=== PATIENT | female | born 1990 | race Hispanic/Latino ===

== ENCOUNTER 2017-11-28 19:26 | Emergency (ER) | payer OTHER ==
--- OUTSIDE RECORDS SUMMARY | 2017-11-28 19:28 | XMS REPORT | Clinical Summary ---
:1990 Author Organization [facility] Address [address] [place] [address] Phone Care Team Providers Name Role Phone Unavailable Primary Care Provider Unavailable Allergies Active Allergy Reactions Severity Noted Date Comments Latex, Natural Rubber Rash High 2017 Current Medications Prescription Sig. Disp. Refills Start Date End Date Status ondansetron Take 1 tablet 30 tablet 0 11/09/2017 12/09/2017 Active (ZOFRAN-ODT) 4 MG (4 mg total) disintegrating by mouth tablet every 8 (eight) hours as needed for up to 30 days. acetaminophen Take 500 mg Active (TYLENOL) 325 MG by mouth tablet every 6 (six) hours as needed for Pain. HYDROcodone-acetamin Take 1 tablet 30 tablet 0 11/09/2017 11/17/2017 Discontinued ophen (NORCO 5-325) by mouth 5-325 mg per tablet every 4 (four) hours as needed for up to 10 days. Max Daily Amount: 6 tablets Active Problems Problem Noted Date NUCLEAR REACTOR ENGINEER (ventriculoperitoneal) shunt status 11/17/2017 Headache 11/07/2017 Acute intractable headache, unspecified headache type 11/07/2017 Encounters Date Type Specialty Care Team Description 11/17/2017 - Hospital Encounter General Internal Janee Bateman VP 11/20/2017 Medicine (ventriculoperitoneal YaryFreddy simmsD ) shunt status;Fever, Rubén, unspecified fever Krystle Wong, cause;Peritonitis ([facility]);Nausea and vomiting, intractability of vomiting not specified, unspecified vomiting type;Constipation, unspecified constipation type 11/07/2017 Anesthesia Event Felecia Burt MD 11/07/2017 Procedure Pass 11/07/2017 Surgery Karo, JUAN,VENTRICULO-P MD Pop ERITONEAL SHUNT 2017 - Hospital Encounter General Internal Azael Cai Acute intractable 11/09/2017 Medicine MD Linsey headache, unspecified Admary Titilola headache type;Yulia RMD Cathy ventricle;S/P NUCLEAR REACTOR ENGINEER shunt after 11/27/2016 Social History Tobacco Use Types Packs/Day Years Used Date Never Smoker Smokeless Tobacco: Never Used Sex Assigned at Date Recorded Not on file Last Filed Vital Signs Vital Sign Reading Time Taken Blood Pressure 129/59 11/20/2017 3:27 PM CDT Pulse 82 11/20/2017 3:27 PM CDT Temperature 36.7 C (98.1 F) 11/20/2017 3:27 PM CDT Respiratory Rate 18 11/20/2017 3:27 PM CDT Oxygen Saturation 94% 11/20/2017 3:27 PM CDT Inhaled Oxygen Concentration - - Weight 103 kg (227 lb) 11/17/2017 11:20 PM CDT Height 152.4 cm (5') 11/17/2017 11:20 PM CDT Body Mass Index 44.33 11/17/2017 11:20 PM CDT Plan of Treatment Not on file Implants Implanted Type Area Desktop Publisher Device Expiration Model / Identifier Date Serial / Lot [facility] Full Strlprep 10ml [id number] - [id number] Cement/Fi Left: SWIFT: BIOSCI 03/06/2019 [id number] / Implanted: Qty: 1 on 11/07/2017 by Pop Huddleston MD ller/Pk Head / melissae [id number] Cath Csf Alyx Prog Shunt [id number] - [id number] Neuro Left: J &J:DALILA 12/01/2017 [id number] / Implanted: Qty: 1 on 11/07/2017 by Pop Huddleston MD Head & URTLEMARY / [id number] Valve Inline With Siphongaurd Left: DALILA 12/01/2021 [id number] / Implanted: Qty: 1 on 11/07/2017 by Pop Huddleston MD Head / [id number] Procedures Procedure Name Priority Date/Time Associated Diagnosis Comments REVISION,VENTRICULO-PER 11/07/2017 4:00 PM FOOD SERVICE REPRESENTATIVE HYDROCEPHALUS ITONEAL SHUNT Special Needs (REQ URGENT) after 11/27/2016 Results Calcium, Ionized (11/20/2017 5:38 AM)Only the most recent of4 resultswithin the time period is included. Component Value Ref Range Calcium, Ion 1.06 (L) 1.12 - 1.27 mmol/L pH, Blood 7.21 Specimen Performing Laboratory Blood - Arm, [address] [address] Prothrombin time/INR (11/20/2017 5:38 AM)Only the most recent of3 resultswithin the time period is included. Component Value Ref Range Protime 15.5 (H) 11.7 - 14.7 seconds INR 1.2 <=5.9 Specimen Performing Laboratory Blood - Arm, [address] [address] Narrative RECOMMENDED COUMADIN/WARFARIN INR THERAPY RANGES STANDARD DOSE: 2.0 - 3.0 Includes: PROPHYLAXIS for venous thrombosis, systemic embolization; TREATMENT for venous thrombosis and/or pulmonary embolus. HIGH RISK: Target INR is 2.5-3.5 for patients with mechanical heart valves. Magnesium (11/20/2017 5:38 AM)Only the most recent of6 resultswithin the time period is included. Component Value Ref Range Magnesium 2.0 1.6 - 2.6 mg/dL Specimen Performing Laboratory Blood - Arm, [address] [address] Hepatic function panel (11/20/2017 5:38 AM)Only the most recent of3 resultswithin the time period is included. Component Value Ref Range Protein, Total 7.2 6.0 - 8.3 gm/dL Albumin 3.7 3.5 - 5.0 g/dL Total Bilirubin <0.3 0.2 - 1.2 mg/dL Bilirubin, Direct 0.1 0.1 - 0.5 mg/dL Alkaline Phosphatase 165 (H) 40 - 150 U/L AST 26 5 - 34 U/L ALT 54 6 - 55 U/L Specimen Performing Laboratory Blood - Arm, [address] [address] Lipid panel (11/20/2017 5:38 AM)Only the most recent of3 resultswithin the time period is included. Component Value Ref Range Triglycerides 92 mg/dL Cholesterol 192 mg/dL HDL 45 mg/dL LDL Calculated 129 mg/dL Specimen Performing Laboratory Blood - Arm, [address] [address] Narrative Triglyceride Reference Range: Low Risk <150 [id number] High Risk 200-499 Very High Risk>=500 Cholesterol Reference Range: Low Risk <200 [id number] High Risk>240 HDL Cholesterol Reference Range: Low Risk >=60 High Risk <40 LDL Cholesterol Reference Range: Optimal<100 Near [id number] [id number] Very High >=190 Basic metabolic panel (11/20/2017 5:38 AM)Only the most recent of5 resultswithin the time period is included. Component Value Ref Range Sodium 143 136 - 145 meq/L Potassium 4.1 3.5 - 5.1 meq/L Chloride 117 (H) 98 - 107 meq/L CO2 13 (L) 22 - 29 meq/L BUN 17 7 - 21 mg/dL Creatinine 1.56 (H) 0.57 - 1.25 mg/dL Glucose 78 70 - 105 mg/dL Calcium 8.7 8.4 - 10.2 mg/dL EGFR 40Comment: ESTIMATED GFR IS NOT ACCURATE mL/min/1.73 sq m CREATININE CLEARANCE IN PREDICTING GLOMERULAR FILTRATION RATE. ESTIMATED GFR IS NOT APPLICABLE FOR DIALYSIS PATIENTS. Specimen Performing Laboratory Blood - Arm, [address] [address] Vitamin B12 and Folate (11/19/2017 5:46 AM) Component Value Ref Range Vitamin B12 235 213 - 816 pg/mL Folate 6.6 (L) >=7.0 ng/mL Specimen Performing Laboratory Blood - Arm, [address] [address] TSH/Free T4 If Indicated (11/19/2017 5:46 AM) Component Value Ref Range TSH 5.74 (H) 0.35 - 4.94 uIU/mL Specimen Performing Laboratory Blood - Arm, [address] [address] Vitamin D, 25-Hydroxy (11/19/2017 5:46 AM) Component Value Ref Range Vitamin D 25-Hydroxy 10.7 6.6 - 49.9 ng/mL Specimen Performing Laboratory Blood - Arm, [address] [address] Narrative Effective 06/13/2017: Reference Range Change New: 6.6-49.9 ng/mL Previous: 13.0-47.8 ng/mL Recommended Vitamin D Target Range: 30.0-40.0 ng/mL CBC (Hemogram only) (11/19/2017 5:46 AM) Component Value Ref Range WBC 10.8 (H) 3.5 - 10.5 K/L RBC 3.76 (L) 3.93 - 5.22 M/L Hemoglobin 8.4 (L) 11.2 - 15.7 GM/DL Hematocrit 30.3 (L) 34.1 - 44.9 % MCV 80.6 79.4 - 94.8 fL MCH 22.3 (L) 25.6 - 32.2 pg MCHC 27.7 (L) 32.2 - 35.5 GM/DL RDW 17.8 (H) 11.7 - 14.4 % Platelets 418 150 - 450 K/CU MM MPV 10.4 9.4 - 12.3 fL nRBC 0 0 - 0 /100 WBC Specimen Performing Laboratory Blood - Arm, [address] [address] T4, free (11/19/2017 5:46 AM) Component Value Ref Range Free T4 1.27 0.70 - 1.48 ng/dL Specimen Performing Laboratory Blood - Arm, [address] [address] Prealbumin (11/19/2017 5:46 AM) Component Value Ref Range Prealbumin 19 14 - 45 mg/dL Specimen Performing Laboratory Blood - Arm, [address] [address] Lipase (11/19/2017 5:46 AM) Component Value Ref Range Lipase 12 8 - 78 U/L Specimen Performing Laboratory Blood - Arm, [address] [address] Comprehensive metabolic panel (11/19/2017 5:46 AM) Component Value Ref Range Protein, Total 7.2 6.0 - 8.3 gm/dL Albumin 3.6 3.5 - 5.0 g/dL Alkaline Phosphatase 189 (H) 40 - 150 U/L Total Bilirubin 0.3 0.2 - 1.2 mg/dL Sodium 141 136 - 145 meq/L Potassium 4.0 3.5 - 5.1 meq/L Chloride 117 (H) 98 - 107 meq/L CO2 13 (L) 22 - 29 meq/L BUN 15 7 - 21 mg/dL Creatinine 1.46 (H) 0.57 - 1.25 mg/dL Glucose 81 70 - 105 mg/dL Calcium 8.5 8.4 - 10.2 mg/dL AST 59 (H) 5 - 34 U/L ALT 81 (H) 6 - 55 U/L EGFR 44Comment: ESTIMATED GFR IS NOT ACCURATE mL/min/1.73 sq m CREATININE CLEARANCE IN PREDICTING GLOMERULAR FILTRATION RATE. ESTIMATED GFR IS NOT APPLICABLE FOR DIALYSIS PATIENTS. Specimen Performing Laboratory Blood - Arm, Right [address] [address] Clostridium difficile Toxin PCR (11/18/2017 3:25 PM) Component Value Ref Range C.Diff Toxin, PCR Not Detected Not Detected Specimen Performing Laboratory Stool [address] [address] Narrative This qualitative real-time polymerase chain reaction assay detects the tcdB gene, encoded on the C.difficile pathogenicity locus (PaLoc).The product of tcdB , toxin B, is a cytotoxin essential for causing C.difficile-associated disease (CDAD) and is found in virtually all toxigenic C.difficile. This assay is performed for patients suspected of having either community- acquired or nosocomial CDAD.Accordingly, only symptomatic patients should be tested and formed stools will be rejected unless ileus is present (i.e., specified when ordering).Patients may be colonized with toxigenic C.difficile strains not causing active disease; therefore, clinical correlation is needed when deciding how to manage patients with a positive test result. The assay has not been validated as a test of cure as amplifiable nucleic acid may persist after effective treatment; therefore, follow-up testing of a positive result is not recommended. XR abdomen / KUB 1 view (11/18/2017 8:23 AM) Specimen Performing Laboratory GE RIS Narrative FINAL REPORT Frontal views of the abdomen HISTORY: Abdominal distention COMPARISON: None. IMPRESSION: Previously administered oral contrast material outlines the colon. Nondistended air-filled loops of small bowel and colon are seen in a nonobstructive pattern. There is a moderate amount of stool in the rectum. Partially visualized shunt catheter in the left abdomen. Lung bases are clear. Signed: Roger Poe MD Report Verified Date/Time:11/18/2017 08:39:46 Reading Location: [address] Body Reading Room Procedure Note Interface, External Ris In - 11/18/2017 8:41 AM CDT FINAL REPORT Frontal views of the abdomen HISTORY: Abdominal distention COMPARISON: None. IMPRESSION: Previously administered oral contrast material outlines the colon. Nondistended air-filled loops of small bowel and colon are seen in a nonobstructive pattern. There is a moderate amount of stool in the rectum. Partially visualized shunt catheter in the left abdomen. Lung bases are clear. Signed: Roger Poe MD Report Verified Date/Time: 11/18/2017 08:39:46 Reading Location: [facility] C013Y CT Body Reading Room with platelet count + automated diff (11/18/2017 4:50 AM)Only the most recent of4 resultswithin the time period is included. Component Value Ref Range WBC 17.3 (H) 3.5 - 10.5 K/L RBC 3.48 (L) 3.93 - 5.22 M/L Hemoglobin 7.7 (L) 11.2 - 15.7 GM/DL Hematocrit 28.1 (L) 34.1 - 44.9 % MCV 80.7 79.4 - 94.8 fL MCH 22.1 (L) 25.6 - 32.2 pg MCHC 27.4 (L) 32.2 - 35.5 GM/DL RDW 17.8 (H) 11.7 - 14.4 % Platelets 370 150 - 450 K/CU MM MPV 10.7 9.4 - 12.3 fL nRBC 0 0 - 0 /100 WBC % Neutros 77 % % Lymphs 13 % % Monos 5 % % Eos 4 % % Baso 0 % # Neutros 13.38 (H) 1.56 - 6.13 K/L # Lymphs 2.23 1.18 - 3.74 K/L # Monos 0.89 (H) 0.24 - 0.36 K/L # Eos 0.67 (H) 0.04 - 0.36 K/L # Baso 0.03 0.01 - 0.08 K/L Immature Granulocytes-Relative 1 0 - 1 % Specimen Performing Laboratory Blood - Arm, Left [facility] [address] [address] CBC with platelet count + automated diff (11/18/2017 4:50 AM)Only the most recent of4 resultswithin the time period is included. Specimen Performing Laboratory Blood Narrative The following orders were created for panel order CBC with platelet count + automated diff. Procedure Abnormality Status --------- ------ CBC with platelet count ...[[id number]]AbnormalFinal result Please view results for these tests on the individual orders. US abdomen complete (11/17/2017 9:41 PM) Specimen Performing Laboratory Celect Narrative FINAL REPORT Ultrasound of the Abdomen, complete Clinical History:Ascites Discussion: Sonographic evaluation of the abdomen was performed. There is no prior study for comparison. Liver: 10.7 cm in length at the right midclavicular line.Mildly echogenic parenchyma.No lesion is identified by ultrasound.Main portal vein diameter 0.7 cm and demonstrates hepatopetal flow Biliary tree:Common duct 4 mm.No biliary ductal dilatation. Gallbladder: Physiologically distended with small layering sludge or small stones. Gallbladder adenomyomatosis. No wall thickening, pericholecystic fluid or sonographic Mckinney sign. Pancreas: Obscured by bowel gas. Ascites:None seen Spleen:Normal size and echogenicity measuring 10.6 x 3.7 x 4.3 cm. Kidneys: Both kidneys are echogenic and not well visualized. The right kidney is atrophic with poor corticomedullary differentiation. The right kidney measures 10.2 x 4 x 4 cm. There is a 1.6 x 1.1 x 1.5 cm cyst in the upper pole of the right kidney. The left kidney measures 9.5 x 4.7 x 4.7 cm with cortical thickness of 1 cm. There is a 2 x 1.3 x 1.9 cm cyst in the left renal upper pole. There is no hydronephrosis or definite shadowing stone. IVC/Aorta:Segments partially seen.Unremarkable. Impression: Mildly echogenic liver which may be seen with parenchymal disease such as fatty infiltration. Cholelithiasis. No biliary ductal dilatation. Echogenic kidneys suggesting medical renal disease. Atrophic right kidney. Small bilateral renal cysts. Clinical correlation is recommended. No ascites. Signed: Roberto Lizama MD Report Verified Date/Time:11/17/2017 23:11:49 Reading Location: [address] Transitional Reading Room Procedure Note Interface, External Ris In - 11/17/2017 11:14 PM CDT FINAL REPORT Ultrasound of the Abdomen, complete Clinical History: Ascites Discussion: Sonographic evaluation of the abdomen was performed. There is no prior study for comparison. Liver: 10.7 cm in length at the right midclavicular line. Mildly echogenic parenchyma. No lesion is identified by ultrasound. Main portal vein diameter 0.7 cm and demonstrates hepatopetal flow Biliary tree: Common duct 4 mm. No biliary ductal dilatation. Gallbladder: Physiologically distended with small layering sludge or small stones. Gallbladder adenomyomatosis. No wall thickening, pericholecystic fluid or sonographic Mckinney sign. Pancreas: Obscured by bowel gas. Ascites: None seen Spleen: Normal size and echogenicity measuring 10.6 x 3.7 x 4.3 cm. Kidneys: Both kidneys are echogenic and not well visualized. The right kidney is atrophic with poor corticomedullary differentiation. The right kidney measures 10.2 x 4 x 4 cm. There is a 1.6 x 1.1 x 1.5 cm cyst in the upper pole of the right kidney. The left kidney measures 9.5 x 4.7 x 4.7 cm with cortical thickness of 1 cm. There is a 2 x 1.3 x 1.9 cm cyst in the left renal upper pole. There is no hydronephrosis or definite shadowing stone. IVC/Aorta: Segments partially seen. Unremarkable. Impression: Mildly echogenic liver which may be seen with parenchymal disease such as fatty infiltration. Cholelithiasis. No biliary ductal dilatation. Echogenic kidneys suggesting medical renal disease. Atrophic right kidney. Small bilateral renal cysts. Clinical correlation is recommended. No ascites. Signed: Roberto Lizama MD Report Verified Date/Time: 11/17/2017 23:11:49 Reading Location: [facility] Reading Room Urine culture (11/17/2017 3:29 PM)Only the most recent of2 resultswithin the time period is included. Component Value Ref Range Result No growth Specimen Performing Laboratory Urine - Urine, Urostomy [address] [address] RHYTHM STRIP - SCAN (11/12/2017 11:40 AM)Phosphorus (11/09/2017 5:34 AM)Only the most recent of3 resultswithin the time period is included. Component Value Ref Range Phosphorus 3.4 2.3 - 4.7 mg/dL Specimen Performing Laboratory Blood [address] [address] XR shunt series (11/08/2017 9:00 PM)Only the most recent of2 resultswithin the time period is included. Specimen Performing Laboratory GE RIS Narrative FINAL REPORT EXAM: SHUNT SERIES INDICATION: postop COMPARISON: November 07, 2017 TECHNIQUE: Radiographs of the skull, chest, and abdomen. FINDINGS: Interval placement of right transfrontal ventriculoperitoneal shunt catheter with tip near midline. The distal limb is intact without breakage or kinking. Adjustable flow device: Codman Certas set to performance level four. Chest: The lungs are clear. Abdomen: The bowel gas pattern is unremarkable. Additional Findings: Previously described occipital approach NUCLEAR REACTOR ENGINEER shunt catheter unchanged when compared to the prior exam. Disconnected right-sided catheter segment is also changed as it overlies the thoracic cavity. IMPRESSION: Interval placement of a Codman Certas NUCLEAR REACTOR ENGINEER shunt set to performance level 4. Signed: JR Nettles Robert MD Report Verified Date/Time:11/08/2017 21:37:02 Reading Location: [address] Reading Room Procedure Note Interface, External Ris In - 11/08/2017 9:39 PM FOOD SERVICE REPRESENTATIVE FINAL REPORT EXAM: SHUNT SERIES INDICATION: postop COMPARISON: November 07, 2017 TECHNIQUE: Radiographs of the skull, chest, and abdomen. FINDINGS: Interval placement of right transfrontal ventriculoperitoneal shunt catheter with tip near midline. The distal limb is intact without breakage or kinking. Adjustable flow device: Codman Certas set to performance level four. Chest: The lungs are clear. Abdomen: The bowel gas pattern is unremarkable. Additional Findings: Previously described occipital approach NUCLEAR REACTOR ENGINEER shunt catheter unchanged when compared to the prior exam. Disconnected right-sided catheter segment is also changed as it overlies the thoracic cavity. IMPRESSION: Interval placement of a Codman Certas NUCLEAR REACTOR ENGINEER shunt set to performance level 4. Signed: JR Nettles Robert MD Report Verified Date/Time: 11/08/2017 21:37:02 Reading Location: [address] Reading Room SFUSION SERVICE REPORT - SCAN (11/08/2017 5:41 PM)CT brain without IV contrast (11/08/2017 5:54 AM)Only the most recent of2 resultswithin the time period is included. Specimen Performing Laboratory [email or web address] RIS Narrative FINAL REPORT CT Head without contrast CLINICAL HISTORY: Hydrocephalus, communicating TECHNIQUE: Contiguous axial images through the head without contrast. This exam was performed according to the departmental dose optimization program which includes automated exposure control, adjustment of the mA and/or kV according to the patient size, and/or use of an iterative reconstruction technique. COMPARISON: 11/07/2017 FINDINGS: There is been interval placement of a left frontal approach ventricular shunt catheter terminating to the left of the septum pellucidum. The previous left posterior approach shunt catheter is unchanged. There is expected pneumocephalus. The degree of hydrocephalus is currently unchanged. There is no CT evidence for acute infarct or hemorrhage. There is no midline shift. The cerebellar tonsils are again low lying protruding into the foramen magnum. IMPRESSION: Since 11/07/2017, interval placement of a left frontal approach ventricular shunt catheter as discussed above. Signed: Sam Key MD Report Verified Date/Time:11/08/2017 08:07:55 Reading Location: [facility] Reading Room Procedure Note Interface, External Ris In - 11/08/2017 8:10 AM FOOD SERVICE REPRESENTATIVE FINAL REPORT CT Head without contrast CLINICAL HISTORY: Hydrocephalus, communicating TECHNIQUE: Contiguous axial images through the head without contrast. This exam was performed according to the departmental dose optimization program which includes automated exposure control, adjustment of the mA and/or kV according to the patient size, and/or use of an iterative reconstruction technique. COMPARISON: 11/07/2017 FINDINGS: There is been interval placement of a left frontal approach ventricular shunt catheter terminating to the left of the septum pellucidum. The previous left posterior approach shunt catheter is unchanged. There is expected pneumocephalus. The degree of hydrocephalus is currently unchanged. There is no CT evidence for acute infarct or hemorrhage. There is no midline shift. The cerebellar tonsils are again low lying protruding into the foramen magnum. IMPRESSION: Since 11/07/2017, interval placement of a left frontal approach ventricular shunt catheter as discussed above. Signed: Sam Key MD Report Verified Date/Time: 11/08/2017 08:07:55 Reading Location: [facility] Radiology Reading Room Screen, urine (11/07/2017 8:41 AM) Component Value Ref Range Preg Test, Ur Negative Specimen Performing Laboratory Urine - Urine, Voided [address] [address] Urinalysis w/Microscopic (11/07/2017 8:41 AM) Component Value Ref Range Color, UA Light Yellow Clarity, UA Hazy Specific [place], UA 1.006 1.001 - 1.035 pH, UA 7.5 5.0 - 8.0 Protein, UA 30 mg/dL (A) Negative Glucose, UA Negative Negative Ketones, UA Negative Negative Bilirubin, UA Negative Negative Blood, UA Negative Negative Nitrite, UA Negative Negative Leukocytes, UA Moderate (A) Negative Urobilinogen, UA 6.0 (H) 0.2 - 1.0 mg/dL RBC, UA 2 /HPF WBC, UA 1 /HPF Amorphous Crystals Moderate Specimen Source Urine, Voided Specimen Performing Laboratory Urine - Urine, Voided [address] [address] Type and screen, automated (11/07/2017 3:06 AM) Component Value Ref Range ABO/RH AUTOMATED (BEAKER) A POSITIVE Ab Scrn NEGATIVEComment: Echo 2 Specimen Performing Laboratory Blood - Arm, Right [address] [address] PT/aPTT (11/07/2017 3:06 AM) Component Value Ref Range Protime 15.6 (H) 11.7 - 14.7 seconds INR 1.2 <=5.9 PTT 31.1 22.5 - 36.0 seconds Specimen Performing Laboratory Blood - Arm, Right [address] [address] Narrative RECOMMENDED COUMADIN/WARFARIN INR THERAPY RANGES STANDARD DOSE: 2.0 - 3.0 Includes: PROPHYLAXIS for venous thrombosis, systemic embolization; TREATMENT for venous thrombosis and/or pulmonary embolus. HIGH RISK: Target INR is 2.5-3.5 for patients with mechanical heart valves. after 11/27/2016
--- OUTSIDE RECORDS SUMMARY | 2017-11-28 19:29 | XMS REPORT ---
:1990 [facility] [address] [place] [address] Care Team Providers Name Role Phone OLIVIA PERAZA Unavailable Unavailable DYLAN ADAMS Unavailable Unavailable Problems This patient has no known problems. Allergies, Adverse Reactions, Alerts This patient has no known allergies or adverse reactions. Medications This patient has no known medications. Results Test Description Test Time Test Comments Text Results Atomic Results Result Comments MAGNESIUM 2017-11-20 13:05:00 Test Item Value Reference Range Comments MAGNESIUM (BEAKER) (test wzqf=639) 2.0 mg/dL 1.6-2.6 BASIC METABOLIC [id number] 12:48:00 Test Item Value Reference Range Comments SODIUM (BEAKER) (test 143 meq/L 136-145 zfrf=437) POTASSIUM (BEAKER) (test 4.1 meq/L 3.5-5.1 zkdt=734) CHLORIDE (BEAKER) (test 117 meq/L 98-107 twgm=619) CO2 (BEAKER) (test 13 meq/L 22-29 owpm=795) BLOOD UREA NITROGEN 17 mg/dL 7-21 (BEAKER) (test mclh=702) CREATININE (BEAKER) (test 1.56 mg/dL 0.57-1.25 nhev=476) GLUCOSE RANDOM (BEAKER) 78 mg/dL 70-105 (test auew=983) CALCIUM (BEAKER) (test 8.7 mg/dL 8.4-10.2 knbr=641) EGFR (BEAKER) (test 40 mL/min/1.73 sq m ESTIMATED GFR IS NOT tiuh=0212) ACCURATE CREATININE CLEARANCE IN PREDICTING GLOMERULAR FILTRATION RATE. ESTIMATED GFR IS NOT APPLICABLE FOR DIALYSIS PATIENTS. LIPID [id number] 12:48:00 Test Item Value Reference Range Comments TRIGLYCERIDES (BEAKER) (test hslg=608) 92 mg/dL CHOLESTEROL (BEAKER) (test tkvd=473) 192 mg/dL HDL CHOLESTEROL (BEAKER) (test pvjm=340) 45 mg/dL LDL CHOLESTEROL CALCULATED (BEAKER) (test 129 mg/dL arsh=371) Triglyceride Reference Range: Low Risk <150 Borderline 150- 199 High Risk 200-499 Very High Risk >=500Cholesterol Reference Range: Low Risk <200 Borderline 200-239 High Risk > 240HDL Cholesterol Reference Range: Low Risk >=60 High Risk <40LDL Cholesterol Reference Range: Optimal <100 Near Optimal 100-129 Borderline 130-159 High 160-189 Very High >=190HEPATIC FUNCTION [id number] 12:48:00 Test Item Value Reference Range Comments TOTAL PROTEIN (BEAKER) (test psrv=174) 7.2 gm/dL 6.0-8.3 ALBUMIN (BEAKER) (test jafn=4785) 3.7 g/dL 3.5-5.0 BILIRUBIN TOTAL (BEAKER) (test mise=182) < mg/dL 0.2-1.2 BILIRUBIN DIRECT (BEAKER) (test hstz=819) 0.1 mg/dL 0.1-0.5 ALKALINE PHOSPHATASE (BEAKER) (test vvdq=412) 165 U/L 40-150 AST (SGOT) (BEAKER) (test bsjc=231) 26 U/L 5-34 ALT (SGPT) (BEAKER) (test nybz=712) 54 U/L 6-55 CALCIUM, [id number] 08:06:00 Test Item Value Reference Range Comments CALCIUM IONIZED (BEAKER) (test utlv=487) 1.06 mmol/L 1.12-1.27 PH, BLOOD (BEAKER) (test hnel=5558) 7.21 PROTHROMBIN [id number] 06:17:00 Test Item Value Reference Range Comments PROTIME (BEAKER) (test xjli=474) 15.5 seconds 11.7-14.7 INR (BEAKER) (test lgnl=141) 1.2 <=5.9 RECOMMENDED COUMADIN/WARFARIN INR THERAPY RANGESSTANDARD DOSE: 2.0 - 3.0 Includes: PROPHYLAXIS forvenous thrombosis, systemic embolization; TREATMENT for venous thrombosis and/or pulmonary embolus.HIGH RISK: Target INR is 2.5-3.5 for patients with mechanical heart valves.T4, [id number] 17:02:00 Test Item Value Reference Range Comments FREE T4 (BEAKER) (test rwut=672) 1.27 ng/dL 0.70-1.48 [id number] 12:17:00 Test Item Value Reference Range Comments PREALBUMIN (BEAKER) (test rqoy=211) 19 mg/dL 14-45 [id number] 11:57:00 Test Item Value Reference Range Comments MAGNESIUM (BEAKER) (test cnag=416) 2.0 mg/dL 1.6-2.6 VITAMIN D, [id number] 11:30:00 Test Item Value Reference Range Comments VITAMIN D 25-OH (BEAKER) (test ohee=5275) 10.7 ng/mL 6.6-49.9 Effective 06/13/2017: Reference Range ChangeNew: 6.6-49.9 ng/mL Previous: 13.0 -47.8 ng/mLRecommended Vitamin D Target Range: 30.0-40.0 ng/mLVITAMIN B12 AND [id number] 11:30:00 Test Item Value Reference Range Comments VITAMIN B12 (BEAKER) (test sgpv=316) 235 pg/mL 213-816 FOLATE (BEAKER) (test hllr=940) 6.6 ng/mL >=7.0 TSH/FREE T4 IF [id number] 11:30:00 Test Item Value Reference Range Comments THYROID STIMULATING HORMONE (BEAKER) (test 5.74 uIU/mL 0.35-4.94 psjo=739) LIPID [id number] 10:51:00 Test Item Value Reference Range Comments TRIGLYCERIDES (BEAKER) (test kdzy=813) 95 mg/dL CHOLESTEROL (BEAKER) (test xfar=416) 180 mg/dL HDL CHOLESTEROL (BEAKER) (test isng=335) 47 mg/dL LDL CHOLESTEROL CALCULATED (BEAKER) (test 114 mg/dL uyhf=861) Triglyceride Reference Range: Low Risk <150 Borderline 150- 199 High Risk 200-499 Very High Risk >=500Cholesterol Reference Range: Low Risk <200 Borderline 200-239 High Risk > 240HDL Cholesterol Reference Range: Low Risk >=60 High Risk <40LDL Cholesterol Reference Range: Optimal <100 Near Optimal 100-129 Borderline 130-159 High 160-189 Very High >=190HEPATIC FUNCTION [id number] 10:51:00 Test Item Value Reference Range Comments TOTAL PROTEIN (BEAKER) (test gdsk=567) 7.2 gm/dL 6.0-8.3 ALBUMIN (BEAKER) (test rver=9333) 3.6 g/dL 3.5-5.0 BILIRUBIN TOTAL (BEAKER) (test qjcj=725) 0.3 mg/dL 0.2-1.2 BILIRUBIN DIRECT (BEAKER) (test gdpi=295) 0.2 mg/dL 0.1-0.5 ALKALINE PHOSPHATASE (BEAKER) (test xhqa=304) 189 U/L 40-150 AST (SGOT) (BEAKER) (test iohg=856) 59 U/L 5-34 ALT (SGPT) (BEAKER) (test hacl=390) 81 U/L 6-55 COMPREHENSIVE METABOLIC [id number] 10:51:00 Test Item Value Reference Range Comments TOTAL PROTEIN (BEAKER) 7.2 gm/dL 6.0-8.3 (test nskf=608) ALBUMIN (BEAKER) (test 3.6 g/dL 3.5-5.0 apxx=3020) ALKALINE PHOSPHATASE 189 U/L 40-150 (BEAKER) (test hlyh=565) BILIRUBIN TOTAL (BEAKER) 0.3 mg/dL 0.2-1.2 (test zqot=483) SODIUM (BEAKER) (test 141 meq/L 136-145 wduv=965) POTASSIUM (BEAKER) (test 4.0 meq/L 3.5-5.1 oqef=595) CHLORIDE (BEAKER) (test 117 meq/L 98-107 cyuo=129) CO2 (BEAKER) (test 13 meq/L 22-29 pzjw=432) BLOOD UREA NITROGEN 15 mg/dL 7-21 (BEAKER) (test xhca=806) CREATININE (BEAKER) (test 1.46 mg/dL 0.57-1.25 vwfp=168) GLUCOSE RANDOM (BEAKER) 81 mg/dL 70-105 (test koor=877) CALCIUM (BEAKER) (test 8.5 mg/dL 8.4-10.2 zpti=086) AST (SGOT) (BEAKER) (test 59 U/L 5-34 bbar=520) ALT (SGPT) (BEAKER) (test 81 U/L 6-55 smrt=946) EGFR (BEAKER) (test 44 mL/min/1.73 sq m ESTIMATED GFR IS NOT vkwy=0386) ACCURATE CREATININE CLEARANCE IN PREDICTING GLOMERULAR FILTRATION RATE. ESTIMATED GFR IS NOT APPLICABLE FOR DIALYSIS PATIENTS. [id number] 10:51:00 Test Item Value Reference Range Comments LIPASE (BEAKER) (test mjey=948) 12 U/L 8-78 URINE [id number] 09:46:00 Test Item Value Reference Range Comments CULTURE (BEAKER) (test rvxo=6044) No growth CLOSTRIDIUM DIFFICILE TOXIN [id number] 09:04:00 Test Item Value Reference Range Comments CLOSTRIDIUM DIFFICILE TOXIN, PCR ([facility]) (test Not Detected Not Detected swjd=0174) This qualitative real-time polymerase chain reaction assay detects the tcdB gene , encoded on the C.difficile pathogenicity locus (PaLoc). The product of tcdB, toxin B, is a cytotoxin essential for causing C.difficile-associated disease ( CDAD) and is found in virtually all toxigenic C.difficile.This assay is performed for patients suspected of having either community-acquired or nosocomial CDAD. Accordingly, only symptomatic patients should be tested and formed stools will be rejected unless ileus is present (i.e., specified when ordering). Patients may be colonized with toxigenic C.difficile strains not causing active disease; therefore, clinical correlation is needed when deciding how to manage patients with a positive test result.The assay has not been validated as a test of cure as amplifiable nucleic acid may persist after effective treatment; therefore, follow-up testing of a positive result is not recommended.CALCIUM, [id number] 07:10:00 Test Item Value Reference Range Comments CALCIUM IONIZED (BEAKER) (test suse=592) 1.14 mmol/L 1.12-1.27 PH, BLOOD (BEAKER) (test yprk=5268) 7.22 CALCIUM, [id number] 06:43:00 Test Item Value Reference Range Comments CALCIUM IONIZED (BEAKER) (test icfh=218) 0.82 mmol/L 1.12-1.27 PH, BLOOD (BEAKER) (test pcvi=3722) 7.32 CBC (HEMOGRAM ONLY)2017-11-19 06:29:00 Test Item Value Reference Range Comments WHITE BLOOD CELL COUNT (BEAKER) (test pfxm=886) 10.8 K/ L 3.5-10.5 RED BLOOD CELL COUNT (BEAKER) (test hqnd=822) 3.76 M/ L 3.93-5.22 HEMOGLOBIN (BEAKER) (test wean=242) 8.4 GM/DL 11.2-15.7 HEMATOCRIT (BEAKER) (test cpny=778) 30.3 % 34.1-44.9 MEAN CORPUSCULAR VOLUME (BEAKER) (test nkdi=297) 80.6 fL 79.4-94.8 MEAN CORPUSCULAR HEMOGLOBIN (BEAKER) (test 22.3 pg 25.6-32.2 kepu=534) MEAN CORPUSCULAR HEMOGLOBIN CONC (BEAKER) (test 27.7 GM/DL 32.2-35.5 mtgy=094) RED CELL DISTRIBUTION WIDTH (BEAKER) (test 17.8 % 11.7-14.4 bjbl=882) PLATELET COUNT (BEAKER) (test doop=122) 418 K/CU MM 150-450 MEAN PLATELET VOLUME (BEAKER) (test hpnz=789) 10.4 fL 9.4-12.3 NUCLEATED RED BLOOD CELLS (BEAKER) (test 0 /100 WBC 0-0 ttji=801) PROTHROMBIN [id number] 06:20:00 Test Item Value Reference Range Comments PROTIME (BEAKER) (test igak=232) 15.7 seconds 11.7-14.7 INR (BEAKER) (test qtms=332) 1.2 <=5.9 RECOMMENDED COUMADIN/WARFARIN INR THERAPY RANGESSTANDARD DOSE: 2.0 - 3.0 Includes: PROPHYLAXIS forvenous thrombosis, systemic embolization; TREATMENT for venous thrombosis and/or pulmonary embolus.HIGH RISK: Target INR is 2.5-3.5 for patients with mechanical heart valves.RAD, ABDOMEN/KUB, 1 VIEW [id number] 08:39:00Reason for exam:->abdominal distension'Should this be performed at the bedside?->YesFINAL REPORT Frontal views of the abdomen HISTORY: Abdominal distention COMPARISON: None. IMPRESSION: Previously administered oral contrast material outlines the colon. Nondistended air-filled loops of small bowel and colon are seen in a nonobstructive pattern. There is a moderate amount of stool in the rectum. Partially visualized shunt catheter in the left abdomen. Lung bases are clear. Signed: Roger Small MDReport Verified Date/Time: 11/18/2017 08:39:46 Reading Location:[facility] C013Y CT Body Reading Room CALCIUM, [id number] 07:00:00 Test Item Value Reference Range Comments CALCIUM IONIZED (BEAKER) (test bdel=107) 1.12 mmol/L 1.12-1.27 PH, BLOOD (BEAKER) (test gkct=5123) 7.18 CBC W/PLT COUNT & AUTO [id number] 06:37:00 Test Item Value Reference Range Comments WHITE BLOOD CELL COUNT (BEAKER) (test zwbi=713) 17.3 K/ L 3.5-10.5 RED BLOOD CELL COUNT (BEAKER) (test pjzu=250) 3.48 M/ L 3.93-5.22 HEMOGLOBIN (BEAKER) (test mows=681) 7.7 GM/DL 11.2-15.7 HEMATOCRIT (BEAKER) (test wplj=820) 28.1 % 34.1-44.9 MEAN CORPUSCULAR VOLUME (BEAKER) (test rxxj=818) 80.7 fL 79.4-94.8 MEAN CORPUSCULAR HEMOGLOBIN (BEAKER) (test 22.1 pg 25.6-32.2 ljyb=547) MEAN CORPUSCULAR HEMOGLOBIN CONC (BEAKER) (test 27.4 GM/DL 32.2-35.5 bmjs=667) RED CELL DISTRIBUTION WIDTH (BEAKER) (test 17.8 % 11.7-14.4 xxdd=780) PLATELET COUNT (BEAKER) (test affd=051) 370 K/CU MM 150-450 MEAN PLATELET VOLUME (BEAKER) (test wcdu=271) 10.7 fL 9.4-12.3 NUCLEATED RED BLOOD CELLS (BEAKER) (test 0 /100 WBC 0-0 ywkj=779) NEUTROPHILS RELATIVE PERCENT (BEAKER) (test 77 % anyo=559) LYMPHOCYTES RELATIVE PERCENT (BEAKER) (test 13 % uone=726) MONOCYTES RELATIVE PERCENT (BEAKER) (test 5 % kali=656) EOSINOPHILS RELATIVE PERCENT (BEAKER) (test 4 % hyxr=614) BASOPHILS RELATIVE PERCENT (BEAKER) (test 0 % fiee=696) NEUTROPHILS ABSOLUTE COUNT (BEAKER) (test 13.38 K/ L 1.56-6.13 evyr=746) LYMPHOCYTES ABSOLUTE COUNT (BEAKER) (test 2.23 K/ L 1.18-3.74 wazl=942) MONOCYTES ABSOLUTE COUNT (BEAKER) (test 0.89 K/ L 0.24-0.36 juwp=743) EOSINOPHILS ABSOLUTE COUNT (BEAKER) (test 0.67 K/ L 0.04-0.36 yraj=405) BASOPHILS ABSOLUTE COUNT (BEAKER) (test 0.03 K/ L 0.01-0.08 tsbv=590) IMMATURE GRANULOCYTES-RELATIVE PERCENT (BEAKER) 1 % 0-1 (test cjnn=5160) [id number] 05:50:00 Test Item Value Reference Range Comments MAGNESIUM (BEAKER) (test oblz=932) 2.1 mg/dL 1.6-2.6 BASIC METABOLIC [id number] 05:50:00 Test Item Value Reference Range Comments SODIUM (BEAKER) (test 141 meq/L 136-145 sbiz=460) POTASSIUM (BEAKER) (test 4.2 meq/L 3.5-5.1 nfct=065) CHLORIDE (BEAKER) (test 119 meq/L 98-107 sdtu=893) CO2 (BEAKER) (test 13 meq/L 22-29 zmfw=430) BLOOD UREA NITROGEN 20 mg/dL 7-21 (BEAKER) (test kbub=305) CREATININE (BEAKER) (test 1.52 mg/dL 0.57-1.25 hebm=778) GLUCOSE RANDOM (BEAKER) 76 mg/dL 70-105 (test awpn=462) CALCIUM (BEAKER) (test 8.1 mg/dL 8.4-10.2 xsdb=549) EGFR (BEAKER) (test 42 mL/min/1.73 sq m ESTIMATED GFR IS NOT btlw=0193) ACCURATE CREATININE CLEARANCE IN PREDICTING GLOMERULAR FILTRATION RATE. ESTIMATED GFR IS NOT APPLICABLE FOR DIALYSIS PATIENTS. LIPID [id number] 05:50:00 Test Item Value Reference Range Comments TRIGLYCERIDES (BEAKER) (test oxxm=109) 58 mg/dL CHOLESTEROL (BEAKER) (test zbmr=013) 129 mg/dL HDL CHOLESTEROL (BEAKER) (test lfxb=738) 39 mg/dL LDL CHOLESTEROL CALCULATED (BEAKER) (test 78 mg/dL pfac=515) Triglyceride Reference Range: Low Risk <150 Borderline 150- 199 High Risk 200-499 Very High Risk >=500Cholesterol Reference Range: Low Risk <200 Borderline 200-239 High Risk > 240HDL Cholesterol Reference Range: Low Risk >=60 High Risk <40LDL Cholesterol Reference Range: Optimal <100 Near Optimal 100-129 Borderline 130-159 High 160-189 Very High >=190HEPATIC FUNCTION [id number] 05:50:00 Test Item Value Reference Range Comments TOTAL PROTEIN (BEAKER) (test rldz=102) 6.2 gm/dL 6.0-8.3 ALBUMIN (BEAKER) (test mcvw=5539) 3.1 g/dL 3.5-5.0 BILIRUBIN TOTAL (BEAKER) (test zuoy=734) 0.4 mg/dL 0.2-1.2 BILIRUBIN DIRECT (BEAKER) (test pugk=042) 0.3 mg/dL 0.1-0.5 ALKALINE PHOSPHATASE (BEAKER) (test ugje=252) 204 U/L 40-150 AST (SGOT) (BEAKER) (test jbpm=493) 138 U/L 5-34 ALT (SGPT) (BEAKER) (test vhkj=551) 107 U/L 6-55 PROTHROMBIN [id number] 05:22:00 Test Item Value Reference Range Comments PROTIME (BEAKER) (test ihwf=519) 17.0 seconds 11.7-14.7 INR (BEAKER) (test tbgg=372) 1.4 <=5.9 RECOMMENDED COUMADIN/WARFARIN INR THERAPY RANGESSTANDARD DOSE: 2.0 - 3.0 Includes: PROPHYLAXIS forvenous thrombosis, systemic embolization; TREATMENT for venous thrombosis and/or pulmonary embolus.HIGH RISK: Target INR is 2.5-3.5 for patients with mechanical heart valves.U/S, ABDOMINAL, [id number] 23: 11:00Reason for exam:->ASCITESFINAL REPORT Ultrasound of the Abdomen, complete Clinical [...] kidney is atrophic with poor corticomedullary differentiation. Theright kidney measures 10.2 x 4 x 4 [...] Clinical correlation is recommended. No ascites. Signed: Lisa Lizama MDReport Verified Date/Time: 11/17/2017 23:11 :49 Reading Location: [address] Transitional Reading Room URINE [id number] 10:40:00 Test Item Value Reference Range Comments CULTURE (BEAKER) (test nuix=0630) Amikacin (test code=1) Ampicillin + Sulbactam (test code=6) Aztreonam (test code=32) Cefepime (test code=51) Cefoxitin (test code=68) Ceftazidime (test code=27) Ceftriaxone (test code=52) Ertapenem (test code=38) Gentamicin (test code=18) Levofloxacin (test code=22) Meropenem (test code=34) Nitrofurantoin (test code=23) Piperacillin + Tazobactam (test code=29) Tetracycline (test code=2) Tobramycin (test code=25) Trimethoprim + Sulfamethoxazole (test code=47) CULTURE (BEAKER) (test KLEBSIELLA SPECIES 20-29,000 col/mL rgir=5269) Klebsiella species Amikacin (test code=1) Ampicillin + Sulbactam (test code=6) Aztreonam (test code=32) Cefepime (test code=51) Cefoxitin (test code=68) Ceftazidime (test code=27) Ceftriaxone (test code=52) Ertapenem (test code=38) Gentamicin (test code=18) Levofloxacin (test code=22) Meropenem (test code=34) Nitrofurantoin (test code=23) Piperacillin + Tazobactam (test code=29) Tetracycline (test code=2) Tobramycin (test code=25) Trimethoprim + Sulfamethoxazole (test code=47) CULTURE (BEAKER) (test 20-29,000 col/mL acft=6949) Klebsiella speciesof a second type >100,000 col/mL skin [id number] 07:47:00 Test Item Value Reference Range Comments PHOSPHORUS (BEAKER) (test bybz=680) 3.4 mg/dL 2.3-4.7 [id number] 07:47:00 Test Item Value Reference Range Comments MAGNESIUM (BEAKER) (test crry=738) 2.2 mg/dL 1.6-2.6 BASIC METABOLIC [id number] 07:47:00 Test Item Value Reference Range Comments SODIUM (BEAKER) (test 141 meq/L 136-145 lsui=544) POTASSIUM (BEAKER) (test 3.4 meq/L 3.5-5.1 qoco=291) CHLORIDE (BEAKER) (test 116 meq/L 98-107 zipm=224) CO2 (BEAKER) (test 17 meq/L 22-29 ejiq=393) BLOOD UREA NITROGEN 17 mg/dL 7-21 (BEAKER) (test iryz=947) CREATININE (BEAKER) (test 1.41 mg/dL 0.57-1.25 mcxp=510) GLUCOSE RANDOM (BEAKER) 85 mg/dL 70-105 (test feba=398) CALCIUM (BEAKER) (test 8.3 mg/dL 8.4-10.2 etst=289) EGFR (BEAKER) (test 45 mL/min/1.73 sq m ESTIMATED GFR IS NOT xpee=7935) ACCURATE CREATININE CLEARANCE IN PREDICTING GLOMERULAR FILTRATION RATE. ESTIMATED GFR IS NOT APPLICABLE FOR DIALYSIS PATIENTS. CBC W/PLT COUNT & AUTO [id number] 06:28:00 Test Item Value Reference Range Comments WHITE BLOOD CELL COUNT (BEAKER) (test thfl=493) 13.7 K/ L 3.5-10.5 RED BLOOD CELL COUNT (BEAKER) (test xgja=383) 3.94 M/ L 3.93-5.22 HEMOGLOBIN (BEAKER) (test swun=446) 8.8 GM/DL 11.2-15.7 HEMATOCRIT (BEAKER) (test fyvb=288) 32.0 % 34.1-44.9 MEAN CORPUSCULAR VOLUME (BEAKER) (test jhmu=173) 81.2 fL 79.4-94.8 MEAN CORPUSCULAR HEMOGLOBIN (BEAKER) (test 22.3 pg 25.6-32.2 vxel=833) MEAN CORPUSCULAR HEMOGLOBIN CONC (BEAKER) (test 27.5 GM/DL 32.2-35.5 qcns=609) RED CELL DISTRIBUTION WIDTH (BEAKER) (test 18.3 % 11.7-14.4 onth=533) PLATELET COUNT (BEAKER) (test hinj=917) 424 K/CU MM 150-450 MEAN PLATELET VOLUME (BEAKER) (test chpo=266) 10.4 fL 9.4-12.3 NUCLEATED RED BLOOD CELLS (BEAKER) (test 0 /100 WBC 0-0 ashu=137) NEUTROPHILS RELATIVE PERCENT (BEAKER) (test 75 % osoc=414) LYMPHOCYTES RELATIVE PERCENT (BEAKER) (test 19 % lzng=586) MONOCYTES RELATIVE PERCENT (BEAKER) (test 5 % sbsb=048) EOSINOPHILS RELATIVE PERCENT (BEAKER) (test 1 % ctav=259) BASOPHILS RELATIVE PERCENT (BEAKER) (test 0 % vjli=410) NEUTROPHILS ABSOLUTE COUNT (BEAKER) (test 10.23 K/ L 1.56-6.13 lnht=190) LYMPHOCYTES ABSOLUTE COUNT (BEAKER) (test 2.64 K/ L 1.18-3.74 ieqa=593) MONOCYTES ABSOLUTE COUNT (BEAKER) (test 0.71 K/ L 0.24-0.36 kyfo=095) EOSINOPHILS ABSOLUTE COUNT (BEAKER) (test 0.07 K/ L 0.04-0.36 onvp=001) BASOPHILS ABSOLUTE COUNT (BEAKER) (test 0.03 K/ L 0.01-0.08 xmhl=117) IMMATURE GRANULOCYTES-RELATIVE PERCENT (BEAKER) 0 % 0-1 (test qwhs=1049) RAD, SHUNT [id number] 21:37:00Reason for exam:->postopFINAL REPORT EXAM: SHUNT SERIES INDICATION: postop COMPARISON: November TECHNIQUE: Radiographs of the skull, chest, and abdomen. FINDINGS: Interval placement of right transfrontal ventriculoperitoneal shunt catheter with tip near midline. The distal limb is intact without breakage or kinking. Adjustable flow device: Codman Certas set to performance level four. Chest: The lungs are clear. Abdomen: The bowel gas pattern is unremarkable. Additional Findings: Previously described occipital approach NEGATIVE ASSEMBLER shunt catheter unchanged when compared to the prior exam. Disconnected right-sided catheter segment is also changed as it overlies the thoracic cavity. IMPRESSION: Interval placement of a Codman Certas NEGATIVE ASSEMBLER shunt set to performance level 4. Signed: JR Yoon, Casi Coleman Verified Date/Time: 11/08/2017 21:37:02 Reading Location: [address] CT, BRAIN, WITHOUT [id number] 08:07:00FINAL REPORT CT Head without contrast CLINICAL HISTORY: Hydrocephalus, communicating TECHNIQUE: Contiguous axial images through the head without contrast. This exam was performedaccording to the departmental dose optimization program which [...] shunt catheter as discussed above. Signed: Sam Lee MDReport Verified Date/Time: 11/08/2017 08:07:55 Reading Location: [facility] Radiology Reading Room Electronically signed by: SAM LEE M.D. on 08:07 AMCBC W/PLT COUNT & AUTO [id number] 07:52:00 Test Item Value Reference Range Comments WHITE BLOOD CELL COUNT (BEAKER) (test cdly=749) 14.4 K/ L 3.5-10.5 RED BLOOD CELL COUNT (BEAKER) (test jwwe=863) 3.84 M/ L 3.93-5.22 HEMOGLOBIN (BEAKER) (test gglm=213) 8.6 GM/DL 11.2-15.7 HEMATOCRIT (BEAKER) (test pekx=966) 31.5 % 34.1-44.9 MEAN CORPUSCULAR VOLUME (BEAKER) (test dnxs=147) 82.0 fL 79.4-94.8 MEAN CORPUSCULAR HEMOGLOBIN (BEAKER) (test 22.4 pg 25.6-32.2 ycdv=578) MEAN CORPUSCULAR HEMOGLOBIN CONC (BEAKER) (test 27.3 GM/DL 32.2-35.5 pttl=117) RED CELL DISTRIBUTION WIDTH (BEAKER) (test 18.0 % 11.7-14.4 gxsx=241) PLATELET COUNT (BEAKER) (test ywmv=812) 405 K/CU MM 150-450 MEAN PLATELET VOLUME (BEAKER) (test gzqv=296) 10.3 fL 9.4-12.3 NUCLEATED RED BLOOD CELLS (BEAKER) (test 0 /100 WBC 0-0 murx=060) NEUTROPHILS RELATIVE PERCENT (BEAKER) (test 92 % tuuv=447) LYMPHOCYTES RELATIVE PERCENT (BEAKER) (test 5 % mfby=221) MONOCYTES RELATIVE PERCENT (BEAKER) (test 2 % npug=314) EOSINOPHILS RELATIVE PERCENT (BEAKER) (test 0 % uykx=522) BASOPHILS RELATIVE PERCENT (BEAKER) (test 0 % rfuu=328) NEUTROPHILS ABSOLUTE COUNT (BEAKER) (test 13.26 K/ L 1.56-6.13 tmoh=286) LYMPHOCYTES ABSOLUTE COUNT (BEAKER) (test 0.78 K/ L 1.18-3.74 yvzh=944) MONOCYTES ABSOLUTE COUNT (BEAKER) (test 0.29 K/ L 0.24-0.36 yedm=218) EOSINOPHILS ABSOLUTE COUNT (BEAKER) (test 0.00 K/ L 0.04-0.36 fzgs=203) BASOPHILS ABSOLUTE COUNT (BEAKER) (test 0.01 K/ L 0.01-0.08 hujy=260) IMMATURE GRANULOCYTES-RELATIVE PERCENT (BEAKER) 0 % 0-1 (test ujxl=6179) BASIC METABOLIC [id number] 07:30:00 Test Item Value Reference Range Comments SODIUM (BEAKER) (test 143 meq/L 136-145 hvxm=003) POTASSIUM (BEAKER) (test 4.3 meq/L 3.5-5.1 xkaw=353) CHLORIDE (BEAKER) (test 121 meq/L 98-107 vjmy=260) CO2 (BEAKER) (test 12 meq/L 22-29 bafb=438) BLOOD UREA NITROGEN 16 mg/dL 7-21 (BEAKER) (test kspl=481) CREATININE (BEAKER) (test 1.46 mg/dL 0.57-1.25 wzsd=334) GLUCOSE RANDOM (BEAKER) 94 mg/dL 70-105 (test lucb=820) CALCIUM (BEAKER) (test 8.6 mg/dL 8.4-10.2 ihdf=707) EGFR (BEAKER) (test 44 mL/min/1.73 sq m ESTIMATED GFR IS NOT mhga=3719) ACCURATE CREATININE CLEARANCE IN PREDICTING GLOMERULAR FILTRATION RATE. ESTIMATED GFR IS NOT APPLICABLE FOR DIALYSIS PATIENTS. [id number] 07:23:00 Test Item Value Reference Range Comments PHOSPHORUS (BEAKER) (test kfzb=694) 3.6 mg/dL 2.3-4.7 [id number] 07:23:00 Test Item Value Reference Range Comments MAGNESIUM (KALA) (test urqm=922) 2.3 mg/dL 1.6-2.6 RAD, SHUNT [id number] 13:15:00Reason for exam:->headacheFINAL REPORT Shunt series, 11 images, including AP and lateral views of the skull, neck, chest and abdomen. HISTORY: Headache COMPARISON: None IMPRESSION:Left-sided ventriculoperitoneal shunt catheter appears contiguous throughout its course, terminating in the left upper quadrant of the abdomen. No acute osseous findings. Midline ossification defects noted at the L4 and L5 vertebral bodies. Remainder skeleton appears unremarkable. Heart size normal. Lungs clear without pleural effusion or pneumothorax. Bowel gas pattern nonobstructive. Signed: Karma Sewell MDReport Verified Date/Time: 2017 13:15:42 Reading Location: [facility] Reading Room CT, BRAIN, WITHOUT [id number] 13:03:00FINAL REPORT CT head without contrast. Comparisons: No Reason for exam: Hydrocephalus, communicating. Discussion: Multiple axial CT images of the head are provided without contrast evaluated in brain and bone windows. Dose modulation, iterative reconstruction, and/or weight based adjustment of the mA/kV was utilized to reduce the radiation dose to as low as reasonably achievable. There is no CT evidence of intracranial hemorrhage, mass-effect, hydrocephalus, shift,or extra- axial collections. 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 There is mild prominence of lateral and third ventricular volumes but I do not see gross hydrocephalus. The appearances probably chronic. The left -sided posterior approach NEGATIVE ASSEMBLER shunt extends along the medialaspect of the left lateral ventricle posteriorly and does not definitively extend into the ventricular system. The visualized dural sinus regions, orbital contents, paranasal sinuses, bones and surrounding soft tissues are unremarkable. Impressions: 1. No specific evidence of acute intracranialabnormality. 2. Mild chronic appearing ventricular prominence without specific evidence of acute hydrocephalus. Note description of the intracranial left NEGATIVE ASSEMBLER shunt catheter. There is no definitive intraventricular extension. 3. 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 Signed: Richard Mathew MDReport Verified Date/Time: 11/07/2017 13:03:58 Electronically signed by: RICHARD MATHEW M.D.on 11/07/2017 01:03 PMURINALYSIS W/ [id number] 09:28:00 Test Item Value Reference Range Comments COLOR (BEAKER) (test tbja=157) Light Yellow CLARITY (BEAKER) (test yahj=662) Hazy SPECIFIC GRAVITY UA (BEAKER) (test woic=732) 1.006 1.001-1.035 PH UA (BEAKER) (test bxdr=195) 7.5 5.0-8.0 PROTEIN UA (BEAKER) (test eang=666) 30 mg/dL Negative GLUCOSE UA (BEAKER) (test hofx=446) Negative Negative KETONES UA (BEAKER) (test dsno=088) Negative Negative BILIRUBIN UA (BEAKER) (test rpwf=447) Negative Negative BLOOD UA (BEAKER) (test zmcn=262) Negative Negative NITRITE UA (BEAKER) (test gcyg=974) Negative Negative LEUKOCYTE ESTERASE UA (BEAKER) (test pium=979) Moderate Negative UROBILINOGEN UA (BEAKER) (test eios=796) 6.0 mg/dL 0.2-1.0 RBC UA (BEAKER) (test inqb=429) 2 /HPF WBC UA (BEAKER) (test egcw=952) 1 /HPF AMORPHOUS CRYSTALS (BEAKER) (test kceo=8544) Moderate SOURCE(BEAKER) (test yssv=8135) Urine, Voided SCREEN, [id number] 09:12:00 Test Item Value Reference Range Comments TEST URINE (BEAKER) (test qzkk=757) Negative [id number] 03:34:00 Test Item Value Reference Range Comments PHOSPHORUS (BEAKER) (test quaf=875) 3.5 mg/dL 2.3-4.7 [id number] 03:34:00 Test Item Value Reference Range Comments MAGNESIUM (BEAKER) (test aigt=118) 2.2 mg/dL 1.6-2.6 BASIC METABOLIC [id number] 03:34:00 Test Item Value Reference Range Comments SODIUM (BEAKER) (test 140 meq/L 136-145 uwoe=575) POTASSIUM (BEAKER) (test 3.4 meq/L 3.5-5.1 rwkh=961) CHLORIDE (BEAKER) (test 116 meq/L 98-107 fdmk=187) CO2 (BEAKER) (test 16 meq/L 22-29 znjx=854) BLOOD UREA NITROGEN 15 mg/dL 7-21 (BEAKER) (test shdc=037) CREATININE (BEAKER) (test 1.35 mg/dL 0.57-1.25 fysq=033) GLUCOSE RANDOM (BEAKER) 76 mg/dL 70-105 (test ixsb=057) CALCIUM (BEAKER) (test 8.4 mg/dL 8.4-10.2 bhrd=649) EGFR (BEAKER) (test 48 mL/min/1.73 sq m ESTIMATED GFR IS NOT ndrk=1549) ACCURATE CREATININE CLEARANCE IN PREDICTING GLOMERULAR FILTRATION RATE. ESTIMATED GFR IS NOT APPLICABLE FOR DIALYSIS PATIENTS. CBC W/PLT COUNT & AUTO [id number] 03:33:00 Test Item Value Reference Range Comments WHITE BLOOD CELL COUNT (BEAKER) (test thip=740) 10.7 K/ L 3.5-10.5 RED BLOOD CELL COUNT (BEAKER) (test rhvs=169) 4.18 M/ L 3.93-5.22 HEMOGLOBIN (BEAKER) (test mmez=309) 9.2 GM/DL 11.2-15.7 HEMATOCRIT (BEAKER) (test fblp=025) 33.4 % 34.1-44.9 MEAN CORPUSCULAR VOLUME (BEAKER) (test ozgi=506) 79.9 fL 79.4-94.8 MEAN CORPUSCULAR HEMOGLOBIN (BEAKER) (test 22.0 pg 25.6-32.2 pnvu=748) MEAN CORPUSCULAR HEMOGLOBIN CONC (BEAKER) (test 27.5 GM/DL 32.2-35.5 lojr=367) RED CELL DISTRIBUTION WIDTH (BEAKER) (test 17.6 % 11.7-14.4 qjgz=204) PLATELET COUNT (BEAKER) (test ebty=495) 386 K/CU MM 150-450 MEAN PLATELET VOLUME (BEAKER) (test edxu=198) 10.6 fL 9.4-12.3 NUCLEATED RED BLOOD CELLS (BEAKER) (test 0 /100 WBC 0-0 ufkt=683) NEUTROPHILS RELATIVE PERCENT (BEAKER) (test 68 % cktx=449) LYMPHOCYTES RELATIVE PERCENT (BEAKER) (test 25 % pulx=986) MONOCYTES RELATIVE PERCENT (BEAKER) (test 4 % ctdr=988) EOSINOPHILS RELATIVE PERCENT (BEAKER) (test 2 % imxo=818) BASOPHILS RELATIVE PERCENT (BEAKER) (test 0 % nhap=730) NEUTROPHILS ABSOLUTE COUNT (BEAKER) (test 7.22 K/ L 1.56-6.13 srca=973) LYMPHOCYTES ABSOLUTE COUNT (BEAKER) (test 2.66 K/ L 1.18-3.74 bmgn=555) MONOCYTES ABSOLUTE COUNT (BEAKER) (test 0.47 K/ L 0.24-0.36 lmra=733) EOSINOPHILS ABSOLUTE COUNT (BEAKER) (test 0.26 K/ L 0.04-0.36 actj=608) BASOPHILS ABSOLUTE COUNT (BEAKER) (test 0.01 K/ L 0.01-0.08 lgms=646) IMMATURE GRANULOCYTES-RELATIVE PERCENT (BEAKER) 1 % 0-1 (test nbpp=2626) [id number] 03:28:00 Test Item Value Reference Range Comments PROTIME (BEAKER) (test itdj=429) 15.6 seconds 11.7-14.7 INR (BEAKER) (test jcdp=866) 1.2 <=5.9 PARTIAL THROMBOPLASTIN TIME (BEAKER) (test 31.1 seconds 22.5-36.0 mqen=643) RECOMMENDED COUMADIN/WARFARIN INR THERAPY RANGESSTANDARD DOSE: 2.0 - 3.0 Includes: PROPHYLAXIS forvenous thrombosis, systemic embolization; TREATMENT for venous thrombosis and/or pulmonary embolus.HIGH RISK: Target INR is 2.5-3.5 for patients with mechanical heart valves.
--- NOTE | 2017-11-28 19:59 | ER ---
Nurse's Notes [facility] Name: Yadi De Leon Age: 27 yrs Sex: Female : 1990 Arrival Date: 11/28/2017 Time: 19:28 Bed 24 Private MD: Mayuri Monge Diagnosis: Post-surgical Seroma Presentation: 11/28 19:31 Presenting complaint: Patient states: "I had a BP shunt remove on the . I feel ao like a burning sensation and like if some one stab me in the incision side." Patient report fever at home and denies nausea or vomiting. Transition of care: patient was not received from another setting of care. Onset of symptoms is unknown. Care prior to arrival: None. 19:31 Method Of Arrival: Wheelchair ao 19:31 Acuity: ARIANNA 3 ao Triage Assessment: 19:37 General: Appears in no apparent distress. comfortable, Behavior is calm, cooperative. ao Pain: Complains of pain in abdomen. 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 - Social history:: Smoking status: Patient/guardian denies using tobacco, Patient/guardian denies using alcohol, street drugs. - Family history:: not pertinent. - Hospitalizations: : Patient was recently seen at [facility]. Screenin:55 Abuse screen: Denies threats or abuse. rk2 19:55 Nutritional screening: No deficits noted. Tuberculosis screening: No symptoms or risk rk2 factors identified. Fall Risk None identified. Assessment: 19:55 General: Appears in no apparent distress. well groomed, well developed, well nourished. rk2 19:55 Pain: Complains of pain in abdomen. Neuro: Level of Consciousness is alert, obeys rk2 commands, Oriented to person, place, time, situation. Respiratory: Airway is patent Respiratory effort is even, unlabored, Respiratory pattern is regular, symmetrical. Derm: Skin is intact. Vital Signs: 19:34 BP 114 / 80; Pulse 111; Resp 18; Temp 98.9(O); Pulse Ox 99% on R/A; Weight 102.97 kg ao (R); Height 4 ft. 11 in. (149.86 cm) (R); Pain 8/10; 19:34 Body Mass Index 45.85 (102.97 kg, 149.86 cm) ao ED Course: 19:28 Patient arrived in ED. es 19:28 Mayuri Monge MD is Private Physician. es 19:34 Triage completed. ao 19:35 Arm band placed on right wrist. 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 19:40 Preet Cruz MD is Attending Physician. rn 19:48 Sushila Miguel RN is Primary Nurse. rk2 19:55 Patient has correct armband on for positive identification. Placed in gown. Bed in low rk2 position. Call light in reach. 19:58 Mayuri Monge MD is Referral Physician. rn 20:09 No provider procedures requiring assistance completed. Patient did not have IV access rk2 during this emergency room visit. Administered Medications: No medications were administered Outcome: 19:58 Discharge ordered by . rn 20:09 Discharged to home via wheelchair. rk2 20:09 Condition: good 20:09 Discharge instructions given to patient. 20:10 Patient left the ED. rk2 Signatures: Karen Gary Roman, MD MD rn Ortiz, Alex, RN RN ao Kidder, Rhonda, RN RN rk2
--- NOTE | 2017-11-28 20:00 | EDPHYS ---
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 19:54 The patient presents with abdominal pain in the left lower quadrant. Onset: The rn symptoms/episode began/occurred 3 day(s) ago. Associated signs and symptoms: Pertinent negatives: anorexia, blood in stools, diarrhea, dysuria, fever, vomiting, vomiting blood. The symptoms are described as crampy, intermittent, sharp. Modifying factors: The symptoms are alleviated by nothing, the symptoms are aggravated by touching the area. Severity of pain: At its worst the pain was mild in the emergency department the pain is unchanged. The patient has experienced a previous episode. The patient has been recently seen by a physician:. Reports had RUG SIZER shunt revised 3 weeks ago at [facility], just discharged from [facility] a few days ago due to constipation/ileus from pain medication, states that since then has noticed a small lump underneath surgical incision site on abdomen, no skin changes, no fever, no drainage, intermittent and feels sharp/crampy. . 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 - Social history:: Smoking status: Patient/guardian denies using tobacco, Patient/guardian denies using alcohol, street drugs. - Family history:: not pertinent. - Hospitalizations: : Patient was recently seen at [facility]. ROS: 19:54 Constitutional: Negative for fever, chills, and weight loss, Eyes: Negative for injury, rn pain, redness, and discharge, Neck: Negative for injury, pain, and swelling, Cardiovascular: Negative for chest pain, palpitations, and edema, Respiratory: Negative for shortness of breath, cough, wheezing, and pleuritic chest pain, Abdomen/GI: + abdominal pain, neg for constipation/vomiting/diarrhea Back: Negative for injury and pain, MS/Extremity: Negative for injury and deformity, Skin: Negative for injury, rash, and discoloration, Neuro: Negative for headache, weakness, numbness, tingling, and seizure. Exam: 19:54 Constitutional: This is a well developed, well nourished patient who is awake, alert, rn and in no acute distress. Head/Face: Normocephalic, atraumatic. Eyes: Pupils equal round and reactive to light, extra-ocular motions intact. Lids and lashes normal. Conjunctiva and sclera are non-icteric and not injected. Cornea within normal limits. Periorbital areas with no swelling, redness, or edema. Neck: Trachea midline, no thyromegaly or masses palpated, and no cervical lymphadenopathy. Supple, full range of motion without nuchal rigidity, or vertebral point tenderness. No Meningismus. Abdomen/GI: soft, + small area, approx 2cm diameter firm mass palpated underneath intact and clean LLQ abdominal surgical wound, no erythema, no warmth, non-fluctuant. MS/ Extremity: Pulses equal, no cyanosis. Neurovascular intact. Full, normal range of motion. Equal circumference. Neuro: Awake and alert, GCS 15, oriented to person, place, time, and situation. Cranial nerves II-XII grossly intact. Vital Signs: 19:34 BP 114 / 80; Pulse 111; Resp 18; Temp 98.9(O); Pulse Ox 99% on R/A; Weight 102.97 kg ao (R); Height 4 ft. 11 in. (149.86 cm) (R); Pain 8/10; 19:34 Body Mass Index 45.85 (102.97 kg, 149.86 cm) ao MDM: 19:40 Patient medically screened. rn 19:54 Differential diagnosis: abscess, seroma, postsurgical pain. Data reviewed: vital signs, rn nurses notes, and as a result, I will discharge patient. Counseling: I had a detailed discussion with the patient and/or guardian regarding: the historical points, exam findings, and any diagnostic results supporting the discharge/admit diagnosis, the need for outpatient follow up, to return to the emergency department if symptoms worsen or persist or if there are any questions or concerns that arise at home. Special discussion: I discussed with the patient/guardian in detail that at this point there is no indication for admission to the hospital. It is understood, however, that if the symptoms persist or worsen the patient needs to return immediately for re-evaluation. ED course: Afebrile, swelling right underneath wound, just evaluated a few days ago, bowels normalized again, most likely seroma, will dc home with warm compresses, return precautions, and close f/u with her surgeon. . Administered Medications: No medications were administered Disposition: 11/28/17 19:58 Discharged to Home. Impression: Post-surgical Seroma. - Condition is Stable. - Discharge Instructions: Sterile Tape Wound Care, Seroma, Surgical Site Infections FAQs - [facility]. - Medication Reconciliation Form, Thank You Letter, Antibiotic Education, Prescription Opioid Use form. - Follow up: Mayuri Monge MD; When: As needed; Reason: Recheck today's complaints, Re-evaluation by your physician. - Problem is an ongoing problem. - Symptoms have improved. Signatures: Preet Cruz MD MD rn Ortiz, Alex, RN RN ao Kidder, Rhonda, RN RN rk2
== END 2017-11-28 20:10 | disposition home or self-care (01) ==
LOC: ER 19:26
DX: L76.34 Postprocedural seroma of skin and subcutaneous tissue following other procedure (principal); N28.9 Disorder of kidney and ureter, unspecified; Z91.040 Latex allergy status; Z91.048 Other nonmedicinal substance allergy status
CPT/HCPCS: 99281

== ENCOUNTER 2018-01-20 21:12 | Emergency (ER) | payer OTHER ==
--- OUTSIDE RECORDS SUMMARY | 2018-01-20 21:14 | XMS REPORT ---
:1990 [facility] [address] [place] [address] [place] [id number] Care Team Providers Name Role Phone OLIVIA PERAZA Unavailable Unavailable HERMINIA ADAMSLUCINDA DYLAN Unavailable Unavailable Problems This patient has no known problems. Allergies, Adverse Reactions, Alerts This patient has no known allergies or adverse reactions. Medications This patient has no known medications. Results Test Description Test Time Test Comments Text Results Atomic Results Result Comments MAGNESIUM 2017-11-20 13:05:00 Test Item Value Reference Range Comments MAGNESIUM (BEAKER) (test ottp=863) 2.0 mg/dL 1.6-2.6 BASIC METABOLIC [id number] 12:48:00 Test Item Value Reference Range Comments SODIUM (BEAKER) (test 143 meq/L 136-145 wzec=872) POTASSIUM (BEAKER) (test 4.1 meq/L 3.5-5.1 asei=193) CHLORIDE (BEAKER) (test 117 meq/L 98-107 ejrg=207) CO2 (BEAKER) (test 13 meq/L 22-29 qpgf=899) BLOOD UREA NITROGEN 17 mg/dL 7-21 (BEAKER) (test yluw=963) CREATININE (BEAKER) (test 1.56 mg/dL 0.57-1.25 dgtn=672) GLUCOSE RANDOM (BEAKER) 78 mg/dL 70-105 (test fweq=092) CALCIUM (BEAKER) (test 8.7 mg/dL 8.4-10.2 dnug=674) EGFR (BEAKER) (test 40 mL/min/1.73 sq m ESTIMATED GFR IS NOT ymnr=8164) ACCURATE CREATININE CLEARANCE IN PREDICTING GLOMERULAR FILTRATION RATE. ESTIMATED GFR IS NOT APPLICABLE FOR DIALYSIS PATIENTS. LIPID [id number] 12:48:00 Test Item Value Reference Range Comments TRIGLYCERIDES (BEAKER) (test zphj=971) 92 mg/dL CHOLESTEROL (BEAKER) (test zxny=824) 192 mg/dL HDL CHOLESTEROL (BEAKER) (test fxsi=800) 45 mg/dL LDL CHOLESTEROL CALCULATED (BEAKER) (test 129 mg/dL blik=071) Triglyceride Reference Range: Low Risk <150 Borderline 150- 199 High Risk 200-499 Very High Risk >=500Cholesterol Reference Range: Low Risk <200 Borderline 200-239 High Risk > 240HDL Cholesterol Reference Range: Low Risk >=60 High Risk <40LDL Cholesterol Reference Range: Optimal <100 Near Optimal 100-129 Borderline 130-159 High 160-189 Very High >=190HEPATIC FUNCTION [id number] 12:48:00 Test Item Value Reference Range Comments TOTAL PROTEIN (BEAKER) (test plqu=484) 7.2 gm/dL 6.0-8.3 ALBUMIN (BEAKER) (test bxxa=6261) 3.7 g/dL 3.5-5.0 BILIRUBIN TOTAL (BEAKER) (test kbin=081) < mg/dL 0.2-1.2 BILIRUBIN DIRECT (BEAKER) (test uhcy=018) 0.1 mg/dL 0.1-0.5 ALKALINE PHOSPHATASE (BEAKER) (test vbdg=446) 165 U/L 40-150 AST (SGOT) (BEAKER) (test exvq=026) 26 U/L 5-34 ALT (SGPT) (BEAKER) (test afpv=115) 54 U/L 6-55 CALCIUM, [id number] 08:06:00 Test Item Value Reference Range Comments CALCIUM IONIZED (BEAKER) (test vlah=308) 1.06 mmol/L 1.12-1.27 PH, BLOOD (BEAKER) (test dane=8726) 7.21 PROTHROMBIN [id number] 06:17:00 Test Item Value Reference Range Comments PROTIME (BEAKER) (test xvgy=591) 15.5 seconds 11.7-14.7 INR (BEAKER) (test cqub=682) 1.2 <=5.9 RECOMMENDED COUMADIN/WARFARIN INR THERAPY RANGESSTANDARD DOSE: 2.0 - 3.0 Includes: PROPHYLAXIS forvenous thrombosis, systemic embolization; TREATMENT for venous thrombosis and/or pulmonary embolus.HIGH RISK: Target INR is 2.5-3.5 for patients with mechanical heart valves.T4, [id number] 17:02:00 Test Item Value Reference Range Comments FREE T4 (BEAKER) (test mhum=690) 1.27 ng/dL 0.70-1.48 [id number] 12:17:00 Test Item Value Reference Range Comments PREALBUMIN (BEAKER) (test ylhu=128) 19 mg/dL 14-45 [id number] 11:57:00 Test Item Value Reference Range Comments MAGNESIUM (BEAKER) (test oyol=510) 2.0 mg/dL 1.6-2.6 VITAMIN D, [id number] 11:30:00 Test Item Value Reference Range Comments VITAMIN D 25-OH (BEAKER) (test bhqb=1098) 10.7 ng/mL 6.6-49.9 Effective 06/13/2017: Reference Range ChangeNew: 6.6-49.9 ng/mL Previous: 13.0 -47.8 ng/mLRecommended Vitamin D Target Range: 30.0-40.0 ng/mLVITAMIN B12 AND [id number] 11:30:00 Test Item Value Reference Range Comments VITAMIN B12 (BEAKER) (test pwuj=951) 235 pg/mL 213-816 FOLATE (BEAKER) (test xvhy=626) 6.6 ng/mL >=7.0 TSH/FREE T4 IF [id number] 11:30:00 Test Item Value Reference Range Comments THYROID STIMULATING HORMONE (BEAKER) (test 5.74 uIU/mL 0.35-4.94 vtce=051) LIPID [id number] 10:51:00 Test Item Value Reference Range Comments TRIGLYCERIDES (BEAKER) (test wwqt=003) 95 mg/dL CHOLESTEROL (BEAKER) (test qisf=129) 180 mg/dL HDL CHOLESTEROL (BEAKER) (test xpcv=096) 47 mg/dL LDL CHOLESTEROL CALCULATED (BEAKER) (test 114 mg/dL iwxt=301) Triglyceride Reference Range: Low Risk <150 Borderline 150- 199 High Risk 200-499 Very High Risk >=500Cholesterol Reference Range: Low Risk <200 Borderline 200-239 High Risk > 240HDL Cholesterol Reference Range: Low Risk >=60 High Risk <40LDL Cholesterol Reference Range: Optimal <100 Near Optimal 100-129 Borderline 130-159 High 160-189 Very High >=190HEPATIC FUNCTION [id number] 10:51:00 Test Item Value Reference Range Comments TOTAL PROTEIN (BEAKER) (test evhq=926) 7.2 gm/dL 6.0-8.3 ALBUMIN (BEAKER) (test pxwo=0086) 3.6 g/dL 3.5-5.0 BILIRUBIN TOTAL (BEAKER) (test ztpl=739) 0.3 mg/dL 0.2-1.2 BILIRUBIN DIRECT (BEAKER) (test nytg=100) 0.2 mg/dL 0.1-0.5 ALKALINE PHOSPHATASE (BEAKER) (test hiav=507) 189 U/L 40-150 AST (SGOT) (BEAKER) (test hfvv=782) 59 U/L 5-34 ALT (SGPT) (BEAKER) (test pynz=377) 81 U/L 6-55 COMPREHENSIVE METABOLIC [id number] 10:51:00 Test Item Value Reference Range Comments TOTAL PROTEIN (BEAKER) 7.2 gm/dL 6.0-8.3 (test tzio=414) ALBUMIN (BEAKER) (test 3.6 g/dL 3.5-5.0 ikwa=1312) ALKALINE PHOSPHATASE 189 U/L 40-150 (BEAKER) (test rrxv=170) BILIRUBIN TOTAL (BEAKER) 0.3 mg/dL 0.2-1.2 (test zilb=569) SODIUM (BEAKER) (test 141 meq/L 136-145 tqkv=506) POTASSIUM (BEAKER) (test 4.0 meq/L 3.5-5.1 lryv=233) CHLORIDE (BEAKER) (test 117 meq/L 98-107 ivuc=751) CO2 (BEAKER) (test 13 meq/L 22-29 qlom=173) BLOOD UREA NITROGEN 15 mg/dL 7-21 (BEAKER) (test yblr=444) CREATININE (BEAKER) (test 1.46 mg/dL 0.57-1.25 ixty=115) GLUCOSE RANDOM (BEAKER) 81 mg/dL 70-105 (test sjbk=463) CALCIUM (BEAKER) (test 8.5 mg/dL 8.4-10.2 wpll=419) AST (SGOT) (BEAKER) (test 59 U/L 5-34 zxkk=390) ALT (SGPT) (BEAKER) (test 81 U/L 6-55 nnfj=954) EGFR (BEAKER) (test 44 mL/min/1.73 sq m ESTIMATED GFR IS NOT lsye=3498) ACCURATE CREATININE CLEARANCE IN PREDICTING GLOMERULAR FILTRATION RATE. ESTIMATED GFR IS NOT APPLICABLE FOR DIALYSIS PATIENTS. [id number] 10:51:00 Test Item Value Reference Range Comments LIPASE (BEAKER) (test ldac=338) 12 U/L 8-78 URINE [id number] 09:46:00 Test Item Value Reference Range Comments CULTURE (BEAKER) (test hpef=4427) No growth CLOSTRIDIUM DIFFICILE TOXIN [id number] 09:04:00 Test Item Value Reference Range Comments CLOSTRIDIUM DIFFICILE TOXIN, PCR (Chef DovunqueAKER) (test Not Detected Not Detected odev=1775) This qualitative real-time polymerase chain reaction assay [...] of a positive result is not recommended.CALCIUM, [id number] 07:10:00 Test Item Value Reference Range Comments CALCIUM IONIZED (BEAKER) (test eqci=418) 1.14 mmol/L 1.12-1.27 PH, BLOOD (BEAKER) (test qfnf=1254) 7.22 CALCIUM, [id number] 06:43:00 Test Item Value Reference Range Comments CALCIUM IONIZED (BEAKER) (test bysu=372) 0.82 mmol/L 1.12-1.27 PH, BLOOD (BEAKER) (test sulz=0974) 7.32 CBC (HEMOGRAM ONLY)2017-11-19 06:29:00 Test Item Value Reference Range Comments WHITE BLOOD CELL COUNT (BEAKER) (test efcf=335) 10.8 K/ L 3.5-10.5 RED BLOOD CELL COUNT (BEAKER) (test qnwk=835) 3.76 M/ L 3.93-5.22 HEMOGLOBIN (BEAKER) (test oddy=115) 8.4 GM/DL 11.2-15.7 HEMATOCRIT (BEAKER) (test znch=027) 30.3 % 34.1-44.9 MEAN CORPUSCULAR VOLUME (BEAKER) (test atwn=283) 80.6 fL 79.4-94.8 MEAN CORPUSCULAR HEMOGLOBIN (BEAKER) (test 22.3 pg 25.6-32.2 ikei=478) MEAN CORPUSCULAR HEMOGLOBIN CONC (BEAKER) (test 27.7 GM/DL 32.2-35.5 cwwb=945) RED CELL DISTRIBUTION WIDTH (BEAKER) (test 17.8 % 11.7-14.4 tnfz=239) PLATELET COUNT (BEAKER) (test nalt=945) 418 K/CU MM 150-450 MEAN PLATELET VOLUME (BEAKER) (test vbcq=977) 10.4 fL 9.4-12.3 NUCLEATED RED BLOOD CELLS (BEAKER) (test 0 /100 WBC 0-0 qrsw=374) PROTHROMBIN [id number] 06:20:00 Test Item Value Reference Range Comments PROTIME (BEAKER) (test xhdq=250) 15.7 seconds 11.7-14.7 INR (BEAKER) (test kjic=786) 1.2 <=5.9 RECOMMENDED COUMADIN/WARFARIN INR THERAPY RANGESSTANDARD DOSE: 2.0 - 3.0 Includes: PROPHYLAXIS forvenous thrombosis, systemic embolization; TREATMENT for venous thrombosis and/or pulmonary embolus.HIGH RISK: Target INR is 2.5-3.5 for patients with mechanical heart valves.RAD, ABDOMEN/KUB, 1 VIEW [id number] 08:39:00Reason for exam:->abdominal distension'Should this be performed [...] Small MDReport Verified Date/Time: 11/18/2017 08:39:46 Reading Location:[facility] C013Y CT Body Reading Room CALCIUM, [id number] 07:00:00 Test Item Value Reference Range Comments CALCIUM IONIZED (BEAKER) (test bewf=633) 1.12 mmol/L 1.12-1.27 PH, BLOOD (BEAKER) (test lvpd=2284) 7.18 CBC W/PLT COUNT & AUTO [id number] 06:37:00 Test Item Value Reference Range Comments WHITE BLOOD CELL COUNT (BEAKER) (test xjkx=025) 17.3 K/ L 3.5-10.5 RED BLOOD CELL COUNT (BEAKER) (test tvum=744) 3.48 M/ L 3.93-5.22 HEMOGLOBIN (BEAKER) (test fswo=337) 7.7 GM/DL 11.2-15.7 HEMATOCRIT (BEAKER) (test kfrf=574) 28.1 % 34.1-44.9 MEAN CORPUSCULAR VOLUME (BEAKER) (test salz=880) 80.7 fL 79.4-94.8 MEAN CORPUSCULAR HEMOGLOBIN (BEAKER) (test 22.1 pg 25.6-32.2 akaw=789) MEAN CORPUSCULAR HEMOGLOBIN CONC (BEAKER) (test 27.4 GM/DL 32.2-35.5 ynpv=316) RED CELL DISTRIBUTION WIDTH (BEAKER) (test 17.8 % 11.7-14.4 fttl=355) PLATELET COUNT (BEAKER) (test pghh=995) 370 K/CU MM 150-450 MEAN PLATELET VOLUME (BEAKER) (test btvc=257) 10.7 fL 9.4-12.3 NUCLEATED RED BLOOD CELLS (BEAKER) (test 0 /100 WBC 0-0 douc=324) NEUTROPHILS RELATIVE PERCENT (BEAKER) (test 77 % nqza=110) LYMPHOCYTES RELATIVE PERCENT (BEAKER) (test 13 % mudm=161) MONOCYTES RELATIVE PERCENT (BEAKER) (test 5 % pwxf=988) EOSINOPHILS RELATIVE PERCENT (BEAKER) (test 4 % lkmu=993) BASOPHILS RELATIVE PERCENT (BEAKER) (test 0 % zlwl=517) NEUTROPHILS ABSOLUTE COUNT (BEAKER) (test 13.38 K/ L 1.56-6.13 mfzy=562) LYMPHOCYTES ABSOLUTE COUNT (BEAKER) (test 2.23 K/ L 1.18-3.74 wjdb=460) MONOCYTES ABSOLUTE COUNT (BEAKER) (test 0.89 K/ L 0.24-0.36 byjn=089) EOSINOPHILS ABSOLUTE COUNT (BEAKER) (test 0.67 K/ L 0.04-0.36 lvnp=366) BASOPHILS ABSOLUTE COUNT (BEAKER) (test 0.03 K/ L 0.01-0.08 mvwc=239) IMMATURE GRANULOCYTES-RELATIVE PERCENT (BEAKER) 1 % 0-1 (test eqoe=5674) [id number] 05:50:00 Test Item Value Reference Range Comments MAGNESIUM (BEAKER) (test vqfk=794) 2.1 mg/dL 1.6-2.6 BASIC METABOLIC [id number] 05:50:00 Test Item Value Reference Range Comments SODIUM (BEAKER) (test 141 meq/L 136-145 pnnz=483) POTASSIUM (BEAKER) (test 4.2 meq/L 3.5-5.1 nmcl=239) CHLORIDE (BEAKER) (test 119 meq/L 98-107 trlw=482) CO2 (BEAKER) (test 13 meq/L 22-29 nwkt=747) BLOOD UREA NITROGEN 20 mg/dL 7-21 (BEAKER) (test kedc=433) CREATININE (BEAKER) (test 1.52 mg/dL 0.57-1.25 zmgx=071) GLUCOSE RANDOM (BEAKER) 76 mg/dL 70-105 (test wakh=426) CALCIUM (BEAKER) (test 8.1 mg/dL 8.4-10.2 ysvd=848) EGFR (BEAKER) (test 42 mL/min/1.73 sq m ESTIMATED GFR IS NOT gqtn=5696) ACCURATE CREATININE CLEARANCE IN PREDICTING GLOMERULAR FILTRATION RATE. ESTIMATED GFR IS NOT APPLICABLE FOR DIALYSIS PATIENTS. LIPID [id number] 05:50:00 Test Item Value Reference Range Comments TRIGLYCERIDES (BEAKER) (test qjbk=792) 58 mg/dL CHOLESTEROL (BEAKER) (test adfp=219) 129 mg/dL HDL CHOLESTEROL (BEAKER) (test gexi=866) 39 mg/dL LDL CHOLESTEROL CALCULATED (BEAKER) (test 78 mg/dL ewrl=316) Triglyceride Reference Range: Low Risk <150 Borderline 150- 199 High Risk 200-499 Very High Risk >=500Cholesterol Reference Range: Low Risk <200 Borderline 200-239 High Risk > 240HDL Cholesterol Reference Range: Low Risk >=60 High Risk <40LDL Cholesterol Reference Range: Optimal <100 Near Optimal 100-129 Borderline 130-159 High 160-189 Very High >=190HEPATIC FUNCTION [id number] 05:50:00 Test Item Value Reference Range Comments TOTAL PROTEIN (BEAKER) (test ciqg=757) 6.2 gm/dL 6.0-8.3 ALBUMIN (BEAKER) (test nebf=3953) 3.1 g/dL 3.5-5.0 BILIRUBIN TOTAL (BEAKER) (test yfno=519) 0.4 mg/dL 0.2-1.2 BILIRUBIN DIRECT (BEAKER) (test pqmm=723) 0.3 mg/dL 0.1-0.5 ALKALINE PHOSPHATASE (BEAKER) (test cqjn=524) 204 U/L 40-150 AST (SGOT) (BEAKER) (test qaua=363) 138 U/L 5-34 ALT (SGPT) (BEAKER) (test yuen=389) 107 U/L 6-55 PROTHROMBIN [id number] 05:22:00 Test Item Value Reference Range Comments PROTIME (BEAKER) (test qeyd=390) 17.0 seconds 11.7-14.7 INR (BEAKER) (test xkeo=307) 1.4 <=5.9 RECOMMENDED COUMADIN/WARFARIN INR THERAPY RANGESSTANDARD DOSE: 2.0 - 3.0 Includes: PROPHYLAXIS forvenous thrombosis, systemic embolization; TREATMENT for venous thrombosis and/or pulmonary embolus.HIGH RISK: Target INR is 2.5-3.5 for patients with mechanical heart valves.U/S, ABDOMINAL, [id number] 23: 11:00Reason for exam:->ASCITESFINAL REPORT Ultrasound of [...] Verified Date/Time: 11/17/2017 23:11 :49 Reading Location: [address] Transitional Reading Room URINE [id number] 10:40:00 Test Item Value Reference Range Comments CULTURE (BEAKER) (test cdvh=3922) Amikacin (test code=1) Ampicillin + Sulbactam (test code=6) Aztreonam (test code=32) Cefepime (test code=51) Cefoxitin (test code=68) Ceftazidime (test code=27) Ceftriaxone (test code=52) Ertapenem (test code=38) Gentamicin (test code=18) Levofloxacin (test code=22) Meropenem (test code=34) Nitrofurantoin (test code=23) Piperacillin + Tazobactam (test code=29) Tetracycline (test code=2) Tobramycin (test code=25) Trimethoprim + Sulfamethoxazole (test code=47) CULTURE (BEAKER) (test KLEBSIELLA SPECIES 20-29,000 col/mL caix=8794) Klebsiella species Amikacin (test code=1) Ampicillin + Sulbactam (test code=6) Aztreonam (test code=32) Cefepime (test code=51) Cefoxitin (test code=68) Ceftazidime (test code=27) Ceftriaxone (test code=52) Ertapenem (test code=38) Gentamicin (test code=18) Levofloxacin (test code=22) Meropenem (test code=34) Nitrofurantoin (test code=23) Piperacillin + Tazobactam (test code=29) Tetracycline (test code=2) Tobramycin (test code=25) Trimethoprim + Sulfamethoxazole (test code=47) CULTURE (BEAKER) (test 20-29,000 col/mL pkzv=2252) Klebsiella speciesof a second type >100,000 col/mL skin [id number] 07:47:00 Test Item Value Reference Range Comments PHOSPHORUS (BEAKER) (test dccl=043) 3.4 mg/dL 2.3-4.7 [id number] 07:47:00 Test Item Value Reference Range Comments MAGNESIUM (BEAKER) (test opeo=395) 2.2 mg/dL 1.6-2.6 BASIC METABOLIC [id number] 07:47:00 Test Item Value Reference Range Comments SODIUM (BEAKER) (test 141 meq/L 136-145 rakn=218) POTASSIUM (BEAKER) (test 3.4 meq/L 3.5-5.1 rnpp=206) CHLORIDE (BEAKER) (test 116 meq/L 98-107 ubxm=972) CO2 (BEAKER) (test 17 meq/L 22-29 oxxx=778) BLOOD UREA NITROGEN 17 mg/dL 7-21 (BEAKER) (test cssc=232) CREATININE (BEAKER) (test 1.41 mg/dL 0.57-1.25 mlvc=632) GLUCOSE RANDOM (BEAKER) 85 mg/dL 70-105 (test bume=727) CALCIUM (BEAKER) (test 8.3 mg/dL 8.4-10.2 kxzu=909) EGFR (BEAKER) (test 45 mL/min/1.73 sq m ESTIMATED GFR IS NOT geii=8975) ACCURATE CREATININE CLEARANCE IN PREDICTING GLOMERULAR FILTRATION RATE. ESTIMATED GFR IS NOT APPLICABLE FOR DIALYSIS PATIENTS. CBC W/PLT COUNT & AUTO [id number] 06:28:00 Test Item Value Reference Range Comments WHITE BLOOD CELL COUNT (BEAKER) (test axtd=731) 13.7 K/ L 3.5-10.5 RED BLOOD CELL COUNT (BEAKER) (test kqqe=871) 3.94 M/ L 3.93-5.22 HEMOGLOBIN (BEAKER) (test catf=990) 8.8 GM/DL 11.2-15.7 HEMATOCRIT (BEAKER) (test fkxk=713) 32.0 % 34.1-44.9 MEAN CORPUSCULAR VOLUME (BEAKER) (test djne=203) 81.2 fL 79.4-94.8 MEAN CORPUSCULAR HEMOGLOBIN (BEAKER) (test 22.3 pg 25.6-32.2 hacz=760) MEAN CORPUSCULAR HEMOGLOBIN CONC (BEAKER) (test 27.5 GM/DL 32.2-35.5 kooh=207) RED CELL DISTRIBUTION WIDTH (BEAKER) (test 18.3 % 11.7-14.4 tups=727) PLATELET COUNT (BEAKER) (test csqd=935) 424 K/CU MM 150-450 MEAN PLATELET VOLUME (BEAKER) (test nftc=640) 10.4 fL 9.4-12.3 NUCLEATED RED BLOOD CELLS (BEAKER) (test 0 /100 WBC 0-0 wvki=460) NEUTROPHILS RELATIVE PERCENT (BEAKER) (test 75 % qabm=804) LYMPHOCYTES RELATIVE PERCENT (BEAKER) (test 19 % glcw=545) MONOCYTES RELATIVE PERCENT (BEAKER) (test 5 % nnff=984) EOSINOPHILS RELATIVE PERCENT (BEAKER) (test 1 % jblh=084) BASOPHILS RELATIVE PERCENT (BEAKER) (test 0 % lwyw=591) NEUTROPHILS ABSOLUTE COUNT (BEAKER) (test 10.23 K/ L 1.56-6.13 bgtp=519) LYMPHOCYTES ABSOLUTE COUNT (BEAKER) (test 2.64 K/ L 1.18-3.74 rnds=098) MONOCYTES ABSOLUTE COUNT (BEAKER) (test 0.71 K/ L 0.24-0.36 xmpa=929) EOSINOPHILS ABSOLUTE COUNT (BEAKER) (test 0.07 K/ L 0.04-0.36 sfeb=922) BASOPHILS ABSOLUTE COUNT (BEAKER) (test 0.03 K/ L 0.01-0.08 nrix=413) IMMATURE GRANULOCYTES-RELATIVE PERCENT (BEAKER) 0 % 0-1 (test zlxa=4349) RAD, SHUNT [id number] 21:37:00Reason for exam:->postopFINAL REPORT EXAM: SHUNT SERIES [...] unremarkable. Additional Findings: Previously described occipital approach GENERATION ENGINEER shunt catheter unchanged when compared to the prior exam. Disconnected right-sided catheter segment is also changed as it overlies the thoracic cavity. IMPRESSION: Interval placement of a Codman Certas GENERATION ENGINEER shunt set to performance level 4. Signed: JR Nettles Robert MDReport Verified Date/Time: 11/08/2017 21:37:02 Reading Location: [address] Reading [address] CT, BRAIN, WITHOUT [id number] 08:07:00FINAL REPORT CT Head without contrast [...] MDReport Verified Date/Time: 11/08/2017 08:07:55 Reading Location: [facility] Reading Room Electronically signed by: SAM LEE M.D. on 08:07 AMCBC W/PLT COUNT & AUTO [id number] 07:52:00 Test Item Value Reference Range Comments WHITE BLOOD CELL COUNT (BEAKER) (test cfkt=421) 14.4 K/ L 3.5-10.5 RED BLOOD CELL COUNT (BEAKER) (test nlxk=689) 3.84 M/ L 3.93-5.22 HEMOGLOBIN (BEAKER) (test icgm=217) 8.6 GM/DL 11.2-15.7 HEMATOCRIT (BEAKER) (test sszv=342) 31.5 % 34.1-44.9 MEAN CORPUSCULAR VOLUME (BEAKER) (test vxft=358) 82.0 fL 79.4-94.8 MEAN CORPUSCULAR HEMOGLOBIN (BEAKER) (test 22.4 pg 25.6-32.2 saox=570) MEAN CORPUSCULAR HEMOGLOBIN CONC (BEAKER) (test 27.3 GM/DL 32.2-35.5 omhp=925) RED CELL DISTRIBUTION WIDTH (BEAKER) (test 18.0 % 11.7-14.4 uyyx=748) PLATELET COUNT (BEAKER) (test dwsn=792) 405 K/CU MM 150-450 MEAN PLATELET VOLUME (BEAKER) (test jnns=295) 10.3 fL 9.4-12.3 NUCLEATED RED BLOOD CELLS (BEAKER) (test 0 /100 WBC 0-0 sgcb=652) NEUTROPHILS RELATIVE PERCENT (BEAKER) (test 92 % unmq=341) LYMPHOCYTES RELATIVE PERCENT (BEAKER) (test 5 % gtby=592) MONOCYTES RELATIVE PERCENT (BEAKER) (test 2 % goby=048) EOSINOPHILS RELATIVE PERCENT (BEAKER) (test 0 % osfn=015) BASOPHILS RELATIVE PERCENT (BEAKER) (test 0 % poya=670) NEUTROPHILS ABSOLUTE COUNT (BEAKER) (test 13.26 K/ L 1.56-6.13 xdab=508) LYMPHOCYTES ABSOLUTE COUNT (BEAKER) (test 0.78 K/ L 1.18-3.74 fsxt=535) MONOCYTES ABSOLUTE COUNT (BEAKER) (test 0.29 K/ L 0.24-0.36 rxeu=031) EOSINOPHILS ABSOLUTE COUNT (BEAKER) (test 0.00 K/ L 0.04-0.36 axtg=343) BASOPHILS ABSOLUTE COUNT (BEAKER) (test 0.01 K/ L 0.01-0.08 ijhb=729) IMMATURE GRANULOCYTES-RELATIVE PERCENT (BEAKER) 0 % 0-1 (test ypmi=9364) BASIC METABOLIC [id number] 07:30:00 Test Item Value Reference Range Comments SODIUM (BEAKER) (test 143 meq/L 136-145 rpqm=911) POTASSIUM (BEAKER) (test 4.3 meq/L 3.5-5.1 mceo=698) CHLORIDE (BEAKER) (test 121 meq/L 98-107 qdpe=171) CO2 (BEAKER) (test 12 meq/L 22-29 vucv=402) BLOOD UREA NITROGEN 16 mg/dL 7-21 (BEAKER) (test fohc=737) CREATININE (BEAKER) (test 1.46 mg/dL 0.57-1.25 lyhd=684) GLUCOSE RANDOM (BEAKER) 94 mg/dL 70-105 (test izkg=893) CALCIUM (BEAKER) (test 8.6 mg/dL 8.4-10.2 khrq=973) EGFR (BEAKER) (test 44 mL/min/1.73 sq m ESTIMATED GFR IS NOT jjuu=6664) ACCURATE CREATININE CLEARANCE IN PREDICTING GLOMERULAR FILTRATION RATE. ESTIMATED GFR IS NOT APPLICABLE FOR DIALYSIS PATIENTS. [id number] 07:23:00 Test Item Value Reference Range Comments PHOSPHORUS (BEAKER) (test fiwn=594) 3.6 mg/dL 2.3-4.7 [id number] 07:23:00 Test Item Value Reference Range Comments MAGNESIUM (KALA) (test vhxc=579) 2.3 mg/dL 1.6-2.6 RAD, SHUNT [id number] 13:15:00Reason for exam:->headacheFINAL REPORT Shunt series, 11 [...] MDReport Verified Date/Time: 2017 13:15:42 Reading Location: [facility] Reading Room CT, BRAIN, WITHOUT [id number] 13:03:00FINAL REPORT CT head without contrast. Comparisons: [...] probably chronic. The left -sided posterior approach GENERATION ENGINEER shunt extends along the medialaspect of the left lateral ventricle posteriorly and does not definitively extend into the ventricular system. The visualized dural sinus regions, orbital contents, paranasal sinuses, bones and surrounding soft tissues are unremarkable. Impressions: 1. No specific evidence of acute intracranialabnormality. 2. Mild chronic appearing ventricular prominence without specific evidence of acute hydrocephalus. Note description of the intracranial left GENERATION ENGINEER shunt catheter. There is no definitive intraventricular extension. 3. 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 Signed: Richard Mathew MDReport Verified Date/Time: 11/07/2017 13:03:58 Electronically signed by: RICHARD MATHEW M.D.on 11/07/2017 01:03 PMURINALYSIS W/ [id number] 09:28:00 Test Item Value Reference Range Comments COLOR (BEAKER) (test cjda=144) Light Yellow CLARITY (BEAKER) (test aksi=247) Hazy SPECIFIC GRAVITY UA (BEAKER) (test bmlf=804) 1.006 1.001-1.035 PH UA (BEAKER) (test znpb=467) 7.5 5.0-8.0 PROTEIN UA (BEAKER) (test hqfq=885) 30 mg/dL Negative GLUCOSE UA (BEAKER) (test wees=423) Negative Negative KETONES UA (BEAKER) (test efnr=797) Negative Negative BILIRUBIN UA (BEAKER) (test mqrr=143) Negative Negative BLOOD UA (BEAKER) (test eqax=002) Negative Negative NITRITE UA (BEAKER) (test ivgt=125) Negative Negative LEUKOCYTE ESTERASE UA (BEAKER) (test ayub=041) Moderate Negative UROBILINOGEN UA (BEAKER) (test ktuv=135) 6.0 mg/dL 0.2-1.0 RBC UA (BEAKER) (test tbiq=066) 2 /HPF WBC UA (BEAKER) (test oaib=899) 1 /HPF AMORPHOUS CRYSTALS (BEAKER) (test leoo=6973) Moderate SOURCE(BEAKER) (test ojeo=3160) Urine, Voided SCREEN, [id number] 09:12:00 Test Item Value Reference Range Comments TEST URINE (BEAKER) (test zhwe=716) Negative [id number] 03:34:00 Test Item Value Reference Range Comments PHOSPHORUS (BEAKER) (test gbpz=627) 3.5 mg/dL 2.3-4.7 [id number] 03:34:00 Test Item Value Reference Range Comments MAGNESIUM (BEAKER) (test bhvy=142) 2.2 mg/dL 1.6-2.6 BASIC METABOLIC [id number] 03:34:00 Test Item Value Reference Range Comments SODIUM (BEAKER) (test 140 meq/L 136-145 tnzl=590) POTASSIUM (BEAKER) (test 3.4 meq/L 3.5-5.1 lien=285) CHLORIDE (BEAKER) (test 116 meq/L 98-107 vjcc=498) CO2 (BEAKER) (test 16 meq/L 22-29 oguv=853) BLOOD UREA NITROGEN 15 mg/dL 7-21 (BEAKER) (test dqye=354) CREATININE (BEAKER) (test 1.35 mg/dL 0.57-1.25 nkcz=194) GLUCOSE RANDOM (BEAKER) 76 mg/dL 70-105 (test hhpf=947) CALCIUM (BEAKER) (test 8.4 mg/dL 8.4-10.2 tphp=770) EGFR (BEAKER) (test 48 mL/min/1.73 sq m ESTIMATED GFR IS NOT zoij=0949) ACCURATE CREATININE CLEARANCE IN PREDICTING GLOMERULAR FILTRATION RATE. ESTIMATED GFR IS NOT APPLICABLE FOR DIALYSIS PATIENTS. CBC W/PLT COUNT & AUTO [id number] 03:33:00 Test Item Value Reference Range Comments WHITE BLOOD CELL COUNT (BEAKER) (test fgkc=439) 10.7 K/ L 3.5-10.5 RED BLOOD CELL COUNT (BEAKER) (test jlvy=747) 4.18 M/ L 3.93-5.22 HEMOGLOBIN (BEAKER) (test jjwn=584) 9.2 GM/DL 11.2-15.7 HEMATOCRIT (BEAKER) (test nxll=006) 33.4 % 34.1-44.9 MEAN CORPUSCULAR VOLUME (BEAKER) (test fual=294) 79.9 fL 79.4-94.8 MEAN CORPUSCULAR HEMOGLOBIN (BEAKER) (test 22.0 pg 25.6-32.2 qeog=493) MEAN CORPUSCULAR HEMOGLOBIN CONC (BEAKER) (test 27.5 GM/DL 32.2-35.5 cvwh=322) RED CELL DISTRIBUTION WIDTH (BEAKER) (test 17.6 % 11.7-14.4 vcsb=373) PLATELET COUNT (BEAKER) (test tjbk=609) 386 K/CU MM 150-450 MEAN PLATELET VOLUME (BEAKER) (test shpb=673) 10.6 fL 9.4-12.3 NUCLEATED RED BLOOD CELLS (BEAKER) (test 0 /100 WBC 0-0 cwdu=823) NEUTROPHILS RELATIVE PERCENT (BEAKER) (test 68 % govs=322) LYMPHOCYTES RELATIVE PERCENT (BEAKER) (test 25 % xqvi=008) MONOCYTES RELATIVE PERCENT (BEAKER) (test 4 % nkmh=345) EOSINOPHILS RELATIVE PERCENT (BEAKER) (test 2 % fjkf=746) BASOPHILS RELATIVE PERCENT (BEAKER) (test 0 % dlqp=833) NEUTROPHILS ABSOLUTE COUNT (BEAKER) (test 7.22 K/ L 1.56-6.13 kpxu=858) LYMPHOCYTES ABSOLUTE COUNT (BEAKER) (test 2.66 K/ L 1.18-3.74 csrk=024) MONOCYTES ABSOLUTE COUNT (BEAKER) (test 0.47 K/ L 0.24-0.36 hqfh=113) EOSINOPHILS ABSOLUTE COUNT (BEAKER) (test 0.26 K/ L 0.04-0.36 jhkc=007) BASOPHILS ABSOLUTE COUNT (BEAKER) (test 0.01 K/ L 0.01-0.08 esmj=366) IMMATURE GRANULOCYTES-RELATIVE PERCENT (BEAKER) 1 % 0-1 (test kafj=6256) PT/[id number] 03:28:00 Test Item Value Reference Range Comments PROTIME (BEAKER) (test mxnr=511) 15.6 seconds 11.7-14.7 INR (BEAKER) (test yjwh=931) 1.2 <=5.9 PARTIAL THROMBOPLASTIN TIME (BEAKER) (test 31.1 seconds 22.5-36.0 gyhu=131) RECOMMENDED COUMADIN/WARFARIN INR THERAPY RANGESSTANDARD DOSE: 2.0 - 3.0 Includes: PROPHYLAXIS forvenous thrombosis, systemic embolization; TREATMENT for venous thrombosis and/or pulmonary embolus.HIGH RISK: Target INR is 2.5-3.5 for patients with mechanical heart valves.
--- OUTSIDE RECORDS SUMMARY | 2018-01-20 21:14 | XMS REPORT | Clinical Summary ---
:1990 Author Organization [facility] Address [address] [place] [address] Phone Care Team Providers Name Role Phone Unavailable Primary Care Provider Unavailable Allergies Active Allergy Reactions Severity Noted Date Comments Latex, Natural Rubber Rash High 2017 Current Medications Prescription Sig. Disp. Refills Start Date End Date Status acetaminophen Take 500 mg Active (TYLENOL) 325 MG by mouth tablet every 6 (six) hours as needed for Pain. HYDROcodone-acetamin Take 1 tablet 30 tablet 0 11/09/2017 11/17/2017 Discontinued ophen (NORCO 5-325) by mouth 5-325 mg per tablet every 4 (four) hours as needed for up to 10 days. Max Daily Amount: 6 tablets ondansetron Take 1 tablet 30 tablet 0 11/09/2017 12/09/2017 (ZOFRAN-ODT) 4 MG (4 mg total) disintegrating by mouth tablet every 8 (eight) hours as needed for up to 30 days. 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 (ventriculoperitoneal) shunt status 11/17/2017 Headache 11/07/2017 Acute intractable headache, unspecified headache type 11/07/2017 Encounters Date Type Specialty Care Team Description 11/17/2017 - Hospital Encounter General Internal Janee Bateman VP 11/20/2017 Medicine (ventriculoperitoneal YaryAilyn simms ) shunt status;Fever, Rubén, unspecified fever Krystle Wong, cause;Peritonitis ([facility]);Nausea and vomiting, intractability of vomiting not specified, unspecified vomiting type;Constipation, unspecified constipation type 11/07/2017 Anesthesia Event Felecia Burt MD 11/07/2017 Procedure Pass 11/07/2017 Surgery Karo, JUAN,VENTRICULO-P MD Pop ERITONEAL SHUNT 2017 - Hospital Encounter General Internal Azael Cai Acute intractable 11/09/2017 Medicine MD Linsey headache, unspecified Adio Titilola headache type;Yulia R.MD ventricle;S/P TRANSPORTATION MAINTENANCE WORKER shunt after 01/19/2017 Social History Tobacco Use Types Packs/Day Years [...] Not on file Implants Implanted Type Area Survey Director Device Expiration Model / Identifier Date Serial / Lot [facility] Full Strlprep 10ml [id number] - [id number] Cement/Fi Left: SWIFT: BIOSCI 03/06/2019 [id number] / Implanted: Qty: 1 on 11/07/2017 by Pop Huddleston MD ller/Janette Head / sive [id number] Cath [facility] Prog Shunt [id number] - [id number] Neuro Left: J &J:DALILA & 12/01/2017 [id number] / Implanted: Qty: 1 on 11/07/2017 by Pop Huddleston MD Head [facility] / [id number] Valve Inline With Siphongaurd Left: DALILA 12/01/2021 [id number] / Implanted: Qty: 1 on 11/07/2017 by Pop Huddleston MD Head / [id number] Procedures Procedure Name Priority Date/Time Associated Diagnosis Comments REVISION,VENTRICULO-PER 11/07/2017 4:00 PM SOFTWARE DEVELOPMENT ANALYST HYDROCEPHALUS ITONEAL SHUNT Special Needs (REQ URGENT) after 01/19/2017 Results Calcium, Ionized (11/20/2017 5:38 AM)Only the most recent of4 resultswithin the time period is included. Component Value Ref Range Calcium, Ion 1.06 (L) 1.12 - 1.27 mmol/L pH, Blood 7.21 Specimen Performing Laboratory Blood - Arm, [address] [address] Prothrombin time/INR (11/20/2017 5:38 AM)Only the most recent of3 resultswithin the time period is included. Component Value Ref Range Protime 15.5 (H) 11.7 - 14.7 seconds INR 1.2 <=5.9 Specimen Performing Laboratory Blood - Arm, [address] [address] Narrative RECOMMENDED COUMADIN/WARFARIN INR THERAPY RANGES STANDARD [...] mg/dL Specimen Performing Laboratory Blood - Arm, [address] [address] Hepatic function panel (11/20/2017 5:38 AM)Only the [...] U/L Specimen Performing Laboratory Blood - Arm, [address] [address] Lipid panel (11/20/2017 5:38 AM)Only the most recent of3 resultswithin the time period is included. Component Value Ref Range Triglycerides 92 mg/dL Cholesterol 192 mg/dL HDL 45 mg/dL LDL Calculated 129 mg/dL Specimen Performing Laboratory Blood - Arm, [address] [address] Narrative Triglyceride Reference Range: Low Risk <150 [id number] High Risk 200-499 Very High Risk>=500 Cholesterol Reference Range: Low Risk <200 [id number] High Risk>240 HDL Cholesterol Reference Range: Low Risk >=60 High Risk <40 LDL Cholesterol Reference Range: Optimal<100 Near [id number] [id number] Bnyk621-663 Very High >=190 Basic metabolic panel (11/20/2017 [...] PATIENTS. Specimen Performing Laboratory Blood - Arm, [address] [address] Vitamin B12 and Folate (11/19/2017 5:46 AM) Component Value Ref Range Vitamin B12 235 213 - 816 pg/mL Folate 6.6 (L) >=7.0 ng/mL Specimen Performing Laboratory Blood - Arm, [address] [address] TSH/Free T4 If Indicated (11/19/2017 5:46 AM) Component Value Ref Range TSH 5.74 (H) 0.35 - 4.94 uIU/mL Specimen Performing Laboratory Blood - Arm, [address] [address] Vitamin D, 25-Hydroxy (11/19/2017 5:46 AM) Component Value Ref Range Vitamin D 25-Hydroxy 10.7 6.6 - 49.9 ng/mL Specimen Performing Laboratory Blood - Arm, [address] [address] Narrative Effective 06/13/2017: Reference Range Change New: [...] WBC Specimen Performing Laboratory Blood - Arm, [address] [address] T4, free (11/19/2017 5:46 AM) Component Value Ref Range Free T4 1.27 0.70 - 1.48 ng/dL Specimen Performing Laboratory Blood - Arm, [address] [address] Prealbumin (11/19/2017 5:46 AM) Component Value Ref Range Prealbumin 19 14 - 45 mg/dL Specimen Performing Laboratory Blood - Arm, [address] [address] Lipase (11/19/2017 5:46 AM) Component Value Ref Range Lipase 12 8 - 78 U/L Specimen Performing Laboratory Blood - Arm, [address] [address] Comprehensive metabolic panel (11/19/2017 5:46 AM) Component [...] Specimen Performing Laboratory Blood - Arm, Right [address] [address] Clostridium difficile Toxin PCR (11/18/2017 3:25 PM) Component Value Ref Range C.Diff Toxin, PCR Not Detected Not Detected Specimen Performing Laboratory Stool [address] [address] Narrative This qualitative real-time polymerase chain reaction [...] MD Report Verified Date/Time:11/18/2017 08:39:46 Reading Location: [facility] C013Y CT Body Reading Room Procedure Note Interface, [...] Report Verified Date/Time: 11/18/2017 08:39:46 Reading Location: [facility] C0Y CT Body Reading Room with platelet count [...] Performing Laboratory Blood - Arm, Left [facility] [address] [address] CBC with platelet count + automated diff (11/18/2017 4:50 AM)Only the most recent of4 resultswithin the time period is included. Specimen Performing Laboratory Blood Narrative The following orders were created for panel order CBC with platelet count + automated diff. Procedure Abnormality Status --------- ------ CBC with platelet count ...[[id number]]AbnormalFinal result Please view results for these tests on the individual orders. US abdomen complete (11/17/2017 9:41 PM) Specimen Performing Laboratory MCE-5 Development Narrative FINAL REPORT Ultrasound of the Abdomen, [...] MD Report Verified Date/Time:11/17/2017 23:11:49 Reading Location: [facility] C0[facility] Transitional Reading Room Procedure Note Interface, External [...] Report Verified Date/Time: 11/17/2017 23:11:49 Reading Location: [address] Reading Room Urine culture (11/17/2017 3:29 PM)Only the most recent of2 resultswithin the time period is included. Component Value Ref Range Result No growth Specimen Performing Laboratory Urine - Urine, Urostomy [address] [address] RHYTHM STRIP - SCAN (11/12/2017 11:40 AM)Phosphorus (11/09/2017 5:34 AM)Only the most recent of3 resultswithin the time period is included. Component Value Ref Range Phosphorus 3.4 2.3 - 4.7 mg/dL Specimen Performing Laboratory Blood [address] [address] XR shunt series (11/08/2017 9:00 PM)Only the [...] unremarkable. Additional Findings: Previously described occipital approach TRANSPORTATION MAINTENANCE WORKER shunt catheter unchanged when compared to the prior exam. Disconnected right-sided catheter segment is also changed as it overlies the thoracic cavity. IMPRESSION: Interval placement of a Codman Certas TRANSPORTATION MAINTENANCE WORKER shunt set to performance level 4. Signed: JR Nettles Robert MD Report Verified Date/Time:11/08/2017 21:37:02 Reading Location: [address] Reading Room Procedure Note Interface, External Ris In - 11/08/2017 9:39 PM SOFTWARE DEVELOPMENT ANALYST FINAL REPORT EXAM: SHUNT SERIES INDICATION: postop [...] unremarkable. Additional Findings: Previously described occipital approach TRANSPORTATION MAINTENANCE WORKER shunt catheter unchanged when compared to the prior exam. Disconnected right-sided catheter segment is also changed as it overlies the thoracic cavity. IMPRESSION: Interval placement of a Codman Certas TRANSPORTATION MAINTENANCE WORKER shunt set to performance level 4. Signed: JR Nettles Robert MD Report Verified Date/Time: 11/08/2017 21:37:02 Reading Location: [address] Reading Room SFUSION SERVICE REPORT - SCAN (11/08/2017 5:41 PM)CT brain without IV contrast (11/08/2017 5:54 AM)Only the most recent of2 resultswithin the time period is included. Specimen Performing Laboratory MCE-5 Development Narrative FINAL REPORT CT Head without contrast [...] MD Report Verified Date/Time:11/08/2017 08:07:55 Reading Location: [facility] Reading Room Procedure Note Interface, External Ris In - 11/08/2017 8:10 AM SOFTWARE DEVELOPMENT ANALYST FINAL REPORT CT Head without contrast CLINICAL [...] Report Verified Date/Time: 11/08/2017 08:07:55 Reading Location: [facility] Radiology Reading Room Screen, urine (11/07/2017 8:41 AM) Component Value Ref Range Preg Test, Ur Negative Specimen Performing Laboratory Urine - Urine, Voided [address] [address] Urinalysis w/Microscopic (11/07/2017 8:41 AM) Component Value Ref Range Color, UA Light Yellow Clarity, UA Hazy Specific [place], UA 1.006 1.001 - 1.035 pH, UA [...] Specimen Performing Laboratory Urine - Urine, Voided [address] [address] Type and screen, automated (11/07/2017 3:06 AM) Component Value Ref Range ABO/RH AUTOMATED (BEAKER) A POSITIVE Ab Scrn NEGATIVEComment: Echo 2 Specimen Performing Laboratory Blood - Arm, Right [address] [address] PT/aPTT (11/07/2017 3:06 AM) Component Value Ref Range Protime 15.6 (H) 11.7 - 14.7 seconds INR 1.2 <=5.9 PTT 31.1 22.5 - 36.0 seconds Specimen Performing Laboratory Blood - Arm, Right [address] [address] Narrative RECOMMENDED COUMADIN/WARFARIN INR THERAPY RANGES STANDARD DOSE: 2.0 - 3.0 Includes: PROPHYLAXIS for venous thrombosis, systemic embolization; TREATMENT for venous thrombosis and/or pulmonary embolus. HIGH RISK: Target INR is 2.5-3.5 for patients with mechanical heart valves. after 01/19/2017
[2018-01-20] MEDS ORDERED: HYDROCODONE/APAP 7.5/325 MG TAB ONE (22:05)
[2018-01-20 22:38] LABS: Urine Bacteria LOADED /HPF (<20); Urine Culture Reflex Order NOT NEEDED; Urine RBC <5 /HPF (NONE SEEN)
[2018-01-20 22:58] LABS: Urine Blood NEGATIVE (NEG); Urine Glucose NEGATIVE (NEG); Urine Protein 1+ (NEG); Urine Specific Gravity 1.015 (1.005-1.030)
--- NOTE | 2018-01-20 22:59 | ER ---
Nurse's Notes [facility] Name: Yadi De Leon Age: 27 yrs Sex: Female : 1990 Arrival Date: 01/20/2018 Time: 21:15 Bed 26 Private MD: Myauri Monge Diagnosis: Acute headache. S/P DIGITAL BUSINESS ANALYST shunt revision. UTI Presentation: 01/20 21:19 Presenting complaint: Patient states: I had a DIGITAL BUSINESS ANALYST shunt revision november 07 and since la1 last night I have had a bad pressure headache on that side of my head. Pt denies N/V. Transition of care: patient was not received from another setting of care. Onset of symptoms was January 20, 2018. Initial Sepsis Screen: Does the patient meet any 2 criteria? No. Patient's initial sepsis screen is negative. Does the patient have a suspected source of infection? No. Patient's initial sepsis screen is negative. Care prior to arrival: None. 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 - Social history:: Smoking status: Patient/guardian denies using tobacco. Screenin:15 Abuse screen: Denies threats or abuse. Nutritional screening: No deficits noted. mb3 Tuberculosis screening: No symptoms or risk factors identified. Fall Risk No fall in past 12 months (0 pts). Secondary diagnosis (15 points) No IV (0 pts). Ambulatory Aid- None/Bed Rest/Nurse Assist (0 pts). Gait- Impaired (20 pts.). Mental Status- Oriented to own ability (0 pts). Total Reynaga Fall Scale indicates Low Risk Score (25-44 pts). Placed close to Nursing Station Frequent Obs/Assesments occuring Family Present and informed to notify staff if they need to leave bedside. Assessment: 21:35 General: Appears uncomfortable, obese, well groomed, Behavior is calm, cooperative, mb3 appropriate for age. Pain: Complains of pain in left ear, left moravian, left frontal area, left temporal area and left zygomatic area. Neuro: Level of Consciousness is awake, alert, obeys commands, Oriented to person, place, time, situation. Cardiovascular: No deficits noted. Heart tones S1 S2 present. Respiratory: No deficits noted. Airway is patent Respiratory effort is even, unlabored, Respiratory pattern is regular, symmetrical, Breath sounds are clear bilaterally. GI: No signs and/or symptoms were reported involving the gastrointestinal system. Abdomen is obese, Bowel sounds present X 4 quads. 22:35 Reassessment: No changes from previously documented assessment. Patient and/or family mb3 updated on plan of care and expected duration. Pain level reassessed. Patient is alert, oriented x 3, equal unlabored respirations, skin warm/dry/pink. Family states that Dr Pop Huddleston MD is the doctor that did the surgery on pt last. At [facility]. Vital Signs: 21:20 BP 148 / 90; Pulse 94; Resp 14; Temp 97.5; Pulse Ox 100% on R/A; Weight 102.97 kg; la1 Height 5 ft. 0 in. (152.40 cm); 23:20 BP 97 / 72; Pulse 76; Resp 16; Pulse Ox 99% on R/A; mb3 21:20 Body Mass Index 44.33 (102.97 kg, 152.40 cm) la1 ED Course: 21:15 Patient arrived in ED. es 21:16 Mayuri Monge MD is Private Physician. es 21:20 Triage completed. la1 21:21 Arm band placed on right wrist. la1 21:35 Darrick Garcia, STARR is Primary Nurse. mb3 21:49 Adolfo Carvalho MD is Attending Physician. pkl 22:10 Urine collected: clean catch specimen, cloudy. dh3 22:[address] via wheelchair. cw1 22:27 CT Head Brain wo Cont In Process Unspecified. EDMS 23:16 Patient has correct armband on for positive identification. Bed in low position. Call mb3 light in reach. Side rails up X 1. 23:16 No provider procedures requiring assistance completed. Patient did not have IV access mb3 during this emergency room visit. Administered Medications: 22:10 Drug: Pipestem (7.5 mg-325 mg) 1 tabs Route: PO; mb3 23:18 Follow up: Response: No adverse reaction mb3 23:10 Drug: Cipro 500 mg Route: PO; mb3 23:18 Follow up: Response: No adverse reaction mb3 Outcome: 22:58 Discharge ordered by . xavi 23:17 Discharged to home via wheelchair, with family. mb3 23:17 Condition: stable 23:17 Discharge instructions given to patient, family, Instructed on discharge instructions, follow up and referral plans. medication usage, Demonstrated understanding of instructions, follow-up care, medications, Prescriptions given X 2. 23:19 Patient left the ED. mb3 01/21 11:00 Condition: Attempted to call pt at home to notify her of radiology results, no answer, iw left voice mail Addendum: 01/23/2018 18:03 Addendum: Culture Results: Positive urine culture. No further action required. Bacteria a a5 sensitive to prescribed antibiotic. Signatures: Dispatcher [employer] Adolfo Johnson MD MD pkl Salyer, Tayla Templeton, STARR CLEMENTS iw Pamela Masterson RN RN aa5 Tammy Adame 1 Geovanny Joiner RN RN [facility] Viola Rodrigues [facility] Darrick Garcia RN RN mb3
--- NOTE | 2018-01-20 22:59 | EDPHYS ---
Physician Documentation [facility] Name: Yadi De Leon Age: 27 yrs Sex: Female : 1990 Arrival Date: 01/20/2018 Time: 21:15 Bed 26 Private MD: Mayuri Monge ED Physician Adolfo Carvalho HPI: 01/20 21:55 This 27 yrs old Female presents to ER via Ambulatory with complaints of pkl Pressure in head has a shunt. 21:55 The patient complains of pain to the left temporal area. The patient describes the pkl headache as intermittent. Onset: The symptoms/episode began/occurred yesterday. Associated signs and symptoms: Pertinent positives: nausea. Patient had WEB APPLICATIONS ARCHITECT shunt revision done 11/07/17.. 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 - Social history:: Smoking status: Patient/guardian denies using tobacco. ROS: 21:55 Eyes: Negative for injury, pain, redness, and discharge, ENT: Negative for injury, pkl pain, and discharge, Neck: Negative for injury, pain, and swelling, Cardiovascular: Negative for chest pain, palpitations, and edema, Respiratory: Negative for shortness of breath, cough, wheezing, and pleuritic chest pain, Abdomen/GI: Negative for abdominal pain, nausea, vomiting, diarrhea, and constipation, Back: Negative for injury and pain, : Negative for injury, bleeding, discharge, and swelling, MS/Extremity: Negative for injury and deformity, Skin: Negative for injury, rash, and discoloration. 21:55 Neuro: Positive for headache. Exam: 21:55 Head/Face: Normocephalic, atraumatic. Eyes: Pupils equal round and reactive to light, pkl extra-ocular motions intact. Lids and lashes normal. Conjunctiva and sclera are non-icteric and not injected. Cornea within normal limits. Periorbital areas with no swelling, redness, or edema. ENT: Nares patent. No nasal discharge, no septal abnormalities noted. Tympanic membranes are normal and external auditory canals are clear. Oropharynx with no redness, swelling, or masses, exudates, or evidence of obstruction, uvula midline. Mucous membranes moist. Neck: Trachea midline, no thyromegaly or masses palpated, and no cervical lymphadenopathy. Supple, full range of motion without nuchal rigidity, or vertebral point tenderness. No Meningismus. Chest/axilla: Normal chest wall appearance and motion. Nontender with no deformity. No lesions are appreciated. Cardiovascular: Regular rate and rhythm with a normal S1 and S2. No gallops, murmurs, or rubs. Normal PMI, no JVD. No pulse deficits. Respiratory: Lungs have equal breath sounds bilaterally, clear to auscultation and percussion. No rales, rhonchi or wheezes noted. No increased work of breathing, no retractions or nasal flaring. Abdomen/GI: Soft, non-tender, with normal bowel sounds. No distension or tympany. No guarding or rebound. No evidence of tenderness throughout. Back: No spinal tenderness. No costovertebral tenderness. Full range of motion. Skin: Warm, dry with normal turgor. Normal color with no rashes, no lesions, and no evidence of cellulitis. MS/ Extremity: Pulses equal, no cyanosis. Neurovascular intact. Full, normal range of motion. Neuro: Awake and alert, GCS 15, oriented to person, place, time, and situation. Cranial nerves II-XII grossly intact. Motor strength 5/5 in all extremities. Sensory grossly intact. Cerebellar exam normal. Normal gait. Vital Signs: 21:20 BP 148 / 90; Pulse 94; Resp 14; Temp 97.5; Pulse Ox 100% on R/A; Weight 102.97 kg; la1 Height 5 ft. 0 in. (152.40 cm); 23:20 BP 97 / 72; Pulse 76; Resp 16; Pulse Ox 99% on R/A; mb3 21:20 Body Mass Index 44.33 (102.97 kg, 152.40 cm) la1 MDM: 21:49 Patient medically screened. pkl 22:57 Data reviewed: vital signs, nurses notes, radiologic studies, CT scan. [facility] 01/20 22:09 Order name: Urine Microscopic Only; Complete Time: 22:54 01/20 22:09 Order name: Urine Culture 01/20 21:54 Order name: CT Head Brain wo Cont [facility] 01/20 22:51 Order name: Urine Dipstick--Ancillary (enter results); Complete Time: 22:59 mw2 01/20 22:51 Order name: Urine --Ancillary (enter results); Complete Time: 22:59 mw2 Administered Medications: 22:10 Drug: [place] (7.5 mg-325 mg) 1 tabs Route: PO; mb3 23:18 Follow up: Response: No adverse reaction mb3 23:10 Drug: Cipro 500 mg Route: PO; mb3 23:18 Follow up: Response: No adverse reaction mb3 Disposition: 01/20/18 22:58 Discharged to Home. Impression: Acute headache. S/P WEB APPLICATIONS ARCHITECT shunt revision. UTI. - Condition is Stable. - Prescriptions for Ultram 50 mg Oral Tablet - take 1 tablet by ORAL route every 8 hours As needed; 20 tablet. Cipro 500 mg Oral Tablet - take 1 tablet by ORAL route every 12 hours for 5 days; 10 tablet. - Medication Reconciliation Form, Thank You Letter, Antibiotic Education, Prescription Opioid Use form. - Follow up: Private Physician; When: 2 - 3 days; Reason: Re-evaluation by your physician. - Problem is new. - Symptoms have improved. Signatures: Dispatcher [employer] EDMS Adolfo Carvalho MD MD pkl Geovanny Joiner RN RN la1 Darrick Garcia RN RN mb3 Corrections: (The following items were deleted from the chart) 23:19 22:58 01/20/2018 22:58 Discharged to Home. Impression: Acute headache. S/P WEB APPLICATIONS ARCHITECT shunt mb3 revision. UTI. Condition is Stable. Forms are Medication Reconciliation Form, Thank You Letter, Antibiotic Education, Prescription Opioid Use. Follow up: Private Physician; When: 2 - 3 days; Reason: Re-evaluation by your physician. Problem is new. Symptoms have improved. pkl
[2018-01-20] MEDS ORDERED: CIPROFLOXACIN HCL 500 MG TAB ONE (23:05)
--- NOTE | 2018-01-21 09:18 | RAD REPORT ---
EXAM DESCRIPTION: CT - Head Brain Wo Cont - 01/21/2018 5:57 am CLINICAL HISTORY: Headache COMPARISON: November 2017 TECHNIQUE: Computed axial tomography of the head was obtained. IV contrast was not requested. Preliminary report was generated a virtual radiologic and reviewed prior to this dictation All CT scans are performed using dose optimization technique as appropriate and may include automated exposure control or mA/KV adjustment according to patient size. FINDINGS: An intracranial bleed is not seen . A ventricular shunt remains in place. The ventricles have mildly progressed in caliber since the prio r exam and are mildly to moderately dilated. No extra-axial fluid collection is noted. Fluid within the sinuses/ mastoids is not seen. IMPRESSION: Mild progress in the dilatation of the ventricles since November 199918 January indicate shunt malfunction. . The exam was discussed with in the Emergency Room at approximately Dr Cruz at approximately 7:50 a.m. January 21, 2018
== END 2018-01-20 23:19 | disposition home or self-care (01) ==
LOC: ER 21:12
DX: N39.0 Urinary tract infection, site not specified (principal); Z98.890 Other specified postprocedural states; N18.9 Chronic kidney disease, unspecified; Z91.040 Latex allergy status; Z91.048 Other nonmedicinal substance allergy status
CPT/HCPCS: 70450; 81003; 81015; 81025; 87077; 87086; 87088; 87186; 99284

== ENCOUNTER 2019-09-15 16:09 | Emergency (ER) | payer OTHER ==
--- OUTSIDE RECORDS SUMMARY | 2019-09-15 16:12 | XMS REPORT ---
:1990 [facility] [address] [place] [address] [address] [place] [address] Care Team Providers Name Role Phone OLIVIA PERAZA Unavailable Unavailable ANGIESARATH Gillis Unavailable Unavailable Problems This patient has no known problems. Allergies, Adverse Reactions, Alerts This patient has no known allergies or adverse reactions. Medications This patient has no known medications. Results Test Description Test Time Test Comments Text Results Atomic Results Result Comments RAD, SHUNT SERIES 2018-08-20 13:00:00 Reason for FINAL REPORT PATIENT ID: Exam:->[id number] Exam: Shunt series History: Evaluate shunt Comparison: None. Findings: A left LUMBER HANDLER shunt catheter present which extends down the left neck, anterior chest and enters the abdomen with distal tip curled in the left lower quadrant. No discontinuity of the radiopaque portion. No mass effect within the abdomen. Additional foci of prior shunt tubing. Impression: Intact radiopaque portions of the LUMBER HANDLER shunt catheter. Signed: Sam Shoemaker Verified Date/Time: 08/20/2018 13:00:05 Reading Location: [facility] Reading Room [address] [place] [address] , BRAIN, WITHOUT 2018-08-20 10:53:00 ORDER/STUDY IS TO BE FINAL REPORT PATIENT ID: IV CONTRAST PERFORMED AT [facility] [id number] Examination: CAMPUS.KMJ12:51P110/20 CT, BRAIN, WITHOUT IV [id number]/VIANEY CONTRAST History: DY IS TO BE PERFORMED Hydrocephalus.Comparison AT [facility] studies: Head CT CAMPUS.[id number]:51P12/17 performed November 08, 2017 Yhsnozsu- Technique:Axial images >[facility] were obtained from the Hospital skull base to the vertex.Coronal and sagittal images reconstructed from the axial data.Dose modulation, iterative reconstruction, and/or weight based adjustment of the mA/kV was utilized to reduce the radiation dose to as low as reasonably achievable. Intravenous contrast: None Findings: Scalp: No abnormalities.Bones: No fractures, blastic or lytic lesions. Brain sulci: Appropriate for age.Ventricles: Again demonstrated are left frontal and left parietal ventriculostomy catheters with the distal tip of the right frontal catheter located in the body of the left lateral ventricle and tip of the left parietal catheter in the left ambient cistern. Unchanged ventriculomegaly (lateral and third ventricles). Extra-axial space:No abnormalities. Parenchyma: No masses, hemorrhage, or acute or chronic cortical based vascular insults.. Sellar/suprasellar region: No abnormalities.Craniocervi delaney junction: The cerebellar tonsils are located below the foramen magnum. However, the inferior margin of the cerebellar tonsils are not included within the fnerj-es-xwoy this finding remains unchanged compared to prior head CT performed November 08, 2017. The posterior fossa remains small/underdeveloped. Incidental findings: None. Impression: 1.No new intracranial abnormalities when compared to prior head CT performed November 08, 2017. 2.Unchanged frontal and left parietal ventriculostomy catheters. 3.Unchanged ventriculomegaly with findings related to Chiari malformation, as detailed above. Signed: Olya Aranda [facility] Verified Date/Time: 08/20/2018 10:53:56 ESIUM 2017-11-20 13:05:00 Test Item Value Reference Range Comments MAGNESIUM (BEAKER) (test ijcm=068) 2.0 mg/dL 1.6-2.6 BASIC METABOLIC [id number] 12:48:00 Test Item Value Reference Range Comments SODIUM (BEAKER) (test 143 meq/L 136-145 owao=354) POTASSIUM (BEAKER) (test 4.1 meq/L 3.5-5.1 fuor=895) CHLORIDE (BEAKER) (test 117 meq/L 98-107 ylwz=961) CO2 (BEAKER) (test 13 meq/L 22-29 tvwl=678) BLOOD UREA NITROGEN 17 mg/dL 7-21 (BEAKER) (test xbfa=020) CREATININE (BEAKER) (test 1.56 mg/dL 0.57-1.25 sfgm=169) GLUCOSE RANDOM (BEAKER) 78 mg/dL 70-105 (test tchs=257) CALCIUM (BEAKER) (test 8.7 mg/dL 8.4-10.2 dvgy=702) EGFR (BEAKER) (test 40 mL/min/1.73 sq m ESTIMATED GFR IS NOT rksw=4248) ACCURATE CREATININE CLEARANCE IN PREDICTING GLOMERULAR FILTRATION RATE. ESTIMATED GFR IS NOT APPLICABLE FOR DIALYSIS PATIENTS. LIPID [id number] 12:48:00 Test Item Value Reference Range Comments TRIGLYCERIDES (BEAKER) (test aqhc=009) 92 mg/dL CHOLESTEROL (BEAKER) (test pdhp=405) 192 mg/dL HDL CHOLESTEROL (BEAKER) (test eyud=369) 45 mg/dL LDL CHOLESTEROL CALCULATED (BEAKER) (test 129 mg/dL cdqc=827) Triglyceride Reference Range: Low Risk <150 Borderline 150- 199 High Risk 200-499 Very High Risk >=500Cholesterol Reference Range: Low Risk <200 Borderline 200-239 High Risk > 240HDL Cholesterol Reference Range: Low Risk >=60 High Risk <40LDL Cholesterol Reference Range: Optimal <100 Near Optimal 100-129 Borderline 130-159 High 160-189 Very High >=190HEPATIC FUNCTION [id number] 12:48:00 Test Item Value Reference Range Comments TOTAL PROTEIN (BEAKER) (test wtcp=138) 7.2 gm/dL 6.0-8.3 ALBUMIN (BEAKER) (test uvtp=9859) 3.7 g/dL 3.5-5.0 BILIRUBIN TOTAL (BEAKER) (test dsdo=771) < mg/dL 0.2-1.2 BILIRUBIN DIRECT (BEAKER) (test pvjq=127) 0.1 mg/dL 0.1-0.5 ALKALINE PHOSPHATASE (BEAKER) (test qypv=892) 165 U/L 40-150 AST (SGOT) (BEAKER) (test cxxw=800) 26 U/L 5-34 ALT (SGPT) (BEAKER) (test oekp=705) 54 U/L 6-55 CALCIUM, [id number] 08:06:00 Test Item Value Reference Range Comments CALCIUM IONIZED (BEAKER) (test kuei=267) 1.06 mmol/L 1.12-1.27 PH, BLOOD (BEAKER) (test ppzl=5605) 7.21 PROTHROMBIN [id number] 06:17:00 Test Item Value Reference Range Comments PROTIME (BEAKER) (test olkl=241) 15.5 seconds 11.7-14.7 INR (BEAKER) (test krxu=082) 1.2 <=5.9 RECOMMENDED COUMADIN/WARFARIN INR THERAPY RANGESSTANDARD DOSE: 2.0 - 3.0 Includes: PROPHYLAXIS forvenous thrombosis, systemic embolization; TREATMENT for venous thrombosis and/or pulmonary embolus.HIGH RISK: Target INR is 2.5-3.5 for patients with mechanical heart valves.T4, [id number] 17:02:00 Test Item Value Reference Range Comments FREE T4 (BEAKER) (test kthr=400) 1.27 ng/dL 0.70-1.48 [id number] 12:17:00 Test Item Value Reference Range Comments PREALBUMIN (BEAKER) (test qhll=572) 19 mg/dL 14-45 [id number] 11:57:00 Test Item Value Reference Range Comments MAGNESIUM (BEAKER) (test ybbq=531) 2.0 mg/dL 1.6-2.6 VITAMIN D, [id number] 11:30:00 Test Item Value Reference Range Comments VITAMIN D 25-OH (BEAKER) (test tidw=2545) 10.7 ng/mL 6.6-49.9 Effective 06/13/2017: Reference Range ChangeNew: 6.6-49.9 ng/mL Previous: 13.0 -47.8 ng/mLRecommended Vitamin D Target Range: 30.0-40.0 ng/mLVITAMIN B12 AND [id number] 11:30:00 Test Item Value Reference Range Comments VITAMIN B12 (BEAKER) (test zewv=408) 235 pg/mL 213-816 FOLATE (BEAKER) (test llvh=091) 6.6 ng/mL >=7.0 TSH/FREE T4 IF [id number] 11:30:00 Test Item Value Reference Range Comments THYROID STIMULATING HORMONE (BEAKER) (test 5.74 uIU/mL 0.35-4.94 romc=292) LIPID [id number] 10:51:00 Test Item Value Reference Range Comments TRIGLYCERIDES (BEAKER) (test kjsr=998) 95 mg/dL CHOLESTEROL (BEAKER) (test guvq=373) 180 mg/dL HDL CHOLESTEROL (BEAKER) (test wvvs=677) 47 mg/dL LDL CHOLESTEROL CALCULATED (BEAKER) (test 114 mg/dL pgxz=063) Triglyceride Reference Range: Low Risk <150 Borderline 150- 199 High Risk 200-499 Very High Risk >=500Cholesterol Reference Range: Low Risk <200 Borderline 200-239 High Risk > 240HDL Cholesterol Reference Range: Low Risk >=60 High Risk <40LDL Cholesterol Reference Range: Optimal <100 Near Optimal 100-129 Borderline 130-159 High 160-189 Very High >=190HEPATIC FUNCTION [id number] 10:51:00 Test Item Value Reference Range Comments TOTAL PROTEIN (BEAKER) (test izpx=072) 7.2 gm/dL 6.0-8.3 ALBUMIN (BEAKER) (test pbyl=7881) 3.6 g/dL 3.5-5.0 BILIRUBIN TOTAL (BEAKER) (test wowp=549) 0.3 mg/dL 0.2-1.2 BILIRUBIN DIRECT (BEAKER) (test gchi=724) 0.2 mg/dL 0.1-0.5 ALKALINE PHOSPHATASE (BEAKER) (test ayqp=343) 189 U/L 40-150 AST (SGOT) (BEAKER) (test cxxm=112) 59 U/L 5-34 ALT (SGPT) (BEAKER) (test cexq=240) 81 U/L 6-55 COMPREHENSIVE METABOLIC [id number] 10:51:00 Test Item Value Reference Range Comments TOTAL PROTEIN (BEAKER) 7.2 gm/dL 6.0-8.3 (test ytwl=969) ALBUMIN (BEAKER) (test 3.6 g/dL 3.5-5.0 nlcn=0032) ALKALINE PHOSPHATASE 189 U/L 40-150 (BEAKER) (test lbyn=567) BILIRUBIN TOTAL (BEAKER) 0.3 mg/dL 0.2-1.2 (test klss=929) SODIUM (BEAKER) (test 141 meq/L 136-145 xuzu=788) POTASSIUM (BEAKER) (test 4.0 meq/L 3.5-5.1 nkpd=270) CHLORIDE (BEAKER) (test 117 meq/L 98-107 tsja=481) CO2 (BEAKER) (test 13 meq/L 22-29 qvcn=511) BLOOD UREA NITROGEN 15 mg/dL 7-21 (BEAKER) (test lhff=923) CREATININE (BEAKER) (test 1.46 mg/dL 0.57-1.25 bhor=841) GLUCOSE RANDOM (BEAKER) 81 mg/dL 70-105 (test pzqv=497) CALCIUM (BEAKER) (test 8.5 mg/dL 8.4-10.2 louw=048) AST (SGOT) (BEAKER) (test 59 U/L 5-34 fshf=614) ALT (SGPT) (BEAKER) (test 81 U/L 6-55 uljf=143) EGFR (BEAKER) (test 44 mL/min/1.73 sq m ESTIMATED GFR IS NOT ntxm=6190) ACCURATE CREATININE CLEARANCE IN PREDICTING GLOMERULAR FILTRATION RATE. ESTIMATED GFR IS NOT APPLICABLE FOR DIALYSIS PATIENTS. [id number] 10:51:00 Test Item Value Reference Range Comments LIPASE (BEAKER) (test mhpy=430) 12 U/L 8-78 URINE [id number] 09:46:00 Test Item Value Reference Range Comments CULTURE (BEAKER) (test vnrv=9394) No growth CLOSTRIDIUM DIFFICILE TOXIN [id number] 09:04:00 Test Item Value Reference Range Comments CLOSTRIDIUM DIFFICILE TOXIN, PCR (BEAKER) (test Not Detected Not Detected kyvo=4567) This qualitative real-time polymerase chain reaction assay [...] of a positive result is not recommended.CALCIUM, [id number] 07:10:00 Test Item Value Reference Range Comments CALCIUM IONIZED (BEAKER) (test thao=346) 1.14 mmol/L 1.12-1.27 PH, BLOOD (BEAKER) (test tssp=1242) 7.22 CALCIUM, [id number] 06:43:00 Test Item Value Reference Range Comments CALCIUM IONIZED (BEAKER) (test dfuz=901) 0.82 mmol/L 1.12-1.27 PH, BLOOD (BEAKER) (test uenw=1958) 7.32 CBC (HEMOGRAM ONLY)2017-11-19 06:29:00 Test Item Value Reference Range Comments WHITE BLOOD CELL COUNT (BEAKER) (test sudu=536) 10.8 K/ L 3.5-10.5 RED BLOOD CELL COUNT (BEAKER) (test ypel=394) 3.76 M/ L 3.93-5.22 HEMOGLOBIN (BEAKER) (test rbmw=683) 8.4 GM/DL 11.2-15.7 HEMATOCRIT (BEAKER) (test buwd=947) 30.3 % 34.1-44.9 MEAN CORPUSCULAR VOLUME (BEAKER) (test jkyx=764) 80.6 fL 79.4-94.8 MEAN CORPUSCULAR HEMOGLOBIN (BEAKER) (test 22.3 pg 25.6-32.2 okdn=294) MEAN CORPUSCULAR HEMOGLOBIN CONC (BEAKER) (test 27.7 GM/DL 32.2-35.5 goxh=165) RED CELL DISTRIBUTION WIDTH (BEAKER) (test 17.8 % 11.7-14.4 stdv=296) PLATELET COUNT (BEAKER) (test wiqm=493) 418 K/CU MM 150-450 MEAN PLATELET VOLUME (BEAKER) (test oylq=959) 10.4 fL 9.4-12.3 NUCLEATED RED BLOOD CELLS (BEAKER) (test 0 /100 WBC 0-0 hbvu=716) PROTHROMBIN [id number] 06:20:00 Test Item Value Reference Range Comments PROTIME (BEAKER) (test lzfe=733) 15.7 seconds 11.7-14.7 INR (BEAKER) (test wwzv=449) 1.2 <=5.9 RECOMMENDED COUMADIN/WARFARIN INR THERAPY RANGESSTANDARD DOSE: 2.0 - 3.0 Includes: PROPHYLAXIS forvenous thrombosis, systemic embolization; TREATMENT for venous thrombosis and/or pulmonary embolus.HIGH RISK: Target INR is 2.5-3.5 for patients with mechanical heart valves.RAD, ABDOMEN/KUB, 1 VIEW [id number] 08:39:00Reason for exam:->abdominal distension'Should this be performed [...] Lung bases are clear. Signed: Roger Poe MDReport Verified Date/Time: 11/18/2017 08:39:46 Reading Location:[facility] B1 C013Y CT Body Reading Room CALCIUM, [id number] 07:00:00 Test Item Value Reference Range Comments CALCIUM IONIZED (BEAKER) (test qrzb=424) 1.12 mmol/L 1.12-1.27 PH, BLOOD (BEAKER) (test fiyh=9305) 7.18 CBC W/PLT COUNT & AUTO [id number] 06:37:00 Test Item Value Reference Range Comments WHITE BLOOD CELL COUNT (BEAKER) (test bhhv=012) 17.3 K/ L 3.5-10.5 RED BLOOD CELL COUNT (BEAKER) (test kttn=874) 3.48 M/ L 3.93-5.22 HEMOGLOBIN (BEAKER) (test zpaz=954) 7.7 GM/DL 11.2-15.7 HEMATOCRIT (BEAKER) (test dluu=111) 28.1 % 34.1-44.9 MEAN CORPUSCULAR VOLUME (BEAKER) (test neyg=542) 80.7 fL 79.4-94.8 MEAN CORPUSCULAR HEMOGLOBIN (BEAKER) (test 22.1 pg 25.6-32.2 redg=657) MEAN CORPUSCULAR HEMOGLOBIN CONC (BEAKER) (test 27.4 GM/DL 32.2-35.5 weqs=916) RED CELL DISTRIBUTION WIDTH (BEAKER) (test 17.8 % 11.7-14.4 vvns=042) PLATELET COUNT (BEAKER) (test zyak=415) 370 K/CU MM 150-450 MEAN PLATELET VOLUME (BEAKER) (test fpzq=050) 10.7 fL 9.4-12.3 NUCLEATED RED BLOOD CELLS (BEAKER) (test 0 /100 WBC 0-0 htih=059) NEUTROPHILS RELATIVE PERCENT (BEAKER) (test 77 % fozr=972) LYMPHOCYTES RELATIVE PERCENT (BEAKER) (test 13 % abyf=865) MONOCYTES RELATIVE PERCENT (BEAKER) (test 5 % ccax=367) EOSINOPHILS RELATIVE PERCENT (BEAKER) (test 4 % iwub=246) BASOPHILS RELATIVE PERCENT (BEAKER) (test 0 % cbvb=566) NEUTROPHILS ABSOLUTE COUNT (BEAKER) (test 13.38 K/ L 1.56-6.13 kzdn=864) LYMPHOCYTES ABSOLUTE COUNT (BEAKER) (test 2.23 K/ L 1.18-3.74 rfql=181) MONOCYTES ABSOLUTE COUNT (BEAKER) (test 0.89 K/ L 0.24-0.36 xekz=913) EOSINOPHILS ABSOLUTE COUNT (BEAKER) (test 0.67 K/ L 0.04-0.36 fevb=822) BASOPHILS ABSOLUTE COUNT (BEAKER) (test 0.03 K/ L 0.01-0.08 xxmi=947) IMMATURE GRANULOCYTES-RELATIVE PERCENT (BEAKER) 1 % 0-1 (test cazq=4879) [id number] 05:50:00 Test Item Value Reference Range Comments MAGNESIUM (BEAKER) (test wdza=840) 2.1 mg/dL 1.6-2.6 BASIC METABOLIC [id number] 05:50:00 Test Item Value Reference Range Comments SODIUM (BEAKER) (test 141 meq/L 136-145 ueec=307) POTASSIUM (BEAKER) (test 4.2 meq/L 3.5-5.1 edep=255) CHLORIDE (BEAKER) (test 119 meq/L 98-107 sltw=317) CO2 (BEAKER) (test 13 meq/L 22-29 jqng=939) BLOOD UREA NITROGEN 20 mg/dL 7-21 (BEAKER) (test zbxo=325) CREATININE (BEAKER) (test 1.52 mg/dL 0.57-1.25 sulo=941) GLUCOSE RANDOM (BEAKER) 76 mg/dL 70-105 (test mkxa=330) CALCIUM (BEAKER) (test 8.1 mg/dL 8.4-10.2 fkjr=369) EGFR (BEAKER) (test 42 mL/min/1.73 sq m ESTIMATED GFR IS NOT abct=8976) ACCURATE CREATININE CLEARANCE IN PREDICTING GLOMERULAR FILTRATION RATE. ESTIMATED GFR IS NOT APPLICABLE FOR DIALYSIS PATIENTS. LIPID [id number] 05:50:00 Test Item Value Reference Range Comments TRIGLYCERIDES (BEAKER) (test otnb=913) 58 mg/dL CHOLESTEROL (BEAKER) (test tcib=038) 129 mg/dL HDL CHOLESTEROL (BEAKER) (test haeg=883) 39 mg/dL LDL CHOLESTEROL CALCULATED (BEAKER) (test 78 mg/dL uget=484) Triglyceride Reference Range: Low Risk <150 Borderline 150- 199 High Risk 200-499 Very High Risk >=500Cholesterol Reference Range: Low Risk <200 Borderline 200-239 High Risk > 240HDL Cholesterol Reference Range: Low Risk >=60 High Risk <40LDL Cholesterol Reference Range: Optimal <100 Near Optimal 100-129 Borderline 130-159 High 160-189 Very High >=190HEPATIC FUNCTION [id number] 05:50:00 Test Item Value Reference Range Comments TOTAL PROTEIN (BEAKER) (test qsmu=216) 6.2 gm/dL 6.0-8.3 ALBUMIN (BEAKER) (test vyeq=6419) 3.1 g/dL 3.5-5.0 BILIRUBIN TOTAL (BEAKER) (test artb=481) 0.4 mg/dL 0.2-1.2 BILIRUBIN DIRECT (BEAKER) (test ncau=256) 0.3 mg/dL 0.1-0.5 ALKALINE PHOSPHATASE (BEAKER) (test knkk=881) 204 U/L 40-150 AST (SGOT) (BEAKER) (test yweb=746) 138 U/L 5-34 ALT (SGPT) (BEAKER) (test uees=165) 107 U/L 6-55 PROTHROMBIN [id number] 05:22:00 Test Item Value Reference Range Comments PROTIME (KALA) (test goty=875) 17.0 seconds 11.7-14.7 INR (KALA) (test pwvn=803) 1.4 <=5.9 RECOMMENDED COUMADIN/WARFARIN INR THERAPY RANGESSTANDARD DOSE: 2.0 - 3.0 Includes: PROPHYLAXIS forvenous thrombosis, systemic embolization; TREATMENT for venous thrombosis and/or pulmonary embolus.HIGH RISK: Target INR is 2.5-3.5 for patients with mechanical heart valves.U/S, ABDOMINAL, [id number] 23: 11:00Reason for exam:->ASCITESFINAL REPORT Ultrasound of [...] is recommended. No ascites. Signed: Roberto Lizama MDReport Verified Date/Time: 11/17/2017 23:11 :49 Reading Location: [facility] C013T Transitional Reading Room URINE [id number] 10:40:00 Test Item Value Reference Range Comments CULTURE (BEAKER) (test pzpy=1544) Amikacin (test code=1) Ampicillin + Sulbactam (test code=6) Aztreonam (test code=32) Cefepime (test code=51) Cefoxitin (test code=68) Ceftazidime (test code=27) Ceftriaxone (test code=52) Ertapenem (test code=38) Gentamicin (test code=18) Levofloxacin (test code=22) Meropenem (test code=34) Nitrofurantoin (test code=23) Piperacillin + Tazobactam (test code=29) Tetracycline (test code=2) Tobramycin (test code=25) Trimethoprim + Sulfamethoxazole (test code=47) CULTURE (BEAKER) (test KLEBSIELLA SPECIES 20-29,000 col/mL sjxu=0744) Klebsiella species Amikacin (test code=1) Ampicillin + Sulbactam (test code=6) Aztreonam (test code=32) Cefepime (test code=51) Cefoxitin (test code=68) Ceftazidime (test code=27) Ceftriaxone (test code=52) Ertapenem (test code=38) Gentamicin (test code=18) Levofloxacin (test code=22) Meropenem (test code=34) Nitrofurantoin (test code=23) Piperacillin + Tazobactam (test code=29) Tetracycline (test code=2) Tobramycin (test code=25) Trimethoprim + Sulfamethoxazole (test code=47) CULTURE (BEAKER) (test 20-29,000 col/mL jtgv=5132) Klebsiella speciesof a second type >100,000 col/mL skin [id number] 07:47:00 Test Item Value Reference Range Comments PHOSPHORUS (BEAKER) (test kdsl=255) 3.4 mg/dL 2.3-4.7 [id number] 07:47:00 Test Item Value Reference Range Comments MAGNESIUM (BEAKER) (test leqd=982) 2.2 mg/dL 1.6-2.6 BASIC METABOLIC [id number] 07:47:00 Test Item Value Reference Range Comments SODIUM (BEAKER) (test 141 meq/L 136-145 ypzk=076) POTASSIUM (BEAKER) (test 3.4 meq/L 3.5-5.1 ujnd=214) CHLORIDE (BEAKER) (test 116 meq/L 98-107 cvmf=474) CO2 (BEAKER) (test 17 meq/L 22-29 pirt=402) BLOOD UREA NITROGEN 17 mg/dL 7-21 (BEAKER) (test hgpw=045) CREATININE (BEAKER) (test 1.41 mg/dL 0.57-1.25 jdgq=080) GLUCOSE RANDOM (BEAKER) 85 mg/dL 70-105 (test hsja=666) CALCIUM (BEAKER) (test 8.3 mg/dL 8.4-10.2 mzoa=661) EGFR (BEAKER) (test 45 mL/min/1.73 sq m ESTIMATED GFR IS NOT fuqt=7590) ACCURATE CREATININE CLEARANCE IN PREDICTING GLOMERULAR FILTRATION RATE. ESTIMATED GFR IS NOT APPLICABLE FOR DIALYSIS PATIENTS. CBC W/PLT COUNT & AUTO [id number] 06:28:00 Test Item Value Reference Range Comments WHITE BLOOD CELL COUNT (BEAKER) (test jksp=566) 13.7 K/ L 3.5-10.5 RED BLOOD CELL COUNT (BEAKER) (test ablg=074) 3.94 M/ L 3.93-5.22 HEMOGLOBIN (BEAKER) (test rtrs=700) 8.8 GM/DL 11.2-15.7 HEMATOCRIT (BEAKER) (test ehno=131) 32.0 % 34.1-44.9 MEAN CORPUSCULAR VOLUME (BEAKER) (test ljyi=571) 81.2 fL 79.4-94.8 MEAN CORPUSCULAR HEMOGLOBIN (BEAKER) (test 22.3 pg 25.6-32.2 bxqk=117) MEAN CORPUSCULAR HEMOGLOBIN CONC (BEAKER) (test 27.5 GM/DL 32.2-35.5 nsmg=243) RED CELL DISTRIBUTION WIDTH (BEAKER) (test 18.3 % 11.7-14.4 uxjh=472) PLATELET COUNT (BEAKER) (test ifyf=590) 424 K/CU MM 150-450 MEAN PLATELET VOLUME (BEAKER) (test ktqe=224) 10.4 fL 9.4-12.3 NUCLEATED RED BLOOD CELLS (BEAKER) (test 0 /100 WBC 0-0 auud=850) NEUTROPHILS RELATIVE PERCENT (BEAKER) (test 75 % fmyx=109) LYMPHOCYTES RELATIVE PERCENT (BEAKER) (test 19 % fgdf=092) MONOCYTES RELATIVE PERCENT (BEAKER) (test 5 % ozgw=538) EOSINOPHILS RELATIVE PERCENT (BEAKER) (test 1 % vxek=776) BASOPHILS RELATIVE PERCENT (BEAKER) (test 0 % ugyz=228) NEUTROPHILS ABSOLUTE COUNT (BEAKER) (test 10.23 K/ L 1.56-6.13 ibvj=699) LYMPHOCYTES ABSOLUTE COUNT (BEAKER) (test 2.64 K/ L 1.18-3.74 zuzt=386) MONOCYTES ABSOLUTE COUNT (BEAKER) (test 0.71 K/ L 0.24-0.36 xbck=639) EOSINOPHILS ABSOLUTE COUNT (BEAKER) (test 0.07 K/ L 0.04-0.36 isdu=830) BASOPHILS ABSOLUTE COUNT (BEAKER) (test 0.03 K/ L 0.01-0.08 nluh=826) IMMATURE GRANULOCYTES-RELATIVE PERCENT (BEAKER) 0 % 0-1 (test vfsv=4624) RAD, SHUNT [id number] 21:37:00Reason for exam:->postopFINAL REPORT EXAM: SHUNT SERIES [...] unremarkable. Additional Findings: Previously described occipital approach LUMBER HANDLER shunt catheter unchanged when compared to the prior exam. Disconnected right-sided catheter segment is also changed as it overlies the thoracic cavity. IMPRESSION: Interval placement of a [employer] LUMBER HANDLER shunt set to performance level 4. Signed: JR Nettles Robert MDReport Verified Date/Time: 11/08/2017 21:37:02 Reading Location: [address] Reading Room CT, BRAIN, WITHOUT [id number] 08:07:00FINAL REPORT CT Head without contrast [...] catheter as discussed above. Signed: Sam Key MDReport Verified Date/Time: 11/08/2017 08:07:55 Reading Location: [facility] Radiology Reading Room Electronically signed by: SAM KEY M.D. on 08:07 AMCBC W/PLT COUNT & AUTO [id number] 07:52:00 Test Item Value Reference Range Comments WHITE BLOOD CELL COUNT (BEAKER) (test hfpx=135) 14.4 K/ L 3.5-10.5 RED BLOOD CELL COUNT (BEAKER) (test qfnt=751) 3.84 M/ L 3.93-5.22 HEMOGLOBIN (BEAKER) (test ekzm=957) 8.6 GM/DL 11.2-15.7 HEMATOCRIT (BEAKER) (test nqie=718) 31.5 % 34.1-44.9 MEAN CORPUSCULAR VOLUME (BEAKER) (test msfq=001) 82.0 fL 79.4-94.8 MEAN CORPUSCULAR HEMOGLOBIN (BEAKER) (test 22.4 pg 25.6-32.2 nvng=684) MEAN CORPUSCULAR HEMOGLOBIN CONC (BEAKER) (test 27.3 GM/DL 32.2-35.5 bsqs=557) RED CELL DISTRIBUTION WIDTH (BEAKER) (test 18.0 % 11.7-14.4 oyqy=198) PLATELET COUNT (BEAKER) (test fhuh=522) 405 K/CU MM 150-450 MEAN PLATELET VOLUME (BEAKER) (test qsqv=745) 10.3 fL 9.4-12.3 NUCLEATED RED BLOOD CELLS (BEAKER) (test 0 /100 WBC 0-0 kuhh=035) NEUTROPHILS RELATIVE PERCENT (BEAKER) (test 92 % ttqc=915) LYMPHOCYTES RELATIVE PERCENT (BEAKER) (test 5 % kfsy=114) MONOCYTES RELATIVE PERCENT (BEAKER) (test 2 % fnks=585) EOSINOPHILS RELATIVE PERCENT (BEAKER) (test 0 % glxi=284) BASOPHILS RELATIVE PERCENT (BEAKER) (test 0 % uasg=112) NEUTROPHILS ABSOLUTE COUNT (BEAKER) (test 13.26 K/ L 1.56-6.13 fodk=819) LYMPHOCYTES ABSOLUTE COUNT (BEAKER) (test 0.78 K/ L 1.18-3.74 syxr=386) MONOCYTES ABSOLUTE COUNT (BEAKER) (test 0.29 K/ L 0.24-0.36 gmdw=161) EOSINOPHILS ABSOLUTE COUNT (BEAKER) (test 0.00 K/ L 0.04-0.36 mgtp=753) BASOPHILS ABSOLUTE COUNT (BEAKER) (test 0.01 K/ L 0.01-0.08 exmy=024) IMMATURE GRANULOCYTES-RELATIVE PERCENT (BEAKER) 0 % 0-1 (test plyv=1352) BASIC METABOLIC [id number] 07:30:00 Test Item Value Reference Range Comments SODIUM (BEAKER) (test 143 meq/L 136-145 lpjs=383) POTASSIUM (BEAKER) (test 4.3 meq/L 3.5-5.1 dsuk=171) CHLORIDE (BEAKER) (test 121 meq/L 98-107 zeew=214) CO2 (BEAKER) (test 12 meq/L 22-29 ztiz=119) BLOOD UREA NITROGEN 16 mg/dL 7-21 (BEAKER) (test mbpp=108) CREATININE (BEAKER) (test 1.46 mg/dL 0.57-1.25 adgf=192) GLUCOSE RANDOM (BEAKER) 94 mg/dL 70-105 (test ouap=231) CALCIUM (BEAKER) (test 8.6 mg/dL 8.4-10.2 nftg=638) EGFR (BEAKER) (test 44 mL/min/1.73 sq m ESTIMATED GFR IS NOT vyyw=9027) ACCURATE CREATININE CLEARANCE IN PREDICTING GLOMERULAR FILTRATION RATE. ESTIMATED GFR IS NOT APPLICABLE FOR DIALYSIS PATIENTS. [id number] 07:23:00 Test Item Value Reference Range Comments PHOSPHORUS (BEAKER) (test uglk=805) 3.6 mg/dL 2.3-4.7 [id number] 07:23:00 Test Item Value Reference Range Comments MAGNESIUM (BEAKER) (test giup=438) 2.3 mg/dL 1.6-2.6 RAD, SHUNT [id number] 13:15:00Reason for exam:->headacheFINAL REPORT Shunt series, 11 [...] MDReport Verified Date/Time: 2017 13:15:42 [facility], WITHOUT [id number] 13:03:00FINAL REPORT CT head without contrast. Comparisons: [...] probably chronic. The left -sided posterior approach LUMBER HANDLER shunt extends along the medialaspect of the left lateral ventricle posteriorly and does not definitively extend into the ventricular system. The visualized dural sinus regions, orbital contents, paranasal sinuses, bones and surrounding soft tissues are unremarkable. Impressions: 1. No specific evidence of acute intracranialabnormality. 2. Mild chronic appearing ventricular prominence without specific evidence of acute hydrocephalus. Note description of the intracranial left LUMBER HANDLER shunt catheter. There is no definitive intraventricular extension. 3. 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 Signed: Richard Matheweport Verified Date/Time: 11/07/2017 13:03:58 Electronically signed by: RICHARD MATHEW M.D.on 11/07/2017 01:03 PMURINALYSIS W/ [id number] 09:28:00 Test Item Value Reference Range Comments COLOR (BEAKER) (test xbtj=736) Light Yellow CLARITY (BEAKER) (test obyv=102) Hazy SPECIFIC GRAVITY UA (BEAKER) (test hnvm=669) 1.006 1.001-1.035 PH UA (BEAKER) (test ctxy=546) 7.5 5.0-8.0 PROTEIN UA (BEAKER) (test gtav=766) 30 mg/dL Negative GLUCOSE UA (BEAKER) (test lxdg=648) Negative Negative KETONES UA (BEAKER) (test ksni=623) Negative Negative BILIRUBIN UA (BEAKER) (test ofsr=162) Negative Negative BLOOD UA (BEAKER) (test jdhb=394) Negative Negative NITRITE UA (BEAKER) (test ufcg=810) Negative Negative LEUKOCYTE ESTERASE UA (BEAKER) (test bqrm=634) Moderate Negative UROBILINOGEN UA (BEAKER) (test jaus=842) 6.0 mg/dL 0.2-1.0 RBC UA (BEAKER) (test nmed=733) 2 /HPF WBC UA (BEAKER) (test zjfn=463) 1 /HPF AMORPHOUS CRYSTALS (BEAKER) (test rulz=0394) Moderate SOURCE(BEAKER) (test zcej=1896) Urine, Voided SCREEN, [id number] 09:12:00 Test Item Value Reference Range Comments TEST URINE (BEAKER) (test bgnm=105) Negative [id number] 03:34:00 Test Item Value Reference Range Comments PHOSPHORUS (BEAKER) (test mtgl=617) 3.5 mg/dL 2.3-4.7 [id number] 03:34:00 Test Item Value Reference Range Comments MAGNESIUM (BEAKER) (test sjwa=484) 2.2 mg/dL 1.6-2.6 BASIC METABOLIC [id number] 03:34:00 Test Item Value Reference Range Comments SODIUM (BEAKER) (test 140 meq/L 136-145 glzn=570) POTASSIUM (BEAKER) (test 3.4 meq/L 3.5-5.1 qqzw=656) CHLORIDE (BEAKER) (test 116 meq/L 98-107 sjub=942) CO2 (BEAKER) (test 16 meq/L 22-29 gcxl=039) BLOOD UREA NITROGEN 15 mg/dL 7-21 (BEAKER) (test tghe=618) CREATININE (BEAKER) (test 1.35 mg/dL 0.57-1.25 dmpx=195) GLUCOSE RANDOM (BEAKER) 76 mg/dL 70-105 (test csem=631) CALCIUM (BEAKER) (test 8.4 mg/dL 8.4-10.2 vneb=483) EGFR (BEAKER) (test 48 mL/min/1.73 sq m ESTIMATED GFR IS NOT iowz=3585) ACCURATE CREATININE CLEARANCE IN PREDICTING GLOMERULAR FILTRATION RATE. ESTIMATED GFR IS NOT APPLICABLE FOR DIALYSIS PATIENTS. CBC W/PLT COUNT & AUTO [id number] 03:33:00 Test Item Value Reference Range Comments WHITE BLOOD CELL COUNT (BEAKER) (test ttqo=544) 10.7 K/ L 3.5-10.5 RED BLOOD CELL COUNT (BEAKER) (test fjmn=138) 4.18 M/ L 3.93-5.22 HEMOGLOBIN (BEAKER) (test cjer=898) 9.2 GM/DL 11.2-15.7 HEMATOCRIT (BEAKER) (test cfaq=518) 33.4 % 34.1-44.9 MEAN CORPUSCULAR VOLUME (BEAKER) (test wkon=368) 79.9 fL 79.4-94.8 MEAN CORPUSCULAR HEMOGLOBIN (BEAKER) (test 22.0 pg 25.6-32.2 hfbt=336) MEAN CORPUSCULAR HEMOGLOBIN CONC (BEAKER) (test 27.5 GM/DL 32.2-35.5 vygl=188) RED CELL DISTRIBUTION WIDTH (BEAKER) (test 17.6 % 11.7-14.4 rces=574) PLATELET COUNT (BEAKER) (test kwdi=611) 386 K/CU MM 150-450 MEAN PLATELET VOLUME (BEAKER) (test jrah=035) 10.6 fL 9.4-12.3 NUCLEATED RED BLOOD CELLS (BEAKER) (test 0 /100 WBC 0-0 fjwf=186) NEUTROPHILS RELATIVE PERCENT (BEAKER) (test 68 % izuq=693) LYMPHOCYTES RELATIVE PERCENT (BEAKER) (test 25 % ysiq=118) MONOCYTES RELATIVE PERCENT (BEAKER) (test 4 % yfny=338) EOSINOPHILS RELATIVE PERCENT (BEAKER) (test 2 % ugek=069) BASOPHILS RELATIVE PERCENT (BEAKER) (test 0 % mgnu=208) NEUTROPHILS ABSOLUTE COUNT (BEAKER) (test 7.22 K/ L 1.56-6.13 ekiv=799) LYMPHOCYTES ABSOLUTE COUNT (BEAKER) (test 2.66 K/ L 1.18-3.74 ztjz=360) MONOCYTES ABSOLUTE COUNT (BEAKER) (test 0.47 K/ L 0.24-0.36 jzac=983) EOSINOPHILS ABSOLUTE COUNT (BEAKER) (test 0.26 K/ L 0.04-0.36 lyma=848) BASOPHILS ABSOLUTE COUNT (BEAKER) (test 0.01 K/ L 0.01-0.08 msgn=081) IMMATURE GRANULOCYTES-RELATIVE PERCENT (BEAKER) 1 % 0-1 (test qyua=2931) [id number] 03:28:00 Test Item Value Reference Range Comments PROTIME (BEAKER) (test qhvq=632) 15.6 seconds 11.7-14.7 INR (BEAKER) (test jxaj=527) 1.2 <=5.9 PARTIAL THROMBOPLASTIN TIME (BEAKER) (test 31.1 seconds 22.5-36.0 aowi=122) RECOMMENDED COUMADIN/WARFARIN INR THERAPY RANGESSTANDARD DOSE: 2.0 - 3.0 Includes: PROPHYLAXIS forvenous thrombosis, systemic embolization; TREATMENT for venous thrombosis and/or pulmonary embolus.HIGH RISK: Target INR is 2.5-3.5 for patients with mechanical heart valves.
--- NOTE | 2019-09-15 17:56 | RAD REPORT ---
EXAM DESCRIPTION: CT - CTHCSPWOC - 09/15/2019 5:43 pm CLINICAL HISTORY: Trip and fall, head and neck injury COMPARISON: CT head January 2018 and November 2017 TECHNIQUE: Axial 5 mm thick images of the head were obtained. Axial 2 mm thick images of the cervic al spine were obtained with sagittal and coronal reconstruction images generated and reviewed. All CT scans are performed using dose optimization technique as appropriate and may include automated exposure control or mA/KV adjustment according to patient size. FINDINGS: No intracranial hemorrhage, focal mass or edema. No acute brain parenchymal process identified. There is a left frontal shunt tube in place with the tip in the frontal horn left lateral ventricle. Left frontal parietal shunt tube in place with the tip near the quadrigeminal plate cistern. No change in positioning of the shunt tubes. Ventriculomegaly is present similar or very fractionally increased ov er the 2018 study. Transependymal migration of CSF is not suspected. No suspicion for acute infarctio n. No extra-axial fluid collections. Mastoid air cells and paranasal sinuses are clear. No globe or o rbit abnormality seen. Cervical bodies are normal in height. There is reversal of the usual cervical lordosis. No subluxatio n abnormalities. No disk space narrowing. No fracture or acute bony abnormality. Central canal detail is limited. No paraspinal mass or hematoma. IMPRESSION: No hemorrhage, edema or acute intracranial finding identified. Ventriculomegaly is present appearing fractionally increased over a January 2018 study. No transependymal migration of CSF. An acute obstructive process is not suspected. Negative CT cervical spine examination for acute or significant finding.
--- NOTE | 2019-09-15 18:09 | RAD REPORT ---
EXAM DESCRIPTION: RAD - Chest Single View - 09/15/2019 6:01 pm CLINICAL HISTORY: Fall, chest trauma COMPARISON: None. TECHNIQUE: AP portable chest image was obtained 1711 hours . FINDINGS: Lungs are clear. Heart and vasculature are normal. No measurable pleural effusion and no p neumothorax. No acute bony abnormality seen. No acute aortic findings suspected. Shunt tubing overlie s the right and left sites of the chest IMPRESSION: No acute cardiopulmonary process.
--- NOTE | 2019-09-15 18:48 | ER ---
Nurse's Notes [facility] Name: Yadi De Leon Age: 28 yrs Sex: Female : 1990 Arrival Date: 09/15/2019 Time: 16:12 Bed 14 Private MD: Diagnosis: Contusions head, left hand and left knee. S/P Fall Presentation: 09/15 16:23 Presenting complaint: Patient states: i tripped and fell on my left side yesterday \T\ 4 mg2 pm at [facility]. i dont know if i passed out or not. 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 i felt pressure at the left side of my face. Transition of care: patient was not received from another setting of care. Onset of symptoms was September 14, 2019. Risk Assessment: Do you want to hurt yourself or someone else? Patient reports no desire to harm self or others. Initial Sepsis Screen: Does the patient meet any 2 criteria? No. Patient's initial sepsis screen is negative. Does the patient have a suspected source of infection? No. Patient's initial sepsis screen is negative. Care prior to arrival: None. 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 - Social history:: Smoking status: Patient/guardian denies using tobacco, Patient/guardian denies using alcohol, street drugs, IV drugs. - Ebola Screening: : No symptoms or risks identified at this time. Screenin:00 Abuse screen: Denies threats or abuse. Denies injuries from another. Nutritional jl7 screening: No deficits noted. Tuberculosis screening: No symptoms or risk factors identified. Fall Risk None identified. Assessment: 16:50 General: Appears in no apparent distress. uncomfortable, Behavior is calm, cooperative, jl7 appropriate for age. Pain: Complains of pain in BROWN and left knee Pain does not radiate. Pain currently is 8 out of 10 on a pain scale. Neuro: Level of Consciousness is awake, alert, obeys commands, Oriented to person, place, time, situation. Cardiovascular: Patient's skin is warm and dry. Respiratory: Airway is patent Respiratory effort is even, unlabored, Respiratory pattern is regular, symmetrical. Derm: Skin is pink, warm \T\ dry. Musculoskeletal: Swelling present in left knee. 17:25 Reassessment: Pt refused UPT, reports not sexually active, no chance of , ERD jl7 notified. 18:00 Reassessment: Patient appears in no apparent distress at this time. No changes from jl7 previously documented assessment. Patient and/or family updated on plan of care and expected duration. Pain level reassessed. Patient is alert, oriented x 3, equal unlabored respirations, skin warm/dry/pink. 18:54 Reassessment: Pt ambulated, using personal cane, after [place] wrap, denies discomfort. jl7 Vital Signs: 16:26 BP 114 / 91; Pulse 75; Resp 18; Temp 98.2; Pulse Ox 100% on R/A; Height 4 ft. 11 in. mg2 (149.86 cm); Pain 8/10; 18:30 BP 115 / 90; Pulse 75; Resp 16 S; Pulse Ox 100% on R/A; jl7 ED Course: 16:12 Patient arrived in ED. mr 16:26 Triage completed. mg2 16:28 Arm band placed on. mg2 16:57 Majo Alcocer, RN is Primary Nurse. jl7 17:00 Patient has correct armband on for positive identification. Placed in gown. Bed in low jl7 position. Call light in reach. Side rails up X 1. Pulse ox on. NIBP on. 17:09 Adolfo Carvalho MD is Attending Physician. pkl 17:44 CT Head C Spine In Process Unspecified. EDMS 18:01 Chest Single View XRAY In Process Unspecified. EDMS 18:02 Hand Left 3 View XRAY In Process Unspecified. EDMS 18:02 Knee Left 3 View XRAY In Process Unspecified. EDMS 18:55 No provider procedures requiring assistance completed. Patient did not have IV access jl7 during this emergency room visit. Administered Medications: No medications were administered Outcome: 18:47 Discharge ordered by . pkl 19:03 Discharged to home ambulatory, with family. jl7 19:03 Condition: stable 19:03 Discharge instructions given to patient, family, Instructed on discharge instructions, follow up and referral plans. medication usage, Demonstrated understanding of instructions, follow-up care, medications, Prescriptions given X 1. 19:03 Patient left the ED. jl7 Signatures: Dispatcher [employer] EDMS Adolfo Carvalho MD MD pkl Rivera, Bell melton AlcocerMajo RN RN jl7 Burke Dewitt RN RN mg2 Corrections: (The following items were deleted from the chart) 16:23 Presenting complaint: Patient states: i tripped and fell on my left side mg2 yesterday \T\ 4 pm at [facility]. i dont know if i passed out or not. 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 mg2 16:23 Acuity: ARIANNA 3 mg2 mg2 16: 16:23 Acuity: ARIANNA 2 mg2 mg2
--- NOTE | 2019-09-15 18:48 | EDPHYS ---
Physician Documentation [facility] Name: Yadi De Leon Age: 28 yrs Sex: Female : 1990 Arrival Date: 09/15/2019 Time: 16:12 Bed 14 Private MD: ED Physician Adolfo Carvalho HPI: 09/15 17:24 This 28 yrs old Female presents to ER via Wheelchair with complaints of Fall pkl Injury. 17:24 Details of fall: The patient fell from an upright position, while standing. pkl 17:25 Onset: The symptoms/episode began/occurred yesterday. Associated injuries: The patient pkl sustained injury to the head, neck injury, left hand, left knee. 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 - Social history:: Smoking status: Patient/guardian denies using tobacco, Patient/guardian denies using alcohol, street drugs, IV drugs. - Ebola Screening: : No symptoms or risks identified at this time. ROS: 17:25 Eyes: Negative for injury, pain, redness, and discharge, ENT: Negative for injury, pkl pain, and discharge, Neck: Negative for injury, pain, and swelling. 17:25 Cardiovascular: Negative for chest pain, palpitations, and edema, Respiratory: Negative pkl for shortness of breath, cough, wheezing, and pleuritic chest pain, Abdomen/GI: Negative for abdominal pain, nausea, vomiting, diarrhea, and constipation, Back: Negative for injury and pain, : Negative for injury, bleeding, discharge, and swelling. 17:25 MS/extremity: Positive for contusion, pain, of the left hand and left knee. 17:25 Skin: Negative for rash. 17:25 Neuro: Negative for altered mental status. Exam: 17:25 Head/Face: Normocephalic, atraumatic. Eyes: Pupils equal round and reactive to light, pkl extra-ocular motions intact. Lids and lashes normal. Conjunctiva and sclera are non-icteric and not injected. Cornea within normal limits. Periorbital areas with no swelling, redness, or edema. ENT: Nares patent. No nasal discharge, no septal abnormalities noted. Tympanic membranes are normal and external auditory canals are clear. Oropharynx with no redness, swelling, or masses, exudates, or evidence of obstruction, uvula midline. Mucous membranes moist. Neck: Trachea midline, no thyromegaly or masses palpated, and no cervical lymphadenopathy. Supple, full range of motion without nuchal rigidity, or vertebral point tenderness. No Meningismus. Chest/axilla: Normal chest wall appearance and motion. Nontender with no deformity. No lesions are appreciated. Cardiovascular: Regular rate and rhythm with a normal S1 and S2. No gallops, murmurs, or rubs. Normal PMI, no JVD. No pulse deficits. Respiratory: Lungs have equal breath sounds bilaterally, clear to auscultation and percussion. No rales, rhonchi or wheezes noted. No increased work of breathing, no retractions or nasal flaring. Abdomen/GI: Soft, non-tender, with normal bowel sounds. No distension or tympany. No guarding or rebound. No evidence of tenderness throughout. Back: No spinal tenderness. No costovertebral tenderness. Full range of motion. Skin: Warm, dry with normal turgor. Normal color with no rashes, no lesions, and no evidence of cellulitis. 17:25 Musculoskeletal/extremity: Extremities: grossly normal except: noted in the left hand: contusion, pain, noted in the left knee: contusion, pain. Vital Signs: 16:26 BP 114 / 91; Pulse 75; Resp 18; Temp 98.2; Pulse Ox 100% on R/A; Height 4 ft. 11 in. mg2 (149.86 cm); Pain 8/10; 18:30 BP 115 / 90; Pulse 75; Resp 16 S; Pulse Ox 100% on R/A; jl7 MDM: 17:09 [facility]. [facility] 18:45 Data reviewed: vital signs, nurses notes, radiologic studies, CT scan, plain films. [facility] 09/15 16:53 Order name: CT Head C Spine; Complete Time: 18:04 [facility] 09/15 16:53 Order name: Chest Single View XRAY; Complete Time: 18:40 [facility] 09/15 17:22 Order name: Hand Left 3 View XRAY pkl 09/15 17:22 Order name: Knee Left 3 View XRAY pkl 09/15 18:45 Order name: Angel Wrap; Complete Time: 18:53 pkl Administered Medications: No medications were administered Disposition: 09/15/19 18:47 Discharged to Home. Impression: Contusions head, left hand and left knee. S/P Fall. - Condition is Stable. - Prescriptions for Ultram 50 mg Oral Tablet - take 1 tablet by ORAL route every 8 hours As needed; 12 tablet. - Medication Reconciliation Form, Thank You Letter, Antibiotic Education, Prescription Opioid Use form. - Follow up: Private Physician; When: 2 - 3 days; Reason: Re-evaluation by your physician. - Problem is new. - Symptoms have improved. Signatures: Dispatcher [employer] EDMS Adolfo Carvalho MD MD pkMajo Betancur RN RN jl7 Erlin Luna RN RN Burke Weiss RN RN mg2 Corrections: (The following items were deleted from the chart) 18:53 17:23 Urine Dipstick-Ancillary ordered. bp jl7 18:53 17:23 Urine Test ordered. bp jl7 19:03 18:47 09/15/2019 18:47 Discharged to Home. Impression: Contusions head, left hand and jl7 left knee. S/P Fall. Condition is Stable. Forms are Medication Reconciliation Form, Thank You Letter, Antibiotic Education, Prescription Opioid Use. Follow up: Private Physician; When: 2 - 3 days; Reason: Re-evaluation by your physician. Problem is new. Symptoms have improved. pkl
--- NOTE | 2019-09-15 19:06 | RAD REPORT ---
EXAM DESCRIPTION: RAD - Hand Left 3 View - 09/15/2019 6:01 pm CLINICAL HISTORY: Fall left side hand pain COMPARISON: None. FINDINGS: No fracture, dislocation or periosteal reaction noted. No foreign body or other soft tissu e abnormality. IMPRESSION: Negative left hand examination.
--- NOTE | 2019-09-15 19:07 | RAD REPORT ---
EXAM DESCRIPTION: RAD - Knee Left 3 View - 09/15/2019 6:01 pm CLINICAL HISTORY: Trip and fall, left knee pain COMPARISON: None. FINDINGS: No fracture, dislocation or periosteal reaction.No joint effusion seen. No joint space bassem rowing. Contusion or edema changes seen in the anterior soft tissues. No foreign body. IMPRESSION: Anterior soft tissue bruising or contusion change. No acute bone or joint finding. Clinical concerns for internal derangement or occult bony injury could be further assessed with MR im aging.
[2019-09-15 19:51] VITALS: TEMP 98.2; O2SAT 100
[2019-09-15 19:54] VITALS: BP 115/90
== END 2019-09-15 19:03 | disposition home or self-care (01) ==
LOC: ER 16:09
DX: S00.93XA Contusion of unspecified part of head, initial encounter (principal); S60.222A Contusion of left hand, initial encounter; S80.02XA Contusion of left knee, initial encounter; W01.0XXA Fall on same level from slipping, tripping and stumbling without subsequent striking against object, initial encounter; Y93.9 Activity, unspecified; Y92.9 Unspecified place or not applicable; Z91.040 Latex allergy status
CPT/HCPCS: 70450; 71045; 72125; 99283

== ENCOUNTER 2019-12-30 17:19 | Emergency (ER) | payer OTHER ==
--- OUTSIDE RECORDS SUMMARY | 2019-12-30 17:22 | XMS REPORT ---
:1990 Author Organization [facility] t Address [address] [place] [address] Care Team Providers Name Role Phone KARMEN Unavailable Unavailable ANGIEDYLAN Gillis Unavailable Unavailable Problems This patient has no known problems. Allergies, Adverse Reactions, Alerts This patient has no known allergies or adverse reactions. Medications This patient has no known medications. Results Test Description Test Time Test Comments Text Results Atomic Results Result Comments RAD, SHUNT SERIES 2018-08-20 13:00:00 Reason for FINAL REPORT PAT IENT ID: Exam:->[id number] Exam: Shunt series History: Evaluate shunt Comparison: None. Findings: A left [employer] shunt catheter present which extends down the left neck, anterior chest and enters the abdomen with distal tip curled in the left lower quadrant. No discontinuity of the radiopaque portion. No mass effect within the abdomen. Additional foci of prior shunt tubing. Impression: Intact radiopaque portions of the [employer] shunt catheter. Signed: Sam Shoemaker Verified Date/Time: 08/20/2018 13:00:05 Reading Location: [facility] Reading Room [address] [place] [address] , BRAIN, WITHOUT 2018-08-20 10:53:00 ORDER/STUDY IS TO BE BRINA L REPORT PATIENT ID: IV CONTRAST PERFORMED AT [facility] [id number] Examination : CAMPUS.[id number]/20 CT, BRAIN, WITHOUT IV [id number]/VIANEY CONTRAST History: DY IS TO BE PERFORMED Hydrocephalus.Jason rison AT [facility] studies: Head CT CAMPUS.[id number]/17 performed November 08, 2017 Oawsmxfw- Technique:Axial chilango ges >[facility] were obtained from [facility] skull base to the vertex.Coronal and sagittal [...] cerebellar tonsils are not included within the duall-xv-qchi this finding remains unchanged compared to prior head CT performed November 08, 2017. The posterior fossa remains small/underdeveloped. Incidental findings: None. Impression: 1.No new intracranial abnormalities when compared to prior head CT performed November 08, 2017. 2.Unchanged frontal and left parietal ventriculostomy catheters. 3.Unchanged ventriculomegaly with findings related to Chiari malformation, as detailed above. Signed: Olya Aranda [facility] Verified Date/Time: 08/20/2018 10:53:56 ESIUM 2017-11-20 13:05:00 Test Item Value Reference Range Comments MAGNESIUM (BEAKER) (test code = 627) 2.0 mg/dL 1.6-2.6 BASIC METABOLIC [id number] 12:48:00 Test Item Value Reference Range Comments SODIUM (BEAKER) (test 143 meq/L 136-145 code = 381) POTASSIUM (BEAKER) (test 4.1 meq/L 3.5-5.1 code = 379) CHLORIDE (BEAKER) (test 117 meq/L 98-107 code = 382) CO2 (BEAKER) (test code = 13 meq/L 22-29 355) BLOOD UREA NITROGEN 17 mg/dL 7-21 (BEAKER) (test code = 354) CREATININE (BEAKER) (test 1.56 mg/dL 0.57-1.25 code = 358) GLUCOSE RANDOM (BEAKER) 78 mg/dL 70-105 (test code = 652) CALCIUM (BEAKER) (test 8.7 mg/dL 8.4-10.2 code = 697) EGFR (BEAKER) (test code 40 mL/min/1.73 sq m EST IMATED GFR IS NOT = 1092) ACCURATE CREA TININE CLEARANCE IN PRE DICTING GLOMERULAR FILTR ATION RATE. ESTIMATED GFR IS NOT APPLICABLE F OR DIALYSIS PATIENT S. LIPID [id number] 12:48:00 Test Item Value Reference Range Comments TRIGLYCERIDES (BEAKER) (test code = 540) 92 mg/dL CHOLESTEROL (BEAKER) (test code = 631) 192 mg/dL HDL CHOLESTEROL (BEAKER) (test code = 976) 45 mg/dL LDL CHOLESTEROL CALCULATED (BEAKER) (test code = 129 mg/dL 633) Triglyceride Reference Range: Low Risk <150 Borderline 150-199 High Risk 200-499 Very High Risk >=500Cholesterol Reference Range: Low Risk <200 Borderline 200-239 High Risk >240HDL Cholesterol Reference Range: Low Risk >=60 High Risk <40LDL Cholesterol Reference Range: Optimal <100 Near Optimal 100-129 Borderline 130-159 High 160-189 Very High >=190HEPATIC FUNCTION [id number] 12:48:00 Test Item Value Reference Range Comments TOTAL PROTEIN (BEAKER) (test code = 770) 7.2 gm/dL 6.0-8.3 ALBUMIN (BEAKER) (test code = 1145) 3.7 g/dL 3.5-5.0 BILIRUBIN TOTAL (BEAKER) (test code = 377) < mg/dL 0.2-1 .2 BILIRUBIN DIRECT (BEAKER) (test code = 706) 0.1 mg/dL 0.1- 0.5 ALKALINE PHOSPHATASE (BEAKER) (test code = 346) 165 U/L 40-150 AST (SGOT) (BEAKER) (test code = 353) 26 U/L 5-34 ALT (SGPT) (BEAKER) (test code = 347) 54 U/L 6-55 CALCIUM, [id number] 08:06:00 Test Item Value Reference Range Comments CALCIUM IONIZED (BEAKER) (test code = 698) 1.06 mmol/L 1.12- 1.27 PH, BLOOD (BEAKER) (test code = 1810) 7.21 PROTHROMBIN [id number] 06:17:00 Test Item Value Reference Range Comments PROTIME (BEAKER) (test code = 759) 15.5 seconds 11.7-14.7 INR (BEAKER) (test code = 370) 1.2 <=5.9 RECOMMENDED COUMADIN/WARFARIN INR THERAPY RANGESSTANDARD DOSE: 2.0 - 3.0 Includes: PROPHYLAXIS forvenous thrombosis, systemic embolization; TREATMENT for venous thrombosis and/or pulmonary embolus.HIGH RISK: Target INR is 2.5-3.5 for patients with mechanical heart valves.T4, [id number] 17:02:00 Test Item Value Reference Range Comments FREE T4 (BEAKER) (test code = 655) 1.27 ng/dL 0.70-1.48 [id number] 12:17:00 Test Item Value Reference Range Comments PREALBUMIN (BEAKER) (test code = 586) 19 mg/dL 14-45 [id number] 11:57:00 Test Item Value Reference Range Comments MAGNESIUM (BEAKER) (test code = 627) 2.0 mg/dL 1.6-2.6 VITAMIN D, [id number] 11:30:00 Test Item Value Reference Range Comments VITAMIN D 25-OH (BEAKER) (test code = 2764) 10.7 ng/mL 6.6- 49.9 Effective 06/13/2017: Reference Range ChangeNew: 6.6-49.9 ng/mL Previous: 13.0-47.8 ng/mLRecommended Vitamin D Target Range: 30.0-40.0 ng/mLVITAMIN B12 AND [id number] 11:30:00 Test Item Value Reference Range Comments VITAMIN B12 (BEAKER) (test code = 774) 235 pg/mL 213-816 FOLATE (BEAKER) (test code = 362) 6.6 ng/mL >=7.0 TSH/FREE T4 IF [id number] 11:30:00 Test Item Value Reference Range Comments THYROID STIMULATING HORMONE (BEAKER) (test code 5.74 uIU/mL 0.35-4.94 = 772) LIPID [id number] 10:51:00 Test Item Value Reference Range Comments TRIGLYCERIDES (BEAKER) (test code = 540) 95 mg/dL CHOLESTEROL (BEAKER) (test code = 631) 180 mg/dL HDL CHOLESTEROL (BEAKER) (test code = 976) 47 mg/dL LDL CHOLESTEROL CALCULATED (BEAKER) (test code = 114 mg/dL 633) Triglyceride Reference Range: Low Risk <150 Borderline 150-199 High Risk 200-499 Very High Risk >=500Cholesterol Reference Range: Low Risk <200 Borderline 200-239 High Risk >240HDL Cholesterol Reference Range: Low Risk >=60 High Risk <40LDL Cholesterol Reference Range: Optimal <100 Near Optimal 100-129 Borderline 130-159 High 160-189 Very High >=190HEPATIC FUNCTION [id number] 10:51:00 Test Item Value Reference Range Comments TOTAL PROTEIN (BEAKER) (test code = 770) 7.2 gm/dL 6.0-8.3 ALBUMIN (BEAKER) (test code = 1145) 3.6 g/dL 3.5-5.0 BILIRUBIN TOTAL (BEAKER) (test code = 377) 0.3 mg/dL 0.2-1 .2 BILIRUBIN DIRECT (BEAKER) (test code = 706) 0.2 mg/dL 0.1- 0.5 ALKALINE PHOSPHATASE (BEAKER) (test code = 346) 189 U/L 40-150 AST (SGOT) (BEAKER) (test code = 353) 59 U/L 5-34 ALT (SGPT) (BEAKER) (test code = 347) 81 U/L 6-55 COMPREHENSIVE METABOLIC [id number] 10:51:00 Test Item Value Reference Range Comments TOTAL PROTEIN (BEAKER) 7.2 gm/dL 6.0-8.3 (test code = 770) ALBUMIN (BEAKER) (test 3.6 g/dL 3.5-5.0 code = 1145) ALKALINE PHOSPHATASE 189 U/L 40-150 (BEAKER) (test code = 346) BILIRUBIN TOTAL (BEAKER) 0.3 mg/dL 0.2-1.2 (test code = 377) SODIUM (BEAKER) (test code 141 meq/L 136-145 = 381) POTASSIUM (BEAKER) (test 4.0 meq/L 3.5-5.1 code = 379) CHLORIDE (BEAKER) (test 117 meq/L 98-107 code = 382) CO2 (BEAKER) (test code = 13 meq/L 22-29 355) BLOOD UREA NITROGEN 15 mg/dL 7-21 (BEAKER) (test code = 354) CREATININE (BEAKER) (test 1.46 mg/dL 0.57-1.25 code = 358) GLUCOSE RANDOM (BEAKER) 81 mg/dL 70-105 (test code = 652) CALCIUM (BEAKER) (test 8.5 mg/dL 8.4-10.2 code = 697) AST (SGOT) (BEAKER) (test 59 U/L 5-34 code = 353) ALT (SGPT) (BEAKER) (test 81 U/L 6-55 code = 347) EGFR (BEAKER) (test code = 44 mL/min/1.73 sq m E STIMATED GFR IS NOT 1092) ACCURATE CREA TININE CLEARANCE IN PRE DICTING GLOMERULAR FILTR ATION RATE. ESTIMATED GFR IS NOT APPLICABLE F OR DIALYSIS PATIENT S. [id number] 10:51:00 Test Item Value Reference Range Comments LIPASE (BEAKER) (test code = 749) 12 U/L 8-78 URINE [id number] 09:46:00 Test Item Value Reference Range Comments CULTURE (BEAKER) (test code = 1095) No growth CLOSTRIDIUM DIFFICILE TOXIN [id number] 09:04:00 Test Item Value Reference Range Comments CLOSTRIDIUM DIFFICILE TOXIN, PCR (BEAKER) (test Not Detected Not Detected code = 1525) This qualitative real-time polymerase chain reaction assay detects the tcdB gene, encoded on the C.difficile pathogenicity locus (PaLoc). [...] of a positive result is not recommended.CALCIUM, [id number] 07:10:00 Test Item Value Reference Range Comments CALCIUM IONIZED (BEAKER) (test code = 698) 1.14 mmol/L 1.12- 1.27 PH, BLOOD (BEAKER) (test code = 1810) 7.22 CALCIUM, [id number] 06:43:00 Test Item Value Reference Range Comments CALCIUM IONIZED (BEAKER) (test code = 698) 0.82 mmol/L 1.12- 1.27 PH, BLOOD (BEAKER) (test code = 1810) 7.32 CBC (HEMOGRAM ONLY)2017-11-19 06:29:00 Test Item Value Reference Range Comments WHITE BLOOD CELL COUNT (BEAKER) (test code = 10.8 K/ L 3.5 -10.5 775) RED BLOOD CELL COUNT (BEAKER) (test code = 761) 3.76 M/ L 3.93-5.22 HEMOGLOBIN (BEAKER) (test code = 410) 8.4 GM/DL 11.2-15.7 HEMATOCRIT (BEAKER) (test code = 411) 30.3 % 34.1-44.9 MEAN CORPUSCULAR VOLUME (BEAKER) (test code = 80.6 fL 79 .4-94.8 753) MEAN CORPUSCULAR HEMOGLOBIN (BEAKER) (test code 22.3 pg 25.6-32.2 = 751) MEAN CORPUSCULAR HEMOGLOBIN CONC (BEAKER) (test 27.7 GM/DL 32.2-35.5 code = 752) RED CELL DISTRIBUTION WIDTH (BEAKER) (test code 17.8 % 11.7-14.4 = 412) PLATELET COUNT (BEAKER) (test code = 756) 418 K/CU MM 150-45 0 MEAN PLATELET VOLUME (BEAKER) (test code = 754) 10.4 fL 9.4-12.3 NUCLEATED RED BLOOD CELLS (BEAKER) (test code = 0 /100 WBC 0-0 413) PROTHROMBIN [id number] 06:20:00 Test Item Value Reference Range Comments PROTIME (BEAKER) (test code = 759) 15.7 seconds 11.7-14.7 INR (BEAKER) (test code = 370) 1.2 <=5.9 RECOMMENDED COUMADIN/WARFARIN INR THERAPY RANGESSTANDARD DOSE: 2.0 - 3.0 Includes: PROPHYLAXIS forvenous thrombosis, systemic embolization; TREATMENT for venous thrombosis and/or pulmonary embolus.HIGH RISK: Target INR is 2.5-3.5 for patients with mechanical heart valves.RAD, ABDOMEN/KUB, 1 VIEW [id number] 08:39:00Reason for exam:->abdominal distension'Should this be performed [...] Small MDReport Verified Date/Time: 11/18/2017 08:39:46 Reading Location:[address] Body Reading Room IUM, [id number] 07:00:00 Test Item Value Reference Range Comments CALCIUM IONIZED (BEAKER) (test code = 698) 1.12 mmol/L 1.12- 1.27 PH, BLOOD (BEAKER) (test code = 1810) 7.18 CBC W/PLT COUNT & AUTO [id number] 06:37:00 Test Item Value Reference Range Comments WHITE BLOOD CELL COUNT (BEAKER) (test code = 17.3 K/ L 3.5 -10.5 775) RED BLOOD CELL COUNT (BEAKER) (test code = 761) 3.48 M/ L 3.93-5.22 HEMOGLOBIN (BEAKER) (test code = 410) 7.7 GM/DL 11.2-15.7 HEMATOCRIT (BEAKER) (test code = 411) 28.1 % 34.1-44.9 MEAN CORPUSCULAR VOLUME (BEAKER) (test code = 80.7 fL 79 .4-94.8 753) MEAN CORPUSCULAR HEMOGLOBIN (BEAKER) (test code 22.1 pg 25.6-32.2 = 751) MEAN CORPUSCULAR HEMOGLOBIN CONC (BEAKER) (test 27.4 GM/DL 32.2-35.5 code = 752) RED CELL DISTRIBUTION WIDTH (BEAKER) (test code 17.8 % 11.7-14.4 = 412) PLATELET COUNT (BEAKER) (test code = 756) 370 K/CU MM 150-45 0 MEAN PLATELET VOLUME (BEAKER) (test code = 754) 10.7 fL 9.4-12.3 NUCLEATED RED BLOOD CELLS (BEAKER) (test code = 0 /100 WBC 0-0 413) NEUTROPHILS RELATIVE PERCENT (BEAKER) (test code 77 % = 429) LYMPHOCYTES RELATIVE PERCENT (BEAKER) (test code 13 % = 430) MONOCYTES RELATIVE PERCENT (BEAKER) (test code = 5 % 431) EOSINOPHILS RELATIVE PERCENT (BEAKER) (test code 4 % = 432) BASOPHILS RELATIVE PERCENT (BEAKER) (test code = 0 % 437) NEUTROPHILS ABSOLUTE COUNT (BEAKER) (test code = 13.38 K/ L 1.56-6.13 670) LYMPHOCYTES ABSOLUTE COUNT (BEAKER) (test code = 2.23 K/ L 1.18-3.74 414) MONOCYTES ABSOLUTE COUNT (BEAKER) (test code = 0.89 K/ L 0 .24-0.36 415) EOSINOPHILS ABSOLUTE COUNT (BEAKER) (test code = 0.67 K/ L 0.04-0.36 416) BASOPHILS ABSOLUTE COUNT (BEAKER) (test code = 0.03 K/ L 0 .01-0.08 417) IMMATURE GRANULOCYTES-RELATIVE PERCENT (BEAKER) 1 % 0-1 (test code = 2801) [id number] 05:50:00 Test Item Value Reference Range Comments MAGNESIUM (BEAKER) (test code = 627) 2.1 mg/dL 1.6-2.6 BASIC METABOLIC [id number] 05:50:00 Test Item Value Reference Range Comments SODIUM (BEAKER) (test 141 meq/L 136-145 code = 381) POTASSIUM (BEAKER) (test 4.2 meq/L 3.5-5.1 code = 379) CHLORIDE (BEAKER) (test 119 meq/L 98-107 code = 382) CO2 (BEAKER) (test code = 13 meq/L 22-29 355) BLOOD UREA NITROGEN 20 mg/dL 7-21 (BEAKER) (test code = 354) CREATININE (BEAKER) (test 1.52 mg/dL 0.57-1.25 code = 358) GLUCOSE RANDOM (BEAKER) 76 mg/dL 70-105 (test code = 652) CALCIUM (BEAKER) (test 8.1 mg/dL 8.4-10.2 code = 697) EGFR (BEAKER) (test code 42 mL/min/1.73 sq m EST IMATED GFR IS NOT = 1092) ACCURATE CREA TININE CLEARANCE IN PRE DICTING GLOMERULAR FILTR ATION RATE. ESTIMATED GFR IS NOT APPLICABLE F OR DIALYSIS PATIENT S. LIPID [id number] 05:50:00 Test Item Value Reference Range Comments TRIGLYCERIDES (BEAKER) (test code = 540) 58 mg/dL CHOLESTEROL (BEAKER) (test code = 631) 129 mg/dL HDL CHOLESTEROL (BEAKER) (test code = 976) 39 mg/dL LDL CHOLESTEROL CALCULATED (BEAKER) (test code = 78 mg/dL 633) Triglyceride Reference Range: Low Risk <150 Borderline 150-199 High Risk 200-499 Very High Risk >=500Cholesterol Reference Range: Low Risk <200 Borderline 200-239 High Risk >240HDL Cholesterol Reference Range: Low Risk >=60 High Risk <40LDL Cholesterol Reference Range: Optimal <100 Near Optimal 100-129 Borderline 130-159 High 160-189 Very High >=190HEPATIC FUNCTION [id number] 05:50:00 Test Item Value Reference Range Comments TOTAL PROTEIN (BEAKER) (test code = 770) 6.2 gm/dL 6.0-8.3 ALBUMIN (BEAKER) (test code = 1145) 3.1 g/dL 3.5-5.0 BILIRUBIN TOTAL (BEAKER) (test code = 377) 0.4 mg/dL 0.2-1 .2 BILIRUBIN DIRECT (BEAKER) (test code = 706) 0.3 mg/dL 0.1- 0.5 ALKALINE PHOSPHATASE (BEAKER) (test code = 346) 204 U/L 40-150 AST (SGOT) (BEAKER) (test code = 353) 138 U/L 5-34 ALT (SGPT) (BEAKER) (test code = 347) 107 U/L 6-55 PROTHROMBIN [id number] 05:22:00 Test Item Value Reference Range Comments PROTIME (BEAKER) (test code = 759) 17.0 seconds 11.7-14.7 INR (BEAKER) (test code = 370) 1.4 <=5.9 RECOMMENDED COUMADIN/WARFARIN INR THERAPY RANGESSTANDARD DOSE: 2.0 - 3.0 Includes: PROPHYLAXIS forvenous thrombosis, systemic embolization; TREATMENT for venous thrombosis and/or pulmonary embolus.HIGH RISK: Target INR is 2.5-3.5 for patients with mechanical heart valves.U/S, ABDOMINAL, [id number] 23:11:00Reason for exam:->ASCITESFINAL REPORT Ultrasound of the Abdomen, [...] correlation is recommended. No ascites. Signed: Roberto Lizamaort Verified Date/Time: 11/17/2017 23:11:49 Reading Location: [address] Reading Room URINE [id number] 10:40:00 Test Item Value Reference Range Comments CULTURE (BEAKER) (test code = 1095) Amikacin (test code = 1) Ampicillin + Sulbactam (test code = 6) Aztreonam (test code = 32) Cefepime (test code = 51) Cefoxitin (test code = 68) Ceftazidime (test code = 27) Ceftriaxone (test code = 52) Ertapenem (test code = 38) Gentamicin (test code = 18) Levofloxacin (test code = 22) Meropenem (test code = 34) Nitrofurantoin (test code = 23) Piperacillin + Tazobactam (test code = 29) Tetracycline (test code = 2) Tobramycin (test code = 25) Trimethoprim + Sulfamethoxazole (test code = 47) CULTURE (BEAKER) (test code KLEBSIELLA SPECIES 2 0-29,000 col/mL = 1095) Klebsiella speci es Amikacin (test code = 1) Ampicillin + Sulbactam (test code = 6) Aztreonam (test code = 32) Cefepime (test code = 51) Cefoxitin (test code = 68) Ceftazidime (test code = 27) Ceftriaxone (test code = 52) Ertapenem (test code = 38) Gentamicin (test code = 18) Levofloxacin (test code = 22) Meropenem (test code = 34) Nitrofurantoin (test code = 23) Piperacillin + Tazobactam (test code = 29) Tetracycline (test code = 2) Tobramycin (test code = 25) Trimethoprim + Sulfamethoxazole (test code = 47) CULTURE (BEAKER) (test code 20-2 9,000 col/mL = 1095) Klebsiella speci esof a second type >100,000 col/mL skin [id number] 07:47:00 Test Item Value Reference Range Comments PHOSPHORUS (BEAKER) (test code = 604) 3.4 mg/dL 2.3-4.7 [id number] 07:47:00 Test Item Value Reference Range Comments MAGNESIUM (BEAKER) (test code = 627) 2.2 mg/dL 1.6-2.6 BASIC METABOLIC [id number] 07:47:00 Test Item Value Reference Range Comments SODIUM (BEAKER) (test 141 meq/L 136-145 code = 381) POTASSIUM (BEAKER) (test 3.4 meq/L 3.5-5.1 code = 379) CHLORIDE (BEAKER) (test 116 meq/L 98-107 code = 382) CO2 (BEAKER) (test code = 17 meq/L 22-29 355) BLOOD UREA NITROGEN 17 mg/dL 7-21 (BEAKER) (test code = 354) CREATININE (BEAKER) (test 1.41 mg/dL 0.57-1.25 code = 358) GLUCOSE RANDOM (BEAKER) 85 mg/dL 70-105 (test code = 652) CALCIUM (BEAKER) (test 8.3 mg/dL 8.4-10.2 code = 697) EGFR (BEAKER) (test code 45 mL/min/1.73 sq m EST IMATED GFR IS NOT = 1092) ACCURATE CREA TININE CLEARANCE IN PRE DICTING GLOMERULAR FILTR ATION RATE. ESTIMATED GFR IS NOT APPLICABLE F OR DIALYSIS PATIENT S. CBC W/PLT COUNT & AUTO [id number] 06:28:00 Test Item Value Reference Range Comments WHITE BLOOD CELL COUNT (BEAKER) (test code = 13.7 K/ L 3.5 -10.5 775) RED BLOOD CELL COUNT (BEAKER) (test code = 761) 3.94 M/ L 3.93-5.22 HEMOGLOBIN (BEAKER) (test code = 410) 8.8 GM/DL 11.2-15.7 HEMATOCRIT (BEAKER) (test code = 411) 32.0 % 34.1-44.9 MEAN CORPUSCULAR VOLUME (BEAKER) (test code = 81.2 fL 79 .4-94.8 753) MEAN CORPUSCULAR HEMOGLOBIN (BEAKER) (test code 22.3 pg 25.6-32.2 = 751) MEAN CORPUSCULAR HEMOGLOBIN CONC (BEAKER) (test 27.5 GM/DL 32.2-35.5 code = 752) RED CELL DISTRIBUTION WIDTH (BEAKER) (test code 18.3 % 11.7-14.4 = 412) PLATELET COUNT (BEAKER) (test code = 756) 424 K/CU MM 150-45 0 MEAN PLATELET VOLUME (BEAKER) (test code = 754) 10.4 fL 9.4-12.3 NUCLEATED RED BLOOD CELLS (BEAKER) (test code = 0 /100 WBC 0-0 413) NEUTROPHILS RELATIVE PERCENT (BEAKER) (test code 75 % = 429) LYMPHOCYTES RELATIVE PERCENT (BEAKER) (test code 19 % = 430) MONOCYTES RELATIVE PERCENT (BEAKER) (test code = 5 % 431) EOSINOPHILS RELATIVE PERCENT (BEAKER) (test code 1 % = 432) BASOPHILS RELATIVE PERCENT (BEAKER) (test code = 0 % 437) NEUTROPHILS ABSOLUTE COUNT (BEAKER) (test code = 10.23 K/ L 1.56-6.13 670) LYMPHOCYTES ABSOLUTE COUNT (BEAKER) (test code = 2.64 K/ L 1.18-3.74 414) MONOCYTES ABSOLUTE COUNT (BEAKER) (test code = 0.71 K/ L 0 .24-0.36 415) EOSINOPHILS ABSOLUTE COUNT (BEAKER) (test code = 0.07 K/ L 0.04-0.36 416) BASOPHILS ABSOLUTE COUNT (BEAKER) (test code = 0.03 K/ L 0 .01-0.08 417) IMMATURE GRANULOCYTES-RELATIVE PERCENT (BEAKER) 0 % 0-1 (test code = 2801) RAD, SHUNT [id number] 21:37:00Reason for exam:->postopFINAL REPORT EXAM: SHUNT SERIES INDICATION: postop COMPARISON: November 07, 2017 TECHNIQUE: Radiographs of the skull, chest, and abdomen. FINDINGS:Interval placement of right transfrontal ventriculoperitoneal shunt catheter with tip near midline. The distal limb is intact without breakage or kinking. Adjustable flow device: [employer] set to performance level four. Chest: The lungs are clear. Abdomen: The bowel gas pattern is unremarkable. Additional Findings: Previously described occipital approach [employer] shunt catheter unchanged when compared to the prior exam. Disconnected right-sided catheter segment is also changed as it overlies the thoracic cavity. IMPRESSION: Interval placement of a [employer] shunt set to performance level 4. Signed: JR Nettles Robert MDReport Verified Date/Time: 11/08/2017 21:37:02 Reading Location: [address] CT, BRAIN, WITHOUT [id number] 08:07:00FINAL REPORT CT Head without contrast CLINICAL [...] catheter as discussed above. Signed: Sam Lee Verified Date/Time: 11/08/2017 08:07:55 Reading Location: [facility] Reading Room CBC W/PLT COUNT & AUTO [id number] 07:52:00 Test Item Value Reference Range Comments WHITE BLOOD CELL COUNT (BEAKER) (test code = 14.4 K/ L 3.5 -10.5 775) RED BLOOD CELL COUNT (BEAKER) (test code = 761) 3.84 M/ L 3.93-5.22 HEMOGLOBIN (BEAKER) (test code = 410) 8.6 GM/DL 11.2-15.7 HEMATOCRIT (BEAKER) (test code = 411) 31.5 % 34.1-44.9 MEAN CORPUSCULAR VOLUME (BEAKER) (test code = 82.0 fL 79 .4-94.8 753) MEAN CORPUSCULAR HEMOGLOBIN (BEAKER) (test code 22.4 pg 25.6-32.2 = 751) MEAN CORPUSCULAR HEMOGLOBIN CONC (BEAKER) (test 27.3 GM/DL 32.2-35.5 code = 752) RED CELL DISTRIBUTION WIDTH (BEAKER) (test code 18.0 % 11.7-14.4 = 412) PLATELET COUNT (BEAKER) (test code = 756) 405 K/CU MM 150-45 0 MEAN PLATELET VOLUME (BEAKER) (test code = 754) 10.3 fL 9.4-12.3 NUCLEATED RED BLOOD CELLS (BEAKER) (test code = 0 /100 WBC 0-0 413) NEUTROPHILS RELATIVE PERCENT (BEAKER) (test code 92 % = 429) LYMPHOCYTES RELATIVE PERCENT (BEAKER) (test code 5 % = 430) MONOCYTES RELATIVE PERCENT (BEAKER) (test code = 2 % 431) EOSINOPHILS RELATIVE PERCENT (BEAKER) (test code 0 % = 432) BASOPHILS RELATIVE PERCENT (BEAKER) (test code = 0 % 437) NEUTROPHILS ABSOLUTE COUNT (BEAKER) (test code = 13.26 K/ L 1.56-6.13 670) LYMPHOCYTES ABSOLUTE COUNT (BEAKER) (test code = 0.78 K/ L 1.18-3.74 414) MONOCYTES ABSOLUTE COUNT (BEAKER) (test code = 0.29 K/ L 0 .24-0.36 415) EOSINOPHILS ABSOLUTE COUNT (BEAKER) (test code = 0.00 K/ L 0.04-0.36 416) BASOPHILS ABSOLUTE COUNT (BEAKER) (test code = 0.01 K/ L 0 .01-0.08 417) IMMATURE GRANULOCYTES-RELATIVE PERCENT (BEAKER) 0 % 0-1 (test code = 2801) BASIC METABOLIC [id number] 07:30:00 Test Item Value Reference Range Comments SODIUM (BEAKER) (test 143 meq/L 136-145 code = 381) POTASSIUM (BEAKER) (test 4.3 meq/L 3.5-5.1 code = 379) CHLORIDE (BEAKER) (test 121 meq/L 98-107 code = 382) CO2 (BEAKER) (test code = 12 meq/L 22-29 355) BLOOD UREA NITROGEN 16 mg/dL 7-21 (BEAKER) (test code = 354) CREATININE (BEAKER) (test 1.46 mg/dL 0.57-1.25 code = 358) GLUCOSE RANDOM (BEAKER) 94 mg/dL 70-105 (test code = 652) CALCIUM (BEAKER) (test 8.6 mg/dL 8.4-10.2 code = 697) EGFR (BEAKER) (test code 44 mL/min/1.73 sq m EST IMATED GFR IS NOT = 1092) ACCURATE CREA TININE CLEARANCE IN PRE DICTING GLOMERULAR FILTR ATION RATE. ESTIMATED GFR IS NOT APPLICABLE F OR DIALYSIS PATIENT S. [id number] 07:23:00 Test Item Value Reference Range Comments PHOSPHORUS (BEAKER) (test code = 604) 3.6 mg/dL 2.3-4.7 [id number] 07:23:00 Test Item Value Reference Range Comments MAGNESIUM (BEAKER) (test code = 627) 2.3 mg/dL 1.6-2.6 RAD, SHUNT [id number] 13:15:00Reason for exam:->headacheFINAL REPORT Shunt series, 11 images, including AP and lateral views of the skull, neck, chest and abdomen. HISTORY: Headache COMPARISON: None IMPRESSION:Left-sided ventriculoperitoneal shunt catheter appears contiguous throughout its course, terminating in the left upper quadrant of the abdomen. No acute osseous findings. Midline ossification defects noted at the L4 and L5 vert ebral bodies. Remainder skeleton appears unremarkable. Heart size normal. Lungs clear without pleural effusion or pneumothorax. Bowel gas pattern nonobstructive. Signed: Karma Sewell MDReport Verified Date/Time: 11/07/2017 13:15:42 Reading Location: [facility] Mammo Reading Room CT, BRAIN, WITHOUT CONTRAST 2017-11-07 13:03:00FINAL REPORT CT head without contrast. Comparisons: [...] gross hydrocephalus. The appearances probably chronic. The left- sided posterior approach [employer] shunt extends along the medialaspect of the left lateral ventricle posteriorly and does not definitively extend into the ventricular system. The visualized dural sinus regions, orbital contents, paranasal sinuses, bones and surrounding soft tissues are unremarkable. Impressions: 1. No specific evidence of acute intracranialabnormality. 2. Mild chronic appearing ventricular prominence without specific evidence of acute hydrocephalus. Note description of the intracranial left LE[employer] ARCHITECT shunt catheter. There is no definitive intraventricular extension. 3. 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 Signed: Richard Mathew [facility] Verified Date/Time: 11/07/2017 13:03:58 Electronically signed by: RICHARD MATHEW M.D.on 11/07/2017 01:03 PMURINALYSIS W/ [id number] 09:28:00 Test Item Value Reference Range Comments COLOR (BEAKER) (test code = 470) Light Yellow CLARITY (BEAKER) (test code = 469) Hazy SPECIFIC GRAVITY UA (BEAKER) (test code = 468) 1.006 1 .001-1.035 PH UA (BEAKER) (test code = 467) 7.5 5.0-8.0 PROTEIN UA (BEAKER) (test code = 464) 30 mg/dL Negative GLUCOSE UA (BEAKER) (test code = 365) Negative Negative KETONES UA (BEAKER) (test code = 371) Negative Negative BILIRUBIN UA (BEAKER) (test code = 462) Negative Negative BLOOD UA (BEAKER) (test code = 461) Negative Negative NITRITE UA (BEAKER) (test code = 465) Negative Negative LEUKOCYTE ESTERASE UA (BEAKER) (test code = Moderate Nega tive 466) UROBILINOGEN UA (BEAKER) (test code = 463) 6.0 mg/dL 0.2-1 .0 RBC UA (BEAKER) (test code = 519) 2 /HPF WBC UA (BEAKER) (test code = 520) 1 /HPF AMORPHOUS CRYSTALS (BEAKER) (test code = 1584) Moderate SOURCE(BEAKER) (test code = 2795) Urine, Voided SCREEN, [id number] 09:12:00 Test Item Value Reference Range Comments TEST URINE (BEAKER) (test code = 583) Negative [id number] 03:34:00 Test Item Value Reference Range Comments PHOSPHORUS (BEAKER) (test code = 604) 3.5 mg/dL 2.3-4.7 [id number] 03:34:00 Test Item Value Reference Range Comments MAGNESIUM (BEAKER) (test code = 627) 2.2 mg/dL 1.6-2.6 BASIC METABOLIC [id number] 03:34:00 Test Item Value Reference Range Comments SODIUM (BEAKER) (test 140 meq/L 136-145 code = 381) POTASSIUM (BEAKER) (test 3.4 meq/L 3.5-5.1 code = 379) CHLORIDE (BEAKER) (test 116 meq/L 98-107 code = 382) CO2 (BEAKER) (test code = 16 meq/L 22-29 355) BLOOD UREA NITROGEN 15 mg/dL 7-21 (BEAKER) (test code = 354) CREATININE (BEAKER) (test 1.35 mg/dL 0.57-1.25 code = 358) GLUCOSE RANDOM (BEAKER) 76 mg/dL 70-105 (test code = 652) CALCIUM (BEAKER) (test 8.4 mg/dL 8.4-10.2 code = 697) EGFR (BEAKER) (test code 48 mL/min/1.73 sq m EST IMATED GFR IS NOT = 1092) ACCURATE CREA TININE CLEARANCE IN PRE DICTING GLOMERULAR FILTR ATION RATE. ESTIMATED GFR IS NOT APPLICABLE F OR DIALYSIS PATIENT S. CBC W/PLT COUNT & AUTO [id number] 03:33:00 Test Item Value Reference Range Comments WHITE BLOOD CELL COUNT (BEAKER) (test code = 10.7 K/ L 3.5 -10.5 775) RED BLOOD CELL COUNT (BEAKER) (test code = 761) 4.18 M/ L 3.93-5.22 HEMOGLOBIN (BEAKER) (test code = 410) 9.2 GM/DL 11.2-15.7 HEMATOCRIT (BEAKER) (test code = 411) 33.4 % 34.1-44.9 MEAN CORPUSCULAR VOLUME (BEAKER) (test code = 79.9 fL 79 .4-94.8 753) MEAN CORPUSCULAR HEMOGLOBIN (BEAKER) (test code 22.0 pg 25.6-32.2 = 751) MEAN CORPUSCULAR HEMOGLOBIN CONC (BEAKER) (test 27.5 GM/DL 32.2-35.5 code = 752) RED CELL DISTRIBUTION WIDTH (BEAKER) (test code 17.6 % 11.7-14.4 = 412) PLATELET COUNT (BEAKER) (test code = 756) 386 K/CU MM 150-45 0 MEAN PLATELET VOLUME (BEAKER) (test code = 754) 10.6 fL 9.4-12.3 NUCLEATED RED BLOOD CELLS (BEAKER) (test code = 0 /100 WBC 0-0 413) NEUTROPHILS RELATIVE PERCENT (BEAKER) (test code 68 % = 429) LYMPHOCYTES RELATIVE PERCENT (BEAKER) (test code 25 % = 430) MONOCYTES RELATIVE PERCENT (BEAKER) (test code = 4 % 431) EOSINOPHILS RELATIVE PERCENT (BEAKER) (test code 2 % = 432) BASOPHILS RELATIVE PERCENT (BEAKER) (test code = 0 % 437) NEUTROPHILS ABSOLUTE COUNT (BEAKER) (test code = 7.22 K/ L 1.56-6.13 670) LYMPHOCYTES ABSOLUTE COUNT (BEAKER) (test code = 2.66 K/ L 1.18-3.74 414) MONOCYTES ABSOLUTE COUNT (BEAKER) (test code = 0.47 K/ L 0 .24-0.36 415) EOSINOPHILS ABSOLUTE COUNT (BEAKER) (test code = 0.26 K/ L 0.04-0.36 416) BASOPHILS ABSOLUTE COUNT (BEAKER) (test code = 0.01 K/ L 0 .01-0.08 417) IMMATURE GRANULOCYTES-RELATIVE PERCENT (BEAKER) 1 % 0-1 (test code = 2801) [id number] 03:28:00 Test Item Value Reference Range Comments PROTIME (BEAKER) (test code = 759) 15.6 seconds 11.7-14.7 INR (BEAKER) (test code = 370) 1.2 <=5.9 PARTIAL THROMBOPLASTIN TIME (BEAKER) (test code 31.1 seconds 22.5-36.0 = 760) RECOMMENDED COUMADIN/WARFARIN INR THERAPY RANGESSTANDARD DOSE: 2.0 - 3.0 Includes: PROPHYLAXIS forvenous thrombosis, systemic embolization; TREATMENT for venous thrombosis and/or pulmonary embolus.HIGH RISK: Target INR is 2.5-3.5 for patients with mechanical heart valves.
[2019-12-30] MEDS ORDERED: LIDOCAINE 1% MPF 5 ML VIAL ONE (18:00)
--- NOTE | 2019-12-30 18:11 | EDPHYS ---
Physician Documentation [facility] Name: Yadi De Leon Age: 29 yrs Sex: Female : 1990 Arrival Date: 12/30/2019 Time: 17:21 Bed 16 Private MD: Diana Cool ED Physician Preet Cruz HPI: 12/29 18:06 This 29 yrs old Female presents to ER via Unassigned with complaints of rn abscess. 18:06 the patient presents with a swollen area of the left leg. Description: draining, rn erythematous, swollen, warm. 18:06 Onset: The symptoms/episode began/occurred yesterday. Possible cause(s): unknown. rn Modifying factors: the symptoms are alleviated by nothing, the symptoms are aggravated by squeezing the lesion and expressing the contents, touching. Severity of symptoms: At their worst the symptoms were mild, in the emergency department the symptoms are unchanged. The patient has not experienced similar symptoms in the past. The patient has not recently seen a physician. Had telehealth visit today, told to come to ER because may be spider bite, she does not recall spider bite or event but reports 2 days of pain and swelling at that location. No fever. No recurrent skin infections. No other known trauma.. Historical: - Allergies: 18:10 Latex, Natural Rubber; ls4 - PMHx: 18:10 kidney disease; spina bifida; ls4 - Immunization history:: Adult Immunizations up to date. - Social history:: Smoking status: Patient denies any tobacco usage or history of. - Family history:: not pertinent. - Hospitalizations: : No recent hospitalization is reported. ROS: 18:06 Constitutional: Negative for fever, chills, and weight loss, Skin: + left thigh abscess rn Exam: 18:06 Constitutional: This is a well developed, well nourished patient who is awake, alert, rn and in no acute distress. Skin: Warm, dry, left lateral/posterior thigh with erythema and fluctuance approx 2 cm with surrounding erythema. Small open wound in center and able to express pus, still fluctuant after expression. Vital Signs: 18:40 BP 119 / 64; Pulse 72; Resp 14; Pulse Ox 99% on R/A; Pain 3/10; ls4 23:37 BP 128 / 70; Pulse 74; Resp 14; Temp 97.9; Pulse Ox 99% on R/A; Pain 4/10; ls4 Procedures: 18:06 I \T\ D: Incision and drainage was performed for an abscess of the left left leg Prepped rn with Betadine, Anesthetized with 5 ml's 1% Lidocaine. Incised with #11 blade. Drained small amount purulent fluid. serosanguinous fluid. Packed with iodoform gauze, Dressing: sterile 4x4 gauze, the patient tolerated the procedure well. MDM: 17:37 Patient medically screened. rn 18:06 Differential diagnosis: abscess, cellulitis, insect bite. Data reviewed: vital signs, rn nurses notes, and as a result, I will discharge patient. Counseling: I had a detailed discussion with the patient and/or guardian regarding: the historical points, exam findings, and any diagnostic results supporting the discharge/admit diagnosis, the need for outpatient follow up, to return to the emergency department if symptoms worsen or persist or if there are any questions or concerns that arise at home. Response to treatment: the patient's symptoms have markedly improved after treatment, and as a result, I will discharge patient. Special discussion: I discussed with the patient/guardian in detail that at this point there is no indication for admission to the hospital. It is understood, however, that if the symptoms persist or worsen the patient needs to return immediately for re-evaluation. Based on the history and exam findings, there is no indication for further emergent testing or inpatient evaluation. I discussed with the patient/guardian the need to see the primary care provider for further evaluation of the symptoms. ED course: Wound culture sent, symptoms improved, will dc home with packing changes and pcp f/u as well as abx.. 12/29 17:43 Order name: Wound Culture rn 12/29 17:43 Order name: Incision \T\ Drainage Setup; Complete Time: 17:59 rn Administered Medications: 18:00 Drug: Lidocaine (1 %) 1 vials Volume: 5 ml; Route: Infiltration; ls4 18:20 Follow up: Response: No adverse reaction ls4 Disposition: 12/30/19 18:10 Discharged to Home. Impression: Cutaneous abscess of left lower limb. - Condition is Stable. - Discharge Instructions: Skin Abscess, Incision and Drainage, Wound Packing, Incision and Drainage, Care After. - Prescriptions for Clindamycin HCl 300 mg Oral Capsule - take 1 capsule by ORAL route every 6 hours for 10 days; 40 capsule. - Medication Reconciliation Form, Thank You Letter, Antibiotic Education, Prescription Opioid Use form. - Follow up: Private Physician; When: 5 - 6 days; Reason: Wound Recheck, Recheck today's complaints, Re-evaluation by your physician. - Problem is new. - Symptoms have improved. Signatures: Dispatcher [employer] EDMS Preet Cruz MD MD rn Stewart, Lisa, RN RN ls4 Corrections: (The following items were deleted from the chart) 18:45 18:10 12/30/2019 18:10 Discharged to Home. Impression: Cutaneous abscess of left lower ls4 limb. Condition is Stable. Forms are Medication Reconciliation Form, Thank You Letter, Antibiotic Education, Prescription Opioid Use. Follow up: Private Physician; When: 5 - 6 days; Reason: Wound Recheck, Recheck today's complaints, Re-evaluation by your physician. Problem is new. Symptoms have improved. rn 23:42 23:40 Immunization history: Adult Immunizations up to date, ls4 ls4
--- NOTE | 2019-12-30 18:46 | ER ---
Nurse's Notes [facility] Name: Yadi De Leon Age: 29 yrs Sex: Female : 1990 Arrival Date: 12/30/2019 Time: 17:21 Bed 16 Private MD: Diana Cool Diagnosis: Cutaneous abscess of left lower limb Presentation: 12/29 23:37 Chief complaint: Patient states: SORE ON LEFT THIGH THAT HAS GOTTEN LARGER AND THINK ls4 ITS AN ABSCESS. Coronavirus screen: Proceed with normal triage. Patient denies a cough. Patient denies shortness of breath or difficulty breathing. Patient denies measured and/or subjective temperature greater than 100.4F prior to today's visit. Patient denies travel on a cruise ship or to a country the [facility] currently lists as an affected area. Patient denies contact with known and/or suspected case of COVID-19. Ebola Screen: No symptoms or risks identified at this time. Initial Sepsis Screen: Does the patient meet any 2 criteria? No. Patient's initial sepsis screen is negative. Does the patient have a suspected source of infection? No. Patient's initial sepsis screen is negative. Risk Assessment: Do you want to hurt yourself or someone else? Patient reports no desire to harm self or others. Onset of symptoms is unknown. 23:37 Method Of Arrival: Ambulatory ls4 23:37 Acuity: ARIANNA 3 ls4 Triage Assessment: 17:40 General: Appears in no apparent distress. uncomfortable. ls4 17:40 General: Behavior is calm, cooperative. Pain: Complains of pain in left leg Pain ls4 currently is 4 out of 10 on a pain scale. Neuro: No deficits noted. Respiratory: No deficits noted. GI: No deficits noted. : No deficits noted. No signs and/or symptoms were reported regarding the genitourinary system. Derm: Abscess located on lateral aspect of left thigh is golf ball sized, has purulent drainage, is red, is raised. Musculoskeletal: No deficits noted. No signs and/or symptoms reported regarding the musculoskeletal system. Historical: - Allergies: 18:10 Latex, Natural Rubber; ls4 - PMHx: 18:10 kidney disease; spina bifida; ls4 - Immunization history:: Adult Immunizations up to date. - Social history:: Smoking status: Patient denies any tobacco usage or history of. - Family history:: not pertinent. - Hospitalizations: : No recent hospitalization is reported. Screenin:40 Abuse screen: Denies threats or abuse. Denies injuries from another. Nutritional ls4 screening: No deficits noted. Tuberculosis screening: No symptoms or risk factors identified. 17:40 Fall Risk None identified. ls4 Assessment: 17:45 General: Appears in no apparent distress. Behavior is calm, cooperative. Neuro: No ls4 deficits noted. Cardiovascular: No deficits noted. Respiratory: No deficits noted. Derm: Reports ABCESS, SEE MD NOTES. Vital Signs: 18:40 BP 119 / 64; Pulse 72; Resp 14; Pulse Ox 99% on R/A; Pain 3/10; ls4 23:37 BP 128 / 70; Pulse 74; Resp 14; Temp 97.9; Pulse Ox 99% on R/A; Pain 4/10; ls4 ED Course: 17:21 Patient arrived in ED. mr 17:22 Diana Cool MD is Private Physician. mr 17:37 Preet Cruz MD is Attending Physician. rn 17:40 Patient has correct armband on for positive identification. Bed in low position. Call ls4 light in reach. Side rails up X 1. Pulse ox on. NIBP on. Warm blanket given. Verbal reassurance given. 17:40 Arm band placed on. ls4 17:59 Rosa Isela Perez, RN is Primary Nurse. ls4 18:25 Wound culture swab sent to lab. Patient did not have IV access during this emergency ls4 room visit. 18:50 Assist provider with I \T\ D: Set up I\T\D tray. Performed by Preet Cruz MD Wound packed. ls 4 Dressing with 4X4s, Patient tolerated well. 23:39 Triage completed. ls4 Administered Medications: 18:00 Drug: Lidocaine (1 %) 1 vials Volume: 5 ml; Route: Infiltration; ls4 18:20 Follow up: Response: No adverse reaction ls4 Outcome: 18:10 Discharge ordered by . rn 18:45 Patient left the ED. ls4 23:50 Discharged to home ambulatory. ls4 23:50 Condition: good 23:50 Discharge instructions given to patient, Instructed on discharge instructions, follow up and referral plans. medication usage, safety practices, Demonstrated understanding of instructions, follow-up care, medications, Prescriptions given X 1. Addendum: 01/02/2020 07:32 Addendum: Culture Results: Positive wound culture. No further action required. Other: a a5 Per Dr. Romero continue clindamycin. . Signatures: Bell Jimenez Roman, MD MD rn Zelalem, Pamela RN RN aa5 Rosa Isela Perez RN RN ls4 Corrections: (The following items were deleted from the chart) 12/29 23:42 23:40 Immunization history: Adult Immunizations up to date, ls4 ls4
== END 2019-12-30 18:45 | disposition home or self-care (01) ==
LOC: ER 17:19
PROC: 0J9P0ZZ Drainage of Left Lower Leg Subcutaneous Tissue and Fascia, Open Approach (ICD-10-PCS; principal; 2019-12-30)
DX: L02.416 Cutaneous abscess of left lower limb (principal); Z88.8 Allergy status to other drugs, medicaments and biological substances; Z91.040 Latex allergy status
CPT/HCPCS: 87070; 87077; 87186; 87205; 99284

== ENCOUNTER 2020-02-25 19:38 | Inpatient (IN) | payer OTHER ==
--- OUTSIDE RECORDS SUMMARY | 2020-02-25 19:41 | XMS REPORT | Clinical Summary ---
:1990 Author Organization [facility] Address [address] [place] [address] Care Team Providers Name Role Phone Luz Monge MD Primary Care Provider Allergies Active Allergy Reactions Severity Noted Date Comments Latex, Natural Rubber Rash High 2017 Medications Medication Sig Dispensed Refills Start Date End Date Status acetaminophen Take 500 mg by 0 A ctive (TYLENOL) 325 MG mouth every 6 tablet (six) hours as needed for Pain. clindamycin (CLEOCIN) Take 1 capsule 15 capsule 0 10/10/2019 0 10/15/2019 300 MG capsule (300 mg total) by mouth 3 (three) times daily for 5 days. Active Problems Problem Noted Date TOOLROOM ATTENDANT (ventriculoperitoneal) shunt status 11/17/2017 Headache 11/07/2017 Acute intractable headache, unspecified headache type 11/07/2017 Encounters Date Type Specialty Care Team Description 10/10/2019 Emergency Emergency Medicine Yony Gonzales, Cell ulitis of left lower extremity (Primary Dx); Leg swelling 10/10/2019 Travel after 02/24/2019 Social History Tobacco Use Types Packs/Day Years Used Date Never Smoker Smokeless Tobacco: Never Used Alcohol Use Drinks/Week oz/Week Comments No Alcohol Habits Answer Date Recorded How often do you have a drink containing alcohol? Never 10/10/2019 How many drinks containing alcohol do you have on a typical Not asked day when you are drinking? How often do you have six or more drinks on one occasion? No t asked Sex Assigned at Date Recorded Not on file Job Start Date Occupation Industry Not on file Not on file Not on file Travel History Travel Start Travel End No recent travel history available. Last Filed Vital Signs Vital Sign Reading Time Taken Blood Pressure 125/86 10/10/2019 4:57 PM HEALTH CARE MANAGER Pulse 76 10/10/2019 4:57 PM HEALTH CARE MANAGER Temperature 36.6 C (97.8 F) 10/10/2019 1:38 PM HEALTH CARE MANAGER Respiratory Rate 13 10/10/2019 4:57 PM HEALTH CARE MANAGER Oxygen Saturation 100% 10/10/2019 4:57 PM HEALTH CARE MANAGER Inhaled Oxygen Concentration - - Weight 99.8 kg (220 lb) 10/10/2019 1:38 PM HEALTH CARE MANAGER Height 152.4 cm (5') 10/10/2019 1:38 PM HEALTH CARE MANAGER Body Mass Index 42.97 10/10/2019 1:38 PM HEALTH CARE MANAGER Plan of Treatment Not on file Implants Implanted Type Area Fleecer Device Shelf Model / Identifier Expiration Serial / Date Lot Cheikh Vhnm Full Strlprep 10ml [id number] - [id number] Cement/Fi Left: SWIFT:BIOSCI 03/06/2019 [id number] / Implanted: Qty: 1 on 11/07/2017 by Pop Huddleston MD ller/Pk randhawa / darrin [id number] Cath Csf Alyx Prog Shunt [id number] - [id number] Neuro Left: J &J:DALILA & 12/01/2017 [id number] / Implanted: Qty: 1 on 11/07/2017 by Pop Huddleston MD H edis [id number] / [id number] Valve Inline With Siphongaurd Left: TAVOMAN 12/01/2021 [id number] / Implanted: Qty: 1 on 11/07/2017 by Pop Huddleston MD H edis / [id number] Procedures Procedure Name Priority Date/Time Associated Comments Diagnosis PERIPHERAL VASCULAR 10/11/2019 9:10 PM REPORT - SCAN HEALTH CARE MANAGER VENOUS DOPPLER LEG, STAT 10/10/2019 4:12 PM R esults for this LEFT HEALTH CARE MANAGER procedure are i n the results section. after 02/24/2019 Results PERIPHERAL VASCULAR REPORT - SCAN (10/11/2019 9:10 PM HEALTH CARE MANAGER) Narrative Performed At This result has an attachment that is no t available. Venous doppler leg, left (10/10/2019 4:12 PM HEALTH CARE MANAGER) Ejection Fraction [facility] Specimen Impressions Performed At [facility] Left Impression 1. There is no deep venous obstruction in the common femoral, profunda femoral, femoral or popliteal veins. 2. The posterior tibial and peroneal veins were not visualized. 3. There is no superficial venous obstruction in the great saphenous vein. Conclusions Summary Venous duplex imaging and compression of the left lower extremity were performed. The veins were technically difficult to visualize due to edema and patient body habitus. The left venous system was patent and compressible with no evidence of thrombus where visualized. The venous Doppler waveforms were phasic with resp iration . Signature Velocities are measured in cm/s ; Diameters are measured in cm Narrative Performed At PV LAB - Lower Extremities DVT Study [facility] Demographics Patient Name YADI GALLEGO of Study10/10/2019 [id number] Age28 Visit Number [id number] Gender Female Accession Number [id number] Date of Birth1990 [facility] Micheal Number [id number] PhysicianDEMETRIUS Perry SonographerBranselmo Landon RVTInterpreting Taya Powell Procedure Type of Study: Veins: Lower Extremities DVT Study, VENOUS DOPPLER LEG, LEFT. Indications for Study:Leg pain . Patient Status:STAT. Study Location:Vascular Lab. Technical Quality:Technically Difficult. Procedure Note Interface, External Ris In - 10/11/2019 10:25 AM [facility] PV LAB - Lower Extremities DVT Study Demographics Patient Name YADI GALLEGO ate of Study 10/10/2019 A ge 28 Visit Number [id number] G bebo Female Accession Number [id number] D ate of 1990 Referring Nora liom Number [id number] Physician DEMETRIUS Perry Music Critic Erlin Landon T I nterpreting Marlena Powell MD Procedure Type of Study: Veins: Lower Extremities DVT Study, RAHEL OUS DOPPLER LEG, LEFT. Indications for Study:Leg pain . Patient Status:STAT. Study Location:Vascular Lab. Technical Quality:Technically Difficult. Impressions Left Impression 1. There is no deep venous obstruction i n the common femoral, profunda femoral, femoral or popliteal veins. 2. The posterior tibial and peroneal vei ns were not visualized. 3. There is no superficial venous obstru ction in the great saphenous vein. Conclusions Summary Venous duplex imaging and compression o f the left lower extremity were performed. The veins were technically d ifficult to visualize due to edema and patient body habitus. The left veno us system was patent and compressible with no evidence of thromb us where visualized. The venous Doppler waveforms were phasic with resp iration . Signature Velocities are measured in cm/s ; Diamet ers are measured in cm Performing Organization Address City/State/Zipcode Phone Number [facility] after 02/24/2019 Insurance Payer Benefit Plan / Subscriber ID Type Phone Address Group MEDICAID - MEDICAID [facility] xxxxxxxxx Medicaid Contracted MGD CARE PLAN Advance Directives For more information, please contact:[address] [place], [place] [phone] Code Status Date Activated Date Inactivated Comments Full Code 11/17/2017 11:10 AM 11/20/2017 6:26 PM This code status was determined by: Patient Full Code 11/07/2017 9:31 PM 11/09/2017 8:39 PM This code status was determined by: Patient Full Code 11/07/2017 12:35 AM 11/07/2017 9:31 PM This code status was determined by: Patient
--- OUTSIDE RECORDS SUMMARY | 2020-02-25 19:42 | XMS REPORT | Continuity of Care Document ---
:1990 Author Organization [facility] t Address [address] [place] [address] Care Team Providers Name Role Phone Mariposa RAMOS, Luz Primary Care Physician Janet RAMOS, Vineet Attending Clinician KARMEN Attending Clinician Unavailable DYLAN ADAMS Attending Clinician Unavailable KARMEN Admitting Clinician Unavailable DYLAN ADAMS Admitting Clinician Unavailable Payers Payer Name Policy Policy Number Effective Expiration Source Type Date Date MEDICAID - MEDICAID MGD xxxxxxxxx C [facility] - PLANxxxxxxxxxMedicaid Med ical Contracted Center Problems Condition Condition Condition Status Onset Resolution Last Treating Co mments Source Name Details Category Date Date Treatment Clinician Date TECHNOLOGY METHODOLOGY CONSULTANT TECHNOLOGY METHODOLOGY CONSULTANT Disease Active [facility]ricul (ventricul 3-17 Cris kes - operitonea operitonea 00:00: Me dical l) shunt l) shunt 00 Center status status Acute Acute Disease Active [facility] intractabl intractabl 307 Cris kes - e e 00:00: Medical headache, headache, 00 Cent er unspecifie unspecifie d headache d headache type type Allergies, Adverse Reactions, Alerts Allergy Allergy Status Severity Reaction(s) Onset Inactive Treating Comm ents Source Name Type Date Date Clinician Latex, Drug Active Rash [facility] Natural Intolera 306 [facility] - Rubber nce 00:00: Medical 00 Center Social History Social Habit Start Date Stop Date Quantity Comments Source History SDOH Alcohol [facility] Std Drinks [facility] History SDOH Alcohol [facility] Binge [facility] Sex Assigned At [facility] History SDOH Alcohol 2019-10-10 2019-10-10 1 [facility] - Frequency 00:00:00 00:00:00 Medical Center Smoking Status Start Date Stop Date Source Never smoker [facility] edical [facility]va Medications Ordered Filled Start Stop Current Ordering Indication Dosage Frequency Signature Comments Components Source Medication Medication Date Date Medication? Clinician (SIG) Name Name clindamycin 300mg [id number] Take 1 [facility] (CLEOCIN) 10-10 [id number] capsule [facility] - 300 MG 00:00: 23:59 3D (300 mg Medical capsule 00 :00 total) by Eleva mouth 3 (three) times daily for 5 days. acetaminoph Yes 500mg Take [address] en 3-[address] [facility] - (TYLENOL) 09:54: mouth Medical 325 MG 33 every 6 Center tablet (six) hours as needed for Pain. Vital Signs Vital Name Observation Time Observation Value Comments Source Systolic blood 2019-10-10 16:57:00 125 mm[Hg] [facility] Diastolic blood 2019-10-10 16:57:00 86 mm[Hg] [facility] Heart rate 2019-10-10 16:57:00 76 /min [facility] Respiratory rate 2019-10-10 16:57:00 13 /min [facility] Oxygen saturation in 2019-10-10 16:57:00 100 /min [facility] Arterial blood by Medical Ce nter Pulse oximetry Body temperature 2019-10-10 13:38:00 36.56 Jyothi [facility] Body height 2019-10-10 13:38:00 152.4 cm [facility] Body weight Measured 2019-10-10 13:38:00 99.791 kg [facility] BMI 2019-10-10 13:38:00 42.97 kg/m2 [facility] Procedures Procedure Date / Time Performed Performing Clinician Mago e PERIPHERAL VASCULAR 2019-10-11 21:10:31 Provider, Default [facility] - REPORT - SCAN Scanning [facility] VENOUS DOPPLER LEG, 2019-10-10 16:12:00 Nora Rizzo I [facility] Results Test Description Test Time Test Comments Results Result [facility] e Comments Venous doppler Ejection FractionSLEH [facility] leg, left 8 [facility] - Medical 10:25:22 CHOLO CPA Left Cent er Impression1. There is no deep venous obstruction in the common femoral, profundafemoral, femoral or popliteal veins.2. The posterior tibial and peroneal veins were not visualized.3. There is no superficial venous obstruction in the great saphenous vein. Conclusions Summary Venous duplex imaging and compression of the left lower extremity were performed. The veins were technically difficult to visualize due to edema and patient body habitus. The left venous system was patent and compressible with no evidence of thrombus where visualized. The venous Doppler waveforms were phasic with respiration . Signature - - Velocities are measured in cm/s ; Diameters are measured in cm Interface, External Ris In - 10/11/2019 10:25 AM [facility] LAB - Lower Extremities DVT Study Demographics Patient Name KIM GALLEGO Date of Study 10/10/2019 Age 28 Visit Number [id number] Gender Female Accession Number [id number] Date of 1990 Referring Nora Canseco Room Number ED8 Physician DEMETRIUS [employer] Erlin Landon [facility] Interpreting Physician RACHEL Powell ProcedureType of Study: Veins: Lower Extremities DVT Study, VENOUS DOPPLER LEG, LEFT. Indications for Study:Leg pain .Patient Status:STAT.Study Location:Vascular Lab.Technical Quality:Technically Difficult.Impressions Left Impression1. There is no deep venous obstruction in the common femoral, profundafemoral, femoral or popliteal veins.2. The posterior tibial and peroneal veins were not visualized.3. There is no superficial venous obstruction in the great saphenous vein. Conclusions Summary Venous duplex imaging and compression of the left lower extremity were performed. The veins were technically difficult to visualize due to edema and patient body habitus. The left venous system was patent and compressible with no evidence of thrombus where visualized. The venous Doppler waveforms were phasic with respiration . Signature - - Velocities are measured in cm/s ; Diameters are measured in cm RAD, SHUNT 2018-08-03 Reason for FINAL REPORT PATIENT SERIES 8 Exam:->G91.9 ID: [id number] Exam: 13:00:00 Shunt series History: Evaluate shunt Comparison: None. Findings: A left TECHNOLOGY METHODOLOGY CONSULTANT shunt catheter present which extends down the left neck, anterior chest and enters the abdomen with distal tip curled in the left lower quadrant. No discontinuity of the radiopaque portion. No mass effect within the abdomen. Additional foci of prior shunt tubing. Impression: Intact radiopaque portions of the TECHNOLOGY METHODOLOGY CONSULTANT shunt catheter. Signed: Sam Shoemaker MDReport Verified Date/Time: 08/20/2018 13:00:05 Reading Location: [facility] Reading Room [address] [place] [address] , BRAIN, 2018-08-03 ORDER/STUDY IS FINAL REPORT PATIENT WITHOUT IV 8 TO BE ID: [id number] CONTRAST 10:53:00 PERFORMED AT Examination: CT, VIJI BRAIN, WITHOUT IV LOGANSPORT.KMJ12:5 CONTRAST History: 1P12/[id number] Hydrocephalus.Compari -8734ORDER/VIANEY son studies: Head CT DY IS TO BE performed November 08, PERFORMED AT 2018 Technique:Axial VIJI images were obtained CAMPUS.KMJ12:5 from the skull base 1P12/[id number] to the vertex.Coronal -8734Location- and sagittal images >[facility] Medical reconstructed from Center the axial data.Dose Hospital modulation, iterative reconstruction, and/or weight based adjustment [...] cortical based vascular insults.. Sellar/suprasellar region: No abnormalities.Cranioc ervical junction: The cerebellar tonsils are located below the foramen magnum. However, the inferior margin of the cerebellar tonsils are not included within the [id number]-[id number] this finding remains unchanged compared to prior head CT performed November 08, 2017. The posterior fossa remains small/underdeveloped. Incidental findings: None. Impression: 1.No new intracranial abnormalities when compared to prior head CT performed November 08, 2017. 2.Unchanged frontal and left parietal ventriculostomy catheters. 3.Unchanged ventriculomegaly with findings related to Chiari malformation, as detailed above. Signed: Olya Aranda MDReport Verified Date/Time: 08/20/2018 10:53:56 ESIUM 2017-11-20 13:05:00 Test Item Value Reference Range Interpretation Comme nts MAGNESIUM (BEAKER) (test code = 627) 2.0 mg/dL 1.6-2.6 BASIC METABOLIC [id number] 12:48:00 Test Item Value Reference Range Interpretation Comments SODIUM (BEAKER) 143 meq/L 136-145 (test code = 381) POTASSIUM (BEAKER) 4.1 meq/L 3.5-5.1 (test code = 379) CHLORIDE (BEAKER) 117 meq/L 98-107 H (test code = 382) CO2 (BEAKER) (test 13 meq/L 22-29 L code = 355) BLOOD UREA NITROGEN 17 mg/dL 7-21 (BEAKER) (test code = 354) CREATININE (BEAKER) 1.56 mg/dL 0.57-1.25 H (test code = 358) GLUCOSE RANDOM 78 mg/dL 70-105 (BEAKER) (test code = 652) CALCIUM (BEAKER) 8.7 mg/dL 8.4-10.2 (test code = 697) EGFR (BEAKER) (test 40 mL/min/1.73 ESTIMA OLGA LIDIA GFR IS code = 1092) sq m NOT ACCURATE CREATININE CLEARANCE IN PREDICTING GLOMERULAR FILTRATION RATE . ESTIMATED GFR I S NOT APPLICABLE FOR DIALYSIS PATIEN TS. LIPID [id number] 12:48:00 Test Item Value Reference Range Interpretation Comments TRIGLYCERIDES (BEAKER) (test code = 92 mg/dL 540) CHOLESTEROL (BEAKER) (test code = 192 mg/dL 631) HDL CHOLESTEROL (BEAKER) (test code 45 mg/dL = 976) LDL CHOLESTEROL CALCULATED (BEAKER) 129 mg/dL (test code = 633) Triglyceride Reference Range: Low Risk <150 Borderline 150-199 High Risk 200-499 Very High Risk >=500Cholesterol Reference Range: Low Risk <200 Borderline 200-239 High Risk >240HDL Cholesterol Reference Range: Low Risk >=60 High Risk <40LDL Cholesterol Reference Range: Optimal <100 Near Optimal 100-129 Borderline 130-159 High 160-189 Very High >=190HEPATIC FUNCTION [id number] 12:48:00 Test Item Value Reference Range Interpretation Comments TOTAL PROTEIN (BEAKER) (test code = 7.2 gm/dL 6.0-8.3 770) ALBUMIN (BEAKER) (test code = 1145) 3.7 g/dL 3.5-5.0 BILIRUBIN TOTAL (BEAKER) (test code < mg/dL 0.2-1.2 = 377) BILIRUBIN DIRECT (BEAKER) (test 0.1 mg/dL 0.1-0.5 code = 706) ALKALINE PHOSPHATASE (BEAKER) (test 165 U/L 40-150 H code = 346) AST (SGOT) (BEAKER) (test code = 26 U/L 5-34 353) ALT (SGPT) (BEAKER) (test code = 54 U/L 6-55 347) CALCIUM, [id number] 08:06:00 Test Item Value Reference Range Interpretation Comments CALCIUM IONIZED (BEAKER) (test 1.06 mmol/L 1.12-1.27 L code = 698) PH, BLOOD (BEAKER) (test code = 7.21 1810) PROTHROMBIN [id number] 06:17:00 Test Item Value Reference Range Interpretation Comments PROTIME (BEAKER) (test code = 15.5 seconds 11.7-14.7 H 759) INR (BEAKER) (test code = 370) 1.2 <=5.9 RECOMMENDED COUMADIN/WARFARIN INR THERAPY RANGESSTANDARD DOSE: 2.0 - 3.0 Includes: PROPHYLAXIS forvenous thrombosis, systemic embolization; TREATMENT for venous thrombosis and/or pulmonary embolus.HIGH RISK: Target INR is 2.5-3.5 for patients with mechanical heart valves.T4, [id number] 17:02:00 Test Item Value Reference Range Interpretation Comments FREE T4 (BEAKER) (test code = 655) 1.27 ng/dL 0.70-1.48 [id number] 12:17:00 Test Item Value Reference Range Interpretation Comments PREALBUMIN (BEAKER) (test code = 19 mg/dL 14-45 586) [id number] 11:57:00 Test Item Value Reference Range Interpretation Comments MAGNESIUM (BEAKER) (test code = 2.0 mg/dL 1.6-2.6 627) VITAMIN D, [id number] 11:30:00 Test Item Value Reference Range Interpretation Comments VITAMIN D 25-OH (BEAKER) (test 10.7 ng/mL 6.6-49.9 code = 2764) Effective 06/13/2017: Reference Range ChangeNew: 6.6-49.9 ng/mL Previous: 13.0-47.8 ng/mLRecommended Vitamin D Target Range: 30.0-40.0 ng/mLVITAMIN B12 AND [id number] 11:30:00 Test Item Value Reference Range Interpretation Comments VITAMIN B12 (BEAKER) (test code = 235 pg/mL 213-816 774) FOLATE (BEAKER) (test code = 362) 6.6 ng/mL >=7.0 L TSH/FREE T4 IF [id number] 11:30:00 Test Item Value Reference Range Interpretation Comments THYROID STIMULATING HORMONE 5.74 uIU/mL 0.35-4.94 H (BEAKER) (test code = 772) LIPID [id number] 10:51:00 Test Item Value Reference Range Interpretation Comments TRIGLYCERIDES (BEAKER) (test code = 95 mg/dL 540) CHOLESTEROL (BEAKER) (test code = 180 mg/dL 631) HDL CHOLESTEROL (BEAKER) (test code 47 mg/dL = 976) LDL CHOLESTEROL CALCULATED (BEAKER) 114 mg/dL (test code = 633) Triglyceride Reference Range: Low Risk <150 Borderline 150-199 High Risk 200-499 Very High Risk >=500Cholesterol Reference Range: Low Risk <200 Borderline 200-239 High Risk >240HDL Cholesterol Reference Range: Low Risk >=60 High Risk <40LDL Cholesterol Reference Range: Optimal <100 Near Optimal 100-129 Borderline 130-159 High 160-189 Very High >=190HEPATIC FUNCTION [id number] 10:51:00 Test Item Value Reference Range Interpretation Comments TOTAL PROTEIN (BEAKER) (test code = 7.2 gm/dL 6.0-8.3 770) ALBUMIN (BEAKER) (test code = 1145) 3.6 g/dL 3.5-5.0 BILIRUBIN TOTAL (BEAKER) (test code 0.3 mg/dL 0.2-1.2 = 377) BILIRUBIN DIRECT (BEAKER) (test 0.2 mg/dL 0.1-0.5 code = 706) ALKALINE PHOSPHATASE (BEAKER) (test 189 U/L 40-150 H code = 346) AST (SGOT) (BEAKER) (test code = 59 U/L 5-34 H 353) ALT (SGPT) (BEAKER) (test code = 81 U/L 6-55 H 347) COMPREHENSIVE METABOLIC [id number] 10:51:00 Test Item Value Reference Range Interpretation Comments TOTAL PROTEIN 7.2 gm/dL 6.0-8.3 (BEAKER) (test code = 770) ALBUMIN (BEAKER) 3.6 g/dL 3.5-5.0 (test code = 1145) ALKALINE PHOSPHATASE 189 U/L 40-150 H (BEAKER) (test code = 346) BILIRUBIN TOTAL 0.3 mg/dL 0.2-1.2 (BEAKER) (test code = 377) SODIUM (BEAKER) (test 141 meq/L 136-145 code = 381) POTASSIUM (BEAKER) 4.0 meq/L 3.5-5.1 (test code = 379) CHLORIDE (BEAKER) 117 meq/L 98-107 H (test code = 382) CO2 (BEAKER) (test 13 meq/L 22-29 L code = 355) BLOOD UREA NITROGEN 15 mg/dL 7-21 (BEAKER) (test code = 354) CREATININE (BEAKER) 1.46 mg/dL 0.57-1.25 H (test code = 358) GLUCOSE RANDOM 81 mg/dL 70-105 (BEAKER) (test code = 652) CALCIUM (BEAKER) 8.5 mg/dL 8.4-10.2 (test code = 697) AST (SGOT) (BEAKER) 59 U/L 5-34 H (test code = 353) ALT (SGPT) (BEAKER) 81 U/L 6-55 H (test code = 347) EGFR (BEAKER) (test 44 mL/min/1.73 ESTIMA OLGA LIDIA GFR IS code = 1092) sq m NOT ACCURATE CREATININE CLEARANCE IN PREDICTING GLOMERULAR FILTRATION RATE . ESTIMATED GFR I S NOT APPLICABLE FOR DIALYSIS PATIEN TS. [id number] 10:51:00 Test Item Value Reference Range Interpretation Comments LIPASE (BEAKER) (test code = 749) 12 U/L 8-78 URINE [id number] 09:46:00 Test Item Value Reference Range Interpretation Comments CULTURE (BEAKER) (test code = 1095) No growth CLOSTRIDIUM DIFFICILE TOXIN [id number] 09:04:00 Test Item Value Reference Range Interpretation Comments CLOSTRIDIUM DIFFICILE TOXIN, PCR Not Detected Not Detected (BEAKER) (test code = 1525) This qualitative real-time polymerase [...] of a positive result is not recommended.CALCIUM, [id number] 07:10:00 Test Item Value Reference Range Interpretation Comments CALCIUM IONIZED (BEAKER) (test 1.14 mmol/L 1.12-1.27 code = 698) PH, BLOOD (BEAKER) (test code = 7.22 1810) CALCIUM, [id number] 06:43:00 Test Item Value Reference Range Interpretation Comments CALCIUM IONIZED (BEAKER) (test 0.82 mmol/L 1.12-1.27 L code = 698) PH, BLOOD (BEAKER) (test code = 7.32 1810) CBC (HEMOGRAM ONLY)2017-11-19 06:29:00 Test Item Value Reference Range Interpretation Comments WHITE BLOOD CELL COUNT (BEAKER) 10.8 K/ L 3.5-10.5 H (test code = 775) RED BLOOD CELL COUNT (BEAKER) 3.76 M/ L 3.93-5.22 L (test code = 761) HEMOGLOBIN (BEAKER) (test code = 8.4 GM/DL 11.2-15.7 L 410) HEMATOCRIT (BEAKER) (test code = 30.3 % 34.1-44.9 L 411) MEAN CORPUSCULAR VOLUME (BEAKER) 80.6 fL 79.4-94.8 (test code = 753) MEAN CORPUSCULAR HEMOGLOBIN 22.3 pg 25.6-32.2 L (BEAKER) (test code = 751) MEAN CORPUSCULAR HEMOGLOBIN CONC 27.7 GM/DL 32.2-35.5 L (BEAKER) (test code = 752) RED CELL DISTRIBUTION WIDTH 17.8 % 11.7-14.4 H (BEAKER) (test code = 412) PLATELET COUNT (BEAKER) (test 418 K/CU MM 150-450 code = 756) MEAN PLATELET VOLUME (BEAKER) 10.4 fL 9.4-12.3 (test code = 754) NUCLEATED RED BLOOD CELLS 0 /100 WBC 0-0 (BEAKER) (test code = 413) PROTHROMBIN [id number] 06:20:00 Test Item Value Reference Range Interpretation Comments PROTIME (BEAKER) (test code = 15.7 seconds 11.7-14.7 H 759) INR (BEAKER) (test code = 370) 1.2 <=5.9 RECOMMENDED COUMADIN/WARFARIN INR THERAPY RANGESSTANDARD DOSE: 2.0 - 3.0 Includes: PROPHYLAXIS forvenous thrombosis, systemic embolization; TREATMENT for venous thrombosis and/or pulmonary embolus.HIGH RISK: Target INR is 2.5-3.5 for patients with mechanical heart valves.RAD, ABDOMEN/KUB, 1 VIEW [id number] 08:39:00Reason for exam:->abdominal distension'Should this be performed [...] Poe MDReport Verified Date/Time: 11/18/2017 08:39:46 Reading Location:[facility] B1 C013Y CT Body Reading Room IUM, [id number] 07:00:00 Test Item Value Reference Range Interpretation Comments CALCIUM IONIZED (BEAKER) (test 1.12 mmol/L 1.12-1.27 code = 698) PH, BLOOD (BEAKER) (test code = 7.18 1810) CBC W/PLT COUNT & AUTO [id number] 06:37:00 Test Item Value Reference Range Interpretation Comments WHITE BLOOD CELL COUNT (BEAKER) 17.3 K/ L 3.5-10.5 H (test code = 775) RED BLOOD CELL COUNT (BEAKER) 3.48 M/ L 3.93-5.22 L (test code = 761) HEMOGLOBIN (BEAKER) (test code = 7.7 GM/DL 11.2-15.7 L 410) HEMATOCRIT (BEAKER) (test code = 28.1 % 34.1-44.9 L 411) MEAN CORPUSCULAR VOLUME (BEAKER) 80.7 fL 79.4-94.8 (test code = 753) MEAN CORPUSCULAR HEMOGLOBIN 22.1 pg 25.6-32.2 L (BEAKER) (test code = 751) MEAN CORPUSCULAR HEMOGLOBIN CONC 27.4 GM/DL 32.2-35.5 L (BEAKER) (test code = 752) RED CELL DISTRIBUTION WIDTH 17.8 % 11.7-14.4 H (BEAKER) (test code = 412) PLATELET COUNT (BEAKER) (test 370 K/CU MM 150-450 code = 756) MEAN PLATELET VOLUME (BEAKER) 10.7 fL 9.4-12.3 (test code = 754) NUCLEATED RED BLOOD CELLS 0 /100 WBC 0-0 (BEAKER) (test code = 413) NEUTROPHILS RELATIVE PERCENT 77 % (BEAKER) (test code = 429) LYMPHOCYTES RELATIVE PERCENT 13 % (BEAKER) (test code = 430) MONOCYTES RELATIVE PERCENT 5 % (BEAKER) (test code = 431) EOSINOPHILS RELATIVE PERCENT 4 % (BEAKER) (test code = 432) BASOPHILS RELATIVE PERCENT 0 % (BEAKER) (test code = 437) NEUTROPHILS ABSOLUTE COUNT 13.38 K/ L 1.56-6.13 H (BEAKER) (test code = 670) LYMPHOCYTES ABSOLUTE COUNT 2.23 K/ L 1.18-3.74 (BEAKER) (test code = 414) MONOCYTES ABSOLUTE COUNT (BEAKER) 0.89 K/ L 0.24-0.36 H (test code = 415) EOSINOPHILS ABSOLUTE COUNT 0.67 K/ L 0.04-0.36 H (BEAKER) (test code = 416) BASOPHILS ABSOLUTE COUNT (BEAKER) 0.03 K/ L 0.01-0.08 (test code = 417) IMMATURE GRANULOCYTES-RELATIVE 1 % 0-1 PERCENT (BEAKER) (test code = 2801) [id number] 05:50:00 Test Item Value Reference Range Interpretation Comments MAGNESIUM (BEAKER) (test code = 2.1 mg/dL 1.6-2.6 627) BASIC METABOLIC [id number] 05:50:00 Test Item Value Reference Range Interpretation Comments SODIUM (BEAKER) 141 meq/L 136-145 (test code = 381) POTASSIUM (BEAKER) 4.2 meq/L 3.5-5.1 (test code = 379) CHLORIDE (BEAKER) 119 meq/L 98-107 H (test code = 382) CO2 (BEAKER) (test 13 meq/L 22-29 L code = 355) BLOOD UREA NITROGEN 20 mg/dL 7-21 (BEAKER) (test code = 354) CREATININE (BEAKER) 1.52 mg/dL 0.57-1.25 H (test code = 358) GLUCOSE RANDOM 76 mg/dL 70-105 (BEAKER) (test code = 652) CALCIUM (BEAKER) 8.1 mg/dL 8.4-10.2 L (test code = 697) EGFR (BEAKER) (test 42 mL/min/1.73 ESTIMA OLGA LIDIA GFR IS code = 1092) sq m NOT ACCURATE CREATININE CLEARANCE IN PREDICTING GLOMERULAR FILTRATION RATE . ESTIMATED GFR I S NOT APPLICABLE FOR DIALYSIS PATIEN TS. LIPID [id number] 05:50:00 Test Item Value Reference Range Interpretation Comments TRIGLYCERIDES (BEAKER) (test code = 58 mg/dL 540) CHOLESTEROL (BEAKER) (test code = 129 mg/dL 631) HDL CHOLESTEROL (BEAKER) (test code 39 mg/dL = 976) LDL CHOLESTEROL CALCULATED (BEAKER) 78 mg/dL (test code = 633) Triglyceride Reference Range: Low Risk <150 Borderline 150-199 High Risk 200-499 Very High Risk >=500Cholesterol Reference Range: Low Risk <200 Borderline 200-239 High Risk >240HDL Cholesterol Reference Range: Low Risk >=60 High Risk <40LDL Cholesterol Reference Range: Optimal <100 Near Optimal 100-129 Borderline 130-159 High 160-189 Very High >=190HEPATIC FUNCTION [id number] 05:50:00 Test Item Value Reference Range Interpretation Comments TOTAL PROTEIN (BEAKER) (test code = 6.2 gm/dL 6.0-8.3 770) ALBUMIN (BEAKER) (test code = 1145) 3.1 g/dL 3.5-5.0 L BILIRUBIN TOTAL (BEAKER) (test code 0.4 mg/dL 0.2-1.2 = 377) BILIRUBIN DIRECT (BEAKER) (test 0.3 mg/dL 0.1-0.5 code = 706) ALKALINE PHOSPHATASE (BEAKER) (test 204 U/L 40-150 H code = 346) AST (SGOT) (BEAKER) (test code = 138 U/L 5-34 H 353) ALT (SGPT) (BEAKER) (test code = 107 U/L 6-55 H 347) PROTHROMBIN [id number] 05:22:00 Test Item Value Reference Range Interpretation Comments PROTIME (BEAKER) (test code = 17.0 seconds 11.7-14.7 H 759) INR (BEAKER) (test code = 370) 1.4 <=5.9 RECOMMENDED COUMADIN/WARFARIN INR THERAPY RANGESSTANDARD DOSE: 2.0 - 3.0 Includes: PROPHYLAXIS forvenous thrombosis, systemic embolization; TREATMENT for venous thrombosis and/or pulmonary embolus.HIGH RISK: Target INR is 2.5-3.5 for patients with mechanical heart valves.U/S, ABDOMINAL, [id number] 23:11:00Reason for exam:->ASCITESFINAL REPORT Ultrasound of the [...] is recommended. No ascites. Signed: Roberto Lizama Verified Date/Time: 11/17/2017 23:11:49 Reading Location: [address] Reading Room URINE [id number] 10:40:00 Test Item Value Reference Range Interpretation Comments CULTURE (BEAKER) (test code = 1095) Amikacin (test code = S 1) Ampicillin + Sulbactam S (test code = 6) Aztreonam (test code = S 32) Cefepime (test code = S 51) Cefoxitin (test code = S 68) Ceftazidime (test code S = 27) Ceftriaxone (test code S = 52) Ertapenem (test code = S 38) Gentamicin (test code = S 18) Levofloxacin (test code S = 22) Meropenem (test code = S 34) Nitrofurantoin (test S code = 23) Piperacillin + S Tazobactam (test code = 29) Tetracycline (test code S = 2) Tobramycin (test code = S 25) Trimethoprim + S Sulfamethoxazole (test code = 47) CULTURE (BEAKER) (test KLEBSIELLA A 20-29 ,000 col/mL code = 1095) SPECIES Klebsiella species Amikacin (test code = S 1) Ampicillin + Sulbactam S (test code = 6) Aztreonam (test code = S 32) Cefepime (test code = S 51) Cefoxitin (test code = S 68) Ceftazidime (test code S = 27) Ceftriaxone (test code S = 52) Ertapenem (test code = S 38) Gentamicin (test code = S 18) Levofloxacin (test code S = 22) Meropenem (test code = S 34) Nitrofurantoin (test S code = 23) Piperacillin + S Tazobactam (test code = 29) Tetracycline (test code S = 2) Tobramycin (test code = S 25) Trimethoprim + S Sulfamethoxazole (test code = 47) CULTURE (BEAKER) (test A 20-29 ,000 col/mL code = 1095) Klebsiella speciesof a second type >100,000 col/mL skin [id number] 07:47:00 Test Item Value Reference Range Interpretation Comments PHOSPHORUS (BEAKER) (test code = 3.4 mg/dL 2.3-4.7 604) [id number] 07:47:00 Test Item Value Reference Range Interpretation Comments MAGNESIUM (BEAKER) (test code = 2.2 mg/dL 1.6-2.6 627) BASIC METABOLIC [id number] 07:47:00 Test Item Value Reference Range Interpretation Comments SODIUM (BEAKER) 141 meq/L 136-145 (test code = 381) POTASSIUM (BEAKER) 3.4 meq/L 3.5-5.1 L (test code = 379) CHLORIDE (BEAKER) 116 meq/L 98-107 H (test code = 382) CO2 (BEAKER) (test 17 meq/L 22-29 L code = 355) BLOOD UREA NITROGEN 17 mg/dL 7-21 (BEAKER) (test code = 354) CREATININE (BEAKER) 1.41 mg/dL 0.57-1.25 H (test code = 358) GLUCOSE RANDOM 85 mg/dL 70-105 (BEAKER) (test code = 652) CALCIUM (BEAKER) 8.3 mg/dL 8.4-10.2 L (test code = 697) EGFR (BEAKER) (test 45 mL/min/1.73 ESTIMA OLGA LIDIA GFR IS code = 1092) sq m NOT ACCURATE CREATININE CLEARANCE IN PREDICTING GLOMERULAR FILTRATION RATE . ESTIMATED GFR I S NOT APPLICABLE FOR DIALYSIS PATIEN TS. CBC W/PLT COUNT & AUTO [id number] 06:28:00 Test Item Value Reference Range Interpretation Comments WHITE BLOOD CELL COUNT (BEAKER) 13.7 K/ L 3.5-10.5 H (test code = 775) RED BLOOD CELL COUNT (BEAKER) 3.94 M/ L 3.93-5.22 (test code = 761) HEMOGLOBIN (BEAKER) (test code = 8.8 GM/DL 11.2-15.7 L 410) HEMATOCRIT (BEAKER) (test code = 32.0 % 34.1-44.9 L 411) MEAN CORPUSCULAR VOLUME (BEAKER) 81.2 fL 79.4-94.8 (test code = 753) MEAN CORPUSCULAR HEMOGLOBIN 22.3 pg 25.6-32.2 L (BEAKER) (test code = 751) MEAN CORPUSCULAR HEMOGLOBIN CONC 27.5 GM/DL 32.2-35.5 L (BEAKER) (test code = 752) RED CELL DISTRIBUTION WIDTH 18.3 % 11.7-14.4 H (BEAKER) (test code = 412) PLATELET COUNT (BEAKER) (test 424 K/CU MM 150-450 code = 756) MEAN PLATELET VOLUME (BEAKER) 10.4 fL 9.4-12.3 (test code = 754) NUCLEATED RED BLOOD CELLS 0 /100 WBC 0-0 (BEAKER) (test code = 413) NEUTROPHILS RELATIVE PERCENT 75 % (BEAKER) (test code = 429) LYMPHOCYTES RELATIVE PERCENT 19 % (BEAKER) (test code = 430) MONOCYTES RELATIVE PERCENT 5 % (BEAKER) (test code = 431) EOSINOPHILS RELATIVE PERCENT 1 % (BEAKER) (test code = 432) BASOPHILS RELATIVE PERCENT 0 % (BEAKER) (test code = 437) NEUTROPHILS ABSOLUTE COUNT 10.23 K/ L 1.56-6.13 H (BEAKER) (test code = 670) LYMPHOCYTES ABSOLUTE COUNT 2.64 K/ L 1.18-3.74 (BEAKER) (test code = 414) MONOCYTES ABSOLUTE COUNT (BEAKER) 0.71 K/ L 0.24-0.36 H (test code = 415) EOSINOPHILS ABSOLUTE COUNT 0.07 K/ L 0.04-0.36 (BEAKER) (test code = 416) BASOPHILS ABSOLUTE COUNT (BEAKER) 0.03 K/ L 0.01-0.08 (test code = 417) IMMATURE GRANULOCYTES-RELATIVE 0 % 0-1 PERCENT (BEAKER) (test code = 2801) RAD, SHUNT [id number] 21:37:00Reason for exam:->postopFINAL REPORT EXAM: SHUNT SERIES [...] unremarkable. Additional Findings: Previously described occipital approach TECHNOLOGY METHODOLOGY CONSULTANT shunt catheter unchanged when compared to the prior exam. Disconnected right-sided catheter segment is also changed as it overlies the thoracic cavity. IMPRESSION: Interval placement of a Codman Certas TECHNOLOGY METHODOLOGY CONSULTANT shunt set to performance level 4. Signed: JR Nettles Robert MDReport Verified Date/Time: 11/08/2017 21:37:02 Reading Location: [address], BRAIN, WITHOUT [id number] 08:07:00FINAL REPORT CT Head without contrast CLINICAL [...] catheter as discussed above. Signed: Sam Key Verified Date/Time: 11/08/2017 08:07:55 Reading Location: [facility] Radiology Reading Room CBC W/PLT COUNT & AUTO [id number] 07:52:00 Test Item Value Reference Range Interpretation Comments WHITE BLOOD CELL COUNT (BEAKER) 14.4 K/ L 3.5-10.5 H (test code = 775) RED BLOOD CELL COUNT (BEAKER) 3.84 M/ L 3.93-5.22 L (test code = 761) HEMOGLOBIN (BEAKER) (test code = 8.6 GM/DL 11.2-15.7 L 410) HEMATOCRIT (BEAKER) (test code = 31.5 % 34.1-44.9 L 411) MEAN CORPUSCULAR VOLUME (BEAKER) 82.0 fL 79.4-94.8 (test code = 753) MEAN CORPUSCULAR HEMOGLOBIN 22.4 pg 25.6-32.2 L (BEAKER) (test code = 751) MEAN CORPUSCULAR HEMOGLOBIN CONC 27.3 GM/DL 32.2-35.5 L (BEAKER) (test code = 752) RED CELL DISTRIBUTION WIDTH 18.0 % 11.7-14.4 H (BEAKER) (test code = 412) PLATELET COUNT (BEAKER) (test 405 K/CU MM 150-450 code = 756) MEAN PLATELET VOLUME (BEAKER) 10.3 fL 9.4-12.3 (test code = 754) NUCLEATED RED BLOOD CELLS 0 /100 WBC 0-0 (BEAKER) (test code = 413) NEUTROPHILS RELATIVE PERCENT 92 % (BEAKER) (test code = 429) LYMPHOCYTES RELATIVE PERCENT 5 % (BEAKER) (test code = 430) MONOCYTES RELATIVE PERCENT 2 % (BEAKER) (test code = 431) EOSINOPHILS RELATIVE PERCENT 0 % (BEAKER) (test code = 432) BASOPHILS RELATIVE PERCENT 0 % (BEAKER) (test code = 437) NEUTROPHILS ABSOLUTE COUNT 13.26 K/ L 1.56-6.13 H (BEAKER) (test code = 670) LYMPHOCYTES ABSOLUTE COUNT 0.78 K/ L 1.18-3.74 L (BEAKER) (test code = 414) MONOCYTES ABSOLUTE COUNT (BEAKER) 0.29 K/ L 0.24-0.36 (test code = 415) EOSINOPHILS ABSOLUTE COUNT 0.00 K/ L 0.04-0.36 L (BEAKER) (test code = 416) BASOPHILS ABSOLUTE COUNT (BEAKER) 0.01 K/ L 0.01-0.08 (test code = 417) IMMATURE GRANULOCYTES-RELATIVE 0 % 0-1 PERCENT (BEAKER) (test code = 2801) BASIC METABOLIC [id number] 07:30:00 Test Item Value Reference Range Interpretation Comments SODIUM (BEAKER) 143 meq/L 136-145 (test code = 381) POTASSIUM (BEAKER) 4.3 meq/L 3.5-5.1 (test code = 379) CHLORIDE (BEAKER) 121 meq/L 98-107 H (test code = 382) CO2 (BEAKER) (test 12 meq/L 22-29 L code = 355) BLOOD UREA NITROGEN 16 mg/dL 7-21 (BEAKER) (test code = 354) CREATININE (BEAKER) 1.46 mg/dL 0.57-1.25 H (test code = 358) GLUCOSE RANDOM 94 mg/dL 70-105 (BEAKER) (test code = 652) CALCIUM (BEAKER) 8.6 mg/dL 8.4-10.2 (test code = 697) EGFR (BEAKER) (test 44 mL/min/1.73 ESTIMA OLGA LIDIA GFR IS code = 1092) sq m NOT ACCURATE CREATININE CLEARANCE IN PREDICTING GLOMERULAR FILTRATION RATE . ESTIMATED GFR I S NOT APPLICABLE FOR DIALYSIS PATIEN TS. [id number] 07:23:00 Test Item Value Reference Range Interpretation Comments PHOSPHORUS (BEAKER) (test code = 3.6 mg/dL 2.3-4.7 604) [id number] 07:23:00 Test Item Value Reference Range Interpretation Comments MAGNESIUM (BEAKER) (test code = 2.3 mg/dL 1.6-2.6 627) RAD, SHUNT [id number] 13:15:00Reason for exam:->headacheFINAL REPORT Shunt series, 11 [...] pneumothorax. Bowel gas pattern nonobstructive. Signed: Karma Thomas Verified Date/Time: 11/07/2017 13:15:42 Reading Location: [facility] Reading Room CT, BRAIN, WITHOUT CONTRAST 2017-11-07 [...] probably chronic. The left- sided posterior approach TECHNOLOGY METHODOLOGY CONSULTANT shunt extends along the medialaspect of the left lateral ventricle posteriorly and does not definitively extend into the ventricular system. The visualized dural sinus regions, orbital contents, paranasal sinuses, bones and surrounding soft tissues are unremarkable. Impressions: 1. No specific evidence of acute intracranialabnormality. 2. Mild chronic appearing ventricular prominence without specific evidence of acute hydrocephalus. Note description of the intracranial left TECHNOLOGY METHODOLOGY CONSULTANT shunt catheter. There is no definitive intraventricular extension. 3. 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 Signed: Ricahrd Mathew Verified Date/Time: 11/07/2017 13:03:58 Electronically signed by: RICHARD MATHEW M.D.on 11/07/2017 01:03 PMURINALYSIS W/ [id number] 09:28:00 Test Item Value Reference Range Interpretation Comments COLOR (BEAKER) (test code = Light Yellow 470) CLARITY (BEAKER) (test code = Hazy 469) SPECIFIC GRAVITY UA (BEAKER) 1.006 1.001-1.035 (test code = 468) PH UA (BEAKER) (test code = 7.5 5.0-8.0 467) PROTEIN UA (BEAKER) (test code 30 mg/dL Negative A = 464) GLUCOSE UA (BEAKER) (test code Negative Negative = 365) KETONES UA (BEAKER) (test code Negative Negative = 371) BILIRUBIN UA (BEAKER) (test Negative Negative code = 462) BLOOD UA (BEAKER) (test code = Negative Negative 461) NITRITE UA (BEAKER) (test code Negative Negative = 465) LEUKOCYTE ESTERASE UA (BEAKER) Moderate Negative A (test code = 466) UROBILINOGEN UA (BEAKER) (test 6.0 mg/dL 0.2-1.0 H code = 463) RBC UA (BEAKER) (test code = 2 /HPF 519) WBC UA (BEAKER) (test code = 1 /HPF 520) AMORPHOUS CRYSTALS (BEAKER) Moderate (test code = 1584) SOURCE(BEAKER) (test code = Urine, Voided 0955) SCREEN, [id number] 09:12:00 Test Item Value Reference Range Interpretation Comments TEST URINE (BEAKER) (test Negative code = 583) [id number] 03:34:00 Test Item Value Reference Range Interpretation Comments PHOSPHORUS (BEAKER) (test code = 3.5 mg/dL 2.3-4.7 604) [id number] 03:34:00 Test Item Value Reference Range Interpretation Comments MAGNESIUM (BEAKER) (test code = 2.2 mg/dL 1.6-2.6 627) BASIC METABOLIC [id number] 03:34:00 Test Item Value Reference Range Interpretation Comments SODIUM (BEAKER) 140 meq/L 136-145 (test code = 381) POTASSIUM (BEAKER) 3.4 meq/L 3.5-5.1 L (test code = 379) CHLORIDE (BEAKER) 116 meq/L 98-107 H (test code = 382) CO2 (BEAKER) (test 16 meq/L 22-29 L code = 355) BLOOD UREA NITROGEN 15 mg/dL 7-21 (BEAKER) (test code = 354) CREATININE (BEAKER) 1.35 mg/dL 0.57-1.25 H (test code = 358) GLUCOSE RANDOM 76 mg/dL 70-105 (BEAKER) (test code = 652) CALCIUM (BEAKER) 8.4 mg/dL 8.4-10.2 (test code = 697) EGFR (BEAKER) (test 48 mL/min/1.73 ESTIMA OLGA LIDIA GFR IS code = 1092) sq m NOT ACCURATE CREATININE CLEARANCE IN PREDICTING GLOMERULAR FILTRATION RATE . ESTIMATED GFR I S NOT APPLICABLE FOR DIALYSIS PATIEN TS. CBC W/PLT COUNT & AUTO [id number] 03:33:00 Test Item Value Reference Range Interpretation Comments WHITE BLOOD CELL COUNT (BEAKER) 10.7 K/ L 3.5-10.5 H (test code = 775) RED BLOOD CELL COUNT (BEAKER) 4.18 M/ L 3.93-5.22 (test code = 761) HEMOGLOBIN (BEAKER) (test code = 9.2 GM/DL 11.2-15.7 L 410) HEMATOCRIT (BEAKER) (test code = 33.4 % 34.1-44.9 L 411) MEAN CORPUSCULAR VOLUME (BEAKER) 79.9 fL 79.4-94.8 (test code = 753) MEAN CORPUSCULAR HEMOGLOBIN 22.0 pg 25.6-32.2 L (BEAKER) (test code = 751) MEAN CORPUSCULAR HEMOGLOBIN CONC 27.5 GM/DL 32.2-35.5 L (BEAKER) (test code = 752) RED CELL DISTRIBUTION WIDTH 17.6 % 11.7-14.4 H (BEAKER) (test code = 412) PLATELET COUNT (BEAKER) (test 386 K/CU MM 150-450 code = 756) MEAN PLATELET VOLUME (BEAKER) 10.6 fL 9.4-12.3 (test code = 754) NUCLEATED RED BLOOD CELLS 0 /100 WBC 0-0 (BEAKER) (test code = 413) NEUTROPHILS RELATIVE PERCENT 68 % (BEAKER) (test code = 429) LYMPHOCYTES RELATIVE PERCENT 25 % (BEAKER) (test code = 430) MONOCYTES RELATIVE PERCENT 4 % (BEAKER) (test code = 431) EOSINOPHILS RELATIVE PERCENT 2 % (BEAKER) (test code = 432) BASOPHILS RELATIVE PERCENT 0 % (BEAKER) (test code = 437) NEUTROPHILS ABSOLUTE COUNT 7.22 K/ L 1.56-6.13 H (BEAKER) (test code = 670) LYMPHOCYTES ABSOLUTE COUNT 2.66 K/ L 1.18-3.74 (BEAKER) (test code = 414) MONOCYTES ABSOLUTE COUNT (BEAKER) 0.47 K/ L 0.24-0.36 H (test code = 415) EOSINOPHILS ABSOLUTE COUNT 0.26 K/ L 0.04-0.36 (BEAKER) (test code = 416) BASOPHILS ABSOLUTE COUNT (BEAKER) 0.01 K/ L 0.01-0.08 (test code = 417) IMMATURE GRANULOCYTES-RELATIVE 1 % 0-1 PERCENT (BEAKER) (test code = 2801) [id number] 03:28:00 Test Item Value Reference Range Interpretation Comments PROTIME (BEAKER) (test code = 15.6 seconds 11.7-14.7 H 759) INR (BEAKER) (test code = 370) 1.2 <=5.9 PARTIAL THROMBOPLASTIN TIME 31.1 seconds 22.5-36.0 (BEAKER) (test code = 760) RECOMMENDED COUMADIN/WARFARIN INR THERAPY RANGESSTANDARD DOSE: 2.0 - 3.0 Includes: PROPHYLAXIS forvenous thrombosis, systemic embolization; TREATMENT for venous thrombosis and/or pulmonary embolus.HIGH RISK: Target INR is 2.5-3.5 for patients with mechanical heart valves.
[2020-02-25] MEDS ORDERED: NA CHLORIDE 0.9% 2,000 ML ONE (20:41)
[2020-02-25] MEDS ORDERED: VANCOMYCIN 1 GM/VIAL ONE (20:41)
[2020-02-25] MEDS ORDERED: ACETAMINOPHEN 500 MG TAB ONE (20:41)
[2020-02-25] MEDS ORDERED: NA CHLORIDE 0.9% 250 ML ONE (20:42)
[2020-02-25 21:17] LABS: Basophils % 0.2 % (0-1.3); Hematocrit 39.4 % (36.0-45.0); Lymphocytes % 7.2 % (15.3-44.8); MPV 9.3 fL (7.6-11.3); RBC Red Blood Cell Count 4.74 M/uL (3.86-4.86)
[2020-02-25 21:24] LABS: Protime INR 1.16
[2020-02-25 21:43] LABS: ALT/SGPT 20 U/L (12-78); AST/SGOT 16 U/L (15-37); Albumin 3.1 g/dL (3.4-5.0); Alkaline Phosphatase 228 U/L (45-117); Amylase 49 U/L (25-115); BUN Blood Urea Nitrogen 21 mg/dL (7-18); Bilirubin Direct 0.1 mg/dL (0-0.2); Bilirubin Total 0.3 mg/dL (0.2-1.0); CKMB Creatine Kinase MB < 1.0 ng/mL (0.3-3.6); Creatine Phosphokinase 54 U/L (26-192); Glucose Level 93 mg/dL (74-106); Lipase 102 U/L (73-393); Potassium 3.6 mmol/L (3.5-5.1); Protein, Total 8.9 g/dL (6.4-8.2); Sodium Level 139 mmol/L (136-145); Troponin (Emerg Dept Use Only) < 0.02 ng/mL (0.0-0.045)
[2020-02-25 21:49] LABS: Blood Morphology Comment NOT SEEN (NOT SEEN); Platelet Estimate ADEQ; Urine White Blood Cell Casts OK
[2020-02-25 22:00] LABS: Bicarbonate 12 mmol/L (21-32)
--- NOTE | 2020-02-25 22:17 | EDPHYS ---
Physician Documentation [facility] Name: Yadi De Leon Age: 29 yrs Sex: Female : 1990 Arrival Date: 02/25/2020 Time: 19:40 Bed 17 Private MD: ED Physician Bob Romero HPI: 02/24 20:19 This 29 yrs old Female presents to ER via Wheelchair with complaints of Thigh jmm Pain, BLISTERS. 20:19 The patient presents with an abscess of the right leg and left leg. Onset: The jmm symptoms/episode began/occurred gradually, 3 day(s) ago. Possible cause(s): unknown. Associated signs and symptoms: Pertinent positives: fever. This is a 29 year old female with a history of spina bifida that presents to the ED with complaints of abscess to both her legs beginning approx 3 days ago. Patient has chronic lower leg ulceration. Mother states she has given the patient sitz baths which have helped to drain the abscesses. . Historical: - Allergies: 19:55 Latex, Natural Rubber; ll1 - PMHx: 19:55 kidney disease; spina bifida; ll1 - Immunization history:: Flu vaccine is not up to date. - Social history:: Smoking status: Patient denies any tobacco usage or history of. Patient/guardian denies using alcohol, street drugs, tobacco products. ROS: 20:19 Cardiovascular: Negative for chest pain, palpitations, and edema, Respiratory: Negative jmm for shortness of breath, cough, wheezing, and pleuritic chest pain, Abdomen/GI: Negative for abdominal pain, nausea, vomiting, diarrhea, and constipation. 20:19 Constitutional: Positive for body aches, fatigue. 20:19 Skin: Positive for abscess. 20:19 All other systems are negative. Exam: 20:19 Constitutional: This is a well developed, well nourished patient who is awake, alert, jmm and in no acute distress. Head/Face: atraumatic. Eyes: EOMI, no conjunctival erythema appreciated ENT: Moist Mucus Membranes Neck: Trachea midline, Supple Chest/axilla: Normal chest wall appearance and motion. Cardiovascular: Regular rate and rhythm. No edema appreciated Respiratory: Normal respirations, no respiratory distress appreciated Abdomen/GI: Non distended, soft Back: Normal ROM 20:19 Skin: fluctuant abscess noted to the right thigh, non fluctuant abscesses noted to the right posterior thigh. . 20:19 Neuro: Orientation: is normal, Mentation: is normal, Memory: is normal. 20:19 Psych: Behavior/mood is pleasant, cooperative. Vital Signs: 19:53 BP 154 / 124; Pulse 108; Resp 19; Temp 99.9; Pulse Ox 100% ; Weight 102.51 kg; Height 5 ll1 ft. 0 in. (152.40 cm); Pain 10/10; 20:34 BP 132 / 84; Pulse 118; Resp 16; Pulse Ox 100% on R/A; jb4 21:19 BP 108 / 68; Pulse 106; Resp 18; Pulse Ox 98% on R/A; jb4 22:00 BP 111 / 66; Pulse 100; Resp 18; Temp 98.9(O); Pulse Ox 99% on R/A; jb4 23:06 BP 114 / 43; Pulse 106; Resp 16; Pulse Ox 99% on R/A; jb4 02/25 00:00 BP 105 / 62; Pulse 98; Resp 18; Pulse Ox 99% on R/A; jb4 00:30 BP 109 / 52; Pulse 96; Resp 16; Temp 97.8(O); Pulse Ox 98% on R/A; jb4 02/24 19:53 Body Mass Index 44.14 (102.51 kg, 152.40 cm) ll1 MDM: 02/24 20:19 Patient medically screened. justyn 22:14 Data reviewed: vital signs, nurses notes. Counseling: I had a detailed discussion with julee the patient and/or guardian regarding: the historical points, exam findings, and any diagnostic results supporting the discharge/admit diagnosis, lab results, the need for further work-up and treatment in the hospital. ED course: I discussed the patient with Dr. Clarke whom accepted admission. I discussed the patient with Dr. Hurley whom will consult on admission. . 02/24 20:33 Order name: Amylase, Serum; Complete [facility]: [facility]:02 [facility] 02/24 20:33 Order name: Basic Metabolic Panel; Complete Time: 22:02 [facility] 02/24 20:33 Order name: Blood Culture Adult (2) [facility] 02/24 20:33 Order name: CBC with Diff; Complete Time: 21:53 [facility] 02/24 20:33 Order name: Ckmb; Complete Time: 22:02 [facility] 02/24 20:33 Order name: CPK; Complete Time: 22:02 [facility] 02/24 20:33 Order name: Lactate; Complete Time: 21:47 [facility] 02/24 20:33 Order name: LFT's; Complete Time: 22:02 [facility] 02/24 20:33 Order name: Lipase; Complete Time: 22:02 [facility] 02/24 20:33 Order name: Procalcitonin; Complete Time: 21:58 [facility] 02/24 20:33 Order name: Protime (+inr); Complete Time: 21:29 [facility] 02/24 20:33 Order name: Ptt, Activated; Complete Time: 21:29 [facility] 02/24 20:33 Order name: Troponin (emerg Dept Use Only); Complete Time: 22:02 [facility] 02/24 20:33 Order name: Urine Microscopic Only [facility] 02/24 20:33 Order name: Chest Single View XRAY; Complete Time: 22:51 [facility] 02/24 20:33 Order name: Accucheck; Complete Time: 21:13 [facility] 02/24 20:33 Order name: Cardiac monitoring; Complete Time: 21:13 [facility] 02/24 20:33 Order name: EKG - Nurse/Tech; Complete Time: 21:13 [facility] 02/24 20:33 Order name: IV Saline Lock - Large Bore; Complete Time: 21:13 [facility] 02/24 21:49 Order name: CBC Smear Scan; Complete Time: 21:53 [facility] 02/24 23:54 Order name: CONS Physician Consult [facility] 02/25 02:51 Order name: Urine Dipstick--Ancillary (enter results) k[facility] 02/25 02:58 Order name: Urine Dipstick-Ancillary [facility] 02/25 03:08 Order name: Urinalysis [facility] 02/25 03:20 Order name: Urine Microscopic Only [facility] 02/24 20:33 Order name: Labs collected and sent; Complete Time: 21:13 [facility] 02/24 20:33 Order name: O2 Per Protocol; Complete Time: 21:13 [facility] 02/24 20:33 Order name: O2 Sat Monitoring; Complete Time: 21:13 [facility] 02/24 20:33 Order name: Urine Dipstick-Ancillary (obtain specimen); Complete Time: 03:21 [facility] Administered Medications: 20:45 Drug: Tylenol 1000 mg Route: PO; 4 23:00 Follow up: Response: No adverse reaction; Temperature is decreased [facility] :00 Drug: NS 0.9% (30 ml/kg) 30 ml/kg Route: IV; Rate: bolus; Site: right upper arm; jb4 02/25 00:00 Follow up: Response: No adverse reaction; IV Status: Completed infusion; IV Intake: jb4 3000ml 02/24 21:08 Drug: vancoMYCIN 1 grams Route: IVPB; Infused Over: 2 hrs; Site: right upper arm; jb4 23:09 Follow up: Response: No adverse reaction; IV Status: Completed infusion jb 22:56 Drug: Zofran (Ondansetron) 4 mg Route: IVP; Site: right upper arm; jb 23:30 Follow up: Response: No adverse reaction [facility] 22:58 Drug: morphine 4 mg Route: IVP; Site: right upper arm; jb 23:30 Follow up: Response: No adverse reaction; Pain is decreased; RASS: Alert and Calm (0) [facility] Disposition: 02/25 17:50 Co-signature as Attending Physician, Bob Romero MD I agree with the assessment and justyn plan of care. Disposition: 02/25/20 22:16 Hospitalization ordered by Kurtis Clarke for Inpatient Admission. Preliminary diagnosis are Cutaneous abscess of right lower limb, Cutaneous abscess of left lower limb. - Bed requested for Telemetry/MedSurg (Inpatient). - Status is Inpatient Admission. 4 - Condition is Stable. - Problem is new. - Symptoms are unchanged. Signatures: Dispatcher [employer] EDTN Bob Romero MD MD cha Mickail, Joel, PA PA [facility] Keira Choudhury RN RN tl1 Magnus Murguia RN RN jb4 Rubi Emerson RN RN ll1 Corrections: (The following items were deleted from the chart) :02/24 22:16 Hospitalization Ordered by Kurtis Clarke for Inpatient Admission. tl1 Preliminary diagnosis is Cutaneous abscess of right lower limb; Cutaneous abscess of left lower limb. Bed requested for Telemetry/MedSurg (Inpatient). Status is Inpatient Admission. Condition is Stable. Problem is new. Symptoms are unchanged. [facility] 02/25 03:21 01:20 02/25/2020 22:16 Hospitalization Ordered by Kurtis Clarke for Inpatient tl1 Admission. Preliminary diagnosis is Cutaneous abscess of right lower limb; Cutaneous abscess of left lower limb. Bed requested [facility] ER HOLD. Status is Inpatient Admission. Condition is Stable. Problem is new. Symptoms are unchanged. tl1 03:58 03:21 02/25/2020 22:16 Hospitalization Ordered by Kurtis Clarke for Inpatient jb4 Admission. Preliminary diagnosis is Cutaneous abscess of right lower limb; Cutaneous abscess of left lower limb. Bed requested for Telemetry/MedSurg (Inpatient). Status is Inpatient Admission. Condition is Stable. Problem is new. Symptoms are unchanged. tl1
--- NOTE | 2020-02-25 22:17 | ER ---
Nurse's Notes [facility] Name: Yadi De Leon Age: 29 yrs Sex: Female : 1990 Arrival Date: 02/25/2020 Time: 19:40 Bed 17 Private MD: Diagnosis: Cutaneous abscess of right lower limb;Cutaneous abscess of left lower limb Presentation: 02/24 19:53 Chief complaint: Patient states: Right thigh abscess for 3 days getting progressively ll1 worse. New abscess spots to both legs the past 3 days. + Chills. + nausea. Coronavirus screen: Proceed with normal triage. Patient denies a cough. Patient denies shortness of breath or difficulty breathing. Patient denies measured and/or subjective temperature greater than 100.4F prior to today's visit. Patient denies travel on a cruise ship or to a country the [facility] currently lists as an affected area. Patient denies contact with known and/or suspected case of COVID-19. Ebola Screen: Patient denies travel to an Ebola-affected area in the 21 days before illness onset. Initial Sepsis Screen: Does the patient meet any 2 criteria? HR > 90 bpm. No. Patient's initial sepsis screen is negative. Does the patient have a suspected source of infection? Yes: Skin breakdown/wound. Risk Assessment: Do you want to hurt yourself or someone else? Patient reports no desire to harm self or others. Onset of symptoms was February 22, 2020. 19:53 Method Of Arrival: Wheelchair ll1 19:53 Acuity: ARIANNA 3 ll1 Historical: - Allergies: 19:55 Latex, Natural Rubber; ll1 - PMHx: 19:55 kidney disease; spina bifida; ll1 - Immunization history:: Flu vaccine is not up to date. - Social history:: Smoking status: Patient denies any tobacco usage or history of. Patient/guardian denies using alcohol, street drugs, tobacco products. Screenin:00 Abuse screen: Denies threats or abuse. Nutritional screening: No deficits noted. jb4 Tuberculosis screening: No symptoms or risk factors identified. Fall Risk None identified. Assessment: 20:00 General: Appears in no apparent distress. uncomfortable, Behavior is calm, cooperative, jb4 appropriate for age. Pain: Complains of pain in right leg and left leg Pain does not radiate. Pain currently is 8 out of 10 on a pain scale. Quality of pain is described as burning. Neuro: Level of Consciousness is awake, alert, obeys commands, Oriented to person, place, time, situation. Cardiovascular: Patient's skin is warm and dry. Respiratory: Airway is patent Respiratory effort is even, unlabored, Respiratory pattern is regular, symmetrical. GI: No signs and/or symptoms were reported involving the gastrointestinal system. : No signs and/or symptoms were reported regarding the genitourinary system. EENT: No signs and/or symptoms were reported regarding the EENT system. Derm: Skin has blisters on To the lateral and posterior right thigh and posterior left thigh. Skin is pink, warm \T\ dry. Musculoskeletal: Circulation, motion, and sensation intact. Range of motion: intact in all extremities. 21:00 Reassessment: Patient appears in no apparent distress at this time. Patient and/or jb4 family updated on plan of care and expected duration. Pain level reassessed. Patient is alert, oriented x 3, equal unlabored respirations, skin warm/dry/pink. 22:00 Reassessment: Patient appears in no apparent distress at this time. Patient and/or jb4 family updated on plan of care and expected duration. Pain level reassessed. Patient is alert, oriented x 3, equal unlabored respirations, skin warm/dry/pink. 23:00 Reassessment: Patient appears in no apparent distress at this time. Patient and/or jb4 family updated on plan of care and expected duration. Pain level reassessed. Patient is alert, oriented x 3, equal unlabored respirations, skin warm/dry/pink. Patient states feeling better. 02/25 00:00 Reassessment: Patient appears in no apparent distress at this time. Patient and/or jb4 family updated on plan of care and expected duration. Pain level reassessed. Patient is alert, oriented x 3, equal unlabored respirations, skin warm/dry/pink. 01:00 Reassessment: Patient appears in no apparent distress at this time. Patient and/or jb4 family updated on plan of care and expected duration. Pain level reassessed. Patient is alert, oriented x 3, equal unlabored respirations, skin warm/dry/pink. Patient states feeling better. 01:50 Reassessment: Patient appears in no apparent distress at this time. Patient and/or jb4 family updated on plan of care and expected duration. Pain level reassessed. Patient is alert, oriented x 3, equal unlabored respirations, skin warm/dry/pink. Vital Signs: 02/24 19:53 BP 154 / 124; Pulse 108; Resp 19; Temp 99.9; Pulse Ox 100% ; Weight 102.51 kg; Height 5 ll1 ft. 0 in. (152.40 cm); Pain 10/10; 20:34 BP 132 / 84; Pulse 118; Resp 16; Pulse Ox 100% on R/A; jb4 21:19 BP 108 / 68; Pulse 106; Resp 18; Pulse Ox 98% on R/A; jb4 22:00 BP 111 / 66; Pulse 100; Resp 18; Temp 98.9(O); Pulse Ox 99% on R/A; jb4 23:06 BP 114 / 43; Pulse 106; Resp 16; Pulse Ox 99% on R/A; jb4 02/25 00:00 BP 105 / 62; Pulse 98; Resp 18; Pulse Ox 99% on R/A; jb4 00:30 BP 109 / 52; Pulse 96; Resp 16; Temp 97.8(O); Pulse Ox 98% on R/A; jb4 02/24 19:53 Body Mass Index 44.14 (102.51 kg, 152.40 cm) ll1 ED Course: 02/24 19:40 Patient arrived in ED. cf2 19:55 Triage completed. ll1 19:55 Arm band placed on Patient placed in an exam room, on a stretcher. ll1 20:00 Patient has correct armband on for positive identification. Placed in gown. Bed in low jb4 position. Call light in reach. Side rails up X 1. Pulse ox on. NIBP on. 20:13 Raul Taylor PA is PHCP. [facility] 20:13 Bob Romero MD is Attending Physician. [facility] 20:20 Magnus Murguia, STARR is Primary Nurse. [facility] 20:58 Inserted saline lock: 22 gauge in right upper arm, using aseptic technique. Blood ll1 collected. 21:03 Chest Single View XRAY In Process Unspecified. EDMS 22:15 Kurtis Clarke is Hospitalizing Provider. [facility] 02/25 01:53 No provider procedures requiring assistance completed. Patient admitted, IV remains in jb4 place. Administered Medications: 02/24 20:45 Drug: Tylenol 1000 mg Route: PO; 4 23:00 Follow up: Response: No adverse reaction; Temperature is decreased jb4 21:00 Drug: NS 0.9% (30 ml/kg) 30 ml/kg Route: IV; Rate: bolus; Site: right upper arm; jb4 02/25 00:00 Follow up: Response: No adverse reaction; IV Status: Completed infusion; IV Intake: jb4 3000ml 02/24 21:08 Drug: vancoMYCIN 1 grams Route: IVPB; Infused Over: 2 hrs; Site: right upper arm; jb4 23:09 Follow up: Response: No adverse reaction; IV Status: Completed infusion jb 22:56 Drug: Zofran (Ondansetron) 4 mg Route: IVP; Site: right upper arm; jb4 23:30 Follow up: Response: No adverse reaction jb4 22:58 Drug: morphine 4 mg Route: IVP; Site: right upper arm; jb4 23:30 Follow up: Response: No adverse reaction; Pain is decreased; RASS: Alert and Calm (0) [facility] Intake: 02/25 00:00 IV: 3000ml; Total: 3000ml. [facility] Outcome: 02/24 22:16 Decision to Hospitalize by Provider. julee 02/25 01:53 Admitted to ER Hold. Please see [facility] for further documentation. jb4 Condition: stable Discharge instructions given to patient, family, Instructed on the need for admit, Demonstrated understanding of instructions. 03:58 Patient left the ED. [facility] Signatures: Dispatcher [employer] EDMS Raul Taylor PA PA jmm Bryson, James, RN RN jb4 Storm Rico cf2 Rubi Emerson, RN RN ll1
--- NOTE | 2020-02-25 22:43 | RAD REPORT ---
EXAM DESCRIPTION: RAD - Chest Single View - 02/25/2020 9:03 pm CLINICAL HISTORY: FEVER, leg access COMPARISON: AP chest September 15, 2019 TECHNIQUE: AP portable chest image was obtained 02/25/2020 9:03 pm . FINDINGS: Lung volumes are low. No peripheral mass, consolidation or pulmonary edema pattern. Inters titial pattern matches comparison. Shunt tubing overlies the chest. Heart and vasculature are normal. No measurable pleural effusion and no pneumothorax. No acute bony abnormality seen. No acute aortic findings suspected. IMPRESSION: No acute cardiopulmonary process. No significant change from comparison.
[2020-02-25] MEDS ORDERED: MORPHINE 4 MG/ML SYR ONE (23:00)
[2020-02-25] MEDS ORDERED: ONDANSETRON 4 MG/2 ML VIAL ONE (23:00)
[2020-02-25] MEDS ORDERED: NA CHLORIDE 0.9% 1,000 ML ONE (23:35)
--- NOTE | 2020-02-25 23:44 | P.HP ---
Certification for Inpatient Patient admitted to: Inpatient With expected LOS: >2 Midnights Practitioner: I am a practitioner with admitting privileges, knowledge of patient current condition, hospital course, and medical plan of care. Services: Services provided to patient in accordance with Admission requirements found in Title 42 Section 412.3 of the Code of Federal Regulations Patient History Date of Service: 02/25/20 Reason for admission: Abscesses on lower extremities History of Present Illness: 29-year-old woman with a history of spina bifida, chronic kidney disease pr esented emergency department with a complaint of chronic recurring pustules on bilateral lower extremities of several months duration. She stated over last few days a couple of the pustules have grown to full-blown abscesses, 1 on the lateral aspect of the right thigh, and 1 on the posterior aspect of the right thigh. Patient denies any fever. The abscesses have been draining pus. She stated she saw a form setter steel forms 1 time and was told that the pustules are due to staph infection. She has leukocytes. Blood work also showing metabolic acidosis with according to the patient is chronic and due to her impaired kidney function. General surgery informed by the ED provided. Patient is hospitalized for further management. Allergies Latex, Natural Rubber Allergy (Unverified 11/28/17 20:13) Unknown Latex, Natural Allergy (Mild, Uncoded 11/11/17 17:09) Unknown Latex, Dianne Allergy (Uncoded 11/17/17 08:20) Unknown - Past Medical/Surgical History -: Staphylococcus skin infection -: Chronic kidney disease -: Spina bifida -: Bladder surgery - Family History Family History: Reviewed- Non-Contributory - Social History Smoking Status: Never smoker Alcohol use: No CD- Drugs: No Place of Residence: Home Review of Systems Other: Except as documented, all other systems reviewed and negative. Physical Examination - Physical Exam General: Alert, In no apparent distress, Obese HEENT: Mucous membr. moist/pink Neck: Supple, JVD not distended Respiratory: Clear to auscultation bilaterally, Normal air movement Cardiovascular: No edema, Regular rate/rhythm, Normal S1 S2 Capillary refill: <2 Seconds Gastrointestinal: Normal bowel sounds, Soft and benign, No tenderness Musculoskeletal: No swelling, No erythema Integumentary: Other (Multiple healed pustules of bilateral legs. Abscesses lateral aspect and posterial aspect of right thigh) Neurological: Normal speech, Normal strength at 5/5 x4 extr - Studies Laboratory Data (last 24 hrs) 02/25/20 21:00: PT 13.6 H, INR 1.16, APTT 37.5 H 02/25/20 21:00: WBC 14.0 H, Hgb 11.8 L, Hct 39.4, Plt Count 341 02/25/20 21:00: Sodium 139, Potassium 3.6, BUN 21 H, Creatinine 1.83 H, Glucose 93, Total Bilirubin 0.3, AST 16, ALT 20, Alkaline Phosphatase 228 H, Amylase 49, Lipase 102 Assessment and Plan - Problems (Diagnosis) (1) Abscess of lower extremity Current Visit: Yes Status: Acute (2) Chronic kidney disease, stage 3 Current Visit: Yes Status: Acute (3) Metabolic acidosis Current Visit: Yes Status: Acute (4) Staph skin infection Current Visit: Yes Status: Acute - Plan Admit to the medical floor. IV vancomycin Topical Bactroban Consult general surgeon-Dr. Hurley informed. Pain management as needed. Patient needs prolonged antibiotic therapy. Start oral bicarb for metabolic acidosis. Consult nephrology-Dr. Stearns. - Advance Directives Does patient have a Living Will: No Does patient have a Durable POA for Healthcare: No
[2020-02-26] MEDS ORDERED: NA CHLORIDE 0.9% 1,000 ML IV SCH (02:14)
[2020-02-26 02:58] LABS: Urine Blood 1+ (NEG); Urine Glucose NEGATIVE (NEG); Urine Protein 1+ (NEG); Urine pH 6.5 (5.0-7.0)
[2020-02-26] MEDS: MORPHINE 2 MG/ML SYR IV PRN (03:00)
[2020-02-26 03:08] LABS: Urine Appearance CLOUDY; Urine Bilirubin NEGATIVE (NEG); Urine Blood 1+ (NEG); Urine Color YELLOW; Urine Glucose NEGATIVE (NEG); Urine Microscopic Reflex ORDER UMIC; Urine Protein TRACE (NEG); Urine Specific Gravity <=1.005 (1.005-1.030); Urine Urobilinogen 0.2 mg/dL (0.2-1.0); Urine pH 6.5 (5.0-7.0)
[2020-02-26 03:19] LABS: Urine Bacteria 20-50 /HPF (<20); Urine Culture Reflex Order REFLEXED; Urine RBC <5 /HPF (NONE SEEN)
[2020-02-26] MEDS: ONDANSETRON 4 MG/2 ML VIAL IV PRN (05:25)
[2020-02-26] MEDS: CEFTRIAXONE/SWI 1gm 1 GM/10 ML SYR IV SCH (05:26)
[2020-02-26 05:45] VITALS: BMI 45.0
--- NOTE | 2020-02-26 06:46 | P.PN ---
Subjective Date of Service: 02/26/20 Chief Complaint: Abscesses on lower extremities Patient complaining of pain in the abscesses. No fever. Physical Examination - Vital Signs Temperature: 98.6 F Blood Pressure: 117/70 Pulse: 104 Respirations: 18 Pulse Ox (%): 99 - Physical Exam General: Alert, In no apparent distress Respiratory: Clear to auscultation bilaterally, Normal air movement Cardiovascular: No edema, Regular rate/rhythm, Normal S1 S2 Gastrointestinal: Normal bowel sounds, Soft and benign, No tenderness Musculoskeletal: No swelling Integumentary: Other (Multiple abscesses on the right thigh. Multiple healed pustules on bilateral lower legs.) Neurological: Normal speech, Normal strength at 5/5 x4 extr - Studies Laboratory Data (last 24 hrs) 02/25/20 21:00: PT 13.6 H, INR 1.16, APTT 37.5 H 02/25/20 21:00: WBC 14.0 H, Hgb 11.8 L, Hct 39.4, Plt Count 341 02/25/20 21:00: Sodium 139, Potassium 3.6, BUN 21 H, Creatinine 1.83 H, Glucose 93, Total Bilirubin 0.3, AST 16, ALT 20, Alkaline Phosphatase 228 H, Amylase 49, Lipase 102 Microbiology Data (last 24 hrs): 02/25/20 21:12 Blood - Blood Anaerobic Blood Culture - Final Assessment And Plan - Current Problems (Diagnosis) (1) Abscess of lower extremity Current Visit: Yes Status: Acute (2) Chronic kidney disease, stage 3 Current Visit: Yes Status: Acute (3) Metabolic acidosis Current Visit: Yes Status: Acute (4) Staph skin infection Current Visit: Yes Status: Acute - Plan Continue IV vancomycin and Rocephin Topical Bactroban Dr. Hurley to see patient for I and D today. Pain management as needed. Patient needs prolonged antibiotic therapy. Continue oral bicarb for metabolic acidosis. Consult to nephrology-Dr. Stearns.
[2020-02-26 07:16] LABS: Absolute Lymphocytes (CBC) 1.2 K/uL (0.7-4.9); Basophils % 0.1 % (0-1.3); Hematocrit 37.6 % (36.0-45.0); Lymphocytes % 8.3 % (15.3-44.8); MPV 9.4 fL (7.6-11.3); RBC Red Blood Cell Count 4.53 M/uL (3.86-4.86)
[2020-02-26 08:06] LABS: Magnesium 2.4 mg/dL (1.8-2.4); Phosphorus 3.1 mg/dL (2.5-4.9); Potassium 3.5 mmol/L (3.5-5.1)
[2020-02-26] MEDS: MUPIROCIN 2% OINT 22GM TUBE TOP SCH ×2 (08:36→21:00)
[2020-02-26 08:45] LABS: Specific Gravity <= 1.005 (1.005-1.030)
[2020-02-26] MEDS ORDERED: SODIUM BICARB 325 MG TAB PO SCH (09:00)
[2020-02-26] MEDS: Ringers Lactate 1,000 ML IV SCH ×2 (09:00→20:08)
[2020-02-26] MEDS ORDERED: ONDANSETRON 4 MG/2 ML VIAL ONE (09:21)
[2020-02-26] MEDS ORDERED: FENTANYL CITR 100 MCG/2 ML ONE (09:41)
[2020-02-26] MEDS ORDERED: propofoL 200 MG/20 ML VIAL IV ONE (09:41)
[2020-02-26] MEDS ORDERED: LIDOCAINE 2% MPF 5 ML VIAL ONE (09:41)
[2020-02-26] MEDS ORDERED: MIDAZOLAM HCL 2 MG/2 ML INJ ONE (09:41)
[2020-02-26] MEDS ORDERED: ROCURONIUM 50 MG/5 ML VIAL IV ONE (09:42)
--- NOTE | 2020-02-26 10:19 | P.OP ---
Preoperative diagnosis: Bilateral thigh abscess and cellulitis x 3 -- two on right and one on left Postoperative diagnosis: same Primary procedure: I and D and Debridement Bilateral thigh abscess and cellulitis Anesthesia: General Estimated blood loss: min Specimen: pus Findings: as above Complications: None Transferred to: Recovery Room Condition: Good
[2020-02-26] MEDS ORDERED: BACITRACIN OINTMENT 15 GM TUBE TOP ONE (10:22)
[2020-02-26] MEDS ORDERED: NEOSTIGMINE 1 MG/ML -5 ML ONE (10:26)
[2020-02-26] MEDS ORDERED: GLYCOPYRROLATE 0.2 MG/ML SYR ONE (10:26)
[2020-02-26] MEDS ORDERED: KETOROLAC 30 MG/ML INJ ONE (10:27)
[2020-02-26] MEDS ORDERED: dexAMETHasone 4 MG/ML VIAL ONE (10:33)
[2020-02-26] MEDS ORDERED: HYDROMORPHONE HCL 1 MG/ML INJ ONE (11:14)
[2020-02-26] MEDS ORDERED: CHLORHEXIDINE GLUCO 4% 120 ML TOP SCH (11:16)
[2020-02-26] MEDS ORDERED: Ringers Lactate 1,000 ML IV ONE (11:28)
[2020-02-26] MEDS: ACETAMINOPHEN 500 MG TAB PO PRN (12:08)
[2020-02-26] MEDS ORDERED: POTASSIUM CL 40 MEQ in NA CHLORIDE 0.9% 500 ML IV SCH (13:00)
--- NOTE | 2020-02-26 13:10 | PREOPCON ---
Date of Consultation: 02/25/2020 Reason For Consultation: Multiple infections in both thighs. History Of Present Illness: Earnestine is a 29-year-old female with multiple medical problems, who has escamilla d chronic recurrent infections in both lower extremities over several months. In last couple of days , she has had some that have gotten bigger and painful and red and febrile in the area locally, minim al discharge. She comes in. She was admitted for IV antibiotics as she had leukocytosis and elevate d procalcitonin, and I was consulted for surgical evaluation. She is awake, alert, complaining of mi nimal discharge, complaining of pain. No sore throat, runny nose, cough, headaches, or dizziness. N o chest pain. No systemic fever or chills at this time. Review of Systems: Otherwise unremarkable. Past Medical History: Significant for chronic kidney disease, spina bifida, and recurrent staph infe ction. 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 Allergies: LATEX. Social History: Patient does not smoke or drink. Family History: Noncontributory. Physical Examination: Vital Signs: Stable. She is currently afebrile. General: Awake, alert, oriented x3. Head and Neck: Cranial nerves 2 through 12 grossly within normal limits. No neck masses. No JVD. Throat clear. Neck is supple. Chest: Clear. Heart: S1, S2. Abdomen: Soft. Extremities: On the right anterolateral thigh, there is approximately a 6 x 7 cm of erythema indurat ion with central fluctuance and necrotic tissue. On the right posterior thigh, there is approximatel y a 3 x 4 cm. Similar finding with blistering of the skin as well and appears that they are multiple insect bites that have caused this to happen. On the left posterior thigh, similar finding. Laboratory Data: Reviewed. Assessment: Multiple abscesses and cellulitis, right thigh x2 and left posterior thigh. Recommendations: Admit. N.p.o., IV fluid, IV antibiotic. To the OR for incision and drainage and d ebridement. Patient understands the risks, benefits, and alternatives and agrees to procedure. /MODL Voice ID: [id number] Report ID: [id number]
--- NOTE | 2020-02-26 13:40 | CON ---
Date of Consultation: 02/26/2020 Reason For Consultation: Elevated BUN and creatinine, fluid management. History Of Present Illness: This is a pleasant 29-year-old female with significant past medical hist ory of spina bifida complicated with neurogenic bladder, status post central shunt; chronic kidney di sease secondary to chronic obstructive uropathy secondary to neurogenic bladder, status post reconstr uction of the bladder with self-catheterization subcutaneously. Patient came to the hospital because of multiple abscesses in her thighs and her buttock. Upon arrival to the hospital, patient found to have elevation in BUN and creatinine. Creatinine 1.5 with severe acidosis. For that reason, we hav e been consulted. Patient denied taking any nonsteroidal. No IV contrast. Patient was taking to the OR today for mult iple wound debridement and drainage. Past Medical History: 1.Chronic kidney disease, baseline creatinine. GFR of 30. Follow up in [place], usually secondary to chronic obstructive uropathy secondary to neurogenic bladder. 2.Neurogenic bladder secondary to spina bifida, status post reconstruction with self catheterization . 3.Spina bifida, status post central shunt. Allergies: TO RUBBER LATEX. Past Surgical History: Include bladder surgery, spina bifida shunt and recurrent staph infection. Family History: Positive for hypertension. Social History: Lives with family. Denies smoking. Denies drinking. Denies drugs abuse. Review of Systems: Head and Neck: No red eye. No ear pain. GI: Has nausea, has vomiting. : No polyuria. No dysuria. No hematuria. Has neurogenic bladder, self-catheterization. In Home Sales Representative: No vaginal discharge. Respiratory: No shortness of breath. Cardiovascular: No chest pain. Endocrine: No polydipsia. Skin: No rash. Neuro: Has spina bifida, neurogenic bladder. Musculoskeletal: Low back pain. Physical Examination: Vital Signs: When I saw the patient, blood pressure 105/62, pulse of 98, afebrile. Chest: Clear to auscultation. Heart: S1, S2. Regular. Abdomen: Soft, nontender. Extremities: Multiple abscesses with drainage. +1 edema. Neurologic: Alert. Weakness on the lower extremities. Laboratory Data: Sodium 147, potassium 3.5, bicarb 13, chloride 127, BUN 20, creatinine 1.5, GFR of 39, calcium 7.6, phosphorus 3.1, magnesium 2.1. WBC 14.1, H and H 11/37.6, platelets 338. Culture s till pending. Current Medications: The patient on include: 1.Ceftriaxone. 2.Vancomycin. 3.Sodium bicarb 650 b.i.d. 4.LR. Assessment And Plan: 1.Chronic kidney disease secondary to chronic obstructive uropathy complicated with acidosis. I am going to continue the patient on hydration and we will monitor the patient. I am going to go ahead a nd send for renal ultrasound. 2.Non-anion gap metabolic acidosis secondary to mostly renal tubular acidosis secondary to obstructi ve uropathy. I am going to go ahead and send for urine electrolytes to for further evaluation and st age it. I increased sodium bicarbonate to 3 times a day and we will follow up. Continue on LR. 3.Multiple abscesses, status post debridement. Follow up with Surgery. We will follow up vancomyci n trough. Follow up culture. 4.Chronic obstructive uropathy secondary to spina bifida. We will follow up ultrasound. Continue s elf catheter. LUCINDA/BETSY Voice ID: [id number] Report ID: [id number]
[2020-02-26 13:44] LABS: Urine Appearance CLEAR; Urine Bilirubin NEGATIVE (NEG); Urine Blood 2+ (NEG); Urine Color YELLOW; Urine Glucose NEGATIVE (NEG); Urine Protein 1+ (NEG); Urine Specific Gravity <=1.005 (1.005-1.030); Urine Urobilinogen 0.2 mg/dL (0.2-1.0); Urine pH 6.5 (5.0-7.0)
[2020-02-26] MEDS: SODIUM BICARB 325 MG TAB PO SCH ×2 (13:50→20:07)
[2020-02-26 13:54] LABS: Urine Microscopic Reflex ORDER UMIC
[2020-02-26 13:58] LABS: UR PROTEIN 42 mg/dL (<11.9)
[2020-02-26 14:02] LABS: UR CREAT < 13.0 mg/dL (20-320)
[2020-02-26 14:34] LABS: Urine Bacteria >50 /HPF (<20); Urine Culture Reflex Order REFLEXED; Urine White Blood Cell Casts 0-5 /LPF (NONE SEEN)
--- NOTE | 2020-02-26 17:01 | RAD REPORT ---
EXAM DESCRIPTION: US - Renal Ultrasound-Complete - 02/26/2020 4:22 pm CLINICAL HISTORY: JOSHUA COMPARISON: Renal Ultrasound-Complete dated 01/22/2020 FINDINGS: Kidneys are stable in size from the January 2020 examination. Cortical thickness is normal for each kidney. Increased cortical echogenicity is again noted consistent with medical renal disease. F ullness or mild dilatation of the left collecting system is present increased slightly from January exami nation. No right-sided hydronephrosis. No bladder wall thickening or mass. No intraluminal stone or mass. IMPRESSION: Mild hydronephrosis or fullness of the left collecting system representing a slight incr ease from the January examination. No hydronephrosis of the right kidney. Bilateral medical renal disease.
[2020-02-26] MEDS: VANCOMYCIN 2 GM in NA CHLORIDE 0.9% 500 ML IVPB SCH (20:07)
--- NOTE | 2020-02-26 21:04 | OP ---
Date of Procedure: 02/26/2020 Surgeon: Gus Hurley MD Preoperative Diagnosis: Abscess cellulitis of right posterior thigh and left posterior thigh. Postoperative Diagnosis: Abscess cellulitis of right posterior thigh and left posterior thigh. Procedure: Incision and drainage, and debridement of right thigh abscess x2 and the left thigh absce ss. Estimated Blood Loss: Minimal. Specimens: Pus. Finding: As above. Anesthesia: General. Complication: None. Patient tolerated the procedure in stable condition, taken to Recovery in good general condition. Procedure In Detail: Patient was brought to the OR and placed in supine position. General anesthesi a begun. Patient was placed in the left lateral position, prepped and draped in usual sterile fashio n. Marcaine 0.5% was infiltrated locally. Then 15 blade was used to make approximately a 3 x 1 cm i ncision on the right anterior thigh. Subcutaneous tissue divided. Pus evacuated. Loculation broken up. Necrotic tissue debrided and the cultures done. Wound irrigated. Bleeding controlled with cau ryan. Wet-to-dry normal saline dressing change applied. Then, in the right posterior thigh, a small er incision was made 1 x 0.5 cm, cleaned up this wound, and appears to be secondarily infected from a spider bite. There was a blister nearby which was removed as well. Again, it appeared to be insect bite that was secondarily infected. She had a 5.5 cm on the left posterior thigh as well which was cleaned with a curette and wound irrigated, bleeding controlled with cautery and then wet-to-dry norm al saline dressing change applied. Neosporin for the other areas that were small, too small to pack with the gauze. Sterile dressing applied. Patient was awakened and taken to Recovery in good genera l condition. /MODL Voice ID: [id number] Report ID: [id number]
[2020-02-27] MEDS: CEFTRIAXONE/SWI 1gm 1 GM/10 ML SYR IV SCH (03:31)
[2020-02-27] MEDS: Ringers Lactate 1,000 ML IV SCH ×2 (04:17→17:10)
[2020-02-27 06:04] LABS: Absolute Lymphocytes (CBC) 0.9 K/uL (0.7-4.9); Basophils % 0.1 % (0-1.3); Hematocrit 32.6 % (36.0-45.0); Lymphocytes % 5.8 % (15.3-44.8); MPV 9.5 fL (7.6-11.3); RBC Red Blood Cell Count 3.93 M/uL (3.86-4.86)
[2020-02-27 07:00] LABS: Albumin 2.5 g/dL (3.4-5.0); Magnesium 2.5 mg/dL (1.8-2.4); Phosphorus 2.1 mg/dL (2.5-4.9); Potassium 3.9 mmol/L (3.5-5.1); Thyroid Stimulating Hormone 1.03 uIU/mL (0.360-3.740)
--- NOTE | 2020-02-27 07:03 | P.PN ---
Subjective Date of Service: 02/27/20 Chief Complaint: Abscesses on lower extremities Status post I and D of multiple abscess. No fever. Patient also seen by nephrology. She currently has no complain. Physical Examination - Vital Signs Temperature: 97.7 F Blood Pressure: 119/56 Pulse: 79 Respirations: 18 Pulse Ox (%): 98 - Physical Exam General: Alert, In no apparent distress, Obese Respiratory: Clear to auscultation bilaterally, Normal air movement Cardiovascular: No edema, Regular rate/rhythm, Normal S1 S2 Gastrointestinal: Normal bowel sounds, Soft and benign, No tenderness Integumentary: Other (I and D wounds packed and dressed.) Neurological: Normal speech, Normal strength at 5/5 x4 extr - Studies Microbiology Data (last 24 hrs): 02/25/20 21:12 Blood - Blood Anaerobic Blood Culture - Final Assessment And Plan - Current Problems (Diagnosis) (1) Abscess of lower extremity Current Visit: Yes Status: Acute (2) Chronic kidney disease, stage 3 Current Visit: Yes Status: Acute (3) Metabolic acidosis Current Visit: Yes Status: Acute (4) Staph skin infection Current Visit: Yes Status: Acute - Plan Continue current antibiotics. Follow wound cultures and tailor antibiotics Topical Bactroban Dr. Hurley input appreciated. Wound care consult. Pain management as needed. Patient needs prolonged antibiotic therapy. Continue oral bicarb for metabolic acidosis. Patient seen by Dr. Trinidad. Renal ultrasound suggest mild left hydronephrosis. Monitor renal panel.
[2020-02-27] MEDS ORDERED: POTASSIUM PHOS IN 0.9 % NACL 15 MMOL/250 ML BAG IV ONE (08:00)
[2020-02-27] MEDS: SODIUM BICARB 325 MG TAB PO SCH ×3 (08:41→21:25)
[2020-02-27] MEDS ORDERED: POTASS/SODIUM PHOSPHATE 1 PKT POWD.PACK PO SCH (09:00)
[2020-02-27] MEDS: MUPIROCIN 2% OINT 22GM TUBE TOP SCH ×2 (09:00→21:00)
[2020-02-27] MEDS: MORPHINE 2 MG/ML SYR IV PRN (09:33)
--- NOTE | 2020-02-27 13:14 | P.PN ---
Subjective Date of Service: 02/27/20 Chief Complaint: Abscesses on lower extremities Subjective: No new changes Subjective pt hx of CKD, Spina bifda , ureter reconstruction surgeries with Ileostomy and self cathetrization via ileostomy presented for LE ulcers Today no overnight events S/p I&D bicarb still low, Po dose increase yesterday will cont LR for now , if no improvement in bicarb level then will increase PPO dose by tomorrow Physical exam general: AAOX3, NAD , obese Neck; Supple, No elevated JVD hear: RRR, normal S1,2 no murmur or rub Chest: CTAB, no rlaes or wheezes Abdomen: Soft , Nt , Rt lower Ileostomy opening Extremities No edema or ulcer A/P JOSHUA on CKD IIIb 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
--- NOTE | 2020-02-27 14:32 | PN ---
Date of Progress Note: 02/27/2020 Subjective: Patient is awake, alert. No new complaint. Objective: Vital Signs: Stable. Afebrile. Integumentary: Cultures pending. Wounds are clean. There is decreasing in the erythema surrounding the wound. There is no purulent discharge. Assessment: Status post incision and drainage of bilateral thigh abscesses. Recommendations: Patient clear for discharge on oral antibiotics. We will adjust the antibiotics as an outpatient based on the culture reports. Wound care is ordered. [facility] up [facility] in my clinic in 1 to 2 weeks. /MODL Voice ID: [id number] Report ID: [id number]
--- NOTE | 2020-02-27 15:22 | RAD REPORT ---
EXAM DESCRIPTION: CT - Abdomen Pelvis Wo Contrast - 02/27/2020 2:12 pm CLINICAL HISTORY: Left hydronephrosis COMPARISON: 2017 TECHNIQUE: Computed axial tomography of the abdomen and pelvis was obtained. IV and oral contrast we re not requested. All CT scans are performed using dose optimization technique as appropriate and may include automated exposure control or mA/KV adjustment according to patient size. FINDINGS: The evaluation of solid organs, vessels and bowel is limited secondary to the lack of con trast administration. Mild left hydronephrosis is diminished since the prior CAT scan. Left ureter is dilated to the level of the bladder. The bladder is distended and trabeculated with thickened wall. It contains air. Bilateral renal cortical thinning is present with small cysts. The liver, spleen, pancreas and adrenals appear grossly normal [employer]NAGING [employer] shunting courses the left lower chest. It extends inferiorly into the anterior left subcutaneous t issues of the abdomen. The tube being lies within the subcutaneous fat. None of it lies within the pe ritoneal cavity. There is no evidence diverticulitis Spina bifida IMPRESSION: Mild left hydronephrosis has diminished since the prior CAT scan. The left ureter is dil ated throughout its course without significant change. This may be secondary to vesicoureteral reflux Neurogenic bladder Air within the bladder could be secondary to recent instrumentation or infection Renal cortical thinning likely to secondary chronic inflammation The distal end of a DER[employer]NA[employer]ING [employer] shunt has retracted. It lies entirely outside of the peritoneal cavity within the subcutaneous fat of the left abdomen
[2020-02-27] MEDS: VANCOMYCIN 2 GM in NA CHLORIDE 0.9% 500 ML IVPB SCH (21:00)
[2020-02-28] MEDS: Ringers Lactate 1,000 ML IV SCH ×4 (01:00→15:36)
[2020-02-28] MEDS: CEFTRIAXONE/SWI 1gm 1 GM/10 ML SYR IV SCH (03:34)
[2020-02-28] MEDS ORDERED: BENZONATATE 100 MG CAP PO PRN (03:50)
[2020-02-28] MEDS: POLYETHYL GLY 3350 17 GM/DOSE PO SCH ×3 (05:44→21:05)
[2020-02-28 06:00] LABS: Albumin 2.5 g/dL (3.4-5.0); Magnesium 2.3 mg/dL (1.8-2.4); Potassium 3.7 mmol/L (3.5-5.1)
[2020-02-28 06:05] LABS: Absolute Lymphocytes (CBC) 1.7 K/uL (0.7-4.9); Basophils % 0.2 % (0-1.3); Hematocrit 33.2 % (36.0-45.0); Lymphocytes % 15.8 % (15.3-44.8); MPV 9.4 fL (7.6-11.3)
--- NOTE | 2020-02-28 08:43 | P.DS ---
Admission Date: 02/25/20 Discharge Date: 03/01/20 Disposition: DC HOME/HOME HEALTH CARE Discharge Condition: FAIR Reason for Admission: Abscesses on lower extremities - Problems (1) Abscess of lower extremity Current Visit: Yes Status: Acute (2) Chronic kidney disease, stage 3 Current Visit: Yes Status: Acute (3) Metabolic acidosis Current Visit: Yes Status: Acute (4) Staph skin infection Current Visit: Yes Status: Acute Brief History of Present Illness: 29-year-old woman with a history of spina bifida, chronic kidney disease presented emergency department with a complaint of chronic recurring pustules on bilateral lower extremities of several months duration. She stated over last few days a couple of the pustules have grown to full-blown abscesses, 1 on the lateral aspect of the right thigh, and 1 on the posterior aspect of the right thigh. Patient denied any fever. The abscesses have been draining pus. She stated she saw a special makeup fx artist instructor 1 time and was told that the pustules are due to staph infection. She has leukocytes. Blood work also showed metabolic acidosis with according to the patient is chronic and due to her impaired kidney function. General surgery informed by the ED provided. Patient is hospitalized for further management. Hospital Course: Patient admitted to the medical floor and started on IV vancomycin for the multiple abscesses. She was also placed on oral bicarbonate for metabolic acidosis. General surgery was consulted, patient was seen by Dr. Mei I and D was performed on a couple of abscess on the right thigh. Deep tissue wound culture grew year MRSA sensitive to Bactrim and Levaquin. Wound care instructions have been given. Patient also seen by nephrology, and sodium bicarbonate titrated up to 1300 mg TID. Her bicarb level was up to 19. Patient is deemed clinically stable for discharge. She is discharged with home health for wound care. She will also follow with seen at [facility] Care [facility] within 1-2 weeks. Vital Signs/Physical Exam: Temp Pulse Resp BP Pulse Ox 98.7 F 85 16 105/60 98 02/28/20 04:00 02/28/20 04:00 02/28/20 04:00 02/28/20 04:00 02/28/20 04:00 Laboratory Data at Discharge: WBC 10.6 K/uL (4.3-10.9) D 02/28/20 05:16 Hgb 10.2 g/dL (12.0-15.0) L 02/28/20 05:16 Hct 33.2 % (36.0-45.0) L 02/28/20 05:16 Plt Count 310 K/uL (152-406) 02/28/20 05:16 PT 13.6 SECONDS (9.5-12.5) H 02/25/20 21:00 INR 1.16 02/25/20 21:00 APTT 37.5 SECONDS (24.3-36.9) H 02/25/20 21:00 Sodium 147 mmol/L (136-145) H 02/28/20 05:16 Potassium 3.7 mmol/L (3.5-5.1) 02/28/20 05:16 BUN 20 mg/dL (7-18) H 02/28/20 05:16 Creatinine 1.43 mg/dL (0.55-1.3) H 02/28/20 05:16 Glucose 76 mg/dL (74-106) 02/28/20 05:16 Phosphorus 3.0 mg/dL (2.5-4.9) 02/28/20 05:16 Magnesium 2.3 mg/dL (1.8-2.4) 02/28/20 05:16 Total Bilirubin 0.3 mg/dL (0.2-1.0) 02/25/20 21:00 AST 16 U/L (15-37) 02/25/20 21:00 ALT 20 U/L (12-78) 02/25/20 21:00 Alkaline Phosphatase 228 U/L (45-117) H 02/25/20 21:00 Amylase 49 U/L (25-115) 02/25/20 21:00 Lipase 102 U/L (73-393) 02/25/20 21:00 Home Medications: Benzonatate [Tessalon Perle*] 200 mg PO Q8H PRN #30 cap 02/28/20 Chlorhexidine 4% [Betasept*] 1 appl TOP UD #1 btl 02/28/20 Mupirocin Oint [Bactroban 2% Ointment*] 1 appl TOP BID #1 tube 02/28/20 Na Bicarb Tab [Sodium Bicarb 325 MG Tab*] 1,300 mg PO TID #180 tab 02/28/20 Polyethyl Gly 3350 [Glycolax*] 17 gm PO BID #30 udbot 02/28/20 levoFLOXacin [Levaquin] 750 mg PO DAILY #14 tab 02/28/20 New Medications: Mupirocin Oint [Bactroban 2% Ointment*] 1 appl TOP BID #1 tube Chlorhexidine 4% [Betasept*] 1 appl TOP UD #1 btl Polyethyl Gly 3350 [Glycolax*] 17 gm PO BID #30 udbot levoFLOXacin [Levaquin] 750 mg PO DAILY #14 tab Na Bicarb Tab [Sodium Bicarb 325 MG Tab*] 1,300 mg PO TID #180 tab Benzonatate [Tessalon Perle*] 200 mg PO Q8H PRN #30 cap PRN Reason: Cough Diet: Renal Activity: Ad sasha Followup: Amaris Trinidad MD [ACTIVE - CAN ADMIT] - Gus Hurley MD [ACTIVE - CAN ADMIT] - 1-2 Weeks
[2020-02-28] MEDS ORDERED: POTASSIUM CL SA 10 MEQ TAB PO ONE (09:00)
[2020-02-28] MEDS: MUPIROCIN 2% OINT 22GM TUBE TOP SCH ×2 (09:00→21:00)
[2020-02-28] MEDS: SODIUM BICARB 325 MG TAB PO SCH ×3 (09:12→21:05)
[2020-02-28] MEDS: MORPHINE 2 MG/ML SYR IV PRN (15:34)
[2020-02-28] MEDS: D5W 1,000 ML with NA BICARB 8.4% 100 MEQ IV SCH ×2 (19:33)
[2020-02-28] MEDS: ONDANSETRON 4 MG/2 ML VIAL IV PRN (19:33)
[2020-02-28] MEDS: POTASSIUM CL SA 10 MEQ TAB PO SCH (21:05)
[2020-02-28] MEDS: ACETAMINOPHEN 500 MG TAB PO PRN (21:05)
[2020-02-29] MEDS: CEFTRIAXONE/SWI 1gm 1 GM/10 ML SYR IV SCH (03:01)
[2020-02-29] MEDS: ACETAMINOPHEN 500 MG TAB PO PRN ×3 (05:18→19:23)
[2020-02-29 06:21] LABS: Albumin 2.3 g/dL (3.4-5.0); Magnesium 2.1 mg/dL (1.8-2.4); Phosphorus 2.7 mg/dL (2.5-4.9); Potassium 4.1 mmol/L (3.5-5.1)
--- NOTE | 2020-02-29 07:55 | P.PN ---
Subjective Date of Service: 02/28/20 Chief Complaint: Abscesses on lower extremities Status post I and D of multiple abscess. No fever. Bicarb supplement titrated to 1300 mg tid. She currently has no complain. Physical Examination - Vital Signs Temperature: 98.7 F Blood Pressure: 120/72 Pulse: 99 Respirations: 14 Pulse Ox (%): 100 - Physical Exam General: Alert, In no apparent distress HEENT: Mucous membr. moist/pink Respiratory: Clear to auscultation bilaterally, Normal air movement Cardiovascular: No edema, Regular rate/rhythm, Normal S1 S2 Gastrointestinal: Normal bowel sounds, Soft and benign, No tenderness Integumentary: Other (I&D wounds on the right thigh are clean and packed.) Assessment And Plan - Current Problems (Diagnosis) (1) Abscess of lower extremity Current Visit: Yes Status: Acute (2) Chronic kidney disease, stage 3 Current Visit: Yes Status: Acute (3) Metabolic acidosis Current Visit: Yes Status: Acute (4) Staph skin infection Current Visit: Yes Status: Acute - Plan Continue current antibiotics. Wound culture growing MRSA Topical Bactroban Local Wound care. Patient needs prolonged antibiotic therapy. Continue oral bicarb for metabolic acidosis. Patient seen by Dr. Trinidad. Monitor renal panel.
--- NOTE | 2020-02-29 08:00 | P.PN ---
Subjective Date of Service: 02/29/20 Chief Complaint: Abscesses on lower extremities Patient had a low-grade fever last night. She reports nausea and decreased appetite Physical Examination - Vital Signs Temperature: 98.7 F Blood Pressure: 120/72 Pulse: 99 Respirations: 14 Pulse Ox (%): 100 - Physical Exam General: Alert, In no apparent distress HEENT: Mucous membr. moist/pink Respiratory: Clear to auscultation bilaterally, Normal air movement Cardiovascular: No edema, Normal pulses, Regular rate/rhythm Gastrointestinal: Normal bowel sounds, Soft and benign, No tenderness Musculoskeletal: No swelling Integumentary: Other (I&D wounds look clean.) Assessment And Plan - Current Problems (Diagnosis) (1) Abscess of lower extremity Current Visit: Yes Status: Acute (2) Chronic kidney disease, stage 3 Current Visit: Yes Status: Acute (3) Metabolic acidosis Current Visit: Yes Status: Acute (4) Staph skin infection Current Visit: Yes Status: Acute - Plan Continue current antibiotics. Wound culture growing MRSA Topical Bactroban Local Wound care. Oral Levaquin on discharge based on MRSA sensitivity. Bicarb level is improving Continue oral bicarb for metabolic acidosis. Dr. Trinidad is following. Monitor renal panel.
[2020-02-29] MEDS: MUPIROCIN 2% OINT 22GM TUBE TOP SCH ×2 (09:00→22:02)
[2020-02-29] MEDS: VANCOMYCIN 2 GM in NA CHLORIDE 0.9% 500 ML IVPB SCH (09:18)
[2020-02-29] MEDS: CALCITROL 0.25 MCG CAP PO SCH (09:19)
[2020-02-29] MEDS: D5W 1,000 ML with NA BICARB 8.4% 100 MEQ IV SCH ×2 (09:19)
[2020-02-29] MEDS: SODIUM BICARB 325 MG TAB PO SCH ×3 (09:20→21:59)
[2020-02-29] MEDS: POTASSIUM CL SA 10 MEQ TAB PO SCH ×2 (09:20→21:59)
[2020-02-29] MEDS: POLYETHYL GLY 3350 17 GM/DOSE PO SCH ×2 (09:21→21:59)
[2020-02-29] MEDS: MORPHINE 2 MG/ML SYR IV PRN (14:46)
[2020-02-29 16:19] LABS: Potassium 4.3 mmol/L (3.5-5.1)
--- NOTE | 2020-02-29 23:22 | PN ---
Date of Progress Note: 02/29/2020 Chief Complaint: Acute on chronic kidney injury secondary to prerenal azotemia, nonoliguric ATN in t he setting of chronic kidney disease stage 3. Patient has history of obstructive uropathy secondary to spina bifida and neurogenic bladder. She has been on self-catheterization through ileostomy. She has had reconstruction of the ureter. Patient is started on sodium bicarbonate drip and fluids were adjusted to prevent hypernatremia. Sod ium level has improved from 147 to 144 over last 24 hours. Bicarbonate is gradually improving from 1 3 to 18. Patient is on IV drip with sodium bicarbonate. Review of Systems: Denies PND, orthopnea. Physical Examination: Lungs: Diminished breath sounds at bases. Heart: S1, S2. Abdomen: Soft, benign. Extremities: Minimal edema. Impression And Plan: 1.Acute on chronic kidney injury. Continue IV fluids. 2.Metabolic acidosis secondary to obstructive uropathy and ileostomy. Continue sodium bicarbonate t ablets and IV drip with sodium bicarbonate. 3.Hypertension, controlled. 4.Monitor electrolytes. Potassium level is within normal limits. Patient is on potassium replaceme nt. EB/MODL Voice ID: [id number] Report ID: [id number]
--- NOTE | 2020-02-29 23:52 | PN ---
Date of Progress Note: 02/28/2020 Chief Complaint: Acute on chronic kidney injury. History Of Present Illness: The patient has history of chronic kidney disease stage 3 secondary to o bstructive uropathy related to spina bifida and neurogenic bladder. Patient previously had a ureter reconstruction surgery with ileostomy and she is doing self catheterization via the ileostomy. Patient presented with lower extremity ulcer. She was found to have elevated BUN and creatinine, met abolic acidosis. Patient is on sodium bicarbonate and sodium bicarbonate drip was started today to c ontrol metabolic acidosis. Review of Systems: Patient denies PND, orthopnea. Physical Examination: Lungs: Clear to auscultation bilaterally. Heart: S1, S2. Abdomen: Soft, benign. Extremities: Slight edema. Laboratory Work: Hemoglobin is 10.2, WBC 10.6, platelet count is 310,000, WBC was 14,000 on February 24, hemoglobin was 11.8, platelet count 341,000. Sodium 147, potassium 3.7, chloride 124, BUN 20, creat inine 1.43, carbon dioxide 16, calcium 7.5, phosphorus 3.0, magnesium 2.0. Creatinine was 1.83 on [facility] to the hospital. BUN was 21 on February 24 upon arrival to the hospital. Impression And Plan: 1.Patient has metabolic acidosis. Plan is to continue sodium bicarbonate drip and monitor electroly luz marina. Replace potassium as needed. Monitor phosphorus and magnesium. 2.Acute kidney injury with prerenal azotemia, improving with IV fluids. 3.Hypernatremia, mild. Fluids were adjusted to prevent hypernatremia. EB/MODL Voice ID: [id number] Report ID: [id number]
[2020-03-01] MEDS: ACETAMINOPHEN 500 MG TAB PO PRN ×2 (00:54→15:52)
[2020-03-01] MEDS: CEFTRIAXONE/SWI 1gm 1 GM/10 ML SYR IV SCH (03:34)
[2020-03-01 06:29] LABS: Albumin 2.6 g/dL (3.4-5.0); Magnesium 2.3 mg/dL (1.8-2.4); Phosphorus 2.5 mg/dL (2.5-4.9); Potassium 4.5 mmol/L (3.5-5.1)
[2020-03-01] MEDS: MUPIROCIN 2% OINT 22GM TUBE TOP SCH ×2 (09:00→22:08)
[2020-03-01] MEDS: POTASSIUM CL SA 10 MEQ TAB PO SCH ×2 (10:18→22:07)
[2020-03-01] MEDS: SODIUM BICARB 325 MG TAB PO SCH ×3 (10:18→22:07)
[2020-03-01] MEDS: POLYETHYL GLY 3350 17 GM/DOSE PO SCH ×2 (10:18→22:08)
[2020-03-01] MEDS: CALCITROL 0.25 MCG CAP PO SCH (10:18)
[2020-03-01] MEDS ORDERED: HYDROCODONE/APAP 7.5/325 MG TAB PO PRN (14:24)
[2020-03-01] MEDS ORDERED: TRAMADOL HCL 50 MG TAB PO PRN (14:24)
[2020-03-01] MEDS: VANCOMYCIN 2 GM in NA CHLORIDE 0.9% 500 ML IVPB SCH (23:32)
--- NOTE | 2020-03-02 02:02 | PN ---
Date of Progress Note: 03/01/2020 Chief Complaint: Acute on chronic kidney injury. Patient has history of obstructive uropathy. She has history of spina bifida and neurogenic bladder status post reconstruction of the ureter. Patient is on self catheterization via the ileostomy. She presented with lower extremity ulcer. She was found to have elevated BUN and creatinine, metabolic acidosis. She is on sodium bicarbonate tablet. She is a completed IV bicarbonate drip. She require d potassium replacement. Review of Systems: Denies new complaints. Physical Examination: Lungs: Diminished breath sounds at bases. Heart: S1, S2. Abdomen: Soft, benign. Extremities: Slight edema. Laboratory Data: Hemoglobin 10.2, WBC 10.6, platelet count 3010. Sodium 142, potassium 4.5, chlorid e 117, CO2 19, BUN 13, creatinine 1.41, calcium 7.9, magnesium 2.5, and phosphorus 2.5. Impression And Plan: 1.Acute on chronic kidney injury. Renal function is gradually improving. Continue adequate fluid i ntake. 2.Metabolic acidosis. Patient will continue sodium bicarbonate tablet. 3.Lower extremity ulcer. Continue antibiotics. 4.Hypernatremia, mild. Fluids were adjusted and to prevent hypernatremia. Sodium level is ashwini LOMBARDI/BETSY Voice ID: [id number] Report ID: [id number]
[2020-03-02 04:36] LABS: Albumin 2.8 g/dL (3.4-5.0); Magnesium 2.3 mg/dL (1.8-2.4); Phosphorus 2.4 mg/dL (2.5-4.9); Potassium 4.6 mmol/L (3.5-5.1)
[2020-03-02] MEDS: CEFTRIAXONE/SWI 1gm 1 GM/10 ML SYR IV SCH (04:48)
[2020-03-02] MEDS: SODIUM BICARB 325 MG TAB PO SCH ×2 (08:21→13:10)
[2020-03-02] MEDS: CALCITROL 0.25 MCG CAP PO SCH (08:21)
[2020-03-02] MEDS: POLYETHYL GLY 3350 17 GM/DOSE PO SCH (08:21)
[2020-03-02] MEDS: POTASSIUM CL SA 10 MEQ TAB PO SCH (08:22)
[2020-03-02] MEDS: POTASS/SODIUM PHOSPHATE 1 PKT POWD.PACK PO SCH ×3 (08:22→11:14)
[2020-03-02] MEDS: MUPIROCIN 2% OINT 22GM TUBE TOP SCH (08:23)
[2020-03-02 11:33] VITALS: O2SAT 98
[2020-03-02] MEDS ORDERED: levoFLOXacin 750 MG TAB PO SCH (13:00)
--- NOTE | 2020-03-02 14:40 | P.DS ---
Admission Date: 02/25/20 Discharge Date: 03/02/20 Primary Care Provider: none; Nephrology-Dr. Trinidad Disposition: DC HOME/HOME HEALTH CARE Discharge Condition: FAIR Reason for Admission: Abscesses on lower extremities Consultations: Nephrology-Dr. Stearns Surgery-Dr. Hurley Procedures: Renal US: FINDINGS: Kidneys are stable in size from the January 2020 examination. Cortical thickness is normal for each kidney. Increased cortical echogenicity is again noted consistent with medical renal disease. Fullness or mild dilatation of the left collecting system is present increased slightly from January examination. No right-sided hydronephrosis. No bladder wall thickening or mass. No intraluminal stone or mass. IMPRESSION: Mild hydronephrosis or fullness of the left collecting system representing a slight increase from the January examination. No hydronephrosis of the right kidney. Bilateral medical renal disease. CT scan: FINDINGS: The evaluation of solid organs, vessels and bowel is limited secondary to the lack of contrast administration. Mild left hydronephrosis is diminished since the prior CAT scan. Left ureter is dilated to the level of the bladder. The bladder is distended and trabeculated with thickened wall. It contains air. Bilateral renal cortical thinning is present with small cysts. The liver, spleen, pancreas and adrenals appear grossly normal DIRECTOR [employer] shunting courses the left lower chest. It extends inferiorly into the anterior left subcutaneous tissues of the abdomen. The tube being lies within the subcutaneous fat. None of it lies within the peritoneal cavity. There is no evidence diverticulitis Spina bifida IMPRESSION: Mild left hydronephrosis has diminished since the prior CAT scan. The left ureter is dilated throughout its course without significant change. This may be secondary to vesicoureteral reflux Neurogenic bladder Air within the bladder could be secondary to recent instrumentation or infection Renal cortical thinning likely to secondary chronic inflammation The distal end of a [employer]OR [employer] shunt has retracted. It lies entirely outside of the peritoneal cavity within the subcutaneous fat of the left abdomen Surgery: Date of procedure 02/26/2020 Preop diagnosis: Bilateral thigh abscess with cellulitis x3 Postop diagnosis: Same Primary procedure: Irrigation and debridement of bilateral thigh abscess/cellulitis Medical Problem List: Bilateral thigh abscess with cellulitis x3 status post irrigation and debridement with wound culture positive for methicillin-resistant Staph aureus UTI with urine culture positive for Klebsiella and E coli Acute on chronic renal disease stage III with metabolic acidosis Spina bifida with history of DIRECTOR OF M[employer] shunt Neurogenic bladder with vesiculoureteral reflux Brief History of Present Illness: 29-year-old female with history of spina bifida and chronic renal disease presented to emergency room with pustules to the lower extremities bilateral. Cellulitis was suspected. Blood work showed metabolic acidosis with acute on chronic renal disease. Patient admitted for further evaluation and treatment. Hospital Course: Patient admitted due to bilateral thigh abscess with cellulitis x3. Patient was started on IV antibiotic therapy. Urine culture was positive for methicillin- resistant Staph aureus. Surgery was consulted to evaluate patient. Surgery was recommended. Irrigation and debridement was done. Patient has responded well to therapy. At discharge patient will continue with Levaquin 750 mg every 48 hr for 10 days. Patient will continue with current wound care instructions. Recommend follow up at the wound Care Center to further monitor and address. Patient also identified with UTI. Urine culture was positive for Klebsiella and E coli. Patient is sensitive to Levaquin. As mentioned above patient will continue with Levaquin 750 mg every 48 hr for 10 days. Recommend to recheck lab urine culture in 10-14 days to monitor resolution. Recommend follow up with urology to further address. Patient also had acute on chronic renal disease stage III with metabolic acidosis. Patient given oral bicarbonate with improvement. At discharge patient will continue with 1300 mg of sodium bicarb min 3 times a day. Recommend follow up with Nephrology to further monitor and address. Recommend nephrology follow up in 1 week. Recommend to recheck lab-BMP in 1 week. Recommend no further use of nonsteroidal anti-inflammatories. Future medications will need to be renally dosed. Patient with history of spina bifida with DIRECTOR OF MATH shunt. This has remained stable. Recommend follow up with PCP or neurology to further monitor. Patient with neurogenic bladder with noted vesiculoureteral reflux. This has remained stable. Patient will continue with self urinary catheterization. This can be further addressed and monitored by nephrology. Patient may require urology evaluation as an outpatient. Vital Signs/Physical Exam: Temp Pulse Resp BP Pulse Ox 97 F 95 H 20 125/69 98 03/02/20 12:00 03/02/20 12:00 03/02/20 12:00 03/02/20 12:00 03/02/20 12:00 General: Alert, In no apparent distress, Oriented x3, Cooperative HEENT: Atraumatic Neck: Supple Respiratory: Clear to auscultation bilaterally, Normal air movement Cardiovascular: Normal pulses, Regular rate/rhythm Gastrointestinal: Normal bowel sounds, Soft and benign, Non-distended Neurological: Normal speech, Normal strength at 5/5 x4 extr, Normal tone, Normal affect Laboratory Data at Discharge: WBC 10.6 K/uL (4.3-10.9) D 02/28/20 05:16 Hgb 10.2 g/dL (12.0-15.0) L 02/28/20 05:16 Hct 33.2 % (36.0-45.0) L 02/28/20 05:16 Plt Count 310 K/uL (152-406) 02/28/20 05:16 PT 13.6 SECONDS (9.5-12.5) H 02/25/20 21:00 INR 1.16 02/25/20 21:00 APTT 37.5 SECONDS (24.3-36.9) H 02/25/20 21:00 Sodium 143 mmol/L (136-145) 03/02/20 03:43 Potassium 4.6 mmol/L (3.5-5.1) 03/02/20 03:43 BUN 13 mg/dL (7-18) 03/02/20 03:43 Creatinine 1.35 mg/dL (0.55-1.3) H 03/02/20 03:43 Glucose 65 mg/dL (74-106) L 03/02/20 03:43 Phosphorus 2.4 mg/dL (2.5-4.9) L 03/02/20 03:43 Magnesium 2.3 mg/dL (1.8-2.4) 03/02/20 03:43 Total Bilirubin 0.3 mg/dL (0.2-1.0) 02/25/20 21:00 AST 16 U/L (15-37) 02/25/20 21:00 ALT 20 U/L (12-78) 02/25/20 21:00 Alkaline Phosphatase 228 U/L (45-117) H 02/25/20 21:00 Amylase 49 U/L (25-115) 02/25/20 21:00 Lipase 102 U/L (73-393) 02/25/20 21:00 Home Medications: Chlorhexidine 4% [Betasept*] 1 appl TOP UD #1 btl 02/28/20 Mupirocin Oint [Bactroban 2% Ointment*] 1 appl TOP BID #1 tube 02/28/20 Na Bicarb Tab [Sodium Bicarb 325 MG Tab*] 1,300 mg PO TID #180 tab 02/28/20 Polyethyl Gly 3350 [Glycolax*] 17 gm PO BID #30 udbot 02/28/20 Calcitrol [Rocaltrol*] 0.25 mcg PO DAILY #30 cap 03/02/20 levoFLOXacin [Levaquin*] 750 mg PO Q48H #5 tab 03/02/20 New Medications: Mupirocin Oint [Bactroban 2% Ointment*] 1 appl TOP BID #1 tube Chlorhexidine 4% [Betasept*] 1 appl TOP UD #1 btl Polyethyl Gly 3350 [Glycolax*] 17 gm PO BID #30 udbot levoFLOXacin [Levaquin*] 750 mg PO Q48H #5 tab Calcitrol [Rocaltrol*] 0.25 mcg PO DAILY #30 cap Na Bicarb Tab [Sodium Bicarb 325 MG Tab*] 1,300 mg PO TID #180 tab Patient Discharge Instructions: 1. Recommend follow up with PCP to follow up this hospitalization. 2. Patient admitted due to bilateral thigh abscess with cellulitis x3. Patient was started on IV antibiotic therapy. Urine culture was positive for methicillin-resistant Staph aureus. Surgery was consulted to evaluate patient. Surgery was recommended. Irrigation and debridement was done. Patient has responded well to therapy. At discharge patient will continue with Levaquin 750 mg every 48 hr for 10 days. Patient will continue with current wound care instructions. Recommend follow up at the wound Care Center to further monitor and address. 3. Patient also identified with UTI. Urine culture was positive for Klebsiella and E coli. Patient is sensitive to Levaquin. As mentioned above patient will continue with Levaquin 750 mg every 48 hr for 10 days. Recommend to recheck lab urine culture in 10-14 days to monitor resolution. Recommend follow up with urology to further address. 4. Patient also had acute on chronic renal disease stage III with metabolic acidosis. Patient given oral bicarbonate with improvement. At discharge patient will continue with 1300 mg of sodium bicarb min 3 times a day. Recommend follow up with Nephrology to further monitor and address. Recommend nephrology follow up in 1 week. Recommend to recheck lab-BMP in 1 week. Recommend no further use of nonsteroidal anti-inflammatories. Future medications will need to be renally dosed. 5. Patient with history of spina bifida with DIRECTOR OF M[employer] shunt. This has remained stable. Recommend follow up with PCP or neurology to further monitor. 6. Patient with neurogenic bladder with noted vesiculoureteral reflux. This has remained stable. Patient will continue with self urinary catheterization. This can be further addressed and monitored by nephrology. Patient may require urology evaluation as an outpatient. Diet: Renal Activity: Ad ssaha Followup: Amaris Trinidad MD [ACTIVE - CAN ADMIT] - Gus Hurley MD [ACTIVE - CAN ADMIT] - 1-2 Weeks Time spent managing pt's care (in minutes): 55
[2020-03-02 16:35] VITALS: BP 118/72; TEMP 98.3
--- NOTE | 2020-03-02 16:44 | PN ---
Date of Progress Note: 03/02/2020 Subjective: Patient was admitted with acute kidney injury secondary to ATN complicated with acidosis secondary to RTA. Patient was started on bicarb drip on top of the oral bicarb. Concentration has been improved. Bicarb drip has been discontinued for the last 36 hours. The patient maintained on o ral bicarb. Her bicarb level been stable. Physical Examination: Vital Signs: Blood pressure 106/65, pulse of 100, afebrile. The patient had good urine output of 27 00. Chest: Clear to auscultation. Heart: S1, S2. Regular. Abdomen: Soft, nontender. Extremities: Trace edema. Neuro: Alert. Has spina bifida. Has a neurogenic bladder. Laboratory Data: WBC 10.6, H and H 10.2/33.2, platelets 310. Sodium 143, potassium 4.6, bicarb 21, BUN 13, creatinine 1.3. GFR of 47, calcium 7.9, phosphorus 2.4, magnesium 2.3, albumin 2.8. P/C rat io 3.2. Urine sodium 78, urine potassium 15, urine chloride 76. Assessment And Plan: 1.Acute kidney injury secondary to toxic acute tubular necrosis/obstructive uropathy. Continue neph rotic range proteinuria, on chronic kidney disease secondary to obstructive uropathy. Recover back t o baseline. I am going to continue to monitor the patient. Patient had neurogenic bladder status po st intervention with artificial drainage. Patient is going to continue self-catheterization. 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 I am going to follow up with serology and serum protein electrophoresis as outpatient unless if the patient stay overnight. At that time, we will send it with the morning l ab. 3.Nephrotic range proteinuria. 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 I am going to continue self catheterization. As I mentioned, we will send for serum protein electrophoresis and serology as outpatient unless if t he patient stay overnight. 4.Acidosis secondary to renal tubular acidosis. Given the close anion gap in the urine, the patient corrected on oral sodium bicarb. I do not see the need for IV bicarb. We will continue to monitor. No need for hydrochlorothiazide for the time being. 5.Hypokalemia, resolved. 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 We will start the patient on c alcitriol. We will follow up vitamin D level as outpatient. 7.Urinary tract infection/multiple buttock abscess. Patient is going to be treated sensitive to Lev aquin that is going to cover the methicillin-resistant Staphylococcus aureus abscess and going to cov er the Klebsiella and Escherichia coli in the urine. MG Voice ID: [id number] Report ID: [id number]
[2020-03-02 22:27] LABS: Vitamin D 1,25-Dihydroxy Total 32 pg/mL (18-72); Vitamin D,1,25-OH2, D2 <8 pg/mL
== END 2020-03-02 17:03 | disposition home health service (06) | DRG 570 ==
LOC: ER 19:38 → ERHOLD 23:50 → 2ND 02-26 03:36
PROVIDERS: ADMIT Internal Medicine; ATTEND Family Medicine
PROC: 0JBL0ZZ Excision of Right Upper Leg Subcutaneous Tissue and Fascia, Open Approach (ICD-10-PCS; 2020-02-26)
PROC: 0JBM0ZZ Excision of Left Upper Leg Subcutaneous Tissue and Fascia, Open Approach (ICD-10-PCS; principal; 2020-02-26 09:00)
DX: L02.415 Cutaneous abscess of right lower limb (principal); N17.0 Acute kidney failure with tubular necrosis; Z68.42 Body mass index [BMI] 45.0-49.9, adult; E87.2 Acidosis; E87.0 Hyperosmolality and hypernatremia; N25.81 Secondary hyperparathyroidism of renal origin; N39.0 Urinary tract infection, site not specified; L02.31 Cutaneous abscess of buttock; L97.909 Non-pressure chronic ulcer of unspecified part of unspecified lower leg with unspecified severity; L03.116 Cellulitis of left lower limb; L03.115 Cellulitis of right lower limb; L02.416 Cutaneous abscess of left lower limb; E66.9 Obesity, unspecified; N18.3 Chronic kidney disease, stage 3 (moderate); L08.89 Other specified local infections of the skin and subcutaneous tissue; Z91.040 Latex allergy status; Z11.59 Encounter for screening for other viral diseases; N31.9 Neuromuscular dysfunction of bladder, unspecified; N13.9 Obstructive and reflux uropathy, unspecified; Q05.9 Spina bifida, unspecified; N25.89 Other disorders resulting from impaired renal tubular function; B95.8 Unspecified staphylococcus as the cause of diseases classified elsewhere; B95.62 Methicillin resistant Staphylococcus aureus infection as the cause of diseases classified elsewhere; Z79.899 Other long term (current) drug therapy; I12.9 Hypertensive chronic kidney disease with stage 1 through stage 4 chronic kidney disease, or unspecified chronic kidney disease; E87.6 Hypokalemia; B96.20 Unspecified Escherichia coli [E. coli] as the cause of diseases classified elsewhere; B96.1 Klebsiella pneumoniae [K. pneumoniae] as the cause of diseases classified elsewhere; N13.70 Vesicoureteral-reflux, unspecified; N28.9 Disorder of kidney and ureter, unspecified
CPT/HCPCS: 36415; 71045; 74176; 76770; 80048; 80069; 80076; 80202; 81003; 81015; 81025; 82150; 82435; 82550; 82553; 82570; 82652; 83605; 83690; 83735; 83970; 84100; 84132; 84145; 84156; 84300; 84443; 84484; 84703; 85025; 85610; 85730; 87040; 87070; 87075; 87077; 87086; 87088; 87186; 87205; 93005; 96365; 96366; 96375; 99285; J0696; J1170; J2250; J2270; J2405; J2704; J2710; J3010; J7030; J7040; J7120; U0002

== ENCOUNTER 2021-11-02 14:43 | Emergency (ER) | payer OTHER ==
--- OUTSIDE RECORDS SUMMARY | 2021-11-02 14:47 | XMS REPORT | Continuity of Care Document ---
:1990 Author Organization [facility] t Address [facility]3 Walter Claros [address] [place] [id number] Care Team Providers Name Role Phone Teresita Cool Attending Clinician Unavailable KARMEN Attending Clinician Unavailable DYLAN ADAMS Attending Clinician Unavailable KARMEN Admitting Clinician Unavailable DYLAN ADAMS Admitting Clinician Unavailable Problems This patient has no known problems. Allergies, Adverse Reactions, Alerts This patient has no known allergies or adverse reactions. Medications This patient has no known medications. Procedures This patient has no known procedures. Encounters Start End Encounter Admission Attending Care Care Encounter Source Date/Time Date/Time Type Type Clinicians Facility Department ID 2021-09-28 Outpatient Cool, Na STLMLC STLMLC [id number] [facility] 14:29:46 [id number] [facility] 2021-09-28 Outpatient Cool, Na STLMLC STLMLC [id number] [facility] 11:54:08 [id number] [facility] 2021-09-28 Outpatient Cool, Na STLMLC STLMLC [id number] [facility] [address] 11:52:51 [id number] [facility] 2021-09-28 Outpatient Cool, Na STLMLC STLMLC [id number] [facility] [address] 11:48:58 [id number] [facility] 2021-09-28 Outpatient Cool, Na STLMLC STLMLC [id number] [facility] 11:36:02 [id number] [facility] 2021-09-28 Outpatient Cool, Na STLMLC STLMLC [id number] [facility] [address] 11:33:00 [id number] [facility] 2021-09-28 Outpatient Cool, Na STLMLC STL[facility]C [id number] [facility] 11:32:45 [id number] [facility] 2021-09-28 Outpatient Cool, Na STLMLC STL[facility]C [id number] [facility] [address] 11:30:03 [id number] [facility] 2021-09-28 Outpatient Cool, Na STLMLC STL[facility]C [id number] [facility] [address] 11:29:30 [id number] [facility] 2021-09-28 Outpatient Cool, Na STLMLC STLMLC [id number] [facility] [address] 11:18:42 [id number] [facility] 2021-09-28 Outpatient Cool, Na STLMLC STL[facility]C [id number] [facility] [address] 11:16:52 [id number] [facility] 2021-09-28 Outpatient Cool, Na STLMLC STL[facility]C [id number] [facility] [address] 11:16:46 [id number] [facility] 2021-09-28 Outpatient Cool, Na [facility]LMLC STL[facility]C [id number] [facility] [address] 11:16:12 [id number] [facility] 2021-09-28 Outpatient Cool, Na [facility]LMLC STL[facility]C [id number] [facility] [address] 11:15:55 [id number] [facility] 2021-09-28 Outpatient Cool, Na [facility]LMLC STL[facility]C [id number] [facility] [address] 11:07:04 [id number] [facility] Results Test Description Test Time Test Comments Results Result [facility] e Comments RAD, SHUNT SERIES 2018-08-20 Reason for FINAL REPORT PATIENT 13:00:00 Exam:->G91.9 ID: [id number] Exam: Shunt series History: Evaluate shunt Comparison: None. Findings: A left PAP[employer] RULER shunt catheter present which extends down the left neck, anterior chest and enters the abdomen with distal tip curled in the left lower quadrant. No discontinuity of the radiopaque portion. No mass effect within the abdomen. Additional foci of prior shunt tubing. Impression: Intact radiopaque portions of the PAPER RULER shunt catheter. Signed: Sam Shoemaker [facility] Verified Date/Time: 08/20/2018 13:00:05 Reading Location: [facility] Reading Room [address] [place] [address] , BRAIN, 2018-08-20 ORDER/STUDY IS FINAL REPORT PATIENT WITHOUT IV 10:53:00 TO BE PERFORMED ID: [id number] CONTRAST AT [facility] Examination: CT, CAMPUS.KMJ12:51 BRAIN, WITHOUT IV /[id number] CONTRAST History: 734ORDER/STUDY Hydrocephalus.Comparis IS TO BE on studies: Head CT PERFORMED AT performed November 08 [facility] 2017 Technique:Axial CAMPUS.KMJ12:51 images were obtained [id number] from the skull base to 734Location->SL the vertex.Coronal and [facility] sagittal images [facility] reconstructed from the axial data.Dose modulation, iterative [...] cortical based vascular insults.. Sellar/suprasellar region: No abnormalities.Cranioce rvical junction: The cerebellar tonsils are located below the foramen magnum. However, the inferior margin of the cerebellar tonsils are not included within the hykty-fd-[id number] this finding remains unchanged compared to prior [...] = 627) 2.0 mg/dL 1.6-2.6 BASIC METABOLIC [id number] 12:48:00 Test Item Value Reference Range Interpretation [...] NOT APPLICABLE FOR DIALYSIS PATIEN TS. LIPID [id number] 12:48:00 Test Item Value Reference Range Interpretation [...] 130-159 High 160-189 Very High >=190HEPATIC FUNCTION [id number] 12:48:00 Test Item Value Reference Range Interpretation [...] code = 54 U/L 6-55 347) CALCIUM, [id number] 08:06:00 Test Item Value Reference Range Interpretation Comments CALCIUM IONIZED (BEAKER) (test 1.06 mmol/L 1.12-1.27 L code = 698) PH, BLOOD (BEAKER) (test code = 7.21 1810) PROTHROMBIN [id number] 06:17:00 Test Item Value Reference Range Interpretation Comments PROTIME (BEAKER) (test code = 15.5 seconds 11.7-14.7 H 759) INR (BEAKER) (test code = 370) 1.2 <=5.9 RECOMMENDED COUMADIN/WARFARIN INR THERAPY RANGESSTANDARD DOSE: 2.0 - 3.0 Includes: PROPHYLAXIS forvenous thrombosis, systemic embolization; TREATMENT for venous thrombosis and/or pulmonary embolus.HIGH RISK: Target INR is 2.5-3.5 for patients with mechanical heart valves.T4, [id number] 17:02:00 Test Item Value Reference Range Interpretation Comments FREE T4 (BEAKER) (test code = 655) 1.27 ng/dL 0.70-1.48 [id number] 12:17:00 Test Item Value Reference Range Interpretation Comments PREALBUMIN (BEAKER) (test code = 19 mg/dL 14-45 586) [id number] 11:57:00 Test Item Value Reference Range Interpretation Comments MAGNESIUM (BEAKER) (test code = 2.0 mg/dL 1.6-2.6 627) VITAMIN D, [id number] 11:30:00 Test Item Value Reference Range Interpretation Comments VITAMIN D 25-OH (BEAKER) (test 10.7 ng/mL 6.6-49.9 code = 2764) Effective 06/13/2017: Reference Range ChangeNew: 6.6-49.9 ng/mL Previous: 13.0-47.8 ng/mLRecommended Vitamin D Target Range: 30.0-40.0 ng/mLVITAMIN B12 AND [id number] 11:30:00 Test Item Value Reference Range Interpretation Comments VITAMIN B12 (BEAKER) (test code = 235 pg/mL 213-816 774) FOLATE (BEAKER) (test code = 362) 6.6 ng/mL >=7.0 L TSH/FREE T4 IF [id number] 11:30:00 Test Item Value Reference Range Interpretation Comments THYROID STIMULATING HORMONE 5.74 uIU/mL 0.35-4.94 H (BEAKER) (test code = 772) LIPID [id number] 10:51:00 Test Item Value Reference Range Interpretation [...] 130-159 High 160-189 Very High >=190HEPATIC FUNCTION [id number] 10:51:00 Test Item Value Reference Range Interpretation [...] 81 U/L 6-55 H 347) COMPREHENSIVE METABOLIC [id number] 10:51:00 Test Item Value Reference Range Interpretation [...] S NOT APPLICABLE FOR DIALYSIS PATIEN TS. [id number] 10:51:00 Test Item Value Reference Range Interpretation Comments LIPASE (BEAKER) (test code = 749) 12 U/L 8-78 URINE [id number] 09:46:00 Test Item Value Reference Range Interpretation Comments CULTURE (BEAKER) (test code = 1095) No growth CLOSTRIDIUM DIFFICILE TOXIN [id number] 09:04:00 Test Item Value Reference Range Interpretation [...] of a positive result is not recommended.CALCIUM, [id number] 07:10:00 Test Item Value Reference Range Interpretation Comments CALCIUM IONIZED (BEAKER) (test 1.14 mmol/L 1.12-1.27 code = 698) PH, BLOOD (BEAKER) (test code = 7.22 1810) CALCIUM, [id number] 06:43:00 Test Item Value Reference Range Interpretation [...] 0-0 (BEAKER) (test code = 413) PROTHROMBIN [id number] 06:20:00 Test Item Value Reference Range Interpretation Comments PROTIME (BEAKER) (test code = 15.7 seconds 11.7-14.7 H 759) INR (BEAKER) (test code = 370) 1.2 <=5.9 RECOMMENDED COUMADIN/WARFARIN INR THERAPY RANGESSTANDARD DOSE: 2.0 - 3.0 Includes: PROPHYLAXIS forvenous thrombosis, systemic embolization; TREATMENT for venous thrombosis and/or pulmonary embolus.HIGH RISK: Target INR is 2.5-3.5 for patients with mechanical heart valves.RAD, ABDOMEN/KUB, 1 VIEW [id number] 08:39:00Reason for exam:->abdominal distension'Should this be performed [...] Poe MDReport Verified Date/Time: 11/18/2017 08:39:46 Reading Location:[address] Body Reading Room IUM, [id number] 07:00:00 Test Item Value Reference Range Interpretation Comments CALCIUM IONIZED (BEAKER) (test 1.12 mmol/L 1.12-1.27 code = 698) PH, BLOOD (BEAKER) (test code = 7.18 1810) CBC W/PLT COUNT & AUTO [id number] 06:37:00 Test Item Value Reference Range Interpretation [...] 0-1 PERCENT (BEAKER) (test code = 2801) [id number] 05:50:00 Test Item Value Reference Range Interpretation Comments MAGNESIUM (BEAKER) (test code = 2.1 mg/dL 1.6-2.6 627) BASIC METABOLIC [id number] 05:50:00 Test Item Value Reference Range Interpretation [...] NOT APPLICABLE FOR DIALYSIS PATIEN TS. LIPID [id number] 05:50:00 Test Item Value Reference Range Interpretation [...] 130-159 High 160-189 Very High >=190HEPATIC FUNCTION [id number] 05:50:00 Test Item Value Reference Range Interpretation [...] = 107 U/L 6-55 H 347) PROTHROMBIN TIME/[id number] 05:22:00 Test Item Value Reference Range Interpretation Comments PROTIME (BEAKER) (test code = 17.0 seconds 11.7-14.7 H 759) INR (BEAKER) (test code = 370) 1.4 <=5.9 RECOMMENDED COUMADIN/WARFARIN INR THERAPY RANGESSTANDARD DOSE: 2.0 - 3.0 Includes: PROPHYLAXIS forvenous thrombosis, systemic embolization; TREATMENT for venous thrombosis and/or pulmonary embolus.HIGH RISK: Target INR is 2.5-3.5 for patients with mechanical heart valves.U/S, ABDOMINAL, [id number] 23:11:00Reason for exam:->ASCITESFINAL REPORT Ultrasound of the [...] Signed: Roberto Lizama MDReport Verified Date/Time: 11/17/2017 23:11:49 Reading Location: [address] Transitional Reading Room URINE [id number] 10:40:00 Test Item Value Reference Range Interpretation [...] speciesof a second type >100,000 col/mL skin [id number] 07:47:00 Test Item Value Reference Range Interpretation Comments PHOSPHORUS (BEAKER) (test code = 3.4 mg/dL 2.3-4.7 604) [id number] 07:47:00 Test Item Value Reference Range Interpretation Comments MAGNESIUM (BEAKER) (test code = 2.2 mg/dL 1.6-2.6 627) BASIC METABOLIC [id number] 07:47:00 Test Item Value Reference Range Interpretation [...] PATIEN TS. CBC W/PLT COUNT & AUTO [id number] 06:28:00 Test Item Value Reference Range Interpretation [...] (BEAKER) (test code = 2801) RAD, SHUNT [id number] 21:37:00Reason for exam:->postopFINAL REPORT EXAM: SHUNT SERIES [...] unremarkable. Additional Findings: Previously described occipital approach PAPER RULER shunt catheter unchanged when compared to the prior exam. Disconnected right-sided catheter segment is also changed as it overlies the thoracic cavity. IMPRESSION: Interval placement of a Codman Certas PAPER RULER shunt set to performance level 4. Signed: JR Nettles Robert MDReport Verified Date/Time: 11/08/2017 21:37:02 Reading Location: [address], BRAIN, WITHOUT [id number] 08:07:00FINAL REPORT CT Head without contrast CLINICAL [...] MDReport Verified Date/Time: 11/08/2017 08:07:55 Reading Location: [facility] Radiology Reading Room CBC W/PLT COUNT & AUTO [id number] 07:52:00 Test Item Value Reference Range Interpretation [...] (BEAKER) (test code = 2801) BASIC METABOLIC [id number] 07:30:00 Test Item Value Reference Range Interpretation [...] S NOT APPLICABLE FOR DIALYSIS PATIEN TS. [id number] 07:23:00 Test Item Value Reference Range Interpretation Comments PHOSPHORUS (BEAKER) (test code = 3.6 mg/dL 2.3-4.7 604) [id number] 07:23:00 Test Item Value Reference Range Interpretation Comments MAGNESIUM (LESLIEAKER) (test code = 2.3 mg/dL 1.6-2.6 627) RAD, SHUNT [id number] 13:15:00Reason for exam:->headacheFINAL REPORT Shunt series, 11 [...] Bowel gas pattern nonobstructive. Signed: Karma Sewell Verified Date/Time: 11/07/2017 13:15:42 [facility], WITHOUT CONTRAST 2017-11-07 [...] probably chronic. The left- sided posterior approach PAPER RULER shunt extends along the medialaspect of the left lateral ventricle posteriorly and does not definitively extend into the ventricular system. The visualized dural sinus regions, orbital contents, paranasal sinuses, bones and surrounding soft tissues are unremarkable. Impressions: 1. No specific evidence of acute intracranialabnormality. 2. Mild chronic appearing ventricular prominence without specific evidence of acute hydrocephalus. Note description of the intracranial left PAPER RULER shunt catheter. There is no definitive intraventricular extension. 3. 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 Signed: Richard Mathew Verified Date/Time: 11/07/2017 13:03:58 Electronically signed by: RICHARD MATHEW M.D.on 11/07/2017 01:03 PMURINALYSIS W/ [id number] 09:28:00 Test Item Value Reference Range Interpretation [...] 1584) SOURCE(BEAKER) (test code = Urine, Voided 2795) SCREEN, [id number] 09:12:00 Test Item Value Reference Range Interpretation Comments TEST URINE (BEAKER) (test Negative code = 583) [id number] 03:34:00 Test Item Value Reference Range Interpretation Comments PHOSPHORUS (BEAKER) (test code = 3.5 mg/dL 2.3-4.7 604) [id number] 03:34:00 Test Item Value Reference Range Interpretation Comments MAGNESIUM (BEAKER) (test code = 2.2 mg/dL 1.6-2.6 627) BASIC METABOLIC [id number] 03:34:00 Test Item Value Reference Range Interpretation [...] PATIEN TS. CBC W/PLT COUNT & AUTO [id number] 03:33:00 Test Item Value Reference Range Interpretation [...] 0-1 PERCENT (BEAKER) (test code = 2801) [id number] 03:28:00 Test Item Value Reference Range Interpretation [...]
[2021-11-02 15:31] LABS: Absolute Lymphocytes (CBC) 1.9 K/uL (0.7-4.9); Lymphocytes % 15.9 % (15.3-44.8); MPV 7.6 fL (7.6-11.3); RBC Red Blood Cell Count 4.92 M/uL (3.86-4.86)
[2021-11-02 15:52] LABS: Albumin 2.8 g/dL (3.4-5.0); Bilirubin Direct 0.1 mg/dL (0-0.2); Bilirubin Total 0.3 mg/dL (0.2-1.0); Potassium 3.1 mmol/L (3.5-5.1); Protein, Total 8.5 g/dL (6.4-8.2)
[2021-11-02] MEDS ORDERED: ONDANSETRON 4 MG/2 ML VIAL ONE (15:59)
[2021-11-02] MEDS ORDERED: NA CHLORIDE 0.9% 1,000 ML ONE (16:00)
[2021-11-02] MEDS ORDERED: FAMOTIDINE 20 MG/2 ML VIAL IV ONE (16:01)
[2021-11-02] MEDS ORDERED: NA CHLORIDE 0.9% 2,000 ML ONE (16:25)
[2021-11-02] MEDS ORDERED: KCL 20 MEQ/100 mL IVPB 100 ML IV ONE (16:25)
[2021-11-02 16:51] LABS: Urine Amorphous Sediment 2+ /HPF (NONE SEEN); Urine Bacteria LOADED /HPF (<20); Urine RBC <5 /HPF (NONE SEEN)
[2021-11-02] MEDS ORDERED: PIPER TAZO 4.5 GM in NA CHLORIDE 0.9% 100 ML IV ONE (17:00)
--- NOTE | 2021-11-02 17:03 | RAD REPORT ---
EXAM DESCRIPTION: CT - Stone Protocol - 11/02/2021 4:50 pm CLINICAL HISTORY: Flank pain. ABD PAIN COMPARISON: Abdomen Pelvis Wo Contrast dated 02/27/2020 TECHNIQUE: Axial images were obtained without oral or IV contrast. Lack of contrast limits solid org an and vascular assessment. The pmkfi-pm-xbsk spans the entirety of the system partially obscuring uppermost abdomen and lung bases. Coronal reformatted images were obtained and reviewed. All CT scans are performed using dose optimization technique as appropriate and may include automated exposure control or mA/KV adjustment according to patient size. FINDINGS: Again noted is a [employer] shunt terminating in coiling in the subcutaneous fat of the left lower quadrant. Small fluid collection surrounds the shunt tubing. This would be compatible with a malposi tion shunt. There is moderate to severe left-sided hydronephrosis and hydroureter present. Small calcifications h ave developed within the dilated left-sided inferior renal calices. Right kidney is atrophic. Significant trabecular appearance to the urinary bladder. Shunt tubing is a lso present in the left lower chest with the tip terminating in left pleural space. Spina bifida is p resent. IMPRESSION: Moderate left-sided hydronephrosis and hydroureter as detailed. [employer] shunt with tip coiling in the subcutaneous fat left lower quadrant abdomen and again noted.
--- NOTE | 2021-11-02 17:36 | RAD REPORT ---
EXAM DESCRIPTION: US - Abdomen Exam Limited - 11/02/2021 5:29 pm CLINICAL HISTORY: ABD PAIN COMPARISON: Renal Ultrasound-Complete dated 02/26/2020 FINDINGS: The gallbladder demonstrates small echogenic foci along the hamilton of the gallbladder which may represent adherent stones or polyps. No pericholecystic fluid or gallbladder wall thickening. Th e common bile duct is normal measuring 3 mm.. The liver demonstrates no findings of intrahepatic biliary dilatation. IMPRESSION: Gallbladder polyps versus adherent stones are noted.
--- NOTE | 2021-11-02 17:38 | RAD REPORT ---
EXAM DESCRIPTION: RAD - Chest Single View - 11/02/2021 5:25 pm CLINICAL HISTORY: abdominal pain Chest pain. COMPARISON: Chest Single View dated 02/25/2020; Chest Single View dated 09/15/2019 FINDINGS: Portable technique limits examination quality. The lungs are grossly clear. The heart is normal in size. No displaced fractures. IMPRESSION: No acute intrathoracic process suspected.
--- NOTE | 2021-11-02 17:41 | EDPHYS ---
Physician Documentation [facility] Name: Yadi De Leon Age: 30 yrs Sex: Female : 1990 Arrival Date: 11/02/2021 Time: 14:48 Bed 7 Private MD: ED Physician Lottie Felipe HPI: 11/02 15:10 This 30 yrs old Female presents to ER via Ambulatory with complaints of cp Nausea, Abdominal Pain. 15:10 The patient presents to the emergency department with nausea, that is moderate, cp vomiting, that is intermittent, abdominal pain, of the epigastric area, constipation. 15:10 Onset: The symptoms/episode began/occurred 5 day(s) ago. cp 15:10 Associated signs and symptoms: Pertinent negatives: fever, GI bleeding. cp Historical: - Allergies: 15:01 Latex, Natural Rubber; ll1 - PMHx: 15:01 kidney disease; spina bifida; ll1 - PSHx: 15:01 spina bifida SX; supra pubic selth caths; [employer] shint; ll1 - Immunization history:: Client reports receiving the 2nd dose of the Covid vaccine. - Social history:: Smoking status: Patient denies any tobacco usage or history of. ROS: 15:15 Constitutional: Negative for fever, poor PO intake. cp 15:15 Cardiovascular: Negative for chest pain, edema, palpitations. cp 15:15 Abdomen/GI: Positive for abdominal pain, nausea, constipation, of the epigastric area, Negative for diarrhea, active vomiting. 15:15 Eyes: Negative for injury, pain, redness, and discharge. cp 15:15 ENT: Positive for sore throat, Negative for drainage from ear(s), ear pain, difficulty swallowing, difficulty handling secretions. 15:15 Neck: Negative for pain with movement, pain at rest, stiffness. 15:15 Respiratory: Negative for cough, shortness of breath, wheezing. 15:15 Back: Positive for pain at rest, pain with movement. 15:15 : Negative for vaginal bleeding, vaginal discharge. 15:15 Neuro: Negative for altered mental status, headache, weakness. 15:15 All other systems are negative. Exam: 15:25 Head/Face: Normocephalic, atraumatic. cp 15:25 Constitutional: The patient appears in no acute distress, alert, awake, non-toxic, well developed, well nourished, obese. 15:25 Eyes: Periorbital structures: appear normal, Pupils: equal, round, and reactive to light and accomodation, Extraocular movements: intact throughout, Conjunctiva: normal, no exudate, no injection, Sclera: no appreciated abnormality, Lids and lashes: appear normal, bilaterally. 15:25 ENT: External ear(s): are unremarkable, Ear canal(s): are normal, TM's: dullness, bilaterally, Nose: is normal, Mouth: Lips: moist, Oral mucosa: moist, Posterior pharynx: Airway: no evidence of obstruction, patent. 15:25 Chest/axilla: Inspection: normal, Palpation: is normal, no crepitus, no tenderness. cp 15:25 Cardiovascular: Rate: tachycardic, Rhythm: regular, Edema: is not appreciated, JVD: is not appreciated. 15:25 Respiratory: the patient does not display signs of respiratory distress, Respirations: normal, no use of accessory muscles, no retractions, labored breathing, is not present, Breath sounds: are clear throughout, no decreased breath sounds, no stridor, no wheezing. 15:25 Abdomen/GI: Inspection: obese right lower suprapubic stoma, Bowel sounds: active, all quadrants, Palpation: soft, in all quadrants, moderate abdominal tenderness, in the epigastric area and right upper quadrant, rebound tenderness, is not appreciated, voluntary guarding, is elicited in the epigastric area. 15:25 Back: pain, that is moderate, of the mid back area, ROM is painful, with all movement. 15:25 Skin: cellulitis, is not appreciated, no rash present. 15:25 Neuro: Orientation: to person, place \\T\\ time. Mentation: is normal. Vital Signs: 15:01 BP 108 / 82; Pulse 112; Resp 18; Temp 98.5; Pulse Ox 99% ; Weight 106.59 kg; Height 5 ll1 ft. 0 in. (152.40 cm); 16:41 BP 102 / 73; Pulse 111; Resp 19; Pulse Ox 100% on R/A; ld1 17:40 BP 104 / 62; Pulse 110; Resp 19; Pulse Ox 100% on R/A; ld1 18:30 BP 97 / 49; Pulse 108; Resp 19; Pulse Ox 98% on R/A; ld1 19:30 BP 94 / 54; Pulse 105; Resp 20; Pulse Ox 100% on R/A; ld1 20:30 BP 109 / 98; Pulse 108; Resp 19; Pulse Ox 99% on R/A; ld1 22:46 BP 117 / 67; Pulse 81; Resp 17; Pulse Ox 100% on R/A; as6 15:01 Body Mass Index 45.89 (106.59 kg, 152.40 cm) ll1 MDM: 15:14 Patient medically screened. 16:00 Differential diagnosis: gastritis, cholecystitis, pancreatitis, viral gastroenteritis, cp gastroenteritis, UTI, sepsis, pyelonephritis, ureter stone. 18:00 Data reviewed: vital signs, nurses notes, lab test result(s), radiologic studies, CT cp scan. 18:00 Counseling: I had a detailed discussion with the patient and/or guardian regarding: the cp historical points, exam findings, and any diagnostic results supporting the discharge/admit diagnosis, lab results, radiology results. 18:22 Physician consultation: Jr Welch MD was called at 18:22, left message on voicemail. 18:40 Physician consultation: Jr Welch MD was contacted at 18:40, regarding consult, cp patient's condition, will not be available tomorrow for consult. 11/02 14:57 Order name: Basic Metabolic Panel [facility] 11/02 14:57 Order name: CBC with Diff; Complete Time: 15:54 [facility] 11/02 15:55 Interpretation: Normal except: WBC 11.80; RBC 4.92; MCH 26.1; MCHC 30.6; PLT 469; RDW cp 17.0; JOSE% 76.9; NEUT A 9.0. 11/02 14:57 Order name: Hepatic Function; Complete Time: 15:56 [facility] 11/02 15:56 Interpretation: Normal except: AST 11; ALK 172; TP 8.5; ALB 2.8; GLOB 5.7; A/G 0.5. 11/02 14:57 Order name: Lipase; Complete Time: 15:56 [facility] 11/02 16:13 Interpretation: LIP 135; Reviewed. 11/02 14:57 Order name: Basic Metabolic Panel; Complete Time: 15:56 [facility] 11/02 15:56 Interpretation: Normal except: K 3.1; CL 121; CO2 12; BUN 44; CRE 2.64; GFR 22. cp 11/02 15:14 Order name: Urine Microscopic Only; Complete Time: 17:15 cp 11/02 17:15 Interpretation: Normal except: UWBC >50; UBACT LOADED; AMORPH 2+. cp 11/02 16:10 Order name: Procalcitonin; Complete Time: 17:39 cp 11/02 17:39 Interpretation: Abnormal: Procalcitonin 0.39. cp 11/02 16:10 Order name: Lactate; Complete Time: 17:15 cp 11/02 16:10 Order name: Blood Culture Adult (2) cp 11/02 16:10 Order name: COVID-19/FLU A+B (Document "Date of Onset" if Symptomatic); Complete Time: cp 18:13 11/02 16:56 Order name: Urine Culture [facility] 11/02 21:27 Order name: ABG 11/02 14:57 Order name: IV Saline Lock; Complete Time: 15:05 ld1 11/02 14:57 Order name: Labs collected and sent; Complete Time: 15:05 ld1 11/02 15:59 Order name: CT Stone Protocol; Complete Time: 17:15 cp 11/02 17:16 Interpretation: Report reviewed. cp 11/02 16:10 Order name: US Abdomen Limited: RUQ; Complete Time: 17:39 cp 11/02 17:40 Interpretation: Report reviewed. cp 11/02 16:10 Order name: EKG; Complete Time: 16:11 cp 11/02 16:10 Order name: XRAY Chest (1 view); Complete Time: 17:39 cp 11/02 15:14 Order name: Urine Dipstick-Ancillary (obtain specimen); Complete Time: 16:19 cp 11/02 15:14 Order name: Urine Test (obtain specimen); Complete Time: 16:19 cp 11/02 15:14 Order name: Cath; Complete Time: 16:05 cp 11/02 16:10 Order name: EKG - Nurse/Tech; Complete Time: 16:39 cp Administered Medications: 22:05 Discontinued: NS 0.9% 1000 ml IV at 1 bolus Per protocol; 1000 mL bolus cp 16:15 Drug: NS 0.9% 1000 ml Route: IV; Rate: 1 bolus; Site: right antecubital; ld1 17:00 Follow up: Response: No adverse reaction; IV Status: Completed infusion; IV Intake: ld1 1000ml 16:39 Drug: Potassium Chloride 20 mEq Route: IV; Rate: calculated rate; Site: right ld1 antecubital; 18:30 Follow up: Response: No adverse reaction; IV Status: Completed infusion; IV Intake: ld1 100ml 16:39 Drug: NS 0.9% 1000 ml Route: IV; Rate: 1 bolus; Site: right antecubital; ld1 19:43 Follow up: Response: No adverse reaction; IV Status: Completed infusion; IV Intake: ld1 1000ml 16:40 Drug: Zofran (Ondansetron) 4 mg Route: IVP; Site: right antecubital; ld1 16:40 Follow up: Response: No adverse reaction ld1 16:40 Drug: Pepcid (famotidine) 20 mg Route: IVP; Site: right antecubital; ld1 16:40 Follow up: Response: No adverse reaction ld1 19:00 Drug: Zosyn (piperacillin-tazobactam) 4.5 grams Route: IVPB; Infused Over: 60 mins; ld1 Site: right antecubital; 19:42 Follow up: Response: No adverse reaction; IV Status: Completed infusion; IV Intake: ld1 100ml 19:45 Drug: NS 0.9% 1000 ml Route: IV; Rate: 1 bolus; Site: right antecubital; ld1 22:09 Drug: NS 0.9% 1000 ml Route: IV; Rate: 125 ml/hr; Site: right antecubital; ld1 22:20 Drug: Sodium Bicarbonate 1 amp Route: IVP; Site: right antecubital; as6 Disposition Summary: 11/02/21 18:50 Transfer Ordered Reason: Higher level of care cp Condition: Stable(11/02/21 18:50) cp Problem: new(11/02/21 18:50) cp Symptoms: have improved(11/02/21 18:50) cp [facility] cp Accepting Physician: DR Garcia(11/02/21 22:47) as6 Diagnosis - UTI/ Urinary tract infection, site not specified(11/02/21 18:50) cp - Metabolic acidemia, unspecified cp - Unspecified hydronephrosis cp - Acute kidney failure, unspecified cp Forms: - Medication Reconciliation Form cp - SBAR form cp Signatures: Dispatcher [employer] EDMS Bob Perera PA PA cp Lewis, Lynsay RN RN ll1 Nora Lindsay RN RN ld1 Danny Reina RN RN as6 Corrections: (The following items were deleted from the chart) 18:49 17:41 Inpatient Admission cp cp 18:49 17:41 Geovanny Joiner cp cp 18:49 17:41 Telemetry/MedSurg (Inpatient) cp cp 18:49 17:41 Stable cp cp 18:49 17:41 new cp cp 18:49 17:41 have improved cp cp 18:49 17:41 Standard cp cp 18:49 17:41 cp cp 18:49 17:41 UTI/ Urinary tract infection, site not specified cp cp 22:07 18:50 Doctor cp cp 22:07 18:50 [facility] cp cp 22:14 21:31 Arterial Blood Gas+RC.LAB.BRZ ordered. [facility] EDMS 22:47 22:07 DR Garcia cp as6 11/03 02:46 11/01 15:25 Constitutional: The patient appears in no acute distress, alert, awake, cp non-toxic, well developed, well nourished, obese, cp 11/03 02:46 03 15:25 Head/Face: Normocephalic, atraumatic. cp cp 11/03 02:46 11/01 15:25 Eyes: Periorbital structures: appear normal, Pupils: equal, round, and cp reactive to light and accomodation, Extraocular movements: intact throughout, Conjunctiva: normal, no exudate, no injection, Sclera: no appreciated abnormality, Lids and lashes: appear normal, bilaterally, cp 11/03 02:46 11/02 15:25 ENT: External ear(s): are unremarkable, Ear canal(s): are normal, TM's: cp dullness, bilaterally, Nose: is normal, Mouth: Lips: moist, Oral mucosa: moist, Posterior pharynx: Airway: no evidence of obstruction, patent, cp
--- NOTE | 2021-11-02 17:41 | ER ---
Nurse's Notes [facility] Name: Yadi De Leon Age: 30 yrs Sex: Female : 1990 Arrival Date: 11/02/2021 Time: 14:48 Bed 7 Private MD: Diagnosis: UTI/ Urinary tract infection, site not specified;Metabolic acidemia, unspecified;Unspecified hydronephrosis;Acute kidney failure, unspecified Presentation: 11/02 15:01 Chief complaint: Patient states: Upper abd pain with N/V and constipation since Sunday. ll1 Coronavirus screen: Vaccine status: Patient reports receiving the 2nd dose of the covid vaccine. Client denies travel out of the [place] in the last 14 days. nausea, vomiting. Client presents with at least one sign or symptom that may indicate coronavirus-19. Standard/surgical mask placed on the client. Ebola Screen: Patient denies travel to an Ebola-affected area in the 21 days before illness onset. Initial Sepsis Screen: Does the patient meet any 2 criteria? HR > 90 bpm. No. Patient's initial sepsis screen is negative. Does the patient have a suspected source of infection? Yes: Acute abdominal pain. Risk Assessment: Do you want to hurt yourself or someone else? Patient reports no desire to harm self or others. Onset of symptoms was October 28, 2021. 15:01 Method Of Arrival: Ambulatory ll1 15:01 Acuity: ARIANNA 3 ll1 Triage Assessment: 15:03 General: Appears uncomfortable, Behavior is calm, cooperative, appropriate for age. ll1 Pain: Complains of pain in epigastric Quality of pain is described as aching. GI: Abdomen is round Bowel sounds present X 4 quads. Reports upper abdominal pain, constipation, nausea, vomiting. : Parent/caregiver report the patient having self caths. Historical: - Allergies: 15: Latex, Natural Rubber; ll1 - PMHx: 15:01 kidney disease; spina bifida; ll1 - PSHx: 15:01 spina bifida SX; supra pubic selth caths; [employer] shint; ll1 - Immunization history:: Client reports receiving the 2nd dose of the Covid vaccine. - Social history:: Smoking status: Patient denies any tobacco usage or history of. Screenin:04 Abuse screen: Denies threats or abuse. Nutritional screening: No deficits noted. ll1 Tuberculosis screening: No symptoms or risk factors identified. 16:07 Fall Risk No fall in past 12 months (0 pts). ld1 Assessment: 16:07 General: Appears in no apparent distress. comfortable, Behavior is calm, cooperative, ld1 appropriate for age. Pain: Complains of pain in right upper quadrant and left upper quadrant Pain does not radiate. Pain currently is 8 out of 10 on a pain scale. Quality of pain is described as throbbing, Pain began gradually, Is continuous. Neuro: Level of Consciousness is awake, alert, obeys commands, Oriented to person, place, time, situation. Cardiovascular: Capillary refill < 3 seconds Patient's skin is warm and dry. Rhythm is regular. Respiratory: Airway is patent Respiratory effort is even, unlabored, Respiratory pattern is regular, symmetrical. GI: Abdomen is round non-distended, Reports nausea, vomiting. : No signs and/or symptoms were reported regarding the genitourinary system. EENT: No signs and/or symptoms were reported regarding the EENT system. Derm: No signs and/or symptoms reported regarding the dermatologic system. Musculoskeletal: No signs and/or symptoms reported regarding the musculoskeletal system. 17:40 Reassessment: Patient appears in no apparent distress at this time. Patient and/or ld1 family updated on plan of care and expected duration. Pain level reassessed. Vital Signs: 15:01 BP 108 / 82; Pulse 112; Resp 18; Temp 98.5; Pulse Ox 99% ; Weight 106.59 kg; Height 5 ll1 ft. 0 in. (152.40 cm); 16:41 BP 102 / 73; Pulse 111; Resp 19; Pulse Ox 100% on R/A; ld1 17:40 BP 104 / 62; Pulse 110; Resp 19; Pulse Ox 100% on R/A; ld1 18:30 BP 97 / 49; Pulse 108; Resp 19; Pulse Ox 98% on R/A; ld1 19:30 BP 94 / 54; Pulse 105; Resp 20; Pulse Ox 100% on R/A; ld1 20:30 BP 109 / 98; Pulse 108; Resp 19; Pulse Ox 99% on R/A; ld1 22:46 BP 117 / 67; Pulse 81; Resp 17; Pulse Ox 100% on R/A; as6 15:01 Body Mass Index 45.89 (106.59 kg, 152.40 cm) ll1 ED Course: 14:48 Patient arrived in ED. kz 14:55 Arm band placed on Patient placed in an exam room, on a stretcher. jg9 14:56 Nora Lindsay, RN is Primary Nurse. ld1 15:03 Triage completed. ll1 15:13 Bob Perera PA is PHCP. cp 15:13 Lottie Felipe MD is Attending Physician. cp 16:07 Patient has correct armband on for positive identification. Placed in gown. Bed in low ld1 position. Call light in reach. Side rails up X2. Pulse ox on. NIBP on. air sampling and monitoring on. Door closed. Noise minimized. Warm blanket given. 16:07 No provider procedures requiring assistance completed. ld1 16:19 Urine Microscopic Only Sent. ld1 16:39 COVID-19/FLU A+B (Document "Date of Onset" if Symptomatic) Sent. ld1 16:39 Blood Culture Adult (2) Sent. ld1 16:39 Lactate Sent. ld1 16:39 Procalcitonin Sent. ld1 16:50 CT Stone Protocol In Process Unspecified. EDMS 17:25 XRAY Chest (1 view) In Process Unspecified. EDMS 17:30 US Abdomen Limited: RUQ In Process Unspecified. EDMS 17:40 Geovanny Joiner is Hospitalizing Provider. cp 22:47 Patient transferred, IV remains in place. as6 Administered Medications: 22:05 Discontinued: NS 0.9% 1000 ml IV at 1 bolus Per protocol; 1000 mL bolus cp 16:15 Drug: NS 0.9% 1000 ml Route: IV; Rate: 1 bolus; Site: right antecubital; ld1 17:00 Follow up: Response: No adverse reaction; IV Status: Completed infusion; IV Intake: ld1 1000ml 16:39 Drug: Potassium Chloride 20 mEq Route: IV; Rate: calculated rate; Site: right ld1 antecubital; 18:30 Follow up: Response: No adverse reaction; IV Status: Completed infusion; IV Intake: ld1 100ml 16:39 Drug: NS 0.9% 1000 ml Route: IV; Rate: 1 bolus; Site: right antecubital; ld1 19:43 Follow up: Response: No adverse reaction; IV Status: Completed infusion; IV Intake: ld1 1000ml 16:40 Drug: Zofran (Ondansetron) 4 mg Route: IVP; Site: right antecubital; ld1 16:40 Follow up: Response: No adverse reaction ld1 16:40 Drug: Pepcid (famotidine) 20 mg Route: IVP; Site: right antecubital; ld1 16:40 Follow up: Response: No adverse reaction ld1 19:00 Drug: Zosyn (piperacillin-tazobactam) 4.5 grams Route: IVPB; Infused Over: 60 mins; ld1 Site: right antecubital; 19:42 Follow up: Response: No adverse reaction; IV Status: Completed infusion; IV Intake: ld1 100ml 19:45 Drug: NS 0.9% 1000 ml Route: IV; Rate: 1 bolus; Site: right antecubital; ld1 22:09 Drug: NS 0.9% 1000 ml Route: IV; Rate: 125 ml/hr; Site: right antecubital; ld1 22:20 Drug: Sodium Bicarbonate 1 amp Route: IVP; Site: right antecubital; as6 Intake: 17:00 IV: 1000ml; Total: 1000ml. ld1 18:30 IV: 100ml; Total: 1100ml. ld1 19:42 IV: 100ml; Total: 1200ml. ld1 19:43 IV: 1000ml; Total: 2200ml. ld1 Outcome: 17:41 Decision to Hospitalize by Provider. cp 18:50 ER care complete, transfer ordered by MD. cp 22:47 Transferred by ground EMS to [facility]. as6 22:47 Condition: stable 22:47 Instructed on the need for transfer. 22:47 Patient left the ED. as6 Addendum: 11/06/2021 07:32 Addendum: Culture Results: Positive urine culture. patient was transferred to [facility] e b [address] Bed 605/ spoke with Carlitos/ faxed patient culture report to [phone]. Signatures: Dispatcher [employer] EDMS Bob Perera PA PA cp Botello, Elizabeth eb Lewis, Lynsay, RN RN ll1 Nora Lindsay RN RN ld1 Danny Reina RN RN as6 Sofia Echols, RN RN jg9 Amarjit, Jessica kz
[2021-11-02] MEDS ORDERED: NA CHLORIDE 0.9% 100 ML IV ONE (17:55)
[2021-11-02] MEDS ORDERED: PIPERACIL/TAZO 4.5 GM VIAL IV ONE (17:55)
[2021-11-02 18:13] LABS: SARS-COV-2 RT PCR NEGATIVE (NEGATIVE)
[2021-11-02 21:50] LABS: Arterial Blood Carboxyhemoglob 0.3 % (0-1.5); Blood Gas Oxyhemoglobin 39.3 % (94-97); Blood O2 Saturation 40.3 % (92-98.5)
[2021-11-02] MEDS ORDERED: SODIUM BICARB 50 MEQ/50ML VIAL ONE (22:15)
[2021-11-03 00:17] VITALS: TEMP 98.5
[2021-11-03 00:26] VITALS: BP 117/67; O2SAT 100
== END 2021-11-02 22:47 | disposition short-term general hospital (02) ==
LOC: ER 14:43
DX: N39.0 Urinary tract infection, site not specified (principal); E87.2 Acidosis; N17.9 Acute kidney failure, unspecified; N13.30 Unspecified hydronephrosis; Z91.040 Latex allergy status; Z91.048 Other nonmedicinal substance allergy status; Z98.2 Presence of cerebrospinal fluid drainage device; Z20.822 Contact with and (suspected) exposure to COVID-19
CPT/HCPCS: 96365; 96367; 96361; 93005 ×2; 87040 ×2; 87088; 85025; 87086; 80048; 36415; 87205; 80076; 83605; 87077; 87186; 81015; 83690; 84145; 0240U; 76377; 74176; 71045; 76705; 82805; 96375; 99285; 96366; J3480; J7030 ×2; J2405

== ENCOUNTER 2022-10-09 15:50 | Emergency (ER) | payer OTHER ==
--- OUTSIDE RECORDS SUMMARY | 2022-10-09 15:56 | XMS REPORT | Continuity of Care Document ---
:1990 Author Organization [facility] t Address [facility] [place] [address] Care Team Providers Name Role Phone THOMAS KAYE Primary Care Physician Unavailable Thomas Kaye Attending Clinician Unavailable DOYLE MCKINNEY Attending Clinician Unavailable MINDA CAMPBELL Attending Clinician Unavailable Minda Campbell MD Attending Clinician KURTIS FIGUEROA Attending Clinician Unavailable Kurtis Figueroa MD Attending Clinician Doctor Unassigned, [place] Attending Clinician Unavailable Lavinia Carrillo RN Attending Clinician YANY LEONE Attending Clinician Unavailable Ritu Zapata MD Attending Clinician Yany Leone MD Attending Clinician OLIVIA PERAZA Attending Clinician Unavailable SARATH ADAMS Attending Clinician Unavailable KURTIS FIGUEROA Admitting Clinician Unavailable RITU ZAPATA Admitting Clinician Unavailable Ritu Zapata MD Admitting Clinician OLIVIA PERAZA Admitting Clinician Unavailable SARATH ADAMS Admitting Clinician Unavailable Payers Payer Name Policy Type Policy Number Effective Date Expiration Date Lurdes whitfield [facility] [id number] 2022 00:00:00 PLUS Problems Condition Condition Condition Status Onset Resolution Last Treating Co mments Source Name Details Category Date Date Treatment Clinician Date Morbid Morbid Disease Active Univers obesity obesity 3-05 ity of with body [place] mass index 00 Me dical of of Branch 40.0-49.9 40.0-49.9 JOSHUA (acute JOSHUA (acute Disease Active U nivers kidney kidney 3-03 ity of injury) injury) 00:00: [place] [address] Medical Branch 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 00:00: Me dical l) shunt l) shunt 00 Center status status Headache Headache Disease [facility] 00:[facility]: Medical [address] [place] [address] Acute Acute Disease Active [facility] intractabl intractabl 3-07 [facility] e e 00:00: Medical headache, headache, 00 Cent er unspecifie unspecifie d headache d headache type type Allergies, Adverse Reactions, Alerts Allergy Allergy Status Severity Reaction(s) Onset Inactive Treating Comm ents Source Name Type Date Date Clinician LATEX DRUG Active Anaphylaxis Unive rs INGREDI 3-07 ity of 00:00: [place] 00 Medical Branch Latex Propensi Active Anaphylaxis Uni vers ty to 307 ity of adverse 00:00: [place] reaction 00 Medical s Branch Latex, Drug Active Rash [facility] Natural Intolera 3-06 [facility] Rubber nce 00:00: [address] LATEX, Allergy Active High Rash [facility] NATURAL 3[facility]06 [facility] RUBBER 00:00: Medical [address] [place] [address] Social History Social Habit Start Date Stop Date Quantity Comments Source History SDOH [facility] Alcohol Std Medical Cente r Drinks History SDOH [facility] Alcohol Binge Medical Kathryn ter History SDOH [facility] Alcohol Comment Medical C enter Exposure to Not sure University of SARS-CoV-2 [facility] (event) Branch Alcohol intake 2019-10-10 2019-10-[address] [facility] 00:00:00 00:00:00 non-drinker of Medical Ce nter alcohol (finding) History SDOH 2019-10-10 2019-10-[address] [facility] Alcohol Frequency 00:00:00 00:00:00 [facility] Tobacco use and 2017-11-08 2017-11-[address] [facility] exposure 00:00:00 00:00:00 [facility] Sex Assigned At [address] [facility] 00:00:00 00:00:00 [facility] Center Smoking Status Start Date Stop Date Source Never smoked tobacco [facility] Medications Ordered Filled Start Stop Current Ordering Indication Dosage Frequency Signature Comments Components Source Medication Medication Date Date Medication? Clinician (SIG) Name Name NaCl 0.9% 2021- No 1000mL at 999 Uni vers (NS) bolus 05-17 mL/hr, ity of infusion 05:00: 05:24 1,000 mL, Ruben as 1,000 mL 00 :00 IV Medical Infusion, Branch ONCE, 1 dose, On Sun05/17/22 at 0000, ALEIDA cefTRIAXone 2021- No 2000mg 2,000 mg, Univers (ROCEPHIN) 05-17 IV ity of 2,000 mg in 03:50: 04:54 [facility], [place] NaCl 0.9% 00 :00 ONCE, 1 Medical (NS) 100 mL dose, On ch MINI-BAG 05/16/22 at 2300, Administer over 30 Minutes, 100 mL
Reas on for Anti-Infec tive: Documented Infection< br>Documen olga lidia Infection Site: Urine<br&g t;Duration of Therapy: 7 days cefdinir 2021- No [id number] 300mg Take 1 U nivers 300 mg 05-16 capsule by ity of capsule 00:00: 04:59 mouth in [place] 00 :00 the Medical morning Branch and 1 capsule in the evening. Do all this for 10 days. docusate Yes [id number] 100mg Take 1 Univers 100 mg - 363624 capsule by ity o f capsule 00:00: mouth 2 [place] (two) Medical times Branch daily. docusate 0 Yes [id number] 100mg Take 1 Univers 100 mg 3- [id number] capsule by ity o f capsule 00:00: mouth 2 [place] 00 (two) Medical times Branch daily. docusate 0 Yes [id number] 100mg Take 1 Univers 100 mg 3- [id number] capsule by ity o f capsule 00:00: mouth 2 [place] (two) Medical times Branch daily. sodium 2021- No [id number] 30mL Take 30 mL Univers citrate-cit 11-08- 539997 by mouth i ty of nuz[place] acid 00:00: 04:59 every 12 [place] 500-334 00 :00 (twelve) Medical mg/5 mL hours for Branch solution 30 days. sodium [id number] 30mL Take 30 mL Univers citrate-cit 11-08 077899 by mouth i ty of nuz[place] acid 00:00: 04:59 every 12 [place] 500-334 00 :00 (twelve) Medical mg/5 mL hours for Branch solution 30 days. acetaminoph Yes 500mg Take [address] en 2-07 mg by [facility] (TYLENOL) 13:40: mouth Medical 325 MG 36 every 6 Center tablet (six) hours as needed for Pain. Vital Signs Vital Name Observation Time Observation Value Comments Source Systolic blood 2022-05-17 05:32:00 147 mm[Hg] Univer sit of RUST Diastolic blood 2022-05-17 05:32:00 83 mm[Hg] Unive [facility] Heart rate 2022-05-17 05:32:00 90 /min [facility] Body temperature 2022-05-17 05:32:00 36.61 [facility] Respiratory rate 2022-05-17 05:32:00 16 /min [facility] Oxygen saturation in 2022-05-17 05:32:00 99 /min University of Arterial blood by [facility] Pulse oximetry Branch Heart rate 2021-11-23 20:16:00 87 /min [facility] Body temperature 2021-11-23 20:16:00 36.78 [facility] Respiratory rate 2021-11-23 20:16:00 18 /min [facility] Body height 2021-11-23 20:16:00 152.4 cm [facility] Body weight 2021-11-23 20:16:00 109.861 kg [facility] BMI 2021-11-23 20:16:00 47.30 kg/m2 [facility] Oxygen saturation in 2021-11-23 20:16:00 98 /min University of Arterial blood by [facility] Pulse oximetry Branch Systolic blood 2021-11-23 20:16:00 116 mm[Hg] Univer sity [facility] Diastolic blood 2021-11-23 20:16:00 74 mm[Hg] [facility] Procedures Procedure Date / Time Performed Performing Clinician [facility] e TEST, SERUM 2022-05-17 03:50:00 Doyle Mckinney [facility] BASIC METABOLIC PANEL 2022-05-17 03:50:00 Doyle Mckinney [facility] (NA, K, CL, CO2, Medical Branch GLUCOSE, BUN, CREATININE, CA) CBC WITH DIFF 2022-05-17 03:50:00 Doyle Mckinney [facility] URINALYSIS 2022-05-17 03:05:00 Doyle Mckinney [facility] Plan of Care Planned Activity Planned Date Details Comments Source Future Scheduled 2022-09-[address] [facility] Test 00:00:00 (12+) [code = [facility] DEPRESSION SCREENING (12+)] Future Scheduled 2022-05-[address] [facility] Test 00:00:00 (#1) [code = [facility] INFLUENZA VACCINE (#1)] Future Scheduled 2020-11-[address] [facility] Test 00:00:00 (procedure) [code = [facility] 09693424] Future Scheduled 2020-10-[address] [facility] Test 00:00:00 Counseling and Medical Cente r Screening (12+) [code = Tobacco Cessation Counseling and Screening (12+)] Future Scheduled [address] [facility] Test 00:00:00 malignant neoplasm of Medica l Center cervix (procedure) [code = 910928114] Future Scheduled 2011-11-07 DTAP/TDAP/TD VACCINES [facility] Test 00:00:00 (1 - Tdap) [code = Medical C enter DTAP/TDAP/TD VACCINES (1 - Tdap)] Future Scheduled 2010 HEPATITIS C SCREENING [facility] Test 00:00:00 [code = HEPATITIS C Medical Center SCREENING] Future Scheduled 1993-05-09 COVID-19 VACCINE (#1) [facility] Test 00:00:00 [code = COVID-[address] VACCINE (#1)] Encounters Start End Encounter Admission Attending Care Care Encounter Source Date/Time Date/Time Type Type Clinicians Facility Department ID 2022-08-11 Outpatient Kaye, Na STLMLC STLMLC [id number] 2 Common 08:28:00 7[address]68 [place] 2022-07-20 Outpatient Kaye, Na STLMLC STLMLC [id number] 2 Common 16:19:00 70714 [place] [facility] 2021-09-28 Outpatient Kaye, Na STLMLC STLMLC [id number] 2 Common 14:29:46 [id number] [place] [facility] 2021-09-28 Outpatient Kaye, Na STLMLC STLMLC [id number] 2 Common 11:54:08 [id number] [place] 2021-09-28 Outpatient Kaye, Na STLMLC STLMLC [id number] 2 Common 11:52:51 [id number] [place] 2021-09-28 Outpatient Kaye, Na STLMLC STLMLC [id number] 2 Common 11:48:58 [id number] [place] 2021-09-28 Outpatient Kaye, Na STLMLC STLMLC [id number] 2 Common 11:36:02 [id number] [place] 2021-09-28 Outpatient Kaye, Na STLMLC STLMLC [id number] 2 Common 11:33:00 [id number] [place] 2021-09-28 Outpatient Kaye, Na STLMLC STLMLC [id number] 2 Common 11:32:45 [id number] [place] [facility] 2021-09-28 Outpatient Kaye, Na STLMLC STLMLC [id number] 2 Common 11:30:03 [id number] [place] [facility] 2021-09-28 Outpatient Kaye, Na STLMLC STLMLC [id number] 2 Common 11:29:30 [id number] [place] [facility] 2021-09-28 Outpatient Kaye, Na STLMLC STLMLC [id number] 2 Common 11:18:42 [id number] [place] [facility] 2021-09-28 Outpatient Kaye, Na STLMLC STLC [id number] 2 Common 11:16:52 [id number] [place] [facility] 2021-09-28 Outpatient Kaye, Na STLMLC STLC [id number] 2 Common 11:16:46 [id number] [place] [facility] 2021-09-28 Outpatient Kaye, Na [facility] [id number] 2 Common 11:16:12 [id number] [place] [facility] 2021-09-28 Outpatient Kaye, Na [facility] [id number] 2 Common 11:15:55 [id number] [place] 2021-09-28 Outpatient Kaye, Na [facility] [id number] 2 Common 11:07:04 [id number] [place] 2022-05-16 2022-05-17 Emergency Ameena MCKINNEY [facility] ERT [id number] Univers 21:01:00 00:44:00 [facility] 2022-05-16 2022-05-17 [facility] [id number] Univers 21:01:00 00:44:00 [facility] HEALTH 350.1.13.10 it y [place] [id number] [address] ([facility]) 2021-11-23 2021-11-23 [facility] [id number] Univers 14:45:00 15:59:58 [facility]-23 2021-11-23 [facility] [id number] Univers 14:45:00 15:59:58 Visit [facility] [id number] it y [place] [id number] [address] OFFICE BUILDING 2021-11-23 2021-11-23 [facility] [id number] Univers 14:45:00 14:45:00 [facility] 2021-11-21 2021-11-21 [facility] [id number] Univers 12:54:57 23:59:00 KURTIS virgen [facility] 2021-11-21 2021-11-21 [facility] [id number] Univers 12:54:57 23:59:00 KURTIS virgen [facility] 2021-11-21 2021-11-21 [facility] [id number] Univers 12:54:57 23:59:00 Encounter Kurtis FUNES 350.1.13.10 it[place] [id number] [facility] [address] ([facility]) 2021-11-15 2021-11-15 Orders Doctor RICHARD [id number] Univers 00:00:00 00:00:00 Only Unassigned, CINTIA 350.1.13.10 ity of [place] [facility] 4.2.7.2.686 Rub[place] as [id number] [facility] [address] Branch 2021-11-09 2021-11-09 Transition KRISTEN Carrillo [id number] Univers 00:00:00 00:00:00 of Care Lavinia MCWILLIAMS 350.1.13.10 i ty of [place] [id number] [facility] [address] 2021-11-03 2021-11-08 [facility] [id number] Univers 00:14:00 17:55:00 YANY virgen [facility] 2021-11-03 2021-11-08 [facility] Ritu Zapata [facility] 1.2.840.1 [id number] Univers 00:14:00 17:55:00 Encounter Yany Leone 350.1.13. 10 it[place] [id number] [facility] [address] ([facility]) Results Test Description Test Time Test Comments Results Result Comments Source BASIC METABOLIC PANEL (NA, K, CL, CO2, GLUCOSE, BUN, 2022-05 04:09:37 CREATININE, CA) Test Item Value Reference Range Interpretation Comme nts NA (test code = 1079625968) 143 mmol/L 135-145 K (test code = 3029511758) 3.9 mmol/L 3.5-5 CL (test code = 7432014941) 113 mmol/L 98-108 H CO2 TOTAL (test code = 1321816602) 21 mmol/L 23-31 L AGAP (test code = 5222733459) 2-16 BUN (test code = 3700764351) 32 mg/dL 7-23 H GLUCOSE (test code = 6471544631) 105 mg/dL 70-110 CREATININE (test code = 1.74 mg/dL 0.5-1.04 H 4428015765) CALCIUM (test code = 6748597046) 8.7 mg/dL 8.6-10.6 eGFR (test code = 0791682114) mL/min/1.73m2 DEO (test code = DEO) Association of Glomerular Filtration Rate (GFR) and Staging of Kidney Disease* + +-------- + ------+| GFR (mL/min/1.73 m2) ?| With Kidney Damage ?| ?Without Kidney Damage+ +-- + +| ?>90 ?| ?Stage one ?| ? Normal ?+ +------- + -------+| ?60-89 ?| ?Stage two ?| ? Decreased GFR ? + +-------- + ------+| ?30-59 ?| ?Stage three ?| ? Stage three ? + +-------- + ------+| ?15-29 ?| ?Stage four ? | ? Stage four ?+ +------- + -------+| ?<15 (or dialysis) ? ?| ?Stage five ? | ? Stage five ?+ +------- + -------+ *Each stage assumes the associated GFR level has been in effect for at least three months. ?Stages 1 to 5, with or without kidney disease, indicate chronic kidney disease. Notes: Determination of stages one and two (with eGFR >59mL/min/1.73 m2) requires estimation of kidney damage for at least three months as defined by structural or functional abnormalities of the kidney, manifested by either:Pathological abnormalities or Markers of kidney damage (including abnormalities in the composition of the blood or urine or abnormalities in imaging tests). Lab Interpretation (test code = Abnormal 86444-7) [facility], [id number] 04:08:46 Test Item Value Reference Range Interpretation Comments PREG SERUM (test code Negative = 6012442186) DEO (test code = DEO) Less than 10 IU/L. ?If low titer or ectopic is suspected, resubmit specimen in 48-72 hours. [facility] WITH [id number] 03:57:18 Test Item Value Reference Range Interpretation Comments WBC (test code = See_Comment H [Automated 2190-2) message] The sy stem which generated this result transmitted reference range : 4.30 - 11.10 10*3/?L. The reference range was not used to interpret this result as normal/abnormal . RBC (test code = See_Comment [Automated 789-8) message] The sy stem which generated this result transmitted reference range : 3.93 - 5.25 10*6/?L. The reference range was not used to interpret this result as normal/abnormal . HGB (test code = 12.4 g/dL 11.6-15 718-7) HCT (test code = 41.3 % 35.7-45.2 4544-3) MCV (test code = 87.9 fL 80.6-95.5 787-2) MCH (test code = 26.4 pg 25.9-32.8 785-6) MCHC (test code = 30.0 g/dL 31.6-35.1 L 786-4) RDW-SD (test code = 48.0 fL 39-49.9 86424-0) RDW-CV (test code = 15.0 % 12-15.5 788-0) PLT (test code = See_Comment H [Automated 777-3) message] The sy stem which generated this result transmitted reference range : 166 - 358 10*3/ ?L. The reference r martin was not used to interpret this result as normal/abnormal . MPV (test code = 10.1 fL 9.5-12.9 55475-2) NRBC/100 WBC (test See_Comment [Automat ed code = 9517355172) message] The system which generated this result transmitted reference range : 0.0 - 10.0 /100 WBCs. The refer ence range was not u sed to interpret th is result as normal/abnormal . NRBC x10^3 (test code See_Comment [Auto mated = 6207054533) message] The s ystem which generated this result transmitted reference range : 10*3/?L. The reference range was not used to interpret this result as normal/abnormal . GRAN MAT (NEUT) % 72.3 % (test code = 770-8) IMM GRAN % (test code 0.60 % = 7070409632) LYMPH % (test code = 17.9 % 736-9) MONO % (test code = 6.0 % 5905-5) EOS % (test code = 3.0 % 713-8) BASO % (test code = 0.2 % 706-2) GRAN MAT x10^3(ANC) 9.08 10*3/uL 1.88-7.09 H (test code = 2045319083) IMM GRAN x10^3 (test 0.07 10*3/uL 0-0.06 H code = 6979690706) LYMPH x10^3 (test code 2.25 10*3/uL 1.32-3.29 = 731-0) MONO x10^3 (test code 0.75 10*3/uL 0.33-0.92 = 742-7) EOS x10^3 (test code = 0.37 10*3/uL 0.03-0.39 711-2) BASO x10^3 (test code 0.01-0.07 = 704-7) Lab Interpretation Abnormal (test code = 90606-3) [facility], SHUNT [id number] 13:00:00Reason for Exam:->G91.9FINAL REPORT Exam: Shunt series History: Evaluate shunt Comparison: None. Findings: A left PUMP ERECTOR HELPER shunt catheter present which extends down the left neck, anterior chest and enters theabdomen with distal tip curled in the left lower quadrant. No discontinuity of the radiopaque portion. No mass effect within the abdomen. Additional foci of prior shunt tubing. Impression: Intact radiopaque portions of the PUMP ERECTOR HELPER shunt catheter. Signed: Sam Shoemaker MDReport Verified Date/Time: 08/20/2018 13:00:05 Reading Location: [facility] Reading Room [address] [place] [address] CT, BRAIN, WITHOUT IV [id number] 10:53:00 ORDER/STUDY IS TO BE PERFORMED AT [facility].[id number]/STUDY IS TO BE PERFORMED AT [facility].[id number]->[facility] HospitalFINAL REPORT Examination: CT, BRAIN, WITHOUT IV CONTRAST History: Hydrocephalus.Comparison studies: Head CT performed November 08, 2017 Technique:Axial images were obtained from the skull base to the vertex.Coronal and sagittal images reconstructed from the axial data.Dose modulation,iterative reconstruction, and/or weight based adjustment of the mA/kV was utilized to reduce the radiation dose to as low as reasonably achievable. Intravenous contrast: None Findings: Scalp: No abnormalities.Bones: No fractures, blastic or lytic lesions. Brain sulci: Appropriate for age.Ventricles: Again demonstrated are left frontal and left parietal ventriculostomy catheters with the distal tip ofthe right frontal catheter located in the body of the left lateral ventricle and tip of the left parietal catheter in the left ambient cistern. Unchanged ventriculomegaly (lateral and third ventricles). Extra-axial space:No abnormalities. Parenchyma: No masses, hemorrhage, or acute or chronic cortical based vascular insults.. Sellar/suprasellar region: No abnormalities.Craniocervical junction: The cerebellar tonsils are located below the foramen magnum. However, the inferior margin of the cerebellartonsils are not included within the mbjqg-gn-ywdb this finding remains unchanged compared to prior head CT performed November 08, 2017. The posterior fossa remains small/underdeveloped. Incidental findings: None. Impression: 1.No new intracranial abnormalities when compared to prior head CT performed November 08, 2017. 2.Unchanged frontal and left parietal ventriculostomy catheters. 3.Unchanged ventriculomegaly with findings related to Chiari malformation, as detailed above. Signed: Olya Aranda MDReport Verified Date/Time: 08/20/2018 10:53:56 [id number] 13:05:00 Test Item Value Reference Range Interpretation Comments MAGNESIUM (BEAKER) (test code = 2.0 mg/dL 1.6-2.6 627) BASIC METABOLIC [id number] 12:48:00 Test Item Value Reference Range Interpretation [...] NOT APPLICABLE FOR DIALYSIS PATIEN TS. LIPID [id number] 12:48:00 Test Item Value Reference Range Interpretation Comments TRIGLYCERIDES (BEAKER) (test code = 92 mg/dL 540) CHOLESTEROL (BEAKER) (test code = 192 mg/dL 631) HDL CHOLESTEROL (BEAKER) (test code 45 mg/dL = 976) LDL CHOLESTEROL CALCULATED (BEAKER) 129 mg/dL (test code = 633) Triglyceride Reference Range: Low Risk <150 Borderline 150-199 High Risk 200- 499 Very High Risk >=500Cholesterol Reference Range: Low Risk <200 Borderline 200-239 High Risk >240HDL Cholesterol Reference Range: Low Risk >=60 High Risk <40LDL Cholesterol Reference Range: Optimal <100 Near Optimal 100-129 Borderline 130-159 High 160-189 Very High >=190HEPATIC FUNCTION [id number] 12:48:00 Test Item Value Reference Range Interpretation [...] code = 54 U/L 6-55 347) CALCIUM, [id number] 08:06:00 Test Item Value Reference Range Interpretation Comments CALCIUM IONIZED (BEAKER) (test 1.06 mmol/L 1.12-1.27 L code = 698) PH, BLOOD (BEAKER) (test code = 7.21 1810) PROTHROMBIN [id number] 06:17:00 Test Item Value Reference Range Interpretation Comments PROTIME (BEAKER) (test code = 15.5 seconds 11.7-14.7 H 759) INR (BEAKER) (test code = 370) 1.2 <=5.9 RECOMMENDED COUMADIN/WARFARIN INR THERAPY RANGESSTANDARD DOSE: 2.0 - 3.0 Includes: PROPHYLAXIS for venous thrombosis, systemic embolization; TREATMENT for venous thrombosis and/or pulmonary embolus.HIGH RISK: Target INR is 2.5-3.5 for patients with mechanical heart valves.T4, [id number] 17:02:00 Test Item Value Reference Range Interpretation Comments FREE T4 (BEAKER) (test code = 655) 1.27 ng/dL 0.70-1.48 [id number] 12:17:00 Test Item Value Reference Range Interpretation Comments PREALBUMIN (BEAKER) (test code = 19 mg/dL 14-45 586) [id number] 11:57:00 Test Item Value Reference Range Interpretation Comments MAGNESIUM (BEAKER) (test code = 2.0 mg/dL 1.6-2.6 627) VITAMIN D, [id number] 11:30:00 Test Item Value Reference Range Interpretation Comments VITAMIN D 25-OH (BEAKER) (test 10.7 ng/mL 6.6-49.9 code = 2764) Effective 06/13/2017: Reference Range ChangeNew: 6.6-49.9 ng/mL Previous: 13.0- 47.8 ng/mLRecommendedVitamin D Target Range: 30.0-40.0 ng/mLVITAMIN B12 AND [id number] 11:30:00 Test Item Value Reference Range Interpretation Comments VITAMIN B12 (BEAKER) (test code = 235 pg/mL 213-816 774) FOLATE (BEAKER) (test code = 362) 6.6 ng/mL >=7.0 L TSH/FREE T4 IF [id number] 11:30:00 Test Item Value Reference Range Interpretation Comments THYROID STIMULATING HORMONE 5.74 uIU/mL 0.35-4.94 H (BEAKER) (test code = 772) LIPID [id number] 10:51:00 Test Item Value Reference Range Interpretation Comments TRIGLYCERIDES (BEAKER) (test code = 95 mg/dL 540) CHOLESTEROL (BEAKER) (test code = 180 mg/dL 631) HDL CHOLESTEROL (BEAKER) (test code 47 mg/dL = 976) LDL CHOLESTEROL CALCULATED (BEAKER) 114 mg/dL (test code = 633) Triglyceride Reference Range: Low Risk <150 Borderline 150-199 High Risk 200- 499 Very High Risk >=500Cholesterol Reference Range: Low Risk <200 Borderline 200-239 High Risk >240HDL Cholesterol Reference Range: Low Risk >=60 High Risk <40LDL Cholesterol Reference Range: Optimal <100 Near Optimal 100-129 Borderline 130-159 High 160-189 Very High >=190HEPATIC FUNCTION [id number] 10:51:00 Test Item Value Reference Range Interpretation [...] 81 U/L 6-55 H 347) COMPREHENSIVE METABOLIC [id number] 10:51:00 Test Item Value Reference Range Interpretation [...] S NOT APPLICABLE FOR DIALYSIS PATIEN TS. [id number] 10:51:00 Test Item Value Reference Range Interpretation Comments LIPASE (BEAKER) (test code = 749) 12 U/L 8-78 URINE [id number] 09:46:00 Test Item Value Reference Range Interpretation Comments CULTURE (BEAKER) (test code = 1095) No growth CLOSTRIDIUM DIFFICILE TOXIN [id number] 09:04:00 Test Item Value Reference Range Interpretation [...] formed stools will be rejected unless ileus ispresent (i.e., specified when ordering). Patients may be colonized with toxigenic C.difficile strains not causing active disease; therefore, clinical correlation is needed when deciding how to manage patients with a positive test result.The assay has not been validated as a test of cure as amplifiablenucleic acid may persist after effective treatment; therefore, follow-up testing of a positive result is not recommended.CALCIUM, [id number] 07:10:00 Test Item Value Reference Range Interpretation Comments CALCIUM IONIZED (BEAKER) (test 1.14 mmol/L 1.12-1.27 code = 698) PH, BLOOD (BEAKER) (test code = 7.22 1810) CALCIUM, [id number] 06:43:00 Test Item Value Reference Range Interpretation [...] 0-0 (BEAKER) (test code = 413) PROTHROMBIN [id number] 06:20:00 Test Item Value Reference Range Interpretation Comments PROTIME (BEAKER) (test code = 15.7 seconds 11.7-14.7 H 759) INR (BEAKER) (test code = 370) 1.2 <=5.9 RECOMMENDED COUMADIN/WARFARIN INR THERAPY RANGESSTANDARD DOSE: 2.0 - 3.0 Includes: PROPHYLAXIS for venous thrombosis, systemic embolization; TREATMENT for venous thrombosis and/or pulmonary embolus.HIGH RISK: Target INR is 2.5-3.5 for patients with mechanical heart valves.RAD, ABDOMEN/KUB, 1 VIEW [id number] 08:39:00Reason for exam:->abdominal distension'Should this be performed at the bedside?->YesFINAL REPORT Frontal views of the abdomen HISTORY: Abdominal distention COMPARISON: None. IMPRESSION: Previously administered oral contrast material outlines the colon. Nondistended air-filled loops of small bowel and colon are seen in a nonobstructive pattern. There is a moderateamount of stool in the rectum. Partially visualized shunt catheter in the left abdomen. Lung bases are clear. Signed: Roger Poe MDReport Verified Date/Time: 11/18/2017 08:39:46 Reading Location: [address] Body Reading Room IUM, [id number] 07:00:00 Test Item Value Reference Range Interpretation Comments CALCIUM IONIZED (BEAKER) (test 1.12 mmol/L 1.12-1.27 code = 698) PH, BLOOD (BEAKER) (test code = 7.18 1810) CBC W/PLT COUNT & AUTO [id number] 06:37:00 Test Item Value Reference Range Interpretation [...] 0-1 PERCENT (BEAKER) (test code = 2801) [id number] 05:50:00 Test Item Value Reference Range Interpretation Comments MAGNESIUM (BEAKER) (test code = 2.1 mg/dL 1.6-2.6 627) BASIC METABOLIC [id number] 05:50:00 Test Item Value Reference Range Interpretation [...] NOT APPLICABLE FOR DIALYSIS PATIEN TS. LIPID [id number] 05:50:00 Test Item Value Reference Range Interpretation Comments TRIGLYCERIDES (BEAKER) (test code = 58 mg/dL 540) CHOLESTEROL (BEAKER) (test code = 129 mg/dL 631) HDL CHOLESTEROL (BEAKER) (test code 39 mg/dL = 976) LDL CHOLESTEROL CALCULATED (BEAKER) 78 mg/dL (test code = 633) Triglyceride Reference Range: Low Risk <150 Borderline 150-199 High Risk 200- 499 Very High Risk >=500Cholesterol Reference Range: Low Risk <200 Borderline 200-239 High Risk >240HDL Cholesterol Reference Range: Low Risk >=60 High Risk <40LDL Cholesterol Reference Range: Optimal <100 Near Optimal 100-129 Borderline 130-159 High 160-189 Very High >=190HEPATIC FUNCTION [id number] 05:50:00 Test Item Value Reference Range Interpretation [...] = 107 U/L 6-55 H 347) PROTHROMBIN [id number] 05:22:00 Test Item Value Reference Range Interpretation Comments PROTIME (BEAKER) (test code = 17.0 seconds 11.7-14.7 H 759) INR (BEAKER) (test code = 370) 1.4 <=5.9 RECOMMENDED COUMADIN/WARFARIN INR THERAPY RANGESSTANDARD DOSE: 2.0 - 3.0 Includes: PROPHYLAXIS for venous thrombosis, systemic embolization; TREATMENT for venous thrombosis and/or pulmonary embolus.HIGH RISK: Target INR is 2.5-3.5 for patients with mechanical heart valves.U/S, ABDOMINAL, [id number] 23:11:00Reason for exam:->ASCITESFINAL REPORT Ultrasound of the [...] atrophic with poor corticomedullary differentiation. The right kidneymeasures 10.2 x 4 x 4 cm. There is a 1.6 x 1.1 x 1.5 cm cyst in the upper pole of the right kidney. The left kidney measures 9.5 x 4.7 x 4.7 cm with cortical thickness of 1 cm. There is a 2 x 1.3 x 1.9cm cyst in the left renal upper pole. There is no hydronephrosis or definite shadowing stone. IVC/Aorta: Segments partially seen. Unremarkable. Impression: Mildly echogenic liver which may be seen withparenchymal disease such as fatty infiltration. Cholelithiasis. No biliary ductal dilatation. Echogenic kidneys suggesting medical renal disease. Atrophic right kidney. Small bilateral renal cysts. Clinical correlation is recommended. No ascites. Signed: Roberto Lizamaeport Verified Date/Time: 11/17/2017 23:11:49 Reading Location: [address] Reading Room URINE [id number] 10:40:00 Test Item Value Reference Range Interpretation [...] speciesof a second type >100,000 col/mL skin [id number] 07:47:00 Test Item Value Reference Range Interpretation Comments PHOSPHORUS (BEAKER) (test code = 3.4 mg/dL 2.3-4.7 604) [id number] 07:47:00 Test Item Value Reference Range Interpretation Comments MAGNESIUM (BEAKER) (test code = 2.2 mg/dL 1.6-2.6 627) BASIC METABOLIC [id number] 07:47:00 Test Item Value Reference Range Interpretation [...] PATIEN TS. CBC W/PLT COUNT & AUTO [id number] 06:28:00 Test Item Value Reference Range Interpretation [...] (BEAKER) (test code = 2801) RAD, SHUNT [id number] 21:37:00Reason for exam:->postopFINAL REPORT EXAM: SHUNT SERIES [...] unremarkable. Additional Findings: Previously described occipital approach PUMP ERECTOR HELPER shunt catheter unchanged when compared to the prior exam. Disconnected right-sided catheter segment is also changed as it overlies the thoracic cavity. IMPRESSION: Interval placement of a Codman Certas PUMP ERECTOR HELPER shunt set to performance level 4. Signed: JR Nettles Robert MDReport Verified Date/Time: 11/08/2017 21:37:02 Reading Location: [address], BRAIN, WITHOUT [id number] 08:07:00FINAL REPORT CT Head without contrast CLINICAL [...] been interval placement of a left frontal approachventricular shunt catheter terminating to the left of the septum pellucidum. The previous left posterior approach shunt catheter is unchanged. There is expected pneumocephalus. The degree of hydrocephalus is currently unchanged. There is no CT evidence for acute infarct or hemorrhage. There is no midline shift. The cerebellar tonsils are again low lying protruding into the foramen magnum. IMPRESSION:Since 11/07/2017, interval placement of a left frontal approach ventricular shunt catheter as discussed above. Signed: Sam Key MDReport Verified Date/Time: 11/08/2017 08:07:55 Reading Location: [facility] Radiology Reading Room CBC W/PLT COUNT & AUTO [id number] 07:52:00 Test Item Value Reference Range Interpretation [...] (BEAKER) (test code = 2801) BASIC METABOLIC [id number] 07:30:00 Test Item Value Reference Range Interpretation [...] S NOT APPLICABLE FOR DIALYSIS PATIEN TS. [id number] 07:23:00 Test Item Value Reference Range Interpretation Comments PHOSPHORUS (BEAKER) (test code = 3.6 mg/dL 2.3-4.7 604) [id number] 07:23:00 Test Item Value Reference Range Interpretation Comments MAGNESIUM (BEAKER) (test code = 2.3 mg/dL 1.6-2.6 627) RAD, SHUNT [id number] 13:15:00Reason for exam:->headacheFINAL REPORT Shunt series, 11 images, including AP and lateral views of the skull, neck, chest and abdomen. HISTORY: Headache COMPARISON: None IMPRESSION:Left-sided ventriculoperitoneal shunt catheter appears contiguous throughout its course, terminating in the left upper quadrantof the abdomen. No acute osseous findings. Midline ossification defects noted at the L4 and L5 vertebral bodies. Remainder skeleton appears unremarkable. Heart size normal. Lungs clear without pleural effusion or pneumothorax. Bowel gas pattern nonobstructive. Signed: Santosh Sewell VerifiedDate/Time: 11/07/2017 13:15:42 Reading Location: [facility] [address] Mammo Reading Room CT, BRAIN, WITHOUT CONTRAST 2017-11-07 13:03:00FINAL REPORT CT head without contrast. Comparisons: No Reason for exam: Hydrocephalus, communicating. Discussion: Multiple axial CT images of the head are provided without contrast evaluated in brain and bone windows. Dose modulation, iterative reconstruction, and/or weight basedadjustment of the mA/kV was utilized to reduce the radiation dose to as low as reasonably achievable. There is no CT evidence of intracranial hemorrhage, mass-effect, hydrocephalus, shift, or extra-axial collections. 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 There is mild prominence of lateral and third ventricular volumes but I do not see gross hydrocephalus. The appearances probably chronic. The left-sided posterior approach PUMP ERECTOR HELPER shunt extends along the medial aspect of theleft lateral ventricle posteriorly and does not definitively extend into the ventricular system. Thevisualized dural sinus regions, orbital contents, paranasal sinuses, bones and surrounding soft tissues are unremarkable. Impressions: 1. No specific evidence of acute intracranial abnormality. 2. Mildchronic appearing ventricular prominence without specific evidence of acute hydrocephalus. Note description of the intracranial left PUMP ERECTOR HELPER shunt catheter. There is no definitive intraventricular extension. 3. 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 Signed: Richard Mathew Verified Date/Time: 11/07/2017 13:03:58 URINALYSIS W/ MICROSCOPIC 2017-11-07 09:28:00 Test Item Value Reference Range Interpretation [...] 1584) SOURCE(BEAKER) (test code = Urine, Voided 5495) SCREEN, [id number] 09:12:00 Test Item Value Reference Range Interpretation Comments TEST URINE (BEAKER) (test Negative code = 583) [id number] 03:34:00 Test Item Value Reference Range Interpretation Comments PHOSPHORUS (BEAKER) (test code = 3.5 mg/dL 2.3-4.7 604) [id number] 03:34:00 Test Item Value Reference Range Interpretation Comments MAGNESIUM (BEAKER) (test code = 2.2 mg/dL 1.6-2.6 627) BASIC METABOLIC [id number] 03:34:00 Test Item Value Reference Range Interpretation [...] PATIEN TS. CBC W/PLT COUNT & AUTO [id number] 03:33:00 Test Item Value Reference Range Interpretation [...] 0-1 PERCENT (BEAKER) (test code = 2801) [id number] 03:28:00 Test Item Value Reference Range Interpretation Comments PROTIME (BEAKER) (test code = 15.6 seconds 11.7-14.7 H 759) INR (BEAKER) (test code = 370) 1.2 <=5.9 PARTIAL THROMBOPLASTIN TIME 31.1 seconds 22.5-36.0 (BEAKER) (test code = 760) RECOMMENDED COUMADIN/WARFARIN INR THERAPY RANGESSTANDARD DOSE: 2.0 - 3.0 Includes: PROPHYLAXIS for venous thrombosis, systemic embolization; TREATMENT for venous thrombosis and/or pulmonary embolus.HIGH RISK: Target INR is 2.5-3.5 for patients with mechanical heart valves."
[2022-10-09 19:06] LABS: Urine Specific Gravity/Preg >1.030 (1.005-1.030)
[2022-10-09 19:22] LABS: Urine Bacteria 20-50 /HPF (<20); Urine Mucus 4+ /HPF (None Seen); Urine RBC >50 /HPF (None Seen)
[2022-10-09 19:25] LABS: Urine Color Yellow (Yellow)
[2022-10-09] MEDS ORDERED: CEFTRIAXONE 1000 MG/VIAL ONE (19:25)
[2022-10-09 19:26] LABS: Urine Bilirubin Negative (Negative); Urine Blood 2+ (Negative); Urine Clarity Turbid (Clear); Urine Glucose Negative (Negative); Urine Protein Trace (Negative); Urine Urobilinogen 0.2 (Normal)
[2022-10-09 19:27] LABS: Urine Ascorbic Acid Negative (Negative)
--- NOTE | 2022-10-09 19:32 | ER ---
Nurse's Notes [facility] Name: Yadi De Leon Age: 31 yrs Sex: Female : 1990 Arrival Date: 10/09/2022 Time: 15:55 Bed 17 Private MD: Diagnosis: UTI/ Urinary tract infection, site not specified Presentation: 10/09 16:55 Chief complaint: Patient states: Self caths d/t spina bifida hx, states that Sunday ph urine appeared darker and cloudy, lower abdominal and back pain, intermittent fever and chills. Coronavirus screen: Vaccine status: Patient reports receiving the 2nd dose of the covid vaccine. Ebola Screen: No symptoms or risks identified at this time. Initial Sepsis Screen: Does the patient meet any 2 criteria? No. Patient's initial sepsis screen is negative. Does the patient have a suspected source of infection? Yes: Dysuria/Frequency/Urgency/UTI. Risk Assessment: Do you want to hurt yourself or someone else? Patient reports no desire to harm self or others. Onset of symptoms was October 09, 2022. 16:55 Method Of Arrival: Ambulatory ph 16:55 Acuity: ARIANNA 3 ph Triage Assessment: 18:30 General: Appears in no apparent distress. comfortable. General: Behavior is calm, db cooperative. : Urine is cloudy. 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 - Social history:: Smoking status: Patient denies any tobacco usage or history of. Screenin:[address] [facility] ED Fall Risk Assessment (Adult) History of falling in the last 3 months, db including since admission No falls in past 3 months (0 pts) Confusion or Disorientation No (0 pts) Intoxicated or Sedated No (0 pts) Impaired Gait No (0 pts) Mobility Assist Device Used No (0 pt) Altered Elimination No (0 pt) Score/Fall Risk Level 0 - 2 = Low Risk Oriented to surroundings, Maintained a safe environment. Abuse screen: Denies threats or abuse. Denies injuries from another. Nutritional screening: No deficits noted. Tuberculosis screening: No symptoms or risk factors identified. Assessment: 18:30 Reassessment: Patient appears in no apparent distress at this time. Patient and/or db family updated on plan of care and expected duration. Pain level reassessed. Patient is alert, oriented x 3, equal unlabored respirations, skin warm/dry/pink. patient complains of abnormal color urine with bad smell. Urine is green in color. General: Appears in no apparent distress. comfortable, Behavior is calm, cooperative. Pain: Complains of pain in abdomen. Neuro: No deficits noted. : Parent/caregiver report the patient having smelly discolored urine. 19:15 General: Appears in no apparent distress. comfortable, well groomed, well developed, pf1 Behavior is calm, cooperative, appropriate for age, quiet. 19:15 Pain: Denies pain. Neuro: No deficits noted. Level of Consciousness is awake, alert, pf1 obeys commands, Oriented to person, place, time, situation. Cardiovascular: No deficits noted. Denies Capillary refill < 3 seconds Patient's skin is warm and dry. Respiratory: No deficits noted. Reports Airway is patent Trachea midline Respiratory effort is even, unlabored, Respiratory pattern is regular, symmetrical. GI: No deficits noted. Abdomen is round non-distended. : Reports pain in lower back with bloating sensation after self cath. Vital Signs: 16:55 BP 107 / 57; Pulse 102; Resp 18; Temp 98.1; Pulse Ox 97% on R/A; Weight 113.4 kg; ph Height 5 ft. 0 in. (152.40 cm); 19:15 BP 126 / 83; Pulse 99; Resp 18; Temp 98.9; Pulse Ox 100% on R/A; Pain 0/10; pf1 16:55 Body Mass Index 48.82 (113.40 kg, 152.40 cm) ph ED Course: 15:55 Patient arrived in ED. rg4 16:12 Ruth Castanon FNP-C is PHCP. snw 16:12 Eli Turcios MD is Attending Physician. snw 16:57 Triage completed. ph 16:57 Arm band placed on Patient placed in waiting room, Patient notified of wait time. ph 17:50 Radha Montalvo, STARR is Primary Nurse. db 18:30 Patient has correct armband on for positive identification. Bed in low position. Call db light in reach. Side rails up X 1. 18:35 Straight cath inserted, using sterile technique, 12 Fr. Specimen obtained. Patient db tolerated. 19:00 Inserted saline lock: 20 gauge in left antecubital area, using aseptic technique. Blood db collected. 19:15 Report given to STARR Lucero bedside report. db 19:59 No provider procedures requiring assistance completed. IV discontinued, intact, pf1 bleeding controlled, No redness/swelling at site. Pressure dressing applied. Administered Medications: 19:25 Not Given (Other Intervention Used): Rocephin (cefTRIAXone) 1 grams IM once snw 19:25 Drug: Rocephin (cefTRIAXone) 1 grams Route: IV; Rate: calculated rate; Site: left pf1 antecubital; 19:30 Follow up: IV Status: Completed infusion; IV Intake: 10ml pf1 19:43 Follow up: Response: No adverse reaction pf1 Medication: 20:00 VIS not applicable for this client. pf1 Intake: 19:30 IV: 10ml; Total: 10ml. pf1 Outcome: 19:31 Discharge ordered by MD. snw 19:59 Discharged to home pf1 19:59 Condition: stable 19:59 Discharge instructions given to patient, Instructed on discharge instructions, follow up and referral plans. medication usage, Demonstrated understanding of instructions, follow-up care, medications, Prescriptions given X 1. 20:00 Patient left the ED. pf1 Signatures: Ruth Castanon, MANAGER DOCUMENTATION-C MANAGER DOCUMENTATION-Csnw Jenn Caballero RN RN Rox Hayden 4 Radha Montalvo RN RN db finley, Pamala, RN RN pf1
--- NOTE | 2022-10-09 19:32 | EDPHYS ---
Physician Documentation [facility] Name: Yadi De Leon Age: 31 yrs Sex: Female : 1990 Arrival Date: 10/09/2022 Time: 15:55 Bed 17 Private MD: ED Physician Eli Turcios HPI: 10/09 18:04 This 31 yrs old Female presents to ER via Ambulatory with complaints of snw Urinary Problem. 18:04 The patient presents with urinary symptoms, cath urine with dark coloration, snw cloudiness, and foul odor. Onset: The symptoms/episode began/occurred 3 day(s) ago. 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 - Social history:: Smoking status: Patient denies any tobacco usage or history of. ROS: 18:03 Eyes: Negative for injury, pain, redness, and discharge, ENT: Negative for injury, snw pain, and discharge, Neck: Negative for injury, pain, and swelling, Cardiovascular: Negative for chest pain, palpitations, and edema, Respiratory: Negative for shortness of breath, cough, wheezing, and pleuritic chest pain, Abdomen/GI: Negative for abdominal pain, nausea, vomiting, diarrhea, and constipation, Back: Negative for injury and pain. 18:03 Neuro: Negative for headache, weakness, numbness, tingling, and seizure, Psych: Negative for depression, anxiety, suicide ideation, homicidal ideation, and hallucinations. 18:03 Constitutional: Positive for fever, malaise. 18:03 : Positive for urinary symptoms, pt has spina bifida, self caths, concern for UTI. Exam: 18:01 Constitutional: This is a well developed, well nourished patient who is awake, alert, snw and in no acute distress. Head/Face: Normocephalic, atraumatic. Eyes: Pupils equal round and reactive to light, extra-ocular motions intact. Lids and lashes normal. Conjunctiva and sclera are non-icteric and not injected. Cornea within normal limits. Periorbital areas with no swelling, redness, or edema. ENT: Nares patent. No nasal discharge, no septal abnormalities noted. Tympanic membranes are normal and external auditory canals are clear. Oropharynx with no redness, swelling, or masses, exudates, or evidence of obstruction, uvula midline. Mucous membranes moist. Neck: Trachea midline, no thyromegaly or masses palpated, and no cervical lymphadenopathy. Supple, full range of motion without nuchal rigidity, or vertebral point tenderness. No Meningismus. Chest/axilla: Normal chest wall appearance and motion. Nontender with no deformity. No lesions are appreciated. 18:01 Respiratory: Lungs have equal breath sounds bilaterally, clear to auscultation and percussion. No rales, rhonchi or wheezes noted. No increased work of breathing, no retractions or nasal flaring. Abdomen/GI: Soft, non-tender, with normal bowel sounds. No distension or tympany. No guarding or rebound. No evidence of tenderness throughout. Back: No spinal tenderness. No costovertebral tenderness. Full range of motion. 18:01 Cardiovascular: Rate: tachycardic, Heart sounds: murmur, systolic, Edema: is not appreciated. Vital Signs: 16:55 BP 107 / 57; Pulse 102; Resp 18; Temp 98.1; Pulse Ox 97% on R/A; Weight 113.4 kg; ph Height 5 ft. 0 in. (152.40 cm); 19:15 BP 126 / 83; Pulse 99; Resp 18; Temp 98.9; Pulse Ox 100% on R/A; Pain 0/10; pf1 16:55 Body Mass Index 48.82 (113.40 kg, 152.40 cm) ph MDM: 17:42 Patient medically screened. snw 18:37 Differential diagnosis: jim infection, urinary tract infection, vaginosis. Data snw reviewed: vital signs, nurses notes, lab test result(s), urinalysis. I considered the following discharge prescriptions or medication management in the emergency department Medications were administered in the Emergency Department. See MAR. Counseling: I had a detailed discussion with the patient and/or guardian regarding: the historical points, exam findings, and any diagnostic results supporting the discharge/admit diagnosis, lab results, the need for outpatient follow up, for definitive care, to return to the emergency department if symptoms worsen or persist or if there are any questions or concerns that arise at home. Special discussion: Based on the history and exam findings, there is no indication for further emergent testing or inpatient evaluation. I discussed with the patient/guardian the need to see the primary care provider for further evaluation of the symptoms. 10/09 17:26 Order name: Urine Culture snw 10/09 18:47 Order name: Quantitative Hcg; Complete Time: 19:34 snw 10/09 18:47 Order name: Abo/rh Typing; Complete Time: 19:27 snw 10/09 18:48 Order name: Urine --Ancillary (enter results); Complete Time: 19:08 bd 10/09 18:48 Order name: UA; Complete Time: 19:29 bd 10/09 17:26 Order name: Urine Dipstick-Ancillary (obtain specimen); Complete Time: 18:50 snw 10/09 17:26 Order name: Urine Test (obtain specimen); Complete Time: 18:50 snw 10/09 17:47 Order name: Cath; Complete Time: 18:50 snw Administered Medications: 19:25 Not Given (Other Intervention Used): Rocephin (cefTRIAXone) 1 grams IM once snw 19:25 Drug: Rocephin (cefTRIAXone) 1 grams Route: IV; Rate: calculated rate; Site: left pf1 antecubital; 19:30 Follow up: IV Status: Completed infusion; IV Intake: 10ml pf1 19:43 Follow up: Response: No adverse reaction pf1 Disposition Summary: 10/09/22 19:31 Discharge Ordered Location: Home snw Condition: Stable snw Diagnosis - UTI/ Urinary tract infection, site not specified snw Followup: snw - With: Emergency Department - When: As needed - Reason: Worsening of condition Followup: snw - With: Private Physician - When: 1 - 2 days - Reason: Recheck today's complaints, Continuance of care, Re-evaluation by your physician Discharge Instructions: - Discharge Summary Sheet snw - Urinary Tract Infection, Adult snw Forms: - Medication Reconciliation Form snw - Thank You Letter snw - Antibiotic Education snw - Prescription Opioid Use snw Prescriptions: - cefpodoxime 100 mg Oral Tablet - take 1 tablet by ORAL route every 12 hours for 10 days take with food; 20 snw tablet; Refills: 0, Product Selection Permitted Signatures: Dispatcher [employer] EDMS Ruth Castanon, FRANNIE-C TROUBLE SHOOTING MECHANIC-Csnw Jenn Caballero, RN RN Val davies RN RN pf1 Corrections: (The following items were deleted from the chart) 19:14 17:27 UA MICROSCOPIC+U.LAB.BRZ ordered. EDMS EDMS 19:37 19:31 state, incidental snw snw
[2022-10-09 20:12] VITALS: BP 126/83; TEMP 98.9; O2SAT 100
== END 2022-10-09 20:00 | disposition home or self-care (01) ==
LOC: ER 15:50
DX: N39.0 Urinary tract infection, site not specified (principal); Z91.040 Latex allergy status; Z91.048 Other nonmedicinal substance allergy status
CPT/HCPCS: 36415; 51702; 81001; 81025; 84702; 86900; 86901; 87086; 87088; 96374; 99284

== ENCOUNTER 2023-02-21 15:52 | Emergency (ER) | payer OTHER ==
--- OUTSIDE RECORDS SUMMARY | 2023-02-21 16:25 | XMS REPORT | Continuity of Care Document ---
:1990 Author Organization [facility] t Address [address] [place] [address] [address] [place] [address] Care Team Providers Name Role Phone SHARON WATTS Primary Care Physician Unavailable Diana Cool Attending Clinician Unavailable SLY GROVE Attending Clinician Unavailable JSEUS RESENDIZ Attending Clinician Unavailable DOYLE MCKINNEY Attending Clinician Unavailable MINDA CAMPBELL Attending Clinician Unavailable Minda Campbell MD Attending Clinician KURTIS FIGUEROA Attending Clinician Unavailable Kurtis Figueroa MD Attending Clinician Doctor Unassigned, [place] Attending Clinician Unavailable Lavinia Carrillo RN Attending Clinician YANY LEONE Attending Clinician Unavailable Ritu Zapata MD Attending Clinician Yany Leone MD Attending Clinician OLIVIA PERAZA Attending Clinician Unavailable SARATH ADAMS Attending Clinician Unavailable KURTIS BROOKS Admitting Clinician Unavailable KURTIS FIGUEROA Admitting Clinician Unavailable RITU ZAPATA Admitting Clinician Unavailable Ritu Zapata MD Admitting Clinician OLIVIA PERAZA Admitting Clinician Unavailable SARATH ADAMS Admitting Clinician Unavailable Payers Payer Name Policy Type Policy Number Effective Date Expiration Date Lurdes whitfield [facility] [id number] 2017 00:00:00 [facility] [id number] 2022 00:00:00 PLUS Problems Condition Condition Condition [...] kidney 3-03 ity of injury) injury) 00:00: [address] 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 Active [facility]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 00:00: Me dical l) shunt l) shunt 00 Center status status Headache Headache Disease [facility] 00:[facility]: Medical 00 [facility] Acute Acute Disease Active [facility] intractabl intractabl 3-07 Cris kes e e 00:00: Medical headache, headache, 00 Cent er unspecifie unspecifie d headache d headache type type Allergies, Adverse Reactions, Alerts Allergy Allergy Status Severity Reaction(s) Onset Inactive Treating Comm ents Source Name Type Date Date Clinician LATEX DRUG Active Anaphylaxis Unive rs INGREDI 3-07 ity of 00:00: [address] Latex Propensi Active Anaphylaxis Uni vers ty to 3-07 ity of adverse 00:00: [place] reaction 00 [facility] Branch Latex, Drug Active Rash [facility] Natural Intolera 3-06 [facility] Rubber nce 00:00: Medical 00 [place] LATEX, Allergy Active High Rash [facility] NATURAL 3-06 RUBBER 00:00: 00 Social History Social Habit Start Date Stop Date Quantity Comments Source Exposure to Not sure University of SARS-CoV-2 [place] Medical (event) Branch History SDOH [facility] Alcohol Std Medical Cente r Drinks History SDOH [facility] Alcohol Binge Medical Kathryn ter History SDOH [facility] Alcohol Comment Medical C enter Tobacco use and 2021-11-03 2021-11-03 Smokeless tobacco Un iversity of exposure 00:00:00 00:00:00 non-user [facility] Alcohol intake 2019-10-10 2019-10-[address] [facility] 00:00:00 00:00:00 non-drinker of Medical Ce nter alcohol (finding) History SDOH 2019-10-10 2019-10-10 1 ASHA Ramos Alcohol Frequency 00:00:00 00:00:00 [facility] Center Sex Assigned At [birth year] ASHA Buckners 00:00:00 00:00:00 Medical Center Smoking Status Start Date Stop Date Source Never smoked tobacco [facility] Medications Ordered Filled Start Stop Current Ordering [...] ity of 2,000 mg in 03:50: 04:[place] NaCl 0.9% 00 :00 ONCE, 1 Medical (NS) 100 mL dose, On Bran ch MINI-BAG Sun05/16/22 at 2300, Administer over 30 Minutes, 100 mL
Reas on for Anti-Infec tive: Documented Infection< br>Documen david Infection Site: Urine<br&g t;Duration of Therapy: 7 days cefdinir 2021- No [id number] 300mg Take 1 U nivers 300 mg 05-16 capsule by ity of capsule 00:00: 04:59 mouth in [place] 00 :00 the Medical morning Branch and 1 capsule in the evening. Do all this for 10 days. docusate Yes [id number] 100mg Take 1 Univers 100 mg 3-08 [id number] capsule by ity o f capsule 00:00: mouth 2 [place] [address] (two) Medical times Branch daily. docusate Yes [id number] 100mg Take 1 Univers 100 mg 3-08 [id number] capsule by ity o f capsule 00:00: mouth 2 [place] 00 (two) Medical times Branch daily. docusate Yes [id number] 100mg Take 1 Univers 100 mg 11-08 capsule by ity o f capsule 00:00: mouth 2 [place] 00 (two) Medical times Branch daily. sodium 2021- No [id number] 30mL Take 30 mL Univers citrate-cit 11-08 [id number] by mouth i ty of nuz[place] acid 00:00: 04:59 every 12 [place] 500-334 [place] :00 (twelve) Medical mg/5 mL hours for Branch solution 30 days. sodium 2021- No [id number] 30mL Take 30 mL Univers citrate-cit 11-08 [id number] by mouth i ty of nuzhat acid 00:00: 04:59 [place] 12 [place] 500-[place] :00 (twelve) Medical mg/5 mL hours for Branch solution 30 days. acetaminoph 2020-0 Yes 500mg Take [address] en 2-07 mg by [facility] (TYLENOL) 13:40: mouth Medical 325 MG 36 every 6 Center tablet (six) hours as needed for Pain. acetaminoph 2020-0 Yes 500mg Take [address] en 2-07 mg by [facility] (TYLENOL) 13:40: mouth Medical 325 MG 36 every 6 Center tablet (six) hours as needed for Pain. Vital Signs Vital Name Observation Time Observation Value Comments Source WEIGHT 2022-11-30 12:59:00 115.168 kg HEIGHT 2022-11-30 12:35:00 152.4 cm WEIGHT 2022-11-30 12:59:00 115.168 kg HEIGHT 2022-11-30 12:35:00 152.4 cm Systolic blood 2022-05-17 05:32:00 147 mm[Hg] Univer sity of pressure [facility] Diastolic blood 2022-05-17 05:32:00 83 mm[Hg] Unive rsity of pressure [facility] Heart rate 2022-05-17 05:32:00 90 /min [facility] Body temperature 2022-05-17 05:32:00 36.61 [facility] Res[facility] rate 2022-05-17 05:32:00 16 /min [facility] Oxygen saturation in 2022-05-17 05:32:00 99 /min [facility] Arterial blood by [facility] Pulse oximetry Branch Heart rate 2021-11-23 20:16:00 87 /min [facility] Body temperature 2021-11-23 20:16:00 36.78 [facility]i [facility] Respiratory rate 2021-11-23 20:16:00 18 /min [facility] Body height 2021-11-23 20:16:00 152.4 cm [facility] Body weight 2021-11-23 20:16:00 109.861 kg [facility] BMI 2021-11-23 20:16:00 47.30 kg/m2 [facility] Oxygen saturation in 2021-11-23 20:16:00 98 /min [facility] Arterial blood by [facility] Pulse oximetry Branch Systolic blood 2021-11-23 20:16:00 116 mm[Hg] [facility] Diastolic blood 2021-11-23 20:16:00 74 mm[Hg] [facility] Procedures Procedure Date / Time Performed Performing Clinician [facility] e CBC WITH DIFF 2022-05-17 03:50:00 Doyle Mckinney [facility] TEST, SERUM 2022-05-17 03:50:00 Doyle Mckinney [facility] BASIC METABOLIC PANEL 2022-05-17 03:50:00 Doyle [facility] (NA, K, CL, CO2, Medical Branch GLUCOSE, BUN, CREATININE, CA) URINALYSIS 2022-05-17 03:05:00 Doyle Mckinney [facility] Plan of Care Planned Activity Planned Date Details Comments Source Future Scheduled 2022-09-[address] [facility] Test 00:00:00 (12+) [code = [facility] DEPRESSION SCREENING (12+)] Future Scheduled 2022-05-[address] [facility] Test 00:00:00 (#1) [code = [facility] INFLUENZA VACCINE (#1)] Future Scheduled 2020-11-[address] [facility] Test 00:00:00 (procedure) [code = [facility] 34379138] Future Scheduled 2020-10-[address] [facility] Test 00:00:00 Counseling [facility] Medical Cente r Screening (12+) [code = Tobacco Cessation Counseling and Screening (12+)] Future Scheduled [address] [facility] Test 00:00:00 malignant neoplasm of Medica l Center cervix (procedure) [code = 271596228] Future Scheduled 2011-11-07 DTAP/TDAP/TD VACCINES CH I [...] Type Clinicians Facility Department ID 2022-08-11 Outpatient Cool, Na STLMLC STLMLC [id number] 2 Common 08:28:00 [id number] [facility] 2022-07-20 Outpatient Cool, Na STLMLC STLMLC [id number] 2 Common 16:19:00 [id number] [facility] 2021-09-28 Outpatient Cool, Na STLMLC STLMLC [id number] 2 Common 14:29:46 [id number] [facility] 2021-09-28 Outpatient Cool, Na STLMLC STLMLC [id number] 2 Common 11:54:08 [id number] [facility] 2021-09-28 Outpatient Cool, Na STLMLC STLMLC [id number] 2 Common 11:52:51 [id number] [facility] 2021-09-28 Outpatient Cool, Na STLMLC STLMLC [id number] 2 Common 11:48:58 [id number] [facility] 2021-09-28 Outpatient Cool, Na STLMLC STLMLC [id number] 2 Common 11:36:02 [id number] [facility] 2021-09-28 Outpatient Cool, Na STLMLC STLMLC [id number] 2 Common 11:33:00 [id number] [facility] 2021-09-28 Outpatient Cool, Na STLMLC STLMLC [id number] 2 Common 11:32:45 [id number] [facility] 2021-09-28 Outpatient Cool, Na STLMLC STLMLC [id number] 2 Common 11:30:03 [id number] [facility] 2021-09-28 Outpatient Cool, Na STLMLC STLMLC [id number] 2 Common 11:29:30 [id number] [facility] 2021-09-28 Outpatient Cool, Na STLMLC STLMLC [id number] 2 Common 11:18:42 [id number] [facility] 2021-09-28 Outpatient Cool, Na STLMLC STLMLC [id number] 2 Common 11:16:52 [id number] [facility] 2021-09-28 Outpatient Cool, Na STLMLC STLMLC [id number] 2 Common 11:16:46 [id number] [facility] 2021-09-28 Outpatient Cool, Na STLMLC STLMLC [id number] 2 Common 11:16:12 [id number] [facility] 2021-09-28 Outpatient Cool, Na STLMLC STLMLC [id number] 2 Common 11:15:55 [id number] [facility] 2021-09-28 Outpatient Cool, Na STLMLC STLMLC [id number] 2 Common 11:07:04 [id number] [facility] 2022-11-30 2022-12-07 Inpatient ER SUSAN-JIM [facility] [id number] [facility] 06:39:00 11:35:00 SUNG 2022-05-16 2022-05-17 Emergency X HANK ORORTIZ ERT [id number] Univers 21:01:00 00:44:00 [facility] 2022-05-16 2022-05-17 Emergency Hank ORORTIZ [id number] Univers 21:01:00 00:44:00 Luke R HEALTH [id number] it [place] [id number] [facility] 014 Branch ([facility]) 2021-11-23 2021-11-23 Outpatient R AD[facility]AN [facility] [id number] Univers 14:45:00 15:59:58 BILDC ity [facility] 2021-11-23 2021-11-23 [facility] [id number] Univers 14:45:00 15:59:58 Visit [facility] [id number] it [place] [id number] [address] OFFICE BUILDING 2021-11-23 2021-11-23 Outpatient [facility] [id number] Univers 14:45:00 14:45:00 [facility] ity [facility] 2021-11-21 2021-11-21 Outpatient R HENRY [facility] [id number] Univers 12:54:57 23:59:00 KURTIS ity [facility] 2021-11-21 2021-11-21 Outpatient [facility] [id number] Univers 12:54:57 23:59:00 KURTIS y [facility] 2021-11-21 2021-11-21 [facility] [id number] Univers 12:54:57 23:59:00 Encounter [facility] [id number] it[place] [id number] [facility] 805 Branch ([facility]) 2021-11-15 2021-11-15 Orders Doctor RICHARD [id number] Univers 00:00:00 00:00:00 Only Unassigned, CINTIA 350.1.13.10 ity of [place] [facility] 4.2.7.2.686 Ruben as [id number] [facility] 009 Branch 2021-11-09 2021-11-09 Transition KRISTEN Carrillo [id number] Univers 00:00:00 00:00:00 of Care Lavinia MCWILLIAMS [id number] i ty of [place].2.[place] [id number] [facility] 403 Branch 2021-11-03 2021-11-08 Inpatient U VASU [facility] [id number] Univers 00:14:00 17:55:00 YANY itbo of [facility] 2021-11-03 2021-11-08 Hospital Ritu Zapata [facility] [id number] Univers 00:14:00 17:55:00 Encounter Yany Leone [facility] 350.1.13. 10 ity of [place] 4.2.7.2.686 Jake wilson [employer] [id number] [facility] 113 Branch (CLC) Results Test Description Test Time Test Comments Results Result Comments Source FUNGUS CULTURE + SMEAR 2023-01-01 08:03:52 Test Item Value Reference Range Interpretation Comme nts CULTURE (BEAKER) (test code = 1095) No fungus isolated in 28 days FUNGUS SMEAR (BEAKER) (test code = 1406) No fungi seen BLOOD [id number] 17:00:27 Test Item Value Reference Range Interpretation Comments CULTURE (BEAKER) (test No growth in 5 days code = 1095) The specimen volume collected for this blood culture was below the optimum (10 mL per bottle or 20 mL total). Use of lower volumes may adversely affect recovery and/or detection times of some organisms.BLOOD [id number] 17:00:27 Test Item Value Reference Range Interpretation Comments CULTURE (BEAKER) (test No growth in 5 days code = 1095) VANCOMYCIN LEVEL, [id number] 13:15:03 Test Item Value Reference Range Interpretation Comments VANCOMYCIN RANDOM (BEAKER) (test 12.5 ug/mL code = 523) Reference Range: No NormalsOperator ID - JUWAN WBLOOD [id number] 13:03:04 Test Item Value Reference Interpretation Comments Range CULTURE (BEAKER) METHICILLIN A From Aerobi c (test code = 1095) RESISTANT Bottle On ly STAPHYLOCOCCUS Methicillin AUREUS resistant Staphylococcus aureus Clindamycin (test R code = 10) Daptomycin (test code S = 59) Erythromycin (test R code = 4) Linezolid (test code S = 40) Nitrofurantoin (test S code = 23) Oxacillin (test code R = 14) Rifampin (test code = S 43) Tetracycline (test R code = 2) Trimethoprim + S Sulfamethoxazole (test code = 47) Vancomycin (test code S = 13) Ceftaroline (test See_Comment S [Automate d code = 236) message] The system which generated this result transmit david reference range : Susceptible <=1 , Dose Dependent Susceptible >1 , Resistant . The reference range was not used to interpret this result as normal/abnormal . GRAM STAIN RESULT From aerobic (BEAKER) (test code = bottle only: gram 1123) positive cocci in clusters BASIC METABOLIC [id number] 06:20:56 Test Item Value Reference Range Interpretation Comments SODIUM (BEAKER) 146 meq/L 136-145 H (test code = 381) POTASSIUM 4.2 meq/L 3.5-5.1 (BEAKER) (test code = 379) CHLORIDE (BEAKER) 121 meq/L 98-107 H (test code = 382) CO2 (BEAKER) 20 meq/L 22-29 L (test code = 355) BLOOD UREA 23 mg/dL 7-21 H NITROGEN (BEAKER) (test code = 354) CREATININE 1.68 mg/dL 0.57-1.25 H (BEAKER) (test code = 358) GLUCOSE RANDOM 76 mg/dL 70-105 (BEAKER) (test code = 652) CALCIUM (BEAKER) 8.3 mg/dL 8.4-10.2 L (test code = 697) EGFR (BEAKER) 42 Interpretatio n of eGFR (test code = mL/min/1.73 values Stage De scription 1092) sq m Result G1 Kenyatta l or high >=90 G2 Mildly decreased 60-89 G3a Mildl y to moderately 45-5 9 G3b Moderately to s everely 30-44 G4 Severl y decreased 15-29 G5 Kidney failure <15Reported eGF R is based on the CKD-EPI 2021 equation that d oes not use a race coefficientEsti mated GFR is not as accur ate as Creatinine Clarisa yaakov in predicting glom erular filtration rate . Estimated GFR is not appl icable for dialysis patien ts Health Policy Analyst ID - JUWNA WPOCT-GLUCOSE [id number] 17:33:48 Test Item Value Reference Range Interpretation Comments POC-GLUCOSE METER 80 mg/dL 70-110 : TESTED A T [facility] 6720 (BEAKER) (test code = [facility], 1538) 24533: Health Policy Analyst/Techni ulysses ID = [id number] for MARCELL REESE POCT-GLUCOSE [id number] 13:17:28 Test Item Value Reference Range Interpretation Comments POC-GLUCOSE METER 84 mg/dL 70-110 : TESTED A T [facility] 6720 (BEAKER) (test code = [facility], 1538) 63928: Health Policy Analyst/Techni ulysses ID = [id number] for MARCELL REESE BLOOD [id number] 12:00:27 Test Item Value Reference Range Interpretation Comments CULTURE (BEAKER) (test No growth in 5 days code = 1095) POCT-GLUCOSE [id number] 07:25:00 Test Item Value Reference Range Interpretation Comments POC-GLUCOSE METER 75 mg/dL 70-110 : TESTED A T [facility] 6720 (BEAKER) (test code = [facility], 1538) 16730: Health Policy Analyst/Techni ulysses ID = [id number] for ONUO BROWN, JEANNIE CREATININE, RANDOM [id number] 05:47:35 Test Item Value Reference Range Interpretation Comments CREATININE URINE (BEAKER) (test 37.1 mg/dL code = 375) Reference Range: No NormalsOperator ID - BSPROTEIN, RANDOM [id number] 05:47:35 Test Item Value Reference Range Interpretation Comments PROTEIN, URINE (BEAKER) (test code = 24 mg/dL 0-14 H 1569) Health Policy Analyst ID - BSBASIC METABOLIC [id number] 04:47:30 Test Item Value Reference Range Interpretation Comments SODIUM (BEAKER) 145 meq/L 136-145 (test code = 381) POTASSIUM 3.7 meq/L 3.5-5.1 (BEAKER) (test code = 379) CHLORIDE (BEAKER) 119 meq/L 98-107 H (test code = 382) CO2 (BEAKER) 20 meq/L 22-29 L (test code = 355) BLOOD UREA 28 mg/dL 7-21 H NITROGEN (BEAKER) (test code = 354) CREATININE 1.79 mg/dL 0.57-1.25 H (BEAKER) (test code = 358) GLUCOSE RANDOM 83 mg/dL 70-105 (BEAKER) (test code = 652) CALCIUM (BEAKER) 8.0 mg/dL 8.4-10.2 L (test code = 697) EGFR (BEAKER) 39 Interpretatio n of eGFR (test code = mL/min/1.73 values Stage De scription 1092) sq m Result G1 Kenyatta l or high >=90 G2 Mildly decreased 60-89 G3a Mildl y to moderately 45-5 9 G3b Moderately to s everely 30-44 G4 Severl y decreased 15-29 G5 Kidney failure <15Reported eGF R is based on the CKD-EPI 2020 equation that d oes not use a race coefficientEsti mated GFR is not as accur ate as Creatinine Clarisa yaakov in predicting glom erular filtration rate . Estimated GFR is not appl icable for dialysis patien ts Health Policy Analyst ID - MARCOVANCOMYCIN LEVEL, [id number] 04:44:50 Test Item Value Reference Range Interpretation Comments VANCOMYCIN RANDOM (BEAKER) (test 14.5 ug/mL code = 523) Reference Range: No NormalsOperator ID - BSPOCT-GLUCOSE [id number] 22:00:34 Test Item Value Reference Range Interpretation Comments POC-GLUCOSE METER 102 mg/dL 70-110 : TESTED A T [facility] 6720 ([facility]) (test code = [facility], 1538) 95609: Health Policy Analyst/Techni ulysses ID = [id number] for ON UOHA, JEANNIE POCT-GLUCOSE [id number] 16:52:48 Test Item Value Reference Range Interpretation Comments POC-GLUCOSE METER 81 mg/dL 70-110 : TESTED A T [facility] 6720 ([facility]) (test code = [facility], 1538) 11358: Health Policy Analyst/Techni ulysses ID = [id number] for Sheila Palafox ANAEROBIC [id number] 11:46:13 Test Item Value Reference Range Interpretation Comments CULTURE (BEAKER) (test No anaerobes isolated code = 1095) VANCOMYCIN LEVEL, [id number] 09:41:28 Test Item Value Reference Range Interpretation Comments VANCOMYCIN RANDOM (BEAKER) (test 22.4 ug/mL code = 523) Reference Range: No NormalsOperator ID - MARCOPOCT-GLUCOSE [id number] 06:51:15 Test Item Value Reference Range Interpretation Comments POC-GLUCOSE METER 71 mg/dL 70-110 : TESTED A T [facility] 6720 (KALA) (test code = [facility], 1538) 69887: Health Policy Analyst/Techni ulyssse ID = [id number] for Lisettewo Odalys abbott BLOOD CULTURE IDENTIFICATION [id number] 06:26:35 Test Item Value Reference Interpretation Comments Range MCR-1 (KALA) (test Non Applicable Not detected Note: Antimicrobial code = 3067934348) resistanc e can occur via multi ple mechanisms. A N ot Detected result for antimicrobial resistance gene (s) does not indica te antimicrobial susceptibility. Subculturing is required for species identification and susceptibility testing of isolates. CTX-M (KALA) (test Non Applicable Not detected Note: Antimicrobial code = 7206914483) resistanc e can occur via multi ple mechanisms. A N ot Detected result for antimicrobial resistance gene (s) does not indica te antimicrobial susceptibility. Subculturing is required for species identification and susceptibility testing of isolates. IMP ([place]) (test code = Non Applicable Not Detected Note : Antimicrobial 4180151725) resistance can occur via multi ple mechanisms. A N ot Detected result for antimicrobial resistance gene (s) does not indica te antimicrobial susceptibility. Subculturing is required for species identification and susceptibility testing of isolates. KPC (BKR) (test code = Non Applicable Not detected Not e: Antimicrobial 2863379312) resistance can occur via multi ple mechanisms. A N ot Detected result for antimicrobial resistance gene (s) does not indica te antimicrobial susceptibility. Subculturing is required for species identification and susceptibility testing of isolates. NDM (BKR) (test code = Non Applicable Not Detected Not e: Antimicrobial 3193329005) resistance can occur via multi ple mechanisms. A N ot Detected result for antimicrobial resistance gene (s) does not indica te antimicrobial susceptibility. Subculturing is required for species identification and susceptibility testing of isolates. OXA-48-LIKE (BKR) Non Applicable Not Detected Note: An timicrobial (test code = resistance can 1617418171) occur via multi ple mechanisms. A N ot Detected result for antimicrobial resistance gene (s) does not indica te antimicrobial susceptibility. Subculturing is required for species identification and susceptibility testing of isolates. VIM (BKR) (test code = Non Applicable Not detected Not e: Antimicrobial 6902582348) resistance can occur via multi ple mechanisms. A N ot Detected result for antimicrobial resistance gene (s) does not indica te antimicrobial susceptibility. Subculturing is required for species identification and susceptibility testing of isolates. MEC A/C ([place]) (test Non Applicable Not detected Note: A ntimicrobial code = 7478537187) resistanc e can occur via multi ple mechanisms. A N ot Detected result for antimicrobial resistance gene (s) does not indica te antimicrobial susceptibility. Subculturing is required for species identification and susceptibility testing of isolates. MEC A/C AND MREJ Detected Not Detected A Methicillin (MRSA) [place] (test code = resis tance has been 3295829225) detected. VAN A/B (VANCOMYCIN Non Applicable Not detected Note: Antimicrobial RESISTANCE) (test code resis tance can = 9670041875) occur via mult iple mechanisms. A N ot Detected result for antimicrobial resistance gene (s) does not indica te antimicrobial susceptibility. Subculturing is required for species identification and susceptibility testing of isolates. ENTEROCOCCUS FAECALIS Not detected Not detected (BKR) (test code = 4634031967) ENTEROCOCCUS FAECIUM Not detected Not detected (BKR) (test code = 4143348312) LISTERIA MONOCYTOGENES Not detected Not detected (test code = 8527555) STAPHYLOCOCCUS (test Detected Not detected A code = 20160808) STAPHYLOCOCCUS AUREUS Detected Not detected A Methic illin (test code = 9635358) Resist ant Staphylococcus aureus (MRSA).F irst line therapy: Vancomycin.ID consultation required for al l Staphylococcus aureus bacterem ia. STAPHYLOCOCCUS Not detected Not detected EPIDERMIDIS ([place]) (test code = 7475236385) STAPHYLOCOCCUS Not detected Not detected LUGDENENSIS (BKR) (test code = 5162802638) STREPTOCOCCUS (test Not detected Not detected code = 2928732) STREPTOCOCCUS Not detected Not detected AGALACTIAE (GROUP B) (test code = 4180863) STREPTOCOCCUS Not detected Not detected PNEUMONIAE (test code = 3249435) STREPTOCOCCUS PYOGENES Not detected Not detected (GROUP A) (test code = 5494363) ACINETOBACTER Not detected Not detected CALCOACETICUS-BAUMANNI I COMPLEX (BKR) (test code = 7712) BACTEROIDES FRAGILIS Not detected Not detected ([place]) (test code = 3667644030) ENTEROBACTERALES (test Not detected Not detected code = 3891400670) ENTEROBACTER CLOACOE Not detected Not detected COMPLEX (test code = 9116132) ESCHERICHIA COLI (test Not detected Not detected code = 1169826) KLEBSIELLA AEROGENES Not detected Not detected (BKR) (test code = 6952250256) KLEBSIELLA OXYTOCA Not detected Not detected (test code = 3992135) KLEBSIELLA PNEUMONIAE Not detected Not detected GROUP (test code = 5229544064) PROTEUS (test code = Not detected Not detected 6904565) SALMONELLA SPECIES Not detected Not detected ([place]) (test code = 8438082585) SERRATIA MARCESCENS Not detected Not detected (test code = 8522234) HAEMOPHILUS INFLUENZAE Not detected Not detected (test code = 5143071) NEISSERIA MENINGITIDIS Not detected Not detected (test code = 6554080) PSEUDOMONAS Not detected Not detected AERUGINOSA-BEAKER (test code = 9126933) STENOTROPHOMONAS Not detected Not detected MALTOPHILIA (BKR) (test code = 8639861974) PANDA ALBICANS (test Not detected Not detected code = 7735962) PANDA AURIS ([place]) Not detected Not detected (test code = 8096723132) PANDA GLABRATA (test Not detected Not detected code = 1515342) PANDA KRUSEI (test Not detected Not detected code = 0987116) PANDA PARAPSILOSIS Not detected Not detected (test code = 6019580) PANDA TROPICALIS Not detected Not detected (BKR) (test code = 4935575) CRYPTOCOCCUS Not detected Not detected NEOFORMANS/GATTII (test code = 3051344534) Other bacteria and resistance markers not targeted by this PCR panel cannot be excluded; therefore clinical correlation and follow up of serology, culture results, and other molecular studies is required. The results are not intended to be used as the sole means for clinical diagnosis or patient management decisions. This sample was tested at the [facility] using the [employer] Blood Culture ID Panel. It is FDA cleared and has been verified and approved by the [facility] for clinical use. This laboratory is CLIA-certified and College ofAmerican Pathologists (CAP)-accredited to perform high complexity testing.BASIC METABOLIC [id number] 04:45:39 Test Item Value Reference Range Interpretation Comments SODIUM (BEAKER) 144 meq/L 136-145 (test code = 381) POTASSIUM 3.5 meq/L 3.5-5.1 (BEAKER) (test code = 379) CHLORIDE (BEAKER) 116 meq/L 98-107 H (test code = 382) CO2 (BEAKER) 19 meq/L 22-29 L (test code = 355) BLOOD UREA 27 mg/dL 7-21 H NITROGEN (BEAKER) (test code = 354) CREATININE 1.82 mg/dL 0.57-1.25 H (BEAKER) (test code = 358) GLUCOSE RANDOM 74 mg/dL 70-105 (BEAKER) (test code = 652) CALCIUM (BEAKER) 7.8 mg/dL 8.4-10.2 L (test code = 697) EGFR (BEAKER) 38 Interpretati on of eGFR (test code = mL/min/1.73 values Stage De scription 1092) sq m Result G1 Kenyatta l or high >=90 G2 Mildly decreased 60-89 G3a Mildl y to moderately 45-5 9 G3b Moderately to s everely 30-44 G4 Severl y decreased 15-29 G5 Kidney failure <15Reported eGF R is based on the CKD-EPI 2020 equation that d oes not use a race coefficientEsti mated GFR is not as accur ate as Creatinine Clarisa yaakov in predicting glom erular filtration rate . Estimated GFR is not appl icable for dialysis patien ts Health Policy Analyst ID - [id number] 04:44:56 Test Item Value Reference Range Interpretation Comments MAGNESIUM (BEAKER) (test code = 2.2 mg/dL 1.6-2.6 627) Health Policy Analyst ID - [id number] 04:44:56 Test Item Value Reference Range Interpretation Comments PHOSPHORUS (BEAKER) (test code = 2.7 mg/dL 2.3-4.7 604) Health Policy Analyst ID - BSCBC (HEMOGRAM ONLY)2022-12-04 04:19:47 Test Item Value Reference Range Interpretation Comments WHITE BLOOD CELL COUNT (BEAKER) 7.8 K/ L 3.5-10.5 (test code = 775) RED BLOOD CELL COUNT (BEAKER) 3.44 M/ L 3.93-5.22 L (test code = 761) HEMOGLOBIN (BEAKER) (test code = 9.4 GM/DL 11.2-15.7 L 410) HEMATOCRIT (BEAKER) (test code = 32.7 % 34.1-44.9 L 411) MEAN CORPUSCULAR VOLUME (BEAKER) 95 fL 79-95 (test code = 753) MEAN CORPUSCULAR HEMOGLOBIN 27.3 pg 25.6-32.2 (BEAKER) (test code = 751) MEAN CORPUSCULAR HEMOGLOBIN CONC 28.7 GM/DL 32.2-35.5 L (BEAKER) (test code = 752) RED CELL DISTRIBUTION WIDTH 16.3 % 11.7-14.4 H (BEAKER) (test code = 412) PLATELET COUNT (BEAKER) (test 303 K/CU MM 150-450 code = 756) MEAN PLATELET VOLUME (BEAKER) 10.5 fL 9.4-12.3 (test code = 754) NUCLEATED RED BLOOD CELLS 0 /100 WBC 0-0 (BEAKER) (test code = 413) POCT-GLUCOSE [id number] 21:44:38 Test Item Value Reference Range Interpretation Comments POC-GLUCOSE METER 92 mg/dL 70-110 : TESTED A T [facility] 6720 (BEAKER) (test code = [facility], 1538) 10829: Health Policy Analyst/Techni ulysses ID = [id number] for Jmo scar, [place] BASIC METABOLIC [id number] 17:17:08 Test Item Value Reference Range Interpretation Comments SODIUM (BEAKER) 148 meq/L 136-145 H (test code = 381) POTASSIUM 3.4 meq/L 3.5-5.1 L (BEAKER) (test code = 379) CHLORIDE (BEAKER) 119 meq/L 98-107 H (test code = 382) CO2 (BEAKER) 18 meq/L 22-29 L (test code = 355) BLOOD UREA 27 mg/dL 7-21 H NITROGEN (BEAKER) (test code = 354) CREATININE 1.88 mg/dL 0.57-1.25 H (BEAKER) (test code = 358) GLUCOSE RANDOM 118 mg/dL 70-105 H (BEAKER) (test code = 652) CALCIUM (BEAKER) 8.3 mg/dL 8.4-10.2 L (test code = 697) EGFR (BEAKER) 36 Interpretatio n of eGFR (test code = mL/min/1.73 values Stage De scription 1092) sq m Result G1 Kenyatta l or high >=90 G2 Mildly decreased 60-89 G3a Mildl y to moderately 45-5 9 G3b Moderately to s everely 30-44 G4 Severl y decreased 15-29 G5 Kidney failure <15Reported eGF R is based on the CKD-EPI 2021 equation that d oes not use a race coefficientEsti mated GFR is not as accur ate as Creatinine Clarisa yaakov in predicting glom erular filtration rate . Estimated GFR is not appl icable for dialysis patien ts Health Policy Analyst ID - BSBLOOD GAS, [id number] 17:05:37 Test Item Value Reference Range Interpretation Comments PH VENOUS (BEAKER) (test code = 7.32 7.32-7.42 701) PCO2 VENOUS (BEAKER) (test code = 39 mm Hg 41-51 L 755) PO2 VENOUS (BEAKER) (test code = 67 mm Hg 25-40 H 702) O2 SATURATION VENOUS (BEAKER) 91.9 % 40.0-70.0 H (test code = 703) HCO3 VENOUS (BEAKER) (test code = 20 mmol/L 21-29 L 705) BASE EXCESS VENOUS (BEAKER) (test -5.9 mmol/L -2.0-3.0 L code = 704) PATIENT TEMPERATURE (BEAKER) 37.0 (test code = 1818) FIO2 (BEAKER) (test code = 1819) 100.0 BASIC METABOLIC [id number] 14:16:17 Test Item Value Reference Range Interpretation Comments SODIUM (BEAKER) 150 meq/L 136-145 H (test code = 381) POTASSIUM 4.0 meq/L 3.5-5.1 Specimen slight ly (BEAKER) (test hemolyzed code = 379) CHLORIDE (BEAKER) 121 meq/L 98-107 H (test code = 382) CO2 (BEAKER) 19 meq/L 22-29 L (test code = 355) BLOOD UREA 27 mg/dL 7-21 H NITROGEN (BEAKER) (test code = 354) CREATININE 1.88 mg/dL 0.57-1.25 H Specimen slight ly (BEAKER) (test hemolyzed code = 358) GLUCOSE RANDOM 100 mg/dL 70-105 (BEAKER) (test code = 652) CALCIUM (BEAKER) 8.2 mg/dL 8.4-10.2 L (test code = 697) EGFR (BEAKER) 36 Interpretatio n of eGFR (test code = mL/min/1.73 values Stage De scription 1092) sq m Result G1 Kenyatta l or high >=90 G2 Mildly decreased 60-89 G3a Mildl y to moderately 45-5 9 G3b Moderately to s everely 30-44 G4 Severl y decreased 15-29 G5 Kidney failure <15Reported eGF R is based on the CKD-EPI 2020 equation that d oes not use a race coefficientEsti mated GFR is not as accur ate as Creatinine Clarisa yaakov in predicting glom erular filtration rate . Estimated GFR is not appl icable for dialysis patien ts Health Policy Analyst ID - BSVANCOMYCIN LEVEL, [id number] 13:51:00 Test Item Value Reference Range Interpretation Comments VANCOMYCIN RANDOM (BEAKER) (test 17.2 ug/mL code = 523) Reference Range: No NormalsOperator ID - BSCBC (HEMOGRAM ONLY)2022-12-03 13:26:22 Test Item Value Reference Range Interpretation Comments WHITE BLOOD CELL COUNT (BEAKER) 9.6 K/ L 3.5-10.5 (test code = 775) RED BLOOD CELL COUNT (BEAKER) 3.65 M/ L 3.93-5.22 L (test code = 761) HEMOGLOBIN (BEAKER) (test code = 10.1 GM/DL 11.2-15.7 L 410) HEMATOCRIT (BEAKER) (test code = 34.6 % 34.1-44.9 411) MEAN CORPUSCULAR VOLUME (BEAKER) 95 fL 79-95 (test code = 753) MEAN CORPUSCULAR HEMOGLOBIN 27.7 pg 25.6-32.2 (BEAKER) (test code = 751) MEAN CORPUSCULAR HEMOGLOBIN CONC 29.2 GM/DL 32.2-35.5 L (BEAKER) (test code = 752) RED CELL DISTRIBUTION WIDTH 16.5 % 11.7-14.4 H (BEAKER) (test code = 412) PLATELET COUNT (BEAKER) (test 344 K/CU MM 150-450 code = 756) MEAN PLATELET VOLUME (BEAKER) 10.3 fL 9.4-12.3 (test code = 754) NUCLEATED RED BLOOD CELLS 0 /100 WBC 0-0 (BEAKER) (test code = 413) POCT-GLUCOSE [id number] 12:45:43 Test Item Value Reference Range Interpretation Comments POC-GLUCOSE METER 78 mg/dL 70-110 : TESTED A T [facility] 6720 (BEAKER) (test code = [facility], 1538) [id number]: Health Policy Analyst/Techni ulysses ID = [id number] for Sheila Palafox POCT-GLUCOSE [id number] 06:52:52 Test Item Value Reference Range Interpretation Comments POC-GLUCOSE METER 82 mg/dL 70-110 : TESTED A T [facility] 6720 (BEAKER) (test code = [facility], 1538) 15292: Health Policy Analyst/Techni ulysses ID = [id number] for Cawo od, [place]al[place] POCT-GLUCOSE [id number] 23:52:14 Test Item Value Reference Range Interpretation Comments POC-GLUCOSE METER 98 mg/dL 70-110 : TESTED A T [facility] 6720 (BEAKER) (test code = [facility], 1538) 83871: Health Policy Analyst/Techni ulysses ID = [id number] for Cawo od, Odalys BASIC METABOLIC [id number] 20:35:37 Test Item Value Reference Range Interpretation Comments SODIUM (BEAKER) 151 meq/L 136-145 H (test code = 381) POTASSIUM 4.2 meq/L 3.5-5.1 Specimen slight ly (BEAKER) (test hemolyzed code = 379) CHLORIDE (BEAKER) 125 meq/L 98-107 H (test code = 382) CO2 (BEAKER) 14 meq/L 22-29 L (test code = 355) BLOOD UREA 22 mg/dL 7-21 H NITROGEN (BEAKER) (test code = 354) CREATININE 1.64 mg/dL 0.57-1.25 H Specimen slight ly (BEAKER) (test hemolyzed code = 358) GLUCOSE RANDOM 100 mg/dL 70-105 (BEAKER) (test code = 652) CALCIUM (BEAKER) 8.7 mg/dL 8.4-10.2 (test code = 697) EGFR (BEAKER) 43 Interpretatio n of eGFR (test code = mL/min/1.73 values Stage De scription 1092) sq m Result G1 Kenyatta l or high >=90 G2 Mildly decreased 60-89 G3a Mildl y to moderately 45-5 9 G3b Moderately to s everely 30-44 G4 Severl y decreased 15-29 G5 Kidney failure <15Reported eGF R is based on the CKD-EPI 2020 equation that d oes not use a race coefficientEsti mated GFR is not as accur ate as Creatinine Clarisa yaakov in predicting glom erular filtration rate . Estimated GFR is not appl icable for dialysis patien ts Health Policy Analyst ID - MMU/S, ABDOMINAL, [id number] 17:08:00Abdomen limited area? Add comment if clarification is needed.->Right upper quadrantReason for exam :->RUQ Abd painShould this be performed at the bedside?->Yes [facility] 1990 Sex: FFINAL REPORT Right upper quadrant abdominal ultrasound, 12/02/2022. History: Right upper quadrant pain. Comparison: 11/17/2018. Discussion: Transverse and longitudinal images of the rightupper quadrant of the abdomen were obtained demonstrating a liver of normal size but diffusely increased echogenicity measuring 13.2 cm in length. There is no evidence of a focal hepatic mass. The portal vein is patent with hepatopetal flow and is within normal limits measuring 7 mm in diameter. The biliary tree is within normal limits with the common bile duct measuring 3 mm in diameter. The gallbladder contains 3 nonmobile nonshadowing echogenic foci measuring ranging from 5 to 8 mm without evidence of shadowing stones, wall thickening, or pericholecystic fluid. The sonographic Mckinney's sign was negative. The right kidney is atrophic without evidence of hydronephrosis, stones, or mass and measures 8.7 cm. A 2.8 cm oval anechoic structure is present in the lower pole. The pancreatic body and proximal tail are visualized and are normal in appearance. The abdominal aorta is within normal limits. There is no evidence of free fluid. IMPRESSION: 1. Diffuse fatty infiltration of the liver without focal hepatic abnormality.2. Subcentimeter gallbladder polyps. No evidence of cholelithiasis.3. Atrophic right kidney with benign right renal cyst, no follow-up imaging recommended. Signed: Yobani WomackMDReport Verified Date/Time: 12/02/2022 17:08:14 [facility] METABOLIC [id number] 15:58:22 Test Item Value Reference Range Interpretation Comments SODIUM (BEAKER) 152 meq/L 136-145 H (test code = 381) POTASSIUM 4.5 meq/L 3.5-5.1 Specimen slight ly (BEAKER) (test hemolyzed code = 379) CHLORIDE (BEAKER) 125 meq/L 98-107 H (test code = 382) CO2 (BEAKER) 16 meq/L 22-29 L (test code = 355) BLOOD UREA 21 mg/dL 7-21 NITROGEN (BEAKER) (test code = 354) CREATININE 1.68 mg/dL 0.57-1.25 H Specimen slight ly (BEAKER) (test hemolyzed code = 358) GLUCOSE RANDOM 110 mg/dL 70-105 H (BEAKER) (test code = 652) CALCIUM (BEAKER) 8.7 mg/dL 8.4-10.2 (test code = 697) EGFR (BEAKER) 42 Interpretatio n of eGFR (test code = mL/min/1.73 values Stage De scription 1092) sq m Result G1 Kenyatta l or high >=90 G2 Mildly decreased 60-89 G3a Mildl y to moderately 45-5 9 G3b Moderately to s everely 30-44 G4 Severl y decreased 15-29 G5 Kidney failure <15Reported eGF R is based on the CKD-EPI 2020 equation that d oes not use a race coefficientEsti mated GFR is not as accur ate as Creatinine Clarisa nuno in predicting glom erular filtration rate . Estimated GFR is not appl icable for dialysis patien ts Health Policy Analyst ID - MMVANCOMYCIN LEVEL, [id number] 15:47:01 Test Item Value Reference Range Interpretation Comments VANCOMYCIN TROUGH (BEAKER) (test 27.0 ug/mL 10.0-20.0 H code = 522) Health Policy Analyst ID - BSBASIC METABOLIC [id number] 14:15:07 Test Item Value Reference Range Interpretation Comments SODIUM (BEAKER) 151 meq/L 136-145 H (test code = 381) POTASSIUM 3.8 meq/L 3.5-5.1 (BEAKER) (test code = 379) CHLORIDE (BEAKER) 124 meq/L 98-107 H (test code = 382) CO2 (BEAKER) 17 meq/L 22-29 L (test code = 355) BLOOD UREA 20 mg/dL 7-21 NITROGEN (BEAKER) (test code = 354) CREATININE 1.56 mg/dL 0.57-1.25 H (BEAKER) (test code = 358) GLUCOSE RANDOM 100 mg/dL 70-105 (BEAKER) (test code = 652) CALCIUM (BEAKER) 8.3 mg/dL 8.4-10.2 L (test code = 697) EGFR (BEAKER) 46 Interpretatio n of eGFR (test code = mL/min/1.73 values Stage De scription 1092) sq m Result G1 Kenyatta l or high >=90 G2 Mildly decreased 60-89 G3a Mildl y to moderately 45-5 9 G3b Moderately to s everely 30-44 G4 Severl y decreased 15-29 G5 Kidney failure <15Reported eGF R is based on the CKD-EPI 1 equation that d oes not use a race coefficientEsti mated GFR is not as accur ate as Creatinine Clarisa yaakov in predicting glom erular filtration rate . Estimated GFR is not appl icable for dialysis patien ts Health Policy Analyst ID - MMSURGICALLY OBTAINED CULTURE + GRAM [id number] 13:14:25 Test Item Value Reference Interpretation Comments Range CULTURE (BEAKER) METHICILLIN A 2+ Methicil petar (test code = 1095) RESISTANT resistant STAPHYLOCOCCUS Staphylococcu s AUREUS aureus Clindamycin (test R code = 10) Erythromycin (test R code = 4) Linezolid (test code S = 40) Nitrofurantoin (test S code = 23) Oxacillin (test code R = 14) Rifampin (test code = S 43) Tetracycline (test R code = 2) Trimethoprim + S Sulfamethoxazole (test code = 47) Vancomycin (test code S = 13) GRAM STAIN RESULT 1+ White blood (BEAKER) (test code = cells seen 1123) GRAM STAIN RESULT No organisms seen (BEAKER) (test code = 085254) RAD, ABDOMEN/KUB, 1 VIEW [id number] 09:25:00Reason for exam:->nauseaShould this be performed at the bedside?->Yes [facility]ES : 1990 Sex: FFINAL REPORT Abdomen dated December 02, 2022 Comment: Abdomen was examined in the supinefrontal position. Air is seen in the small and large bowel without dilatation to suggest mechanical obstruction or ileus. Large amount fecal material is seen in the large bowel and rectum suggestive ofconstipation or fecal impaction. No mass, pathological calcification, or free air is present. Impression: Constipation versus fecal impaction. Signed: Codi Simon Verified Date/Time: 12/02/2022 09:25:22 Reading Location: [address] Body Reading Room , CHEST, 1 VIEW, NON [id number] 08:34:00Reason for exam:->pulmonary congestionShould this be performed at the bedside?->Yes [facility] 1990 Sex: FFINAL REPORT Chest, one view HISTORY: Pulmonary congestion Comparison: 12/01/2022 Findings: Lungs: The lungs are clear. Heart: Cardiac silhouette is accentuated due to portable techniqueand low lung volumes. Pleura: No pleural effusion or pneumothorax. Bones: Unremarkable. Lines/tubes:Previous endotracheal tube has been removed. Nasogastric tube terminates within the stomach. Signed: [facility] Verified Date/Time: 12/02/2022 08:34:07 BASIC METABOLIC PANEL 2022-12-02 04:26:47 Test Item Value Reference Range Interpretation Comments SODIUM (BEAKER) 151 meq/L 136-145 H (test code = 381) POTASSIUM 3.5 meq/L 3.5-5.1 (BEAKER) (test code = 379) CHLORIDE (BEAKER) 124 meq/L 98-107 H (test code = 382) CO2 (BEAKER) 15 meq/L 22-29 L (test code = 355) BLOOD UREA 21 mg/dL 7-21 NITROGEN (BEAKER) (test code = 354) CREATININE 1.61 mg/dL 0.57-1.25 H (BEAKER) (test code = 358) GLUCOSE RANDOM 130 mg/dL 70-105 H (BEAKER) (test code = 652) CALCIUM (BEAKER) 8.4 mg/dL 8.4-10.2 (test code = 697) EGFR (BEAKER) 44 Interpretatio n of eGFR (test code = mL/min/1.73 values Stage De scription 1092) sq m Result G1 Kenyatta l or high >=90 G2 Mildly decreased 60-89 G3a Mildl y to moderately 45-5 9 G3b Moderately to s everely 30-44 G4 Severl y decreased 15-29 G5 Kidney failure <15Reported eGF R is based on the CKD-EPI 2020 equation that d oes not use a race coefficientEsti mated GFR is not as accur ate as Creatinine Clarisa yaakov in predicting glom erular filtration rate . Estimated GFR is not appl icable for dialysis patien ts Health Policy Analyst ID - [id number] 04:24:15 Test Item Value Reference Range Interpretation Comments MAGNESIUM (BEAKER) (test code = 2.1 mg/dL 1.6-2.6 627) Health Policy Analyst ID - [id number] 04:24:15 Test Item Value Reference Range Interpretation Comments PHOSPHORUS (BEAKER) (test code = 2.9 mg/dL 2.3-4.7 604) Health Policy Analyst ID - BSCBC (HEMOGRAM ONLY)2022-12-02 04:01:21 Test Item Value Reference Range Interpretation Comments WHITE BLOOD CELL COUNT (BEAKER) 19.8 K/ L 3.5-10.5 H (test code = 775) RED BLOOD CELL COUNT (BEAKER) 3.46 M/ L 3.93-5.22 L (test code = 761) HEMOGLOBIN (BEAKER) (test code = 9.7 GM/DL 11.2-15.7 L 410) HEMATOCRIT (BEAKER) (test code = 32.9 % 34.1-44.9 L 411) MEAN CORPUSCULAR VOLUME (BEAKER) 95 fL 79-95 (test code = 753) MEAN CORPUSCULAR HEMOGLOBIN 28.0 pg 25.6-32.2 (BEAKER) (test code = 751) MEAN CORPUSCULAR HEMOGLOBIN CONC 29.5 GM/DL 32.2-35.5 L (BEAKER) (test code = 752) RED CELL DISTRIBUTION WIDTH 16.4 % 11.7-14.4 H (BEAKER) (test code = 412) PLATELET COUNT (BEAKER) (test 380 K/CU MM 150-450 code = 756) MEAN PLATELET VOLUME (BEAKER) 10.9 fL 9.4-12.3 (test code = 754) NUCLEATED RED BLOOD CELLS 0 /100 WBC 0-0 (BEAKER) (test code = 413) BASIC METABOLIC [id number] 23:26:55 Test Item Value Reference Range Interpretation Comments SODIUM (BEAKER) 149 meq/L 136-145 H (test code = 381) POTASSIUM 3.9 meq/L 3.5-5.1 Specimen slight ly (BEAKER) (test hemolyzed code = 379) CHLORIDE (BEAKER) 121 meq/L 98-107 H (test code = 382) CO2 (BEAKER) 15 meq/L 22-29 L (test code = 355) BLOOD UREA 22 mg/dL 7-21 H NITROGEN (BEAKER) (test code = 354) CREATININE 1.59 mg/dL 0.57-1.25 H Specimen slight ly (BEAKER) (test hemolyzed code = 358) GLUCOSE RANDOM 109 mg/dL 70-105 H (BEAKER) (test code = 652) CALCIUM (BEAKER) 8.3 mg/dL 8.4-10.2 L (test code = 697) EGFR (BEAKER) 45 Interpretatio n of eGFR (test code = mL/min/1.73 values Stage De scription 1092) sq m Result G1 Kenyatta l or high >=90 G2 Mildly decreased 60-89 G3a Mild ly to moderately 45-5 9 G3b Moderately to s everely 30-44 G4 Severl y decreased 15-29 G5 Kidney failure <15Reported eGF R is based on the CKD-EPI 2020 equation that d oes not use a race coefficientEsti mated GFR is not as accur ate as Creatinine Clarisa nuno in predicting glom erular filtration rate . Estimated GFR is not appl icable for dialysis patien ts Health Policy Analyst ID - BSPOCT-GLUCOSE [id number] 23:15:17 Test Item Value Reference Range Interpretation Comments POC-GLUCOSE METER 116 mg/dL 70-110 H : [facility] (test code = [facility], 1538) 48585: Health Policy Analyst/Techni ulysses ID = [id number] for Ca bianca Joshryan BASIC METABOLIC [id number] 18:49:48 Test Item Value Reference Range Interpretation Comments SODIUM (BEAKER) 151 meq/L 136-145 H (test code = 381) POTASSIUM 3.8 meq/L 3.5-5.1 Specimen slight ly (BEAKER) (test hemolyzed code = 379) CHLORIDE (BEAKER) 125 meq/L 98-107 H (test code = 382) CO2 (BEAKER) 16 meq/L 22-29 L (test code = 355) BLOOD UREA 21 mg/dL 7-21 NITROGEN (BEAKER) (test code = 354) CREATININE 1.59 mg/dL 0.57-1.25 H Specimen slight ly (BEAKER) (test hemolyzed code = 358) GLUCOSE RANDOM 109 mg/dL 70-105 H (BEAKER) (test code = 652) CALCIUM (BEAKER) 8.5 mg/dL 8.4-10.2 (test code = 697) EGFR (BEAKER) 45 Interpretati on of eGFR (test code = mL/min/1.73 values Stage De scription 1092) sq m Result G1 Kenyatta l or high >=90 G2 Mildly decreased 60-89 G3a Mildl y to moderately 45- 59 G3b Moderately to s everely 30-44 G4 Severl y decreased 15-29 G5 Kidney failure <15Reported eGF R is based on the CKD-EPI 2020 equation that d oes not use a race coefficientEsti mated GFR is not as accur ate as Creatinine Clarisa nuno in predicting glom erular filtration rate . Estimated GFR is not appl icable for dialysis patien ts Health Policy Analyst ID - BSOperator ID - BSPOCT-GLUCOSE [id number] 18:01:14 Test Item Value Reference Range Interpretation Comments POC-GLUCOSE METER 107 mg/dL 70-110 : TESTED A T [facility] 6720 (Medefy) (test code = [facility], 153) 94403: Health Policy Analyst/Techni ulysses ID = [id number] for Krystal Scott POCT-GLUCOSE [id number] 12:37:57 Test Item Value Reference Range Interpretation Comments POC-GLUCOSE METER 98 mg/dL 70-110 : TESTED A T [facility] 6720 (Medefy) (test code = [facility], 153) 27723: Health Policy Analyst/Techni ulysses ID = [id number] for Romero inAria RAD, CHEST, 1 VIEW, NON [id number] 12:00:00Reason for exam:- >IntubatedShould this be performed at the bedside?->Yes [facility] 1990 Sex: FFINAL REPORT CLINICAL HISTORY: Intubated TECHNIQUE: 1 view of the chest. COMPARISON:11/30/2022 IMPRESSION: The ETT projects near the titi. The NGT remains below the diaphragm. Ventricular shunt tubing again projects over the left hemithorax. Low lung volumes are again seen with bilateral airspace opacities. Subpulmonic pleural effusions cannot be excluded. The cardiomediastinal silhouette is magnified by technique. Signed: Sam Key MDReport Verified Date/Time: 12/01/2022 12:00:02 Reading Location: [address] Reading Room BLOOD GAS, [id number] 08:15:56 Test Item Value Reference Range Interpretation Comments PH ARTERIAL (BEAKER) (test code 7.36 7.35-7.45 = 383) PCO2 ARTERIAL (BEAKER) (test 25 mm Hg 35-45 L code = 384) PO2 ARTERIAL (BEAKER) (test code 108 mm Hg 80-90 H = 385) O2 SATURATION ARTERIAL (BEAKER) 97.9 % 96.0-97.0 H (test code = 386) HCO3 ARTERIAL (BEAKER) (test 14 mmol/L 21-29 L code = 388) BASE EXCESS ARTERIAL (BEAKER) -10.0 mmol/L -2.0-3.0 L (test code = 387) PATIENT TEMPERATURE (BEAKER) 37.0 (test code = 1818) FIO2 (BEAKER) (test code = 1819) 40.0 BASIC METABOLIC [id number] 04:31:29 Test Item Value Reference Range Interpretation Comments SODIUM (BEAKER) 148 meq/L 136-145 H (test code = 381) POTASSIUM 3.8 meq/L 3.5-5.1 (BEAKER) (test code = 379) CHLORIDE (BEAKER) 124 meq/L 98-107 H (test code = 382) CO2 (BEAKER) 12 meq/L 22-29 L (test code = 355) BLOOD UREA 23 mg/dL 7-21 H NITROGEN (BEAKER) (test code = 354) CREATININE 1.62 mg/dL 0.57-1.25 H (BEAKER) (test code = 358) GLUCOSE RANDOM 138 mg/dL 70-105 H (BEAKER) (test code = 652) CALCIUM (BEAKER) 8.4 mg/dL 8.4-10.2 (test code = 697) EGFR (BEAKER) 44 Interpretatio n of eGFR (test code = mL/min/1.73 values Stage De scription 1092) sq m Result G1 Kenyatta l or high >=90 G2 Mildly decreased 60-89 G3a Mildl y to moderately 45-5 9 G3b Moderately to s everely 30-44 G4 Severl y decreased 15-29 G5 Kidney failure <15Reported eGF R is based on the CKD-EPI 2020 equation that d oes not use a race coefficientEsti mated GFR is not as accur ate as Creatinine Clarisa yaakov in predicting glom erular filtration rate . Estimated GFR is not appl icable for dialysis patien ts Health Policy Analyst ID - [id number] 04:29:24 Test Item Value Reference Range Interpretation Comments PHOSPHORUS (BEAKER) (test code = 2.5 mg/dL 2.3-4.7 604) Health Policy Analyst ID - [id number] 04:29:23 Test Item Value Reference Range Interpretation Comments MAGNESIUM (BEAKER) (test code = 2.1 mg/dL 1.6-2.6 627) Health Policy Analyst ID - MMCBC (HEMOGRAM ONLY)2022-12-01 03:44:48 Test Item Value Reference Range Interpretation Comments WHITE BLOOD CELL COUNT (BEAKER) 19.5 K/ L 3.5-10.5 H (test code = 775) RED BLOOD CELL COUNT (BEAKER) 3.55 M/ L 3.93-5.22 L (test code = 761) HEMOGLOBIN (BEAKER) (test code = 9.8 GM/DL 11.2-15.7 L 410) HEMATOCRIT (BEAKER) (test code = 33.4 % 34.1-44.9 L 411) MEAN CORPUSCULAR VOLUME (BEAKER) 94 fL 79-95 (test code = 753) MEAN CORPUSCULAR HEMOGLOBIN 27.6 pg 25.6-32.2 (BEAKER) (test code = 751) MEAN CORPUSCULAR HEMOGLOBIN CONC 29.3 GM/DL 32.2-35.5 L (BEAKER) (test code = 752) RED CELL DISTRIBUTION WIDTH 15.5 % 11.7-14.4 H (BEAKER) (test code = 412) PLATELET COUNT (BEAKER) (test 323 K/CU MM 150-450 code = 756) MEAN PLATELET VOLUME (BEAKER) 10.7 fL 9.4-12.3 (test code = 754) NUCLEATED RED BLOOD CELLS 0 /100 WBC 0-0 (BEAKER) (test code = 413) POCT-GLUCOSE [id number] 03:36:33 Test Item Value Reference Range Interpretation Comments POC-GLUCOSE METER 121 mg/dL 70-110 H : TESTED A T [facility] 6720 (BEAKER) (test code = DESEAN Mohamud [facility], 1538) [address]: Health Policy Analyst/Techni ulysses ID = [id number] for Lisette biancaEda BLOOD GAS, [id number] 03:26:46 Test Item Value Reference Range Interpretation Comments PH ARTERIAL (BEAKER) (test code 7.36 7.35-7.45 = 383) PCO2 ARTERIAL (BEAKER) (test 23 mm Hg 35-45 L code = 384) PO2 ARTERIAL (BEAKER) (test code 143 mm Hg 80-90 H = 385) O2 SATURATION ARTERIAL (BEAKER) 98.9 % 96.0-97.0 H (test code = 386) HCO3 ARTERIAL (BEAKER) (test 13 mmol/L 21-29 L code = 388) BASE EXCESS ARTERIAL (BEAKER) -10.9 mmol/L -2.0-3.0 L (test code = 387) PATIENT TEMPERATURE (BEAKER) 36.1 (test code = 1818) FIO2 (BEAKER) (test code = 1819) 50.0 BLOOD GAS, [id number] 23:26:47 Test Item Value Reference Range Interpretation Comments PH ARTERIAL (BEAKER) (test code 7.31 7.35-7.45 L = 383) PCO2 ARTERIAL (BEAKER) (test 25 mm Hg 35-45 L code = 384) PO2 ARTERIAL (BEAKER) (test code 167 mm Hg 80-90 H = 385) O2 SATURATION ARTERIAL (BEAKER) 99.0 % 96.0-97.0 H (test code = 386) HCO3 ARTERIAL (BEAKER) (test 12 mmol/L 21-29 L code = 388) BASE EXCESS ARTERIAL (BEAKER) -12.7 mmol/L -2.0-3.0 L (test code = 387) PATIENT TEMPERATURE (BEAKER) 37.0 (test code = 1818) FIO2 (BEAKER) (test code = 1819) 21.0 RAD, ABDOMEN/KUB, 1 VIEW [id number] 23:06:00Reason for exam:->NG Tube placementShould this be performed at the bedside?->Yes [facility] 1990 Sex: FFINAL REPORT TECHNIQUE: RAD, ABDOMEN/KUB, 1 VIEW AP INDICATION: NG Tube placement. COMPARISON: 11/18/2017 FINDINGS:Esophagogastric tube tip projecting over the body the stomach with sidehole at the level of the GE junction. Moderate gaseous distention of the stomach. Upper abdomen is incompletely included on this examination as is the lower pelvis. Acro supine IMPRESSION: 1. Esophagogastric tube tip projects over the body the stomach with side hole below the GE junction. Moderate gaseous distention of the stomach. Signed: Tom Bauman MDReport Verified Date/Time: 11/30/2022 23:06:46 RAD, CHEST, 1 VIEW, NON [id number] 23:05:00Reason for exam:->ETT retracted. Please, re-evaluate positionShould this be performed at the bedside?->Yes [facility] 1990 Sex: FFINAL REPORT TECHNIQUE: Frontal view of the chest. INDICATION: ETT retracted. Please, re-evaluate position. COMPARISON: 11/30/2022 at 7:43 PM. FINDINGS: LINES/TUBES: Endotracheal tube tip projected approximately 9 mm above the level of the titi. Esophagogastric tube extends below the diaphragm with tip projecting over the body the stomach. HEART AND MEDIASTINUM: Cardiomediastinal contour is stable. LUNGS: Persistent very low lung volumes. Mild vascular congestion. PLEURA: No pneumothorax. No significant pleural effusion. SOFT TISSUES AND BONES: Unremarkable. IMPRESSION: 1. Endotracheal tube tip projecting approximately 9 mm above the level of the titi.2. Very low lung volumes persists. Mild pulmonary vascular congestion. Signed: Tom Bauman MDReport Verified Date/Time:11/30/2022 23:05:52 RAD, CHEST, 1 VIEW, NON [id number] 20:27:00Post-intubationReason for exam:->intubatedShould this be performed at the bedside?->Yes [facility] 1990 Sex: FFINAL REPORT AP view of the chest dated 11/30/2022 CLINICAL INFORMATION: intubated Comment: Heart is normal in size. Pulmonary vasculature is unremarkable. There is trace left pleural effusion and left lower lobe subsegmental atelectasis. The rest of the lungs are clear. Endotracheal tube is present with tip seen at the region of the titi. Signed: [facility] Verified Date/Time: 11/30/2022 20:27:43 LACTIC ACID, [id number] 20:26:31 Test Item Value Reference Range Interpretation Comments LACTATE BLOOD ARTERIAL (2) 1.0 mmol/L 0.5-2.2 (BEAKER) (test code = 2874) Health Policy Analyst ID - BSBLOOD GAS, [id number] 20:21:53 Test Item Value Reference Range Interpretation Comments PH ARTERIAL (BEAKER) (test code 7.31 7.35-7.45 L = 383) PCO2 ARTERIAL (BEAKER) (test 26 mm Hg 35-45 L code = 384) PO2 ARTERIAL (BEAKER) (test code 158 mm Hg 80-90 H = 385) O2 SATURATION ARTERIAL (BEAKER) 98.9 % 96.0-97.0 H (test code = 386) HCO3 ARTERIAL (BEAKER) (test 13 mmol/L 21-29 L code = 388) BASE EXCESS ARTERIAL (BEAKER) -11.9 mmol/L -2.0-3.0 L (test code = 387) PATIENT TEMPERATURE (BEAKER) 36.5 (test code = 1818) FIO2 (BEAKER) (test code = 1819) 50.0 BASIC METABOLIC [id number] 20:14:57 Test Item Value Reference Range Interpretation Comments SODIUM (BEAKER) 146 meq/L 136-145 H (test code = 381) POTASSIUM 3.6 meq/L 3.5-5.1 (BEAKER) (test code = 379) CHLORIDE (BEAKER) 123 meq/L 98-107 H (test code = 382) CO2 (BEAKER) 13 meq/L 22-29 L (test code = 355) BLOOD UREA 25 mg/dL 7-21 H NITROGEN (BEAKER) (test code = 354) CREATININE 1.68 mg/dL 0.57-1.25 H (BEAKER) (test code = 358) GLUCOSE RANDOM 133 mg/dL 70-105 H (BEAKER) (test code = 652) CALCIUM (BEAKER) 7.9 mg/dL 8.4-10.2 L (test code = 697) EGFR (BEAKER) 42 Interpretatio n of eGFR (test code = mL/min/1.73 values Stage De scription 1092) sq m Result G1 Kenyatta l or high >=90 G2 Mildly decreased 60-89 G3a Mildl y to moderately 45- 59 G3b Moderately to s everely 30-44 G4 Severl y decreased 15-29 G5 Kidney failure <15Reported eGF R is based on the CKD-EPI 1 equation that d oes not use a race coefficientEsti mated GFR is not as accur ate as Creatinine Clarisa nuno in predicting glom erular filtration rate . Estimated GFR is not appl icable for dialysis patien ts Health Policy Analyst ID - [id number] 20:09:51 Test Item Value Reference Range Interpretation Comments PHOSPHORUS (BEAKER) (test code = 2.8 mg/dL 2.3-4.7 604) Health Policy Analyst ID - [id number] 20:09:50 Test Item Value Reference Range Interpretation Comments MAGNESIUM (BEAKER) (test code = 2.0 mg/dL 1.6-2.6 627) Health Policy Analyst ID - BSCBC (HEMOGRAM ONLY)2022-11-30 19:51:09 Test Item Value Reference Range Interpretation Comments WHITE BLOOD CELL COUNT (BEAKER) 20.0 K/ L 3.5-10.5 H (test code = 775) RED BLOOD CELL COUNT (BEAKER) 3.61 M/ L 3.93-5.22 L (test code = 761) HEMOGLOBIN (BEAKER) (test code = 9.9 GM/DL 11.2-15.7 L 410) HEMATOCRIT (BEAKER) (test code = 32.9 % 34.1-44.9 L 411) MEAN CORPUSCULAR VOLUME (BEAKER) 91 fL 79-95 (test code = 753) MEAN CORPUSCULAR HEMOGLOBIN 27.4 pg 25.6-32.2 (BEAKER) (test code = 751) MEAN CORPUSCULAR HEMOGLOBIN CONC 30.1 GM/DL 32.2-35.5 L (BEAKER) (test code = 752) RED CELL DISTRIBUTION WIDTH 15.6 % 11.7-14.4 H (BEAKER) (test code = 412) PLATELET COUNT (BEAKER) (test 348 K/CU MM 150-450 code = 756) MEAN PLATELET VOLUME (BEAKER) 10.0 fL 9.4-12.3 (test code = 754) NUCLEATED RED BLOOD CELLS 0 /100 WBC 0-0 (BEAKER) (test code = 413) BLOOD GAS, [id number] 18:55:05 Test Item Value Reference Range Interpretation Comments PH ARTERIAL (BEAKER) (test code 7.19 7.35-7.45 LL = 383) PCO2 ARTERIAL (BEAKER) (test 30 mm Hg 35-45 L code = 384) PO2 ARTERIAL (BEAKER) (test code 102 mm Hg 80-90 H = 385) O2 SATURATION ARTERIAL (BEAKER) 96.3 % 96.0-97.0 (test code = 386) HCO3 ARTERIAL (BEAKER) (test 11 mmol/L 21-29 L code = 388) BASE EXCESS ARTERIAL (BEAKER) -15.9 mmol/L -2.0-3.0 L (test code = 387) PATIENT TEMPERATURE (BEAKER) 37.0 (test code = 1818) FIO2 (BEAKER) (test code = 1819) 21.0 CHLORIDE, RANDOM [id number] 15:41:32 Test Item Value Reference Range Interpretation Comments CHLORIDE URINE (BEAKER) (test code = 40 meq/L 20-330 682) Reference Range: No NormalsOperator ID - BSPOTASSIUM, RANDOM [id number] 15:41:32 Test Item Value Reference Range Interpretation Comments POTASSIUM URINE (BEAKER) (test 13.3 meq/L code = 195) Reference Range: No NormalsOperator ID - BSGLUCOSE, RANDOM [id number] 13:43:57 Test Item Value Reference Range Interpretation Comments GLUCOSE URINE (BEAKER) (test code = < mg/dL 426) Reference Range: No NormalsOperator ID - MITCHOSMOLALITY, [id number] 13:38:22 Test Item Value Reference Range Interpretation Comments OSMOLALITY URINE 200 mOsm/kg See_Comment [Automated message] (BEAKER) (test code = The sy stem which 614) generated this result transmitted ref erence range: 50-1,200 mOsm/kg. The reference range was not used to int erpret this result as normal/abnormal . UREA NITROGEN, RANDOM [id number] 13:31:39 Test Item Value Reference Range Interpretation Comments UREA NITROGEN URINE (BEAKER) (test 158 mg/dL code = 538) Reference Range: No NormalsOperator ID - MITCHCREATININE, RANDOM [id number] 13:31:38 Test Item Value Reference Range Interpretation Comments CREATININE URINE (BEAKER) (test 17.9 mg/dL code = 375) Reference Range: No NormalsOperator ID - MITCHSODIUM, RANDOM [id number] 13:31:38 Test Item Value Reference Range Interpretation Comments SODIUM URINE (BEAKER) (test code = 40 meq/L 243) Reference Range: No NormalsOperator ID - MITCHURINALYSIS W/ REFLEX URINE CULTURE 2022-11-30 13:30:16 Test Item Value Reference Range Interpretation Comments COLOR (BEAKER) (test code = 470) Yellow CLARITY (BEAKER) (test code = 469) Cloudy SPECIFIC GRAVITY UA (BEAKER) (test 1.015 1.001-1.035 code = 468) PH UA (BEAKER) (test code = 467) 8.5 5.0-8.0 H PROTEIN UA (BEAKER) (test code = 100 mg/dL negative A 464) GLUCOSE UA (BEAKER) (test code = Negative Negative 365) KETONES UA (BEAKER) (test code = Negative negative 371) BILIRUBIN UA (BEAKER) (test code = Negative Negative 462) BLOOD UA (BEAKER) (test code = 461) Moderate Negative A NITRITE UA (BEAKER) (test code = Negative Negative 465) LEUKOCYTE ESTERASE UA (BEAKER) Large Negative A (test code = 466) UROBILINOGEN UA (BEAKER) (test code 0.2 = 463) RBC UA (BEAKER) (test code = 519) 34 /HPF WBC UA (BEAKER) (test code = 520) > /HPF MUCUS (BEAKER) (test code = 1574) Many SQUAMOUS EPITHELIAL (BEAKER) (test 4 /HPF code = 516) CASTS (BEAKER) (test code = 1579) 75 /LPF YEAST (BEAKER) (test code = 1585) Many SOURCE(BEAKER) (test code = 2795) Health Policy Analyst ID - techPREGNANCY SCREEN, [id number] 13:12:17 Test Item Value Reference Range Interpretation Comments TEST URINE (BEAKER) (test Negative Negative code = 583) BASIC METABOLIC [id number] 12:09:53 Test Item Value Reference Range Interpretation Comments SODIUM (BEAKER) 142 meq/L 136-145 (test code = 381) POTASSIUM 3.5 meq/L 3.5-5.1 (BEAKER) (test code = 379) CHLORIDE (BEAKER) 118 meq/L 98-107 H (test code = 382) CO2 (BEAKER) 15 meq/L 22-29 L (test code = 355) BLOOD UREA 28 mg/dL 7-21 H NITROGEN (BEAKER) (test code = 354) CREATININE 1.85 mg/dL 0.57-1.25 H (BEAKER) (test code = 358) GLUCOSE RANDOM 73 mg/dL 70-105 (BEAKER) (test code = 652) CALCIUM (BEAKER) 8.5 mg/dL 8.4-10.2 (test code = 697) EGFR (BEAKER) 37 Interpretatio n of eGFR (test code = mL/min/1.73 values Stage De scription 1092) sq m Result G1 Kenyatta l or high >=90 G2 Mildly decreased 60-89 G3a Mildl y to moderately 45-5 9 G3b Moderately to s everely 30-44 G4 Severl y decreased 15-29 G5 Kidney failure <15Reported eGF R is based on the CKD-EPI 2020 equation that d oes not use a race coefficientEsti mated GFR is not as accur ate as Creatinine Clarisa yaakov in predicting glom erular filtration rate . Estimated GFR is not appl icable for dialysis patien ts Health Policy Analyst ID - [id number] 12:09:53 Test Item Value Reference Range Interpretation Comments MAGNESIUM (BEAKER) (test code = 2.0 mg/dL 1.6-2.6 627) Health Policy Analyst ID - [id number] 12:09:53 Test Item Value Reference Range Interpretation Comments PHOSPHORUS (BEAKER) (test code = 2.5 mg/dL 2.3-4.7 604) Health Policy Analyst ID - MARIOLACTIC ACID, [id number] 12:04:49 Test Item Value Reference Range Interpretation Comments LACTATE BLOOD VENOUS (2) (BEAKER) 0.59 mmol/L 0.50-2.20 (test code = 2872) Health Policy Analyst ID - MARIOCBC W/PLT COUNT & AUTO [id number] 11:29:32 Test Item Value Reference Range Interpretation Comments WHITE BLOOD CELL COUNT (BEAKER) 16.0 K/ L 3.5-10.5 H (test code = 775) RED BLOOD CELL COUNT (BEAKER) 3.74 M/ L 3.93-5.22 L (test code = 761) HEMOGLOBIN (BEAKER) (test code = 10.5 GM/DL 11.2-15.7 L 410) HEMATOCRIT (BEAKER) (test code = 34.7 % 34.1-44.9 411) MEAN CORPUSCULAR VOLUME (BEAKER) 93 fL 79-95 (test code = 753) MEAN CORPUSCULAR HEMOGLOBIN 28.1 pg 25.6-32.2 (BEAKER) (test code = 751) MEAN CORPUSCULAR HEMOGLOBIN CONC 30.3 GM/DL 32.2-35.5 L (BEAKER) (test code = 752) RED CELL DISTRIBUTION WIDTH 15.6 % 11.7-14.4 H (BEAKER) (test code = 412) PLATELET COUNT (BEAKER) (test 376 K/CU MM 150-450 code = 756) MEAN PLATELET VOLUME (BEAKER) 10.2 fL 9.4-12.3 (test code = 754) NUCLEATED RED BLOOD CELLS 0 /100 WBC 0-0 (BEAKER) (test code = 413) NEUTROPHILS RELATIVE PERCENT 87 % (BEAKER) (test code = 429) LYMPHOCYTES RELATIVE PERCENT 7 % (BEAKER) (test code = 430) MONOCYTES RELATIVE PERCENT 5 % (BEAKER) (test code = 431) EOSINOPHILS RELATIVE PERCENT 1 % (BEAKER) (test code = 432) BASOPHILS RELATIVE PERCENT 0 % (BEAKER) (test code = 437) NEUTROPHILS ABSOLUTE COUNT 13.86 K/ L 1.56-6.13 H (BEAKER) (test code = 670) LYMPHOCYTES ABSOLUTE COUNT 1.07 K/ L 1.18-3.74 L (BEAKER) (test code = 414) MONOCYTES ABSOLUTE COUNT (BEAKER) 0.74 K/ L 0.24-0.36 H (test code = 415) EOSINOPHILS ABSOLUTE COUNT 0.15 K/ L 0.04-0.36 (BEAKER) (test code = 416) BASOPHILS ABSOLUTE COUNT (BEAKER) 0.02 K/ L 0.01-0.08 (test code = 417) IMMATURE GRANULOCYTES-RELATIVE 0.70 % 0.00-1.00 PERCENT (BEAKER) (test code = 2801) BASIC METABOLIC PANEL (NA, K, CL, CO2, GLUCOSE, BUN, CREATININE, CA)2022-05-17 04:09:37 Test Item Value Reference Range Interpretation Comments NA (test code = 143 mmol/L 135-145 9640373309) K (test code = 3.9 mmol/L 3.5-5 6431554217) CL (test code = 113 mmol/L 98-108 H 4778994562) CO2 TOTAL (test code = 21 mmol/L 23-31 L 2747666450) AGAP (test code = 2-16 8977147967) BUN (test code = 32 mg/dL 7-23 H 7660810959) GLUCOSE (test code = 105 mg/dL 70-110 2788480829) CREATININE (test code = 1.74 mg/dL 0.5-1.04 H 5457113556) CALCIUM (test code = 8.7 mg/dL 8.6-10.6 2661865150) eGFR (test code = mL/min/1.73m2 0299294263) DEO (test code = DEO) Association of Glomerular Filtration Rate (GFR) and Staging of Kidney Disease* + --+ --+ ------+| GFR (mL/min/1.73 m2) ?| With Kidney Damage ?| ?Without Kidney Damage+ --------+ --------+ +| ?>90 ?| ?Stage one ?| ? Normal ?+ ---+ ---+ -------+| ?60-89 ?| ?Stage two ?| ? Decreased GFR ? + --+ --+ ------+| ?30-59 ?| ?Stage three ?| ? Stage three ? + --+ --+ ------+| ?15-29 ?| ?Stage four ? | ? Stage four ?+ ---+ ---+ -------+| ?<15 (or dialysis) ? ?| ?Stage five ? | ? Stage five ?+ ---+ ---+ -------+ *Each stage assumes the associated GFR [...] or abnormalities in imaging tests). Lab Interpretation Abnormal (test code = 63872-4) [facility] [id number] 04:08:46 Test Item Value Reference Range Interpretation Comments PREG SERUM (test code Negative = 3189304801) DEO (test code = DEO) Less than 10 IU/L. ?If low titer or ectopic is suspected, resubmit specimen in 48-72 hours. [facility] WITH [id number] 03:57:18 Test Item Value Reference Range Interpretation Comments WBC (test code = See_Comment H [Automated 6690-2) message] The sy stem which generated this [...] RDW-SD (test code = 48.0 fL 39-49.9 57853-2) RDW-CV (test code = 15.0 % 12-15.5 788-0) PLT (test code = See_Comment H [Automated 777-3) message] The sy stem which generated this result transmitted reference range : 166 - 358 10*3/ ?L. The reference r martin was not used to interpret this result as normal/abnormal . MPV (test code = 10.1 fL 9.5-12.9 77221-8) NRBC/100 WBC (test See_Comment [Automat ed code = 5578369278) message] The system which generated this result transmitted reference range : 0.0 - 10.0 /100 WBCs. The refer ence range was not u sed to interpret th is result as normal/abnormal . NRBC x10^3 (test code See_Comment [Auto mated = 1784611914) message] The s ystem which generated this result transmitted reference range : 10*3/?L. The reference range was not used to interpret this result as normal/abnormal . GRAN MAT (NEUT) % 72.3 % (test code = 770-8) IMM GRAN % (test code 0.60 % = 6731916602) LYMPH % (test code = 17.9 % 736-9) MONO % (test code = 6.0 % 5905-5) EOS % (test code = 3.0 % 713-8) BASO % (test code = 0.2 % 706-2) GRAN MAT x10^3(ANC) 9.08 10*3/uL 1.88-7.09 H (test code = 0629250348) IMM GRAN x10^3 (test 0.07 10*3/uL 0-0.06 H code = 5840041770) LYMPH x10^3 (test code 2.25 10*3/uL 1.32-3.29 = 731-0) MONO x10^3 (test code 0.75 10*3/uL 0.33-0.92 = 742-7) EOS x10^3 (test code = 0.37 10*3/uL 0.03-0.39 711-2) BASO x10^3 (test code 0.01-0.07 = 704-7) Lab Interpretation Abnormal (test code = 37108-9) [facility]T [id number] 13:00:00Reason for Exam:->G91.9FINAL REPORT Exam: Shunt series History: Evaluate shunt Comparison: None. Findings: A left RIGGING WORKER shunt catheter present which extends down the left neck, anterior chest and enters theabdomen with distal tip curled in the left lower quadrant. No discontinuity of the radiopaque portion. No mass effect within the abdomen. Additional foci of prior shunt tubing. Impression: Intact radiopaque portions of the RIGGING WORKER shunt catheter. Signed: Sam Shoemaker MDRort Verified Date/Time: 08/20/2018 13:00:05 Reading Location: [facility] Reading Room [address] [place] [address] CT, BRAIN, WITHOUT IV [id number] 10:53:00 ORDER/STUDY IS TO BE PERFORMED AT [facility].[id number]/STUDY IS TO BE PERFORMED AT [facility].[id number]/[id number]->[facility] Hospital[facility] Examination: CT, BRAIN, WITHOUT IV [...] the cerebellartonsils are not included within the [id number]-[id number]-iauf this finding remains unchanged compared to prior head CT performed November 08, 2017. The posterior fossa remains small/underdeveloped. Incidental findings: None. Impression: 1.No new intracranial abnormalities when compared to prior head CT performed November 08, 2017. 2.Unchanged frontal and left parietal ventriculostomy catheters. 3.Unchanged ventriculomegaly with findings related to Chiari malformation, as detailed above. Signed: Olya Aranda MDRepozarks [facility] Verified Date/Time: 08/20/2018 10:53:56 [id number] 13:05:00 Test Item Value Reference Range Interpretation Comments MAGNESIUM (BEAKER) (test code = 2.0 mg/dL 1.6-2.6 627) BASIC METABOLIC [id number] 12:48:00 Test Item Value Reference Range Interpretation [...] 697) EGFR (BEAKER) (test 40 mL/min/1.73 ESTIMA DAVID GFR IS code = 1092) sq m NOT ACCURATE CREATININE CLEARANCE IN PREDICTING GLOMERULAR FILTRATION RATE . ESTIMATED GFR I S NOT APPLICABLE FOR DIALYSIS PATIEN TS. LIPID [id number] 12:48:00 Test Item Value Reference Range Interpretation [...] 130-159 High 160-189 Very High >=190HEPATIC FUNCTION [id number] 12:48:00 Test Item Value Reference Range Interpretation [...] code = 54 U/L 6-55 347) CALCIUM, [id number] 08:06:00 Test Item Value Reference Range Interpretation Comments CALCIUM IONIZED (BEAKER) (test 1.06 mmol/L 1.12-1.27 L code = 698) PH, BLOOD (BEAKER) (test code = 7.21 1810) PROTHROMBIN [id number] 06:17:00 Test Item Value Reference Range Interpretation Comments PROTIME (BEAKER) (test code = 15.5 seconds 11.7-14.7 H 759) INR (BEAKER) (test code = 370) 1.2 <=5.9 RECOMMENDED COUMADIN/WARFARIN INR THERAPY RANGESSTANDARD DOSE: 2.0 - 3.0 Includes: PROPHYLAXIS for venous thrombosis, systemic embolization; TREATMENT for venous thrombosis and/or pulmonary embolus.HIGH RISK: Target INR is 2.5-3.5 for patients with mechanical heart valves.T4, [id number] 17:02:00 Test Item Value Reference Range Interpretation Comments FREE T4 (BEAKER) (test code = 655) 1.27 ng/dL 0.70-1.48 [id number] 12:17:00 Test Item Value Reference Range Interpretation Comments PREALBUMIN (BEAKER) (test code = 19 mg/dL 14-45 586) [id number] 11:57:00 Test Item Value Reference Range Interpretation Comments MAGNESIUM (BEAKER) (test code = 2.0 mg/dL 1.6-2.6 627) VITAMIN D, [id number] 11:30:00 Test Item Value Reference Range Interpretation Comments VITAMIN D 25-OH (BEAKER) (test 10.7 ng/mL 6.6-49.9 code = 2764) Effective 06/13/2017: Reference Range ChangeNew: 6.6-49.9 ng/mL Previous: 13.0- 47.8 ng/mLRecommendedVitamin D Target Range: 30.0-40.0 ng/mLVITAMIN B12 AND [id number] 11:30:00 Test Item Value Reference Range Interpretation Comments VITAMIN B12 (BEAKER) (test code = 235 pg/mL 213-865 774) FOLATE (BEAKER) (test code = 362) 6.6 ng/mL >=7.0 L TSH/FREE T4 IF [id number] 11:30:00 Test Item Value Reference Range Interpretation Comments THYROID STIMULATING HORMONE 5.74 uIU/mL 0.35-4.94 H (BEAKER) (test code = 772) LIPID [id number] 10:51:00 Test Item Value Reference Range Interpretation [...] 130-159 High 160-189 Very High >=190HEPATIC FUNCTION [id number] 10:51:00 Test Item Value Reference Range Interpretation [...] 81 U/L 6-55 H 347) COMPREHENSIVE METABOLIC [id number] 10:51:00 Test Item Value Reference Range Interpretation [...] 347) EGFR (BEAKER) (test 44 mL/min/1.73 ESTIMA DAVID GFR IS code = 1092) sq m NOT ACCURATE CREATININE CLEARANCE IN PREDICTING GLOMERULAR FILTRATION RATE . ESTIMATED GFR I S NOT APPLICABLE FOR DIALYSIS PATIEN TS. [id number] 10:51:00 Test Item Value Reference Range Interpretation Comments LIPASE (BEAKER) (test code = 749) 12 U/L 8-78 URINE [id number] 09:46:00 Test Item Value Reference Range Interpretation Comments CULTURE (BEAKER) (test code = 1095) No growth CLOSTRIDIUM DIFFICILE TOXIN [id number] 09:04:00 Test Item Value Reference Range Interpretation [...] of a positive result is not recommended.CALCIUM, [id number] 07:10:00 Test Item Value Reference Range Interpretation Comments CALCIUM IONIZED (BEAKER) (test 1.14 mmol/L 1.12-1.27 code = 698) PH, BLOOD (BEAKER) (test code = 7.22 1810) CALCIUM, [id number] 06:43:00 Test Item Value Reference Range Interpretation [...] 0-0 (BEAKER) (test code = 413) PROTHROMBIN [id number] 06:20:00 Test Item Value Reference Range Interpretation Comments PROTIME (BEAKER) (test code = 15.7 seconds 11.7-14.7 H 759) INR (BEAKER) (test code = 370) 1.2 <=5.9 RECOMMENDED COUMADIN/WARFARIN INR THERAPY RANGESSTANDARD DOSE: 2.0 - 3.0 Includes: PROPHYLAXIS for venous thrombosis, systemic embolization; TREATMENT for venous thrombosis and/or pulmonary embolus.HIGH RISK: Target INR is 2.5-3.5 for patients with mechanical heart valves.RAD, ABDOMEN/KUB, 1 VIEW [id number] 08:39:00Reason for exam:->abdominal distension'Should this be performed [...] MDReport Verified Date/Time: 11/18/2017 08:39:46 Reading Location: [address] Body Reading Room IUM, [id number] 07:00:00 Test Item Value Reference Range Interpretation Comments CALCIUM IONIZED (BEAKER) (test 1.12 mmol/L 1.12-1.27 code = 698) PH, BLOOD (BEAKER) (test code = 7.18 1810) CBC W/PLT COUNT & AUTO [id number] 06:37:00 Test Item Value Reference Range Interpretation [...] 0-1 PERCENT (BEAKER) (test code = 2801) [id number] 05:50:00 Test Item Value Reference Range Interpretation Comments MAGNESIUM (BEAKER) (test code = 2.1 mg/dL 1.6-2.6 627) BASIC METABOLIC [id number] 05:50:00 Test Item Value Reference Range Interpretation [...] 697) EGFR (BEAKER) (test 42 mL/min/1.73 ESTIMA DAVID GFR IS code = 1092) sq m NOT ACCURATE CREATININE CLEARANCE IN PREDICTING GLOMERULAR FILTRATION RATE . ESTIMATED GFR I S NOT APPLICABLE FOR DIALYSIS PATIEN TS. LIPID [id number] 05:50:00 Test Item Value Reference Range Interpretation [...] 130-159 High 160-189 Very High >=190HEPATIC FUNCTION [id number] 05:50:00 Test Item Value Reference Range Interpretation [...] = 107 U/L 6-55 H 347) PROTHROMBIN [id number] 05:22:00 Test Item Value Reference Range Interpretation Comments PROTIME (BEAKER) (test code = 17.0 seconds 11.7-14.7 H 759) INR (BEAKER) (test code = 370) 1.4 <=5.9 RECOMMENDED COUMADIN/WARFARIN INR THERAPY RANGESSTANDARD DOSE: 2.0 - 3.0 Includes: PROPHYLAXIS for venous thrombosis, systemic embolization; TREATMENT for venous thrombosis and/or pulmonary embolus.HIGH RISK: Target INR is 2.5-3.5 for patients with mechanical heart valves.U/S, ABDOMINAL, [id number] 23:11:00Reason for exam:->ASCITESFINAL REPORT Ultrasound of the [...] Lizamaeport Verified Date/Time: 11/17/2017 23:11:49 Reading Location: [address] Reading Room URINE [id number] 10:40:00 Test Item Value Reference Range Interpretation [...] speciesof a second type >100,000 col/mL skin [id number] 07:47:00 Test Item Value Reference Range Interpretation Comments PHOSPHORUS (BEAKER) (test code = 3.4 mg/dL 2.3-4.7 604) [id number] 07:47:00 Test Item Value Reference Range Interpretation Comments MAGNESIUM (BEAKER) (test code = 2.2 mg/dL 1.6-2.6 627) BASIC METABOLIC [id number] 07:47:00 Test Item Value Reference Range Interpretation [...] 697) EGFR (BEAKER) (test 45 mL/min/1.73 ESTIMA DAVID GFR IS code = 1092) sq m NOT ACCURATE CREATININE CLEARANCE IN PREDICTING GLOMERULAR FILTRATION RATE . ESTIMATED GFR I S NOT APPLICABLE FOR DIALYSIS PATIEN TS. CBC W/PLT COUNT & AUTO [id number] 06:28:00 Test Item Value Reference Range Interpretation [...] (BEAKER) (test code = 2801) RAD, SHUNT [id number] 21:37:00Reason for exam:->postopFINAL REPORT EXAM: SHUNT SERIES [...] unremarkable. Additional Findings: Previously described occipital approach RIGGING WORKER shunt catheter unchanged when compared to the prior exam. Disconnected right-sided catheter segment is also changed as it overlies the thoracic cavity. IMPRESSION: Interval placement of a Codman Certas RIGGING WORKER shunt set to performance level 4. Signed: JR Nettles Robert MDReport Verified Date/Time: 11/08/2017 21:37:02 Reading Location: [address] CT, BRAIN, WITHOUT [id number] 08:07:00FINAL REPORT CT Head without contrast CLINICAL [...] shunt catheter as discussed above. Signed: Sam Keyort Verified Date/Time: 11/08/2017 08:07:55 Reading Location: [facility] Reading Room CBC W/PLT COUNT & AUTO [id number] 07:52:00 Test Item Value Reference Range Interpretation [...] (BEAKER) (test code = 2801) BASIC METABOLIC [id number] 07:30:00 Test Item Value Reference Range Interpretation [...] 697) EGFR (BEAKER) (test 44 mL/min/1.73 ESTIMA DAVID GFR IS code = 1092) sq m NOT ACCURATE CREATININE CLEARANCE IN PREDICTING GLOMERULAR FILTRATION RATE . ESTIMATED GFR I S NOT APPLICABLE FOR DIALYSIS PATIEN TS. [id number] 07:23:00 Test Item Value Reference Range Interpretation Comments PHOSPHORUS (BEAKER) (test code = 3.6 mg/dL 2.3-4.7 604) [id number] 07:23:00 Test Item Value Reference Range Interpretation Comments MAGNESIUM (BEAKER) (test code = 2.3 mg/dL 1.6-2.6 627) RAD, SHUNT [id number] 13:15:00Reason for exam:->headacheFINAL REPORT Shunt series, 11 [...] Santosh Sewell VerifiedDate/Time: 11/07/2017 13:15:42 Reading Location: [facility] [...] appearances probably chronic. The left-sided posterior approach RIGGING WORKER shunt extends along the medial aspect of theleft lateral ventricle posteriorly and does not definitively extend into the ventricular system. Thevisualized dural sinus regions, orbital contents, paranasal sinuses, bones and surrounding soft tissues are unremarkable. Impressions: 1. No specific evidence of acute intracranial abnormality. 2. Mildchronic appearing ventricular prominence without specific evidence of acute hydrocephalus. Note description of the intracranial left RIGGING WORKER shunt catheter. There is no definitive intraventricular [...] 1584) SOURCE(BEAKER) (test code = Urine, Voided 8012) SCREEN, [id number] 09:12:00 Test Item Value Reference Range Interpretation Comments TEST URINE (BEAKER) (test Negative code = 583) [id number] 03:34:00 Test Item Value Reference Range Interpretation Comments PHOSPHORUS (BEAKER) (test code = 3.5 mg/dL 2.3-4.7 604) [id number] 03:34:00 Test Item Value Reference Range Interpretation Comments MAGNESIUM (BEAKER) (test code = 2.2 mg/dL 1.6-2.6 627) BASIC METABOLIC [id number] 03:34:00 Test Item Value Reference Range Interpretation [...] 697) EGFR (BEAKER) (test 48 mL/min/1.73 ESTIMA DAVID GFR IS code = 1092) sq m NOT ACCURATE CREATININE CLEARANCE IN PREDICTING GLOMERULAR FILTRATION RATE . ESTIMATED GFR I S NOT APPLICABLE FOR DIALYSIS PATIEN TS. CBC W/PLT COUNT & AUTO [id number] 03:33:00 Test Item Value Reference Range Interpretation [...] 0-1 PERCENT (BEAKER) (test code = 2801) [id number] 03:28:00 Test Item Value Reference Range Interpretation [...]
[2023-02-21] MEDS ORDERED: LIDOCAINE 1% W/EPI 1:100,000 50 ML MDV ONE (18:44)
--- NOTE | 2023-02-21 19:14 | ER ---
Nurse's Notes [facility] Name: Yadi De Leon Age: 32 yrs Sex: Female : 1990 Arrival Date: 02/21/2023 Time: 15:52 Bed 16 Private MD: Diagnosis: Cutaneous abscess of the abdominal wall Presentation: 02/21 16:25 Chief complaint: Patient states: Abscess to L lower abdomen, started Sunday, hx of ph spina bifida. Coronavirus screen: Vaccine status: Patient reports receiving the 2nd dose of the covid vaccine. Ebola Screen: No symptoms or risks identified at this time. Initial Sepsis Screen: Does the patient meet any 2 criteria? No. Patient's initial sepsis screen is negative. Does the patient have a suspected source of infection? Yes: Skin breakdown/wound. Risk Assessment: Do you want to hurt yourself or someone else? Patient reports no desire to harm self or others. Onset of symptoms was February 21, 2023. 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 - Social history:: Smoking status: Patient denies any tobacco usage or history of. Screenin:51 [facility] ED Fall Risk Assessment (Adult) History of falling in the last 3 months, db including since admission No falls in past 3 months (0 pts) Confusion or Disorientation No (0 pts) Intoxicated or Sedated No (0 pts) Impaired Gait No (0 pts) Mobility Assist Device Used No (0 pt) Altered Elimination No (0 pt) Score/Fall Risk Level 0 - 2 = Low Risk Oriented to surroundings, Maintained a safe environment. Abuse screen: Denies threats or abuse. Denies injuries from another. Nutritional screening: No deficits noted. Tuberculosis screening: No symptoms or risk factors identified. Assessment: 18:51 Reassessment: Patient appears in no apparent distress at this time. Patient and/or db family updated on plan of care and expected duration. Pain level reassessed. Patient is alert, oriented x 3, equal unlabored respirations, skin warm/dry/pink. abscess to left lower abdomen. General: Appears in no apparent distress. comfortable, Behavior is calm, cooperative. Pain: Complains of pain in abdomen. Neuro: Level of Consciousness is awake, alert, obeys commands, Oriented to person, place, time, situation. Vital Signs: 16:25 BP 93 / 73; Pulse 89; Resp 18; Temp 98.6(O); Pulse Ox 100% on R/A; Weight 115.67 kg; ph Height 5 ft. 0 in. ; 19:46 BP 110 / 92; Pulse 74; Resp 17; Pulse Ox 99% on R/A; ll3 16:25 Body Mass Index 49.80 (115.67 kg, 152.4 cm) ph ED Course: 15:55 Patient arrived in ED. kj1 16:05 Raul Taylor PA is PHCP. jmm 16:05 Carlitos Gann MD is Attending Physician. jmm 16:32 Triage completed. ph 16:33 Arm band placed on. ph 18:11 Radha Montalvo, RN is Primary Nurse. db 18:52 No provider procedures requiring assistance completed. db 19:13 Magnus Sanches MD is Referral Physician. [facility] 19:45 Patient has correct armband on for positive identification. Bed in low position. Call ll3 light in reach. Side rails up X 1. Adult w/ patient. 19:45 Patient did not have IV access during this emergency room visit. ll3 Administered Medications: 18:40 Drug: Lidocaine-Epinephrine Infiltration -1%: (1:100,000) 20 ml {Note: given to db provider.} Volume: 20 ml; Route: Infiltration; 19:43 Drug: Trimethoprim-Sulfamethoxazole PO (160 mg-800 mg (DS) 1 tablet Route: PO; ll3 19:45 Follow up: Response: Medication administered at discharge. ll3 19:43 Drug: Doxycycline PO 100 mg Route: PO; ll3 19:45 Follow up: Response: Medication administered at discharge. ll3 Medication: 19:45 VIS not applicable for this client. ll3 Outcome: 19:14 Discharge ordered by . [facility] 19:45 Discharged to home via wheelchair, with family. ll3 19:45 Condition: stable 19:45 Discharge instructions given to patient, family, Instructed on discharge instructions, follow up and referral plans. medication usage, Demonstrated understanding of instructions, follow-up care, medications, Prescriptions given X 2. 19:46 Patient left the ED. ll3 Signatures: Raul Taylor PA PA jmm Hall, Patricia RN RN Rodo, Zoe kj1 Alexsander Redd RN RN ll3 Radha Montalvo RN RN db Corrections: (The following items were deleted from the chart) 16:33 16:25 Acuity: ARIANNA 4 ph ph
--- NOTE | 2023-02-21 19:14 | EDPHYS ---
Physician Documentation [facility] Name: Yadi De Leon Age: 32 yrs Sex: Female : 1990 Arrival Date: 02/21/2023 Time: 15:52 Bed 16 Private MD: ED Physician Carlitos Gann HPI: 02/21 16:36 This 32 yrs old Female presents to ER via Wheelchair with complaints of SORE jmm ON STOMACH. 16:36 the patient presents with a swollen area of the abdomen. Onset: The symptoms/episode jmm began/occurred gradually. Possible cause(s): unknown. Associated signs and symptoms: Pertinent positives: erythema, swelling, Pertinent negatives: fever. Modifying factors: the symptoms are alleviated by nothing, the symptoms are aggravated by nothing. The patient has experienced similar episodes in the past, multiple times. Patient denies fever. . 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 - Social history:: Smoking status: Patient denies any tobacco usage or history of. ROS: 16:36 Constitutional: Negative for fever, chills, and weight loss, Cardiovascular: Negative jmm for chest pain, palpitations, and edema, Respiratory: Negative for shortness of breath, cough, wheezing, and pleuritic chest pain. 16:36 Skin: Positive for swelling. 16:36 All other systems are negative. Exam: 16:36 Constitutional: This is a well developed, well nourished patient who is awake, alert, jmm and in no acute distress. Head/Face: atraumatic. Eyes: EOMI, no conjunctival erythema appreciated ENT: Moist Mucus Membranes Neck: Trachea midline, Supple Chest/axilla: Normal chest wall appearance and motion. Cardiovascular: Regular rate and rhythm. No edema appreciated Respiratory: Normal respirations, no respiratory distress appreciated 16:36 Skin: absess noted to the left lower abdomen. 16:36 Neuro: Orientation: is normal, Mentation: is normal, Memory: is normal. 16:36 Psych: Behavior/mood is pleasant, cooperative. Vital Signs: 16:25 BP 93 / 73; Pulse 89; Resp 18; Temp 98.6(O); Pulse Ox 100% on R/A; Weight 115.67 kg; ph Height 5 ft. 0 in. ; 19:46 BP 110 / 92; Pulse 74; Resp 17; Pulse Ox 99% on R/A; ll3 16:25 Body Mass Index 49.80 (115.67 kg, 152.4 cm) ph Procedures: 22:25 I \T\ D: Incision and drainage was performed for an abscess of the abdomen Prepped with [facility] Betadine, Anesthetized with 5 ml's 1% Lidocaine w/ Epi. Incised with #11 blade. Drained moderate amount purulent fluid. Packed with iodoform gauze, Dressing: sterile 4x4 gauze, the patient tolerated the procedure well. MDM: 16:36 Patient medically screened. [facility] 22:25 Differential diagnosis: abscess. Data reviewed: vital signs, nurses notes. Counseling: julee I had a detailed discussion with the patient and/or guardian regarding: the historical points, exam findings, and any diagnostic results supporting the discharge/admit diagnosis, the need for outpatient follow up, to return to the emergency department if symptoms worsen or persist or if there are any questions or concerns that arise at home. 02/21 16:37 Order name: Wound Culture [facility] 02/21 16:37 Order name: Incision \T\ Drainage Setup; Complete Time: 18:40 [facility] Administered Medications: 18:40 Drug: Lidocaine-Epinephrine Infiltration -1%: (1:100,000) 20 ml {Note: given to db provider.} Volume: 20 ml; Route: Infiltration; 19:43 Drug: Trimethoprim-Sulfamethoxazole PO (160 mg-800 mg (DS) 1 tablet Route: PO; ll3 19:45 Follow up: Response: Medication administered at discharge. ll3 19:43 Drug: Doxycycline PO 100 mg Route: PO; ll3 19:45 Follow up: Response: Medication administered at discharge. ll3 Disposition: 21:25 Co-signature as Attending Physician, Carlitos Gann MD I reviewed the patient's care rt provided by the Advanced Practice Provider and agree with the diagnosis and treatment plan. Disposition Summary: 02/21/23 19:14 Discharge Ordered Location: Home [facility] Condition: Stable [facility] Diagnosis - Cutaneous abscess of the abdominal wall [facility] Followup: jmm - With: Magnus Sanches MD - When: 2 - 3 days - Reason: Recheck today's complaints, Continuance of care, Re-evaluation by your physician Discharge Instructions: - Discharge Summary Sheet [facility] - Incision and Drainage, Care After m Forms: - Medication Reconciliation Form [facility] - Thank You Letter [facility] - Antibiotic Education [facility] - Prescription Opioid Use [facility] Prescriptions: - mupirocin 2 % Topical ointment - apply 1 application by INTRANASAL route 2 times per day for 14 days administer jmm after dialysis on dialysis days; 1 unit; Refills: 0, Product Selection Permitted - Doxycycline Hyclate 100 mg Oral Tablet - take 1 tablet by ORAL route every 12 hours; 20 tablet; Refills: 0, Product [facility] Selection Permitted - Bactrim DS 800-160 mg Oral Tablet - take 1 tablet by ORAL route every 12 hours for 10 days; 20 tablet; Refills: 0, [facility] Product Selection Permitted Signatures: Dispatcher [employer] EDRaul Zambrano PA PA [facility] Jenn Caballero, RN RN Alexsander Mack RN RN [facility] Radha Montalvo, STARR RN db Carlitos Gann MD MD rt
[2023-02-21] MEDS ORDERED: SMZ./TMP. 800/160 MG TABLET ONE (19:37)
[2023-02-21] MEDS ORDERED: DOXYCYCLINE 100 MG CAP PO ONE (19:37)
[2023-02-21 20:17] VITALS: BP 93/73; TEMP 98.6; O2SAT 100
== END 2023-02-21 19:46 | disposition home or self-care (01) ==
LOC: ER 15:52
PROC: 0H97XZZ Drainage of Abdomen Skin, External Approach (ICD-10-PCS; principal; 2023-02-21)
DX: L02.211 Cutaneous abscess of abdominal wall (principal); Z91.040 Latex allergy status; Z91.048 Other nonmedicinal substance allergy status
CPT/HCPCS: 87070; 87205